=== PATIENT | female | born 1950 | race Caucasian/White ===

== ENCOUNTER 2016-11-02 17:14 | Emergency (ER) | payer OTHER ==
[~2016-11-02] VITALS: Ht 153.7 cm; Wt 119.3 kg
[~2016-11-02 17:14] MED LIST: AMLO-114 PO; ASPEC325 PO; ATEN50TA8 PO; BND25X PO; CGN1 PO; CITA-112 PO; HYD50 PO; LISI-461 PO; NAVANE PO; OMEG10007 PO; POTAPOW29 PO; SIMV80TA2 PO; [UNRECOGNIZED DRUG - OTHER] PO
[2016-11-02 17:17] VITALS: TEMP 36.6; Ht 153.7 cm; Wt 119.3 kg
--- NOTE | 2016-11-02 17:37 | EMERGENCY ROOM VISIT NOTE ---
History Report prepared by Josefa: Alexa Canchola Under the Supervision of: Dr. Bravo Coulter M.D. First contact with patient: 17:22 Chief Complaint: MENTAL HEALTH EVALUATION Stated Complaint: MENTAL HEALTH EVAL History of Present Illness The patient is a 66 year old female who presents to the Emergency Room with complaints of persistent suicidal ideations that started [employer]. The patient states that she became upset about a letter that her neighbor wrote to her today. She notes that this letter made her "useless." The patient has a history of mental health hospital admissions. She was sent to the ED today by her psychiatrist. The patient is currently prescribed Lisinopril for hypertension. She denies drug or alcohol use. 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 Please see Additional Medical History Sheet. Past Medical & Surgical Medical Problems: (1) COPD (chronic obstructive pulmonary disease) (2) Hypertension Family History FH: hypertension Social History Smoking Status: Current Every Day Smoker Alcohol Use: none Drug Use: none Marital Status: single Current/Historical Medications Scheduled , 600 MG PO DAILY , 5 MG PO HS Amlodipine (Norvasc), 10 MG PO DAILY Aspirin (Aspirin *), 325 MG PO DAILY Citalopram (Citalopram), 40 MG PO HS Fish Oil (Butler-3), 1 GM PO DAILY Hydrochlorothiazide (Hctz *), 25 MG PO DAILY Lisinopril (Zestril), 20 MG PO DAILY Simvastatin (Zocor), 80 MG PO HS [Potassium Gluconate], 1 TAB PO DAILY Allergies Coded Allergies: No Known Allergies (Verified , 11/02/16) Physical Exam Vital Signs Date Time Temp Pulse Resp B/P Pulse Ox O2 Delivery O2 Flow Rate FiO2 11/02/16 22:57 82 94 Room Air 11/02/16 20:51 89 18 151/79 92 Room Air 11/02/16 19:13 79 18 162/77 94 Room Air 11/02/16 18:03 88 20 170/87 94 Room Air 11/02/16 17:17 36.6 85 20 219/102 93 Room Air Physical Exam GENERAL: Patient awake, alert. despondent. SKIN: No erythema, pallor, cyanosis or rash HEENT: Normal head, pupils equal, reactive to light and accommodation. LUNGS: Clear to auscultation. No wheezes, no rales, no rhonchi. HEART: No murmurs. No gallops. No rubs ABDOMEN: Obese, soft, nontender. EXTREMITIES: No signs of trauma or infection. NEUROLOGIC: Cranial nerves II-XII within normal limits. No gross motor sensory function deficits. PSYCH: Despondent, stated suicidal ideation. Medical Decision & Procedures ER Provider Diagnostic Interpretation: X ray results are stated below per my interpretation and the radiologist's interpretation. CHEST 2 VIEWS ROUTINE CLINICAL HISTORY: COPD dyspnea COMPARISON STUDY: No previous studies for comparison. FINDINGS: The bones soft tissues and hemidiaphragms are normal. The cardiomediastinal silhouette is normal. The lungs are clear. The pulmonary vasculature is normal. IMPRESSION: Negative chest. Electronically signed by: Laurent Selby M.D. 11/02/2016 7:12 PM Dictated Date/Time: 11/02/2016 7:11 PM Laboratory Results 11/02/16 18:01 11/02/16 18:01 Test 11/02/16 18:01 11/02/16 18:47 Red Blood Count 4.70 M/uL (4.2-5.4) Mean Corpuscular Volume 89.4 fL (80-100) Mean Corpuscular Hemoglobin 31.9 pg (25-34) Mean Corpuscular Hemoglobin Concent 35.7 g/dl (32-36) RDW Standard Deviation 44.4 fL (36.4-46.3) RDW Coefficient of Variation 13.4 % (11.5-14.5) Mean Platelet Volume 9.2 fL (7.4-10.4) Anion Gap 6.0 mmol/L (3-11) Est Creatinine Clear Calc Drug Dose 123.5 ml/min Estimated GFR () 114.9 Estimated GFR (Non- 99.1 BUN/Creatinine Ratio 16.1 (10-20) Calcium Level 8.9 mg/dl (8.5-10.1) Total Bilirubin 0.6 mg/dl (0.2-1) Aspartate Amino Transf (AST/SGOT) 32 U/L (15-37) Alanine Aminotransferase (ALT/SGPT) 31 U/L (12-78) Alkaline Phosphatase 89 U/L (45-117) Troponin I < 0.015 ng/ml (0-0.045) Total Protein 7.3 gm/dl (6.4-8.2) Albumin 3.8 gm/dl (3.4-5.0) Globulin 3.5 gm/dl (2.5-4.0) Albumin/Globulin Ratio 1.1 (0.9-2) Thyroid Stimulating Hormone (TSH) 4.680 uIu/ml (0.300-4.500) Free Thyroxine 1.02 ng/dl (0.80-1.60) Ethyl Alcohol mg/dL < 3.0 mg/dl (0-3) Urine Color YELLOW Urine Appearance CLEAR (CLEAR) Urine pH 6.5 (4.5-7.5) Urine Specific [place] 1.009 (1.000-1.030) Urine Protein NEG (NEG) Urine Glucose (UA) NEG (NEG) Urine Ketones NEG (NEG) Urine Occult Blood NEG (NEG) Urine Nitrite NEG (NEG) Urine Bilirubin NEG (NEG) Urine Urobilinogen NEG (NEG) Urine Leukocyte Esterase NEG (NEG) Urine Opiates Screen NEG (NEG) Urine Methadone, Qualitative NEG (NEG) Urine Barbiturates NEG (NEG) Urine Phencyclidine (PCP) Level NEG (NEG) Ur Amphetamine/Methamphetamine NEG (NEG) MDMA (Ecstasy) Screen NEG (NEG) Urine Benzodiazepines Screen NEG (NEG) Urine Cocaine Metabolite NEG (NEG) Urine Marijuana (THC) NEG (NEG) Laboratory results as stated above per my review. ECG Indication: other (Hypertension ) Rate (beats per minute): 79 Rhythm: normal sinus Findings: LBBB, no acute ischemic change, left axis deviation, no ectopy ED Course 1725: Past medical records reviewed. The patient was evaluated in room A12. A complete history and physical examination was performed. 1940: The patient will be evaluated by psychiatric department. 0005: We are awaiting acceptance from the [facility]. Medical Decision Nurses notes reviewed. Medical history sheet reviewed. Differential diagnosis includes but is not limited to: Depression, suicidality, COPD. Multiple labs, urinalysis EKG were evaluated. Please see above. TSH is elevated. T4 is within normal range. The patient may be borderline hypothyroid. In the meantime the patient is significantly depressed and paranoid. I believe that she would benefit from inpatient psychiatric evaluation and treatment. The patient is awaiting acceptance and transfer to a psychiatric facility. Impression Primary Impression: Depression Additional Impression: Suicidal ideation Scribe Attestation The scribe's documentation has been prepared under my direction and personally reviewed by me in its entirety. I confirm that the note above accurately reflects all work, treatment, procedures, and medical decision making performed by me. Departure Information Referrals No Doctor, Assigned (PCP) Patient Instructions My [facility] Problem Qualifiers
[2016-11-02 18:16] LABS: MEAN CELL VOLUME 89.4 fL (80-100); MEAN CORPUSCULAR HEMOGLOBIN 31.9 pg (25-34); MEAN CORPUSCULAR HGB CONC 35.7 g/dl (32-36); MEAN PLATELET VOLUME 9.2 fL (7.4-10.4); PLATELET COUNT 284 K/uL (130-400)
[2016-11-02 18:34] LABS: ALT/SGPT 31 U/L (12-78); AST/SGOT 32 U/L (15-37); BLOOD UREA NITROGEN 9 mg/dl (7-18); BUN/CREATININE RATIO 16.1 (10-20); CALCIUM 8.9 mg/dl (8.5-10.1); CARBON DIOXIDE 29 mmol/L (21-32); CHLORIDE 98 mmol/L (98-107); CREATININE 0.55 mg/dl (0.60-1.20); GLUCOSE 96 mg/dl (70-99); POTASSIUM 3.8 mmol/L (3.5-5.1); SODIUM 133 mmol/L (136-145)
[2016-11-02 18:44] LABS: ALB/GLOB RATIO 1.1 (0.9-2); ALKALINE PHOSPHATASE 89 U/L (45-117)
--- NOTE | 2016-11-02 19:13 | DIAGNOSTIC IMAGING REPORT ---
CHEST 2 VIEWS ROUTINE CLINICAL HISTORY: COPD dyspnea COMPARISON STUDY: No previous studies for comparison. FINDINGS: The bones soft tissues and hemidiaphragms are normal. The cardiomediastinal silhouette is normal. The lungs are clear. The pulmonary vasculature is normal. IMPRESSION: Negative chest. Electronically signed by: Laurent Selby M.D. 11/02/2016 7:12 PM Dictated Date/Time: 11/02/2016 7:11 PM
[2016-11-02 19:20] LABS: URINE APPEARANCE CLEAR (CLEAR); URINE BILIRUBIN NEG (NEG); URINE COLOR YELLOW; URINE NITRITE NEG (NEG); URINE PH 6.5 (4.5-7.5); URINE SPECIFIC GRAVITY 1.009 (1.000-1.030); UROBILINOGEN NEG (NEG); ZZUR CULT IF INDIC CLEAN CATCH NO
[2016-11-02 19:36] LABS: MANUAL MICROSCOPIC REQUIRED? NO; REVIEW REQ? NO
[2016-11-02 20:06] LABS: BENZODIAZEPINE, URINE NEG (NEG); COCAINE,URINE NEG (NEG); PHENCYCLIDINE, URINE NEG (NEG)
[2016-11-03] MEDS ORDERED: HYDROCHLOROTHIAZIDE 25 MG TAB PO STA (06:15)
[2016-11-03] MEDS ORDERED: LISINOPRIL 20 MG TAB PO STA (06:15)
[2016-11-03] MEDS ORDERED: ASPIRIN/ALUM/MAGNES/CAL CARB 325 MG TAB PO STA (06:15)
[2016-11-03] MEDS ORDERED: AMLODIPINE BESYLATE 5 MG TAB PO ONE (06:15)
--- NOTE | 2016-11-03 06:18 | EMERGENCY ROOM VISIT NOTE ---
ED Visit Note First contact with patient: 02:58 This patient was signed out to me at change of shift awaiting transport to the [facility]. The patient remained here in the emergency department overnight. She was given her morning medications-Norvasc, aspirin, hydrochlorothiazide, and lisinopril. She will eat breakfast and then be transported to the [facility] around 9 AM.
[2016-11-03 09:35] VITALS: BP 137/83; PULSE 96; O2SAT 96
== END 2016-11-03 09:39 ==
LOC: C.EDB 17:16 → C.EDA 11-03 09:39
DX: F32.9 Major depressive disorder, single episode, unspecified (principal); R45.851 Suicidal ideations; I10 Essential (primary) hypertension; Z79.899 Other long term (current) drug therapy; J44.9 Chronic obstructive pulmonary disease, unspecified; Z82.49 Family history of ischemic heart disease and other diseases of the circulatory system; F17.210 Nicotine dependence, cigarettes, uncomplicated; Z79.82 Long term (current) use of aspirin

== ENCOUNTER 2019-04-26 16:30 | Inpatient (IN) ==
[2019-04-26] MEDS ORDERED: SODIUM CHLORIDE 0.9% 500 ML IV SCH (17:00)
--- NOTE | 2019-04-26 17:13 | XRay Report ---
XR chest 1V portable CLINICAL HISTORY: weakness COMPARISON STUDY: Chest radiograph November 02, 2016. FINDINGS: The patient is rotated. Lung volumes are diminished. Right basilar opacity is present. Mild enlargement of the cardiac silhouette is accentuated on this AP exam. There is interstitial prominen ce without overt pulmonary edema. IMPRESSION: 1. Low lung volumes with right basilar opacity. This favors atelectasis however pneumonia could appea r similar. Follow-up PA and lateral chest radiographs in one month to ensure resolution are recommend ed. 2. Suspected mild cardiomegaly. No evidence for overt pulmonary edema. Electronically signed by: Scott Brown M.D. 04/26/2019 5:12 PM
[2019-04-26 17:20] LABS: Basophils # (auto) 0.01 K/uL (0-0.2); Basophils % (auto) 0.1 %; Eosinophils # (auto) 0.25 K/uL (0-0.5); Hematocrit (blood only) 51.6 % (37-47); Hemoglobin 16.9 g/dL (12.0-16.0); Immature Granulocytes # (auto) 0.05 K/uL (0.00-0.02); Immature Granulocytes % (auto) 0.4 %; Lymphocytes # (auto) 0.98 K/uL (1.2-3.4); Mean Corpuscular Hemoglobin 32.4 pg (25-34); Mean Corpuscular Hgb Conc 32.8 g/dL (32-36); Mean Corpuscular Volume 98.9 fL (80-100); Mean Platelet Volume 9.6 fL (7.4-10.4); Monocytes # (auto) 0.88 K/uL (0.11-0.59); Monocytes % (auto) 7.2 %; Neutrophils # (auto) 10.03 K/uL (1.4-6.5); Neutrophils % (auto) 82.3 %; Platelet Count 195 K/uL (130-400); RDW Coefficient of Variation 16.2 % (11.5-14.5); RDW Standard Deviation 58.7 fL (36.4-46.3); Red Blood Count 5.22 M/uL (4.2-5.4)
[2019-04-26 17:26] LABS: Base Excess ABG 7.1 mEq/L (-9-1.8); HCO3 ABG 35 mmol/L (19-24); Oxygen Saturation ABG 92.2 % (90-95); PCO2 ABG 65 mmHg (35-46); PO2 ABG 63 mm/Hg (80-95); pH ABG 7.36 (7.35-7.45)
[2019-04-26 17:27] LABS: Allen Test Pos (Pos)
[2019-04-26 17:29] LABS: INR 1.1 (0.9-1.1); Prothrombin Time 11.1 Seconds (9.0-12.0)
[2019-04-26 17:39] LABS: BUN Creatinine Ratio 9.4 (10-20); Calcium 9.5 mg/dl (8.5-10.1); Creatinine Clr Calc Pharmacy 25.5 ml/min; Est GFR (African American) 21.3; Est GFR (Non-African American) 18.4; Magnesium 2.1 mg/dl (1.8-2.4); Potassium 3.8 mmol/L (3.5-5.1)
[2019-04-26 17:41] LABS: Appearance Urine Cloudy (Clear); Bacteria Urine Automated Negative (Negative); Bilirubin Urine Negative (Negative); Blood Urine Negative (Negative); Color Urine Dark Yellow; Epithelial Cell Urine Auto >30 /lpf (0-5); Glucose Urine UA Negative (Negative); Ketones Urine Trace (Negative); Leukocyte Esterase Urine Negative (Negative); Nitrite Urine Negative (Negative); Protein Urine 1+ (Negative); Urobilinogen Urine Negative (Negative)
[2019-04-26 17:46] LABS: Cast Urine Automated >30 /lpf (0-5)
[2019-04-26 17:51] LABS: Albumin Globulin Ratio 1.1 (0.9-2); Bilirubin,Total 0.6 mg/dl (0.2-1); Globulin 3.5 gm/dl (2.5-4.0); Thyroid Stimulating Hormone 3.44 uIu/ml (0.300-4.500); Total Protein 7.5 gm/dl (6.4-8.2); Troponin I 0.066 ng/ml (0-0.045)
[2019-04-26] MEDS ORDERED: PIPERACILL/TAZOBAC CONSULT ACTIVE PRN ×2 (18:28→20:32)
[2019-04-26] MEDS ORDERED: PIPERACILLIN/TAZOBACTAM 4.5 GM/120 ML BAG IV ONE (18:28)
--- NOTE | 2019-04-26 18:47 | Emergency Department Note ---
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 The patient states that her family called EMS because they were concerned that she needs to go to a mcc. She reports that her family found her in her residence home with slurred speech. The patient denies any pain and states that she is unsure why she is here. Home Medications Home Medications Medication Instructions Recorded Confirmed Type diltiazem HCl 300 mg PO DAILY 08/31/18 04/26/19 History fluticasone propion-salmeterol 1 puff INHALATION BID 08/31/18 04/26/19 History [Advair Diskus] furosemide 40 mg PO BID 08/31/18 04/26/19 History gabapentin 100 mg PO TID 08/31/18 04/26/19 History lisinopril 1 tab PO QAM 08/31/18 04/26/19 History loratadine 10 tab PO QAM 08/31/18 04/26/19 History meloxicam 15 mg PO QAM 08/31/18 04/26/19 History metoprolol tartrate 50 mg PO QAM 08/31/18 04/26/19 History risperidone 1 mg PO QAM 08/31/18 04/26/19 History sertraline 100 mg PO QAM 08/31/18 04/26/19 History ascorbic acid (vitamin C) [Vitamin 1 g PO DAILY 04/26/19 04/26/19 History C] aspirin 325 mg PO DAILY 04/26/19 04/26/19 History atorvastatin 40 mg PO HS 04/26/19 04/26/19 History qpeponubwvp-jmcwvlmre-eunhbopj 1 inh INHALATION QAM 04/26/19 04/26/19 History [Trelegy Ellipta] hydroxyzine pamoate 25 mg PO QID PRN 04/26/19 04/26/19 History ipratropium-albuterol 3 ml INHALATION QID PRN 04/26/19 04/26/19 History levothyroxine 75 mcg PO QAM 04/26/19 04/26/19 History lithium carbonate 300 mg PO TID 04/26/19 04/26/19 History melatonin 2 mg PO HS 04/26/19 04/26/19 History nicotine 1 patch TRANSDERMAL DAILY 04/26/19 04/26/19 History prazosin 1 mg PO HS 04/26/19 04/26/19 History risperidone 2 mg PO HS 04/26/19 04/26/19 History Allergies Allergy/AdvReac Type Severity Reaction Status Date / Time No Known Allergies Allergy Verified 04/26/19 17:15 Past Med/Surg History Medical History Hallucinations Schizophrenia Social History Preferred Language: Persian Feels Safe at Home: Yes Smoking Status: Current every day smoker Review of Systems See HPI for pertinent positives & negatives. and A total of 10 systems reviewed and were otherwise negative Physical Exam Vital Signs Vital Signs - 24 hr 04/26/19 16:24 04/26/19 16:38 04/26/19 16:41 Temperature Temperature Source Sepsis Recent Fever Within 48 Hours Sepsis New/Unexplained Change in Mental Status Sepsis Action Taken by Nursing Pulse Rate 106 H 165 H Pulse Rate from SpO2 Sensor 80 79 Pulse Rhythm Pulse Strength Respiratory Rate 18 20 Respiratory Effort / Characteristics Respiratory Depth Respiratory Pattern Blood Pressure 143/107 H Blood Pressure Mean 119 Blood Pressure Position Pulse Oximetry 95 85 L 89 L Oxygen Delivery Method Oxymask Oxygen Flow Rate 6 04/26/19 16:47 04/26/19 16:49 04/26/19 16:50 Temperature 37.1 C Temperature Source Oral Sepsis Recent Fever Within 48 Hours No Sepsis New/Unexplained Change in Mental Status Yes Sepsis Action Taken by Nursing No Action Required Pulse Rate 76 155 H Pulse Rate from SpO2 Sensor 77 Pulse Rhythm Regular Pulse Strength Normal Respiratory Rate 28 H 18 Respiratory Effort / Characteristics Non-Labored Spontaneous Respiratory Depth Normal Respiratory Pattern Regular Blood Pressure 143/107 H Blood Pressure Mean 119 Blood Pressure Position Sitting Pulse Oximetry 95 81 L 97 Oxygen Delivery Method Oxymask Room Air Oxygen Flow Rate 6 04/26/19 17:00 04/26/19 17:10 04/26/19 17:20 Temperature Temperature Source Sepsis Recent Fever Within 48 Hours Sepsis New/Unexplained Change in Mental Status Sepsis Action Taken by Nursing Pulse Rate 158 H 83 78 Pulse Rate from SpO2 Sensor 77 78 Pulse Rhythm Pulse Strength Respiratory Rate 18 18 23 Respiratory Effort / Characteristics Respiratory Depth Respiratory Pattern Blood Pressure Blood Pressure Mean Blood Pressure Position Pulse Oximetry 93 Oxygen Delivery Method Oxygen Flow Rate 04/26/19 17:25 04/26/19 17:30 04/26/19 17:40 Temperature Temperature Source Sepsis Recent Fever Within 48 Hours Sepsis New/Unexplained Change in Mental Status Sepsis Action Taken by Nursing Pulse Rate 76 77 75 Pulse Rate from SpO2 Sensor 75 76 Pulse Rhythm Pulse Strength Respiratory Rate 17 16 Respiratory Effort / Characteristics Respiratory Depth Respiratory Pattern Blood Pressure 141/75 H 138/83 Blood Pressure Mean 97 101 Blood Pressure Position Pulse Oximetry 98 95 Oxygen Delivery Method Nasal Cannula Oxygen Flow Rate 4 04/26/19 17:50 04/26/19 18:00 Temperature Temperature Source Sepsis Recent Fever Within 48 Hours Sepsis New/Unexplained Change in Mental Status Sepsis Action Taken by Nursing Pulse Rate 77 77 Pulse Rate from SpO2 Sensor 77 77 Pulse Rhythm Pulse Strength Respiratory Rate 15 19 Respiratory Effort / Characteristics Respiratory Depth Respiratory Pattern Blood Pressure 138/87 Blood Pressure Mean 104 Blood Pressure Position Pulse Oximetry 97 97 Oxygen Delivery Method Oxygen Flow Rate CONSTITUTIONAL/VITAL SIGNS: Reviewed / noted above. GENERAL: Slurring speech. Generalized weakness. Non-toxic in appearance. INTEGUMENTARY: Warm, dry, and [place]. HEAD: Normocephalic. EYES: without scleral icterus or trauma. ENT/OROPHARYNX: clear and dry mucus membranes. LYMPHADENOPATHY/NECK: Is supple without lymphadenopathy or meningismus. RESPIRATORY: Lungs clear and equal. CARDIOVASCULAR: Regular rate and rhythm. GI/ABDOMEN: Soft and nontender. No organomegaly or pulsatile mass. No rebound or guarding. Normal bowel sounds. EXTREMITIES: Warm and well perfused. BACK: No CVA tenderness. NEUROLOGICAL: Intact without focal deficits. PSYCHIATRIC: normal affect. MUSCULOSKELETAL: Normally developed with good muscle tone. Course 1642: The patient was evaluated in room B6, and a complete history and physical examination were performed. 1833: I reviewed the patient's case with Jenny Fung. Dr. Omero Fung Hospitalist, will evaluate the patient for further management. Administered Medications Piperacillin Sod/Tazobactam Sod (Zosyn) 4.5 gm in 120 mls @ 240 mls/hr IV NOW ONE Stop: 04/26/19 18:57 Last Admin: 04/26/19 18:37 Dose: 240 mls/hr Documented by: [id number] Discontinued Medications Sodium Chloride (Nss) 500 mls @ 999 mls/hr IV .Q31M SAMUEL Stop: 04/26/19 17:30 Last Infusion: 04/26/19 18:01 Dose: 0 mls/hr Documented by: [id number] Admin: 04/26/19 17:28 Dose: 999 mls/hr Documented by: [id number] Medical Decision Making Differential Diagnosis Differential diagnosis: Etiologies such as metabolic, infection, hypoglycemia, electrolyte abnormalities, cardiac sources, intracerebral event, toxicologic, neurologic, as well as others were entertained. Medical Records Attestation: I reviewed the patient's medical records. Home Medications Current Medication List: was personally reviewed by me Laboratory Data Attestation: I reviewed the patient's lab results. Result diagrams: 04/26/19 17:08 04/26/19 17:08 Lab Results 04/26/19 04/26/19 04/26/19 Range/Units 17:08 17:08 17:08 WBC 12.20 H (4.8-10.8) K/uL RBC 5.22 (4.2-5.4) M/uL Hgb 16.9 H (12.0-16.0) g/dL Hct 51.6 H (37-47) % MCV 98.9 (80-100) fL MCH 32.4 (25-34) pg MCHC 32.8 (32-36) g/dL RDW Std Deviation 58.7 H (36.4-46.3) fL RDW Coeff of [place] 16.2 H (11.5-14.5) % Plt Count 195 (130-400) K/uL MPV 9.6 (7.4-10.4) fL Immature Gran % (Auto) 0.4 % Neut % (Auto) 82.3 % Lymph % (Auto) 8.0 % [place] % (Auto) 7.2 % Eos % (Auto) 2.0 % Baso % (Auto) 0.1 % Immature Gran # (Auto) 0.05 H (0.00-0.02) K/uL Neut # (Auto) 10.03 H (1.4-6.5) K/uL Lymph # (Auto) 0.98 L (1.2-3.4) K/uL [place] # (Auto) 0.88 H (0.11-0.59) K/uL Eos # (Auto) 0.25 (0-0.5) K/uL Baso # (Auto) 0.01 (0-0.2) K/uL PT 11.1 (9.0-12.0) Seconds INR 1.1 (0.9-1.1) ABG pH (7.35-7.45) ABG pCO2 (35-46) mmHg ABG pO2 (80-95) mm/Hg ABG HCO3 (19-24) mmol/L ABG O2 Saturation (90-95) % ABG Base Excess (-9-1.8) mEq/L Parker Test (Pos) Barometric Pressure mm/Hg Oxygen Given Sodium (136-145) mmol/L Potassium (3.5-5.1) mmol/L Chloride (98-107) mmol/L Carbon Dioxide (21-32) mmol/L Anion Gap (3-11) BUN (7-18) mg/dl Creatinine (0.6-1.2) mg/dl Est Cr Clr Drug Dosing ml/min Est GFR ( Amer) Est GFR (Non-Af Amer) BUN/Creatinine Ratio (10-20) Glucose (70-99) mg/dl Calcium (8.5-10.1) mg/dl Magnesium (1.8-2.4) mg/dl Total Bilirubin (0.2-1) mg/dl AST (15-37) U/L ALT (12-78) U/L Alkaline Phosphatase (45-117) U/L Ammonia (11-32) umol/L Total Creatine Kinase (26-192) U/L Troponin I (0-0.045) ng/ml Total Protein (6.4-8.2) gm/dl Albumin (3.4-5.0) gm/dl Globulin (2.5-4.0) gm/dl Albumin/Globulin Ratio (0.9-2) TSH (0.300-4.500) uIu/ml Urine Color Urine Appearance (Clear) Urine pH (4.5-7.5) Ur Specific [place] (1.000-1.030) Urine Protein (Negative) Urine Glucose (UA) (Negative) Urine Ketones (Negative) Urine Blood (Negative) Urine Nitrite (Negative) Urine Bilirubin (Negative) Urine Urobilinogen (Negative) Ur Leukocyte Esterase (Negative) Urine WBC (Auto) (0-5) /hpf Urine RBC (Auto) (0-4) /hpf U Hyaline Cast (Auto) (0-5) /lpf U Epithel Cells (Auto) (0-5) /lpf Urine Bacteria (Auto) (Negative) Ur Renal Epithelial Cell [place] 2.0 H* (0.6-1.2) mmol/L 04/26/19 04/26/19 04/26/19 Range/Units 17:08 17:08 17:14 WBC (4.8-10.8) K/uL RBC (4.2-5.4) M/uL Hgb (12.0-16.0) g/dL Hct (37-47) % MCV (80-100) fL MCH (25-34) pg MCHC (32-36) g/dL RDW Std Deviation (36.4-46.3) fL RDW Coeff of Connor (11.5-14.5) % Plt Count (130-400) K/uL MPV (7.4-10.4) fL Immature Gran % (Auto) % Neut % (Auto) % Lymph % (Auto) % [place] % (Auto) % Eos % (Auto) % Baso % (Auto) % Immature Gran # (Auto) (0.00-0.02) K/uL Neut # (Auto) (1.4-6.5) K/uL Lymph # (Auto) (1.2-3.4) K/uL [place] # (Auto) (0.11-0.59) K/uL Eos # (Auto) (0-0.5) K/uL Baso # (Auto) (0-0.2) K/uL PT (9.0-12.0) Seconds INR (0.9-1.1) ABG pH 7.36 (7.35-7.45) ABG pCO2 65 H (35-46) mmHg ABG pO2 63 L (80-95) mm/Hg ABG HCO3 35 H (19-24) mmol/L ABG O2 Saturation 92.2 (90-95) % ABG Base Excess 7.1 H (-9-1.8) mEq/L Parker Test Pos (Pos) Barometric Pressure 735.3 mm/Hg Oxygen Given 6L Sodium 134 L (136-145) mmol/L Potassium 3.8 (3.5-5.1) mmol/L Chloride 94 L (98-107) mmol/L Carbon Dioxide 38 H (21-32) mmol/L Anion Gap 1.0 L (3-11) BUN 25 H (7-18) mg/dl Creatinine 2.61 H (0.6-1.2) mg/dl Est Cr Clr Drug Dosing 25.5 ml/min Est GFR ( Amer) 21.3 Est GFR (Non-Af Amer) 18.4 BUN/Creatinine Ratio 9.4 L (10-20) Glucose 99 (70-99) mg/dl Calcium 9.5 (8.5-10.1) mg/dl Magnesium 2.1 (1.8-2.4) mg/dl Total Bilirubin 0.6 (0.2-1) mg/dl AST 11 L (15-37) U/L ALT 18 (12-78) U/L Alkaline Phosphatase 79 (45-117) U/L Ammonia 15.1 (11-32) umol/L Total Creatine Kinase 36 (26-192) U/L Troponin I 0.066 H* (0-0.045) ng/ml Total Protein 7.5 (6.4-8.2) gm/dl Albumin 4.0 (3.4-5.0) gm/dl Globulin 3.5 (2.5-4.0) gm/dl Albumin/Globulin Ratio 1.1 (0.9-2) TSH 3.440 (0.300-4.500) uIu/ml Urine Color Urine Appearance (Clear) Urine pH (4.5-7.5) Ur Specific [place] (1.000-1.030) Urine Protein (Negative) Urine Glucose (UA) (Negative) Urine Ketones (Negative) Urine Blood (Negative) Urine Nitrite (Negative) Urine Bilirubin (Negative) Urine Urobilinogen (Negative) Ur Leukocyte Esterase (Negative) Urine WBC (Auto) (0-5) /hpf Urine RBC (Auto) (0-4) /hpf U Hyaline Cast (Auto) (0-5) /lpf U Epithel Cells (Auto) (0-5) /lpf Urine Bacteria (Auto) (Negative) Ur Renal Epithelial Cell [place] (0.6-1.2) mmol/L 04/26/19 Range/Units 17:20 WBC (4.8-10.8) K/uL RBC (4.2-5.4) M/uL Hgb (12.0-16.0) g/dL Hct (37-47) % MCV (80-100) fL MCH (25-34) pg MCHC (32-36) g/dL RDW Std Deviation (36.4-46.3) fL RDW Coeff of [place] (11.5-14.5) % Plt Count (130-400) K/uL MPV (7.4-10.4) fL Immature Gran % (Auto) % Neut % (Auto) % Lymph % (Auto) % [place] % (Auto) % Eos % (Auto) % Baso % (Auto) % Immature Gran # (Auto) (0.00-0.02) K/uL Neut # (Auto) (1.4-6.5) K/uL Lymph # (Auto) (1.2-3.4) K/uL [place] # (Auto) (0.11-0.59) K/uL Eos # (Auto) (0-0.5) K/uL Baso # (Auto) (0-0.2) K/uL PT (9.0-12.0) Seconds INR (0.9-1.1) ABG pH (7.35-7.45) ABG pCO2 (35-46) mmHg ABG pO2 (80-95) mm/Hg ABG HCO3 (19-24) mmol/L ABG O2 Saturation (90-95) % ABG Base Excess (-9-1.8) mEq/L Parker Test (Pos) Barometric Pressure mm/Hg Oxygen Given Sodium (136-145) mmol/L Potassium (3.5-5.1) mmol/L Chloride (98-107) mmol/L Carbon Dioxide (21-32) mmol/L Anion Gap (3-11) BUN (7-18) mg/dl Creatinine (0.6-1.2) mg/dl Est Cr Clr Drug Dosing ml/min Est GFR ( Amer) Est GFR (Non-Af Amer) BUN/Creatinine Ratio (10-20) Glucose (70-99) mg/dl Calcium (8.5-10.1) mg/dl Magnesium (1.8-2.4) mg/dl Total Bilirubin (0.2-1) mg/dl AST (15-37) U/L ALT (12-78) U/L Alkaline Phosphatase (45-117) U/L Ammonia (11-32) umol/L Total Creatine Kinase (26-192) U/L Troponin I (0-0.045) ng/ml Total Protein (6.4-8.2) gm/dl Albumin (3.4-5.0) gm/dl Globulin (2.5-4.0) gm/dl Albumin/Globulin Ratio (0.9-2) TSH (0.300-4.500) uIu/ml Urine Color Dark Yellow Urine Appearance Cloudy A (Clear) Urine pH 5.0 (4.5-7.5) Ur Specific [place] 1.020 (1.000-1.030) Urine Protein 1+ H (Negative) Urine Glucose (UA) Negative (Negative) Urine Ketones Trace H (Negative) Urine Blood Negative (Negative) Urine Nitrite Negative (Negative) Urine Bilirubin Negative (Negative) Urine Urobilinogen Negative (Negative) Ur Leukocyte Esterase Negative (Negative) Urine WBC (Auto) 1-5 (0-5) /hpf Urine RBC (Auto) 5-10 H (0-4) /hpf U Hyaline Cast (Auto) >30 H (0-5) /lpf U Epithel Cells (Auto) >30 H (0-5) /lpf Urine Bacteria (Auto) Negative (Negative) Ur Renal Epithelial Cell Not Reportable [place] (0.6-1.2) mmol/L Imaging Data Radiologist's Impression: Radiology results as stated below per my review and the radiologist's interpretation: XR chest 1V portable CLINICAL HISTORY: weakness COMPARISON STUDY: Chest radiograph November 02, 2016. FINDINGS: The patient is rotated. Lung volumes are diminished. Right basilar opacity is present. Mild enlargement of the cardiac silhouette is accentuated on this AP exam. There is interstitial prominence without overt pulmonary edema. IMPRESSION: 1. Low lung volumes with right basilar opacity. This favors atelectasis however pneumonia could appear similar. Follow-up PA and lateral chest radiographs in one month to ensure resolution are recommended. 2. Suspected mild cardiomegaly. No evidence for overt pulmonary edema. Electronically signed by: Scott Brown M.D. 04/26/2019 5:12 PM ECG Data Attestation: I personally reviewed and interpreted this ECG as follows: Indication: altered mental status Rate (beats per minute): 77 Rhythm: sinus rhythm Findings: + 1st degree AV block and + LBBB; no ectopy Blood Pressure Blood Pressure Findings: Elevated blood pressure Blood Pressure Disposition: further management by hospitalist POLI Moreno This is a 68-year-old female who presents to the ED with a chief complaint of slurred speech, change in mental status and weakness. The patient is a poor historian. Only details were obtained from the patient. No family came in with the patient during her ED stay. The patient on my exam is lethargic although she is able to be aroused and seems to answer questions appropriately. She seems to be very tired and weak. She denies any specific symptoms although does report that her family wants her to be in a mcc. She is resistant to this idea. The patient's physical exam reveals the lethargy. She was noted to be hypoxic on room air with oxygen saturations of 81%. She does have a history of COPD. EMS reports that that she is not chronically on oxygen. She does have lower extremity edema that appears chronic in nature. The patient's chest x-ray reveals a right base opacity that could be atelectasis or pneumonia. Her troponin is elevated at 0.066. An EKG shows a sinus rhythm with a left bundle branch block. No old EKG was available for comparison. She does not complain of any chest pains. Her elevated troponin could be related to her hypoxia. ABG reveals a PCO2 of 65. She had a normal pH and her PaO2 on 6 L was in the 60 range as well. She appears to be metabolically compensated for her respiratory acidosis. Her white blood cell count was 12. Her kidney function reveals an elevated creatinine of 2.6. This was normal earlier this year. [place] level was 2.0. This is also elevated and she is likely suffering some lithium toxicity. Urine did not show infection. The patient was treated with IV Zosyn. She was also given IV fluids. She will be seen by the hospitalist for further evaluation and care. Impression & Plan [place] toxicity, Pneumonia, Hypoxia, Elevated troponin, Acute renal failure (ARF) Critical Care Time Critical Care Time: Yes Total Critical Care Time: 35 I have personally spent 35 minutes of critical care time in the direct management of this patient. This includes bedside care, interpretation of diagnostic studies, and testing, discussion with consultants, patient, and family members, and other required patient management activities. This 35 minutes is in excess of all separately billable procedures. Discharge Plan Visit Data Chief Complaint: Altered Mental Status ED Provider: Albert Saini Discharge Problem: [place] toxicity, Pneumonia, Hypoxia, Elevated troponin, Acute renal failure (ARF) Patient Disposition: Being Evaluated by Hospitalist Forms Stand Alone Forms: My [facility] Prescriptions Prescriptions: No Action fluticasone propion-salmeterol [Advair Diskus] 250-50 mcg/dose blister with device 1 puff Inhalation BID RF: 0 diltiazem HCl 300 mg capsule,extended release 24hr 300 mg PO DAILY RF: 0 furosemide 40 mg tablet 40 mg PO BID RF: 0 gabapentin 100 mg capsule 100 mg PO TID RF: 0 lisinopril 10 mg tablet 1 tab PO QAM RF: 0 loratadine 10 mg tablet 10 tab PO QAM RF: 0 meloxicam 15 mg tablet 15 mg PO QAM RF: 0 metoprolol tartrate 50 mg tablet 50 mg PO QAM RF: 0 sertraline 100 mg tablet 100 mg PO QAM RF: 0 risperidone 1 mg Tablet 1 mg PO QAM RF: 0 atorvastatin 40 mg tablet 40 mg PO HS RF: 0 ascorbic acid (vitamin C) [Vitamin C] 1,000 mg Tablet 1 g PO DAILY RF: 0 nicotine 14 mg/24 hr Patch 24 Hour 1 patch TRANSDERMAL DAILY RF: 0 ipratropium-albuterol 0.5 mg-3 mg(2.5 mg base)/3 mL solution for nebulization 3 ml inhalation QID PRN (Reason: Shortness Of Breath) RF: 0 aspirin 325 mg Tablet 325 mg PO DAILY RF: 0 prazosin 1 mg capsule 1 mg PO HS RF: 0 levothyroxine 75 mcg tablet 75 mcg PO QAM RF: 0 risperidone 2 mg tablet 2 mg PO HS RF: 0 lithium carbonate 300 mg tablet 300 mg PO TID RF: 0 hydroxyzine pamoate 25 mg capsule 25 mg PO QID PRN (Reason: Anxiety) RF: 0 melatonin 1 mg Tablet 2 mg PO HS RF: 0 Trelegy Ellipta 100-62.5-25 mcg blister with device 1 inh inhalation QAM RF: 0 Referrals Referrals: Jazmyn Puga DO [Primary Care Provider] - Discharge Problem: [place] toxicity Qualifiers: Encounter type: initial encounter Injury intent: accidental or unintentional Qualified Code(s): T56.891A - Toxic effect of other metals, accidental (unintentional), initial encounter Pneumonia Qualifiers: Pneumonia type: due to unspecified organism Laterality: right Lung location: lower lobe of lung Qualified Code(s): J18.1 - Lobar pneumonia, unspecified organism Acute renal failure (ARF) Qualifiers: Acute renal failure type: unspecified Qualified Code(s): N17.9 - Acute kidney failure, unspecified The scribe's documentation has been prepared under my direction and personally reviewed by me in its entirety. I confirm that the note above accurately reflects all work, treatment, procedures, and medical decision making performed by me.
[2019-04-26] MEDS ORDERED: SODIUM CHLORIDE 0.9% 1000ML 500 ML IV ONE (18:48)
--- NOTE | 2019-04-26 19:23 | History & Physical Report ---
Date of Service 68 yo female c PMH of obesity, Hypothyroid, HLD, Schizophrenia, HTN, Bipolar disorder and COPD was brought in by EMS for AMS. She is confused and a very poor historian. She said she's depressed and her family wants nothing to do with her. She was found to have a pneumonia c [place], and she is hypercarbic. Her Li level is also elevated. PMH Obesity, COPD, Bipolar, Schizophrenia, HTN, Hypothyroid, HLD PSH Knee FH F of AMI, M of Anerysm Soc +Tobacco and Alcohol, and lives alone April 26, 2019 Assessment & Plan (1) Respiratory failure with hypoxia and hypercapnia: (2) Pneumonia: (3) Hypoxia: (4) [place] toxicity: (5) Acute renal failure (ARF): (6) COPD (chronic obstructive pulmonary disease): (7) Elevated troponin: (8) Obesity due to excess calories: (9) Hypertension: (10) Hypothyroid: (11) HLD (hyperlipidemia): (12) Bipolar 1 disorder: PT with acute hypoxic resp failure c Hypoxia and hypercapnia sec to pneumonia, [place], and Li toxicity Place on BIPAP, Tele, Hold Li, IVFs, Renal eval, Renal US, IV Zosyn. Continue home meds where appropriate. History of Present Illness Primary Care Provider: Jazmyn Puga DO Allergies Allergy/AdvReac Type Severity Reaction Status Date / Time No Known Allergies Allergy Verified 04/26/19 17:15 Home Medications Home Medications Medication Instructions Recorded Confirmed Type diltiazem HCl 300 mg PO DAILY 08/31/18 04/26/19 History fluticasone propion-salmeterol 1 puff INHALATION BID 08/31/18 04/26/19 History [Advair Diskus] furosemide 40 mg PO BID 08/31/18 04/26/19 History gabapentin 100 mg PO TID 08/31/18 04/26/19 History lisinopril 1 tab PO QAM 08/31/18 04/26/19 History loratadine 10 tab PO QAM 08/31/18 04/26/19 History meloxicam 15 mg PO QAM 08/31/18 04/26/19 History metoprolol tartrate 50 mg PO QAM 08/31/18 04/26/19 History risperidone 1 mg PO QAM 08/31/18 04/26/19 History sertraline 100 mg PO QAM 08/31/18 04/26/19 History ascorbic acid (vitamin C) [Vitamin 1 g PO DAILY 04/26/19 04/26/19 History C] aspirin 325 mg PO DAILY 04/26/19 04/26/19 History atorvastatin 40 mg PO HS 04/26/19 04/26/19 History pxnzgnnkjkx-wbutiwsmq-atnulhlh 1 inh INHALATION QAM 04/26/19 04/26/19 History [Trelegy Ellipta] hydroxyzine pamoate 25 mg PO QID PRN 04/26/19 04/26/19 History ipratropium-albuterol 3 ml INHALATION QID PRN 04/26/19 04/26/19 History levothyroxine 75 mcg PO QAM 04/26/19 04/26/19 History lithium carbonate 300 mg PO TID 04/26/19 04/26/19 History melatonin 2 mg PO HS 04/26/19 04/26/19 History nicotine 1 patch TRANSDERMAL DAILY 04/26/19 04/26/19 History prazosin 1 mg PO HS 04/26/19 04/26/19 History risperidone 2 mg PO HS 04/26/19 04/26/19 History Past Med/Surg History Medical History Hallucinations Schizophrenia Social History Preferred Language: Peruvian Feels Safe at Home: Yes Smoking Status: Current every day smoker Review of Systems Review of Systems: ROS-No Headache, No Visual Changes, No Nausea, No Vomiting, No Fever, No Chills, No Neck Pain or Stiffness, No Chest Pain, No Palpitations, No SOB, No CAO, No Cough, No Sputum, No Wheezing, No Abdominal Pain, No Diarrhea, No Hematemesis, No Hemoptysis, No Unexpected Weight Loss, No Flank pain, No Melena, No Hematochezia, No Frequency, No Urgency, No Burning, No Hematuria, No Rashes, No Diaphoresis. Appetite is Normal, c/o being depressed. Physical Exam Physical Exam: Physical Exam Gen-AAO x 2, NAD, Afebrile, Obese, confused, and groggy Head-NCAT, EOMI, PERRLA, Anicteric Sclera, No Posterior Pharyngeal Erythema Neck-Supple, No JVD, No Thyromegaly, No Masses, No LAD, No Bruits Lungs-Clear to Auscultation Bilaterally, No Rales, No Rhonchi, No Wheezing, No Crepitus Chest-No S4, +S1, +S2, No S3, No Murmurs, No Rubs, No Gallops, No Ectopy Abdomen-Soft, Obese, Bowel Sounds Present, Non Tender, Non Distended, No Hepatomegaly, No Splenomegaly, No Palpable Masses, No Rebound, No Rigidity, No Guarding Musculoskeletal-Full Range of Motion Bilaterally, No CVAT Extremities-No Cyanosis, No Clubbing, No Edema Nuero-Cranial Nerves II-XII grossly intact, Motor WNL, DTRs WNL, Strength WNL, Non Focal Psych-Confused, cooperative Results & Data Vital Signs (Past 12 Hours) Vital Signs Temp Pulse Resp BP Pulse Ox 04/26/19 18:50 80 17 94 04/26/19 18:40 78 21 96 04/26/19 18:30 80 18 147/97 H 98 04/26/19 18:20 87 18 96 04/26/19 18:10 136 H 16 98 04/26/19 18:00 77 19 138/87 97 04/26/19 17:50 77 15 97 04/26/19 17:40 75 95 04/26/19 17:30 77 16 138/83 04/26/19 17:25 76 17 141/75 H 98 04/26/19 17:20 78 23 93 04/26/19 17:10 83 18 04/26/19 17:00 158 H 18 04/26/19 16:50 155 H 18 97 04/26/19 16:49 37.1 C 76 28 H 143/107 H 81 L 04/26/19 16:47 95 04/26/19 16:41 165 H 20 89 L 04/26/19 16:38 106 H 18 143/107 H 85 L 04/26/19 16:24 95 Allergies No Known Allergies Allergy (Verified 04/26/19 17:15) Height/Weight/Isolation Height 5 ft Weight 122.3 kg Chemistry 04/26/19 17:08 Sodium 134 L Potassium 3.8 Chloride 94 L Carbon Dioxide 38 H Anion Gap 1.0 L BUN 25 H Creatinine 2.61 H Glucose 99 Urinalysis 04/26/19 17:20 Urine Color Dark Yellow Urine Appearance Cloudy A Urine pH 5.0 Ur Specific [place] 1.020 Urine Protein 1+ H Urine Glucose (UA) Negative Urine Ketones Trace H Urine Blood Negative Urine Nitrite Negative Urine Bilirubin Negative Microbiology 04/26/19 17:14 Blood Aerobic Blood Culture - Pending 04/26/19 17:14 Blood Anaerobic Blood Culture - Pending 04/26/19 17:08 Blood Aerobic Blood Culture - Pending 04/26/19 17:08 Blood Anaerobic Blood Culture - Pending Code Status & VTE Plan VTE Prophylaxis Plan VTE Prophylaxis will be ordered: Yes (1) [place] toxicity Encounter type: initial encounter Injury intent: accidental or unintentional Qualified Code(s): T56.891A - Toxic effect of other metals, accidental (unintentional), initial encounter (2) Acute renal failure (ARF) Acute renal failure type: unspecified Qualified Code(s): N17.9 - Acute kidney failure, unspecified (3) Pneumonia Laterality: right Lung location: lower lobe of lung Pneumonia type: due to unspecified organism Qualified Code(s): J18.1 - Lobar pneumonia, unspecified organism
[2019-04-26] MEDS ORDERED: ACETAMINOPHEN 325 MG TAB PO PRN (20:32)
[2019-04-26] MEDS ORDERED: SODIUM CHLORIDE 0.9% 1000ML 1,000 ML IV SCH (20:32)
[2019-04-26] MEDS ORDERED: POLYETHYLENE (MIRALAX) 17 GM PACK PO PRN (20:32)
[2019-04-26] MEDS ORDERED: ONDANSETRON INJ 2 MG/ML 2 ML VIAL IV PRN (20:32)
[2019-04-26] MEDS: ATORVASTATIN 40 MG TAB PO SCH (22:04)
[2019-04-26] MEDS: GABAPENTIN 100 MG CAP PO SCH (22:04)
[2019-04-26] MEDS: PRAZOSIN HCL 1 MG CAP PO SCH (22:04)
[2019-04-26] MEDS: risperiDONE 2 MG TABLET PO SCH (22:04)
[2019-04-26] MEDS: methylPREDNISolone 40 MG in SYRINGE 0 ML IV SCH (22:04)
[2019-04-26 23:45] LABS: Base Excess VBG 7.8 mEq/L; HCO3 VBG 38 mmol/L; PCO2 VBG 78 mmHg (38-50); PO2 VBG 30 mmHg
[2019-04-26 23:46] LABS: Oxygen Saturation VBG < 60.0 %
[2019-04-27] MEDS: PIPERACILLIN/TAZOBACTAM 4.5 GM in DEXTROSE 5% 100 ML IV SCH ×3 (00:39→15:32)
[2019-04-27] MEDS ORDERED: XOPENEX/ATROVENT 1.25mg/0.5MG NEB COMBO NEB SCH (01:00)
[2019-04-27] MEDS ORDERED: POTASSIUM CHLORIDE 20 MEQ TABCR PO ONE (01:15)
[2019-04-27] MEDS ORDERED: LACTATED RINGER'S 1,000 ML IV ONE (01:15)
[2019-04-27] MEDS ORDERED: MAGNESIUM SULFATE / D5W 1 GM/100 ML BAG IV ONE (01:15)
[2019-04-27] MEDS: IPRATROPIUM BROMIDE NEB SOLN 0.02% 2.5 ML VIAL INH SCH ×4 (01:22→19:02)
[2019-04-27] MEDS: LEVALBUTEROL 1.25MG/0.5ML NEB INH SCH ×4 (01:22→19:02)
[2019-04-27 01:31] LABS: Base Excess ABG 7.1 mEq/L (-9-1.8); HCO3 ABG 35 mmol/L (19-24); PCO2 ABG 64 mmHg (35-46); PO2 ABG 70 mm/Hg (80-95); pH ABG 7.36 (7.35-7.45)
[2019-04-27 01:32] LABS: Allen Test Pos (Pos)
[2019-04-27 04:36] LABS: Basophils # (auto) 0.01 K/uL (0-0.2); Basophils % (auto) 0.1 %; Eosinophils # (auto) 0.01 K/uL (0-0.5); Eosinophils % (auto) 0.1 %; Hemoglobin 16.2 g/dL (12.0-16.0); Immature Granulocytes # (auto) 0.01 K/uL (0.00-0.02); Immature Granulocytes % (auto) 0.1 %; Lymphocytes # (auto) 0.44 K/uL (1.2-3.4); Lymphocytes % (auto) 3.8 %; Mean Corpuscular Hemoglobin 32.4 pg (25-34); Mean Corpuscular Hgb Conc 33.8 g/dL (32-36); Mean Platelet Volume 9.1 fL (7.4-10.4); Monocytes # (auto) 0.15 K/uL (0.11-0.59); Monocytes % (auto) 1.3 %; Neutrophils # (auto) 11.11 K/uL (1.4-6.5); Neutrophils % (auto) 94.6 %; Platelet Count 197 K/uL (130-400); RDW Coefficient of Variation 15.5 % (11.5-14.5); RDW Standard Deviation 54.9 fL (36.4-46.3); White Blood Count 11.73 K/uL (4.8-10.8)
[2019-04-27 04:48] LABS: Partial Thromboplastin Time 25.8 Seconds (21.0-31.0)
[2019-04-27] MEDS: methylPREDNISolone 40 MG in SYRINGE 0 ML IV SCH ×3 (04:48→20:39)
[2019-04-27] MEDS: LEVOTHYROXINE SODIUM 75 MCG TABLET PO SCH (04:49)
[2019-04-27 05:01] LABS: Albumin Level 3.4 gm/dl (3.4-5.0); BUN Creatinine Ratio 13.1 (10-20); Calcium 8.9 mg/dl (8.5-10.1); Creatinine Clr Calc Pharmacy 39.3 ml/min; Est GFR (African American) 36.8; Est GFR (Non-African American) 31.8; Potassium 4.5 mmol/L (3.5-5.1)
[2019-04-27 05:06] LABS: Bilirubin,Total 0.7 mg/dl (0.2-1); Globulin 3.4 gm/dl (2.5-4.0); Total Protein 6.8 gm/dl (6.4-8.2); Troponin I 0.067 ng/ml (0-0.045)
[2019-04-27] MEDS ORDERED: ALBUT/IPRATROP 3MG/0.5MG NEB 3 ML VIAL NEB SCH (07:00)
[2019-04-27] MEDS ORDERED: INFLUENZA ADMINISTRATION CHARGE ONE (08:00)
[2019-04-27] MEDS ORDERED: PNEUMOCOCCAL ADMINISTRATION CHARGE ONE (08:00)
[2019-04-27] MEDS ORDERED: PNEUMOCOCCAL POLYSACCHARIDES 25 MCG/0.5 ML VIAL/SYR IM ONE (08:00)
[2019-04-27] MEDS ORDERED: INFLUENZA VACCINE HIGH DOSE 65+ 0.5 ML SYR IM ONE (08:00)
[2019-04-27] MEDS: LORATADINE 10 MG TAB PO SCH (08:01)
[2019-04-27] MEDS: dilTIAZem HCL 300 MG CAPCR PO SCH (08:01)
[2019-04-27] MEDS: ASPIRIN 325 MG ECTAB PO SCH (08:02)
[2019-04-27] MEDS: METOPROLOL TARTRATE 50 MG TAB PO SCH (08:02)
[2019-04-27] MEDS: NICOTINE 14 MG/24 HR PATCH TD SCH (08:02)
[2019-04-27] MEDS: FLUTICASONE/UMECLIDIN/VILANTER INH SCH (08:03)
[2019-04-27] MEDS: risperiDONE 1 MG TABLET PO SCH (08:03)
[2019-04-27] MEDS: ASCORBIC ACID 500 MG TAB PO SCH (08:03)
[2019-04-27] MEDS: SERTRALINE HCL 100 MG TABLET PO SCH (08:03)
--- NOTE | 2019-04-27 10:32 | Ultrasound Report ---
US renal/blad retro comp HISTORY: Renal insufficiency [place] COMPARISON: None. FINDINGS: Right kidney: Maximum dimension 11 cm. No evidence for hydronephrosis Normal corticomedullary differe ntiation and cortical thickness. Left kidney: Maximum dimension 12 cm. No evidence for hydronephrosis. Normal corticomedullary differ entiation and cortical thickness. Bladder: Contractive bladder due to the presence of a catheter IMPRESSION: Normal renal ultrasound. The above report was generated using voice recognition software. It may contain grammatical, syntax or spelling errors. Electronically signed by: Laurent Selby M.D. 04/27/2019 10:30 AM
--- NOTE | 2019-04-27 11:02 | Hospitalist Progress Note ---
Date of Service April 27, 2019 Assessment & Plan (1) Respiratory failure with hypoxia and hypercapnia: (2) Obesity hypoventilation syndrome: (3) COPD (chronic obstructive pulmonary disease): (4) Pneumonia: Present on admission with worsening SOB and altered mental status CXR showed Low lung volumes with right basilar opacity ABG on admission showed 7.36/65/63/35 Pt was placed on Bipap Will continue IV Zosyn and IV Solumedrol Will continue Bipap at night and when sleeping during the day Continue Nebulizer treatment and Trelegy Ellipta Continue monitor closely Blood cx pending (5) Acute renal failure (ARF): Possible related to dehydration/poor oral intake Pt said that she leaves alone and does her own cooking Creatinine on admission 2.6 Renal U/S showed normal renal ultrasound. Received IV fluid Creatinine improved to 1.6 today Continue to hold lasix and Lisinopril Nephrology on board Avoid nephrotoxic agents Monitor BMP (6) [place] toxicity: Possible related to Acute renal failure [place] level 2 Continue to hold [place] repeat [place] today 1.6 Will consult Psych for possible dose adjustment (7) Elevated troponin: Mostly related to elevate creatinine and hypoxia Denies any chest pain Troponin trending down Will get an echo since none on her chart Continue aspirin, metoprolol and statin Continue monitor in tele (8) Metabolic encephalopathy: Mostly related to CO2 retention/elevate [place] and ARF No focal neuro deficit on exam today continue monitor closely (9) Hypertension: BP stable Lisinopril and Lasix on hold due to elevate creatinine Continue metoprolol and diltiazem Continue monitor BP (10) Hypothyroid: Continue Levothyroxine Stable (11) Obesity due to excess calories: BMI above 50 Counseling on weight loss (12) HLD (hyperlipidemia): Continue statin Stable (13) Bipolar 1 disorder: [place] on hold since elevating Continue Risperidone Will consult psych DVT px will add heparin subq Code status Full code Disposition Will need placement to snf (Not sure if pt able to care for herself Subjective Pt was seen and examined Lying in bed with no acute distress Pt said that she wants to go to [facility] since they know her there She is not sure why she came to the hospital Her friend (Neighbor) Peg called EMS for her She said that she leaves alone She cannot recall anyone phone number I tried to call her cousin Emily Becker (Found # from previous hospitalization), but no one answered She said that she does not use any oxygen or bipap at home Denies any chest pain, palpitation, dizziness Physical Exam Physical Exam: General- No acute distress, obese Head- atraumatic Eyes- PERRL, EOMI, ENT- oropharynx clear Neck- supple, no JVD Lungs- +Coarse BS Heart- regular rhythm; no murmur Abdomen- normal bowel sounds, soft, nontender Extremities- no calf tenderness, +trace edema Neuro- alert, Not oriented with time and place, PERRL, EOMI; no facial palsy; no dysarthria Skin- warm & dry Results & Data Vital Signs (Past 12 Hours) Vital Signs Temp Pulse Pulse Resp BP Pulse Ox 04/27/19 07:01 56 L 22 92 04/27/19 07:00 56 L 22 92 04/27/19 06:57 36.7 C 67 16 148/78 H 93 04/27/19 04:53 78 24 91 04/27/19 03:35 37.0 C 72 21 155/81 H 92 04/27/19 01:22 80 20 95 04/27/19 00:35 78 21 95 (1) [place] toxicity Encounter type: initial encounter Injury intent: accidental or unintentional Qualified Code(s): T56.891A - Toxic effect of other metals, accidental (unintentional), initial encounter (2) Acute renal failure (ARF) Acute renal failure type: unspecified Qualified Code(s): N17.9 - Acute kidney failure, unspecified (3) Pneumonia Laterality: right Lung location: lower lobe of lung Pneumonia type: due to unspecified organism Qualified Code(s): J18.1 - Lobar pneumonia, unspecified organism
--- NOTE | 2019-04-27 11:44 | Nephrology Consultation ---
Date of Consultation April 27, 2019 Assessment & Plan (1) Acute renal failure (ARF): Patient with acute kidney injury likely multifactorial etiology including lithium toxicity and NSAID use. Patient has meloxicam on her medication list 15 mg daily. She also had high lithium levels. Creatinine is downtrending at 1.6 today. No indication for dialysis today. Continue Ringer's lactate at 100 mL/h. -Monitor input output and daily BMP. -Avoid nephrotoxins such as NSAIDs. Patient should not be on meloxicam. (2) [place] toxicity: Patient had lithium levels of 2 which is on the high side. [place] levels are improving. Recommend consulting psychiatry for alternative mood stabilizer (3) Metabolic encephalopathy: Patient with metabolic encephalopathy in setting of lithium toxicity. Mental status is improving. No need for dialysis (4) Respiratory failure with hypoxia and hypercapnia: Patient remains on oxygen by nasal cannula. No evidence of volume overload on imaging. Agree with holding Lasix due to acute kidney injury. She is getting antibiotics for possible infection History of Present Illness Reason for Consultation: Acute kidney injury and lithium toxicity Requesting Physician: Rosa Maria Kerr DO Attending Physician: Nicki Benton MD History of Present Illness 68 yo female c PMH of obesity, Hypothyroid, HLD, Schizophrenia, HTN, Bipolar disorder and COPD was admitted on 04/26/2019 for AMS. Patient was found to have a creatinine of 2.6 from a normal baseline of 0.9 in August 2018. Creatinine is slightly better this morning at 1.6. Patient is awake now but not a great historian. She reports feeling better denies any shortness of breath or pain. No urinary symptoms. She denied NSAID use although meloxicam 15 mg daily is on her home meds. Patient takes lithium for Schizophrenia and depression. Mill[place] was 2 but better today at 1.6. She is getting IV Ringer lactate at 100 mL/h. She has a Chappell catheter with 24 urine output of 1.2 L. Allergies Allergy/AdvReac Type Severity Reaction Status Date / Time No Known Allergies Allergy Verified 04/26/19 17:15 Home Medications Home Medications Medication Instructions Recorded Confirmed Type diltiazem HCl 300 mg PO DAILY 08/31/18 04/26/19 History fluticasone propion-salmeterol 1 puff INHALATION BID 08/31/18 04/26/19 History [Advair Diskus] furosemide 40 mg PO BID 08/31/18 04/26/19 History gabapentin 100 mg PO TID 08/31/18 04/26/19 History lisinopril 1 tab PO QAM 08/31/18 04/26/19 History loratadine 10 tab PO QAM 08/31/18 04/26/19 History meloxicam 15 mg PO QAM 08/31/18 04/26/19 History metoprolol tartrate 50 mg PO QAM 08/31/18 04/26/19 History risperidone 1 mg PO QAM 08/31/18 04/26/19 History sertraline 100 mg PO QAM 08/31/18 04/26/19 History ascorbic acid (vitamin C) [Vitamin 1 g PO DAILY 04/26/19 04/26/19 History C] aspirin 325 mg PO DAILY 04/26/19 04/26/19 History atorvastatin 40 mg PO HS 04/26/19 04/26/19 History gwakffwyagc-svsruvulq-xvmrzwsn 1 inh INHALATION QAM 04/26/19 04/26/19 History [Trelegy Ellipta] hydroxyzine pamoate 25 mg PO QID PRN 04/26/19 04/26/19 History ipratropium-albuterol 3 ml INHALATION QID PRN 04/26/19 04/26/19 History levothyroxine 75 mcg PO QAM 04/26/19 04/26/19 History lithium carbonate 300 mg PO TID 04/26/19 04/26/19 History melatonin 2 mg PO HS 04/26/19 04/26/19 History nicotine 1 patch TRANSDERMAL DAILY 04/26/19 04/26/19 History prazosin 1 mg PO HS 04/26/19 04/26/19 History risperidone 2 mg PO HS 04/26/19 04/26/19 History Patient History Medical History Hallucinations Schizophrenia Social History Preferred Language: Ukrainian Communication Ability: Impaired [employer] Required: No Beliefs That Will Affect Care: None Current Living Situation: Alone Other Information That Helps Us Care for You: No Feels Safe at Home: Yes Safety Concerns: Feels Safe At This Time Smoking Status: Current every day smoker Tobacco Type: cigarettes ; Do You Dip or Chew Tobacco: No ; Second Hand Exposure: No ; Tobacco Cessation Education Requested by Patient: No Hx Alcohol Use: No Hx Substance Use: No Review of Systems Review of Systems: All systems reviewed & are unremarkable except as noted in HPI & below Physical Exam Physical Exam: General exam: Appears comfortable, no acute distress HEENT: Pupils are equal and reactive to light Neck: No JVD, neck is supple trachea is midline Respiratory system: Clear breath sounds bilaterally. Gastrointestinal: Abdomen is soft, non distended, non tender, bowel sounds are present CVS: Regular rate and rhythm. No murmurs, rubs or gallops Musculoskeletal: No joint or muscle tenderness Extremities: Non tender, no edema, peripheral pulses are present Neuro: Oriented, no tremors, no focal neurological deficits Skin: No rashes Results & Data Vital Signs (Past 12 Hours) Vital Signs Temp Pulse Pulse Resp BP Pulse Ox 04/27/19 07:01 56 L 22 92 04/27/19 07:00 56 L 22 92 04/27/19 06:57 36.7 C 67 16 148/78 H 93 04/27/19 04:53 78 24 91 04/27/19 03:35 37.0 C 72 21 155/81 H 92 04/27/19 01:22 80 20 95 04/27/19 00:35 78 21 95 Laboratory Results Laboratory Results - last 24 hr 04/26/19 04/26/19 04/26/19 17:08 17:08 17:08 WBC 12.20 H RBC 5.22 Hgb 16.9 H Hct 51.6 H MCV 98.9 MCH 32.4 MCHC 32.8 RDW Std Deviation 58.7 H RDW Coeff of [place] 16.2 H Plt Count 195 MPV 9.6 Immature Gran % (Auto) 0.4 Neut % (Auto) 82.3 Lymph % (Auto) 8.0 [place] % (Auto) 7.2 Eos % (Auto) 2.0 Baso % (Auto) 0.1 Immature Gran # (Auto) 0.05 H Neut # (Auto) 10.03 H Lymph # (Auto) 0.98 L [place] # (Auto) 0.88 H Eos # (Auto) 0.25 Baso # (Auto) 0.01 PT 11.1 INR 1.1 APTT PTT Ratio ABG pH ABG pCO2 ABG pO2 ABG HCO3 ABG O2 Saturation ABG Base Excess Parker Test VBG pH VBG pCO2 VBG pO2 VBG HCO3 VBG O2 Saturation VBG Base Excess Barometric Pressure Oxygen Given Sodium Potassium Chloride Carbon Dioxide Anion Gap BUN Creatinine Est Cr Clr Drug Dosing Est GFR ( Amer) Est GFR (Non-Af Amer) BUN/Creatinine Ratio Glucose Calcium Magnesium Total Bilirubin AST ALT Alkaline Phosphatase Ammonia Total Creatine Kinase Troponin I Total Protein Albumin Globulin Albumin/Globulin Ratio TSH Urine Color Urine Appearance Urine pH Ur Specific [place] Urine Protein Urine Glucose (UA) Urine Ketones Urine Blood Urine Nitrite Urine Bilirubin Urine Urobilinogen Ur Leukocyte Esterase Urine WBC (Auto) Urine RBC (Auto) U Hyaline Cast (Auto) U Epithel Cells (Auto) Urine Bacteria (Auto) Ur Renal Epithelial Cell [place] 2.0 H* Hepatitis C Ab Screen 04/26/19 04/26/19 04/26/19 17:08 17:08 17:11 WBC RBC Hgb Hct MCV MCH MCHC RDW Std Deviation RDW Coeff of [place] Plt Count MPV Immature Gran % (Auto) Neut % (Auto) Lymph % (Auto) [place] % (Auto) Eos % (Auto) Baso % (Auto) Immature Gran # (Auto) Neut # (Auto) Lymph # (Auto) [place] # (Auto) Eos # (Auto) Baso # (Auto) PT INR APTT PTT Ratio ABG pH ABG pCO2 ABG pO2 ABG HCO3 ABG O2 Saturation ABG Base Excess Parker Test VBG pH VBG pCO2 VBG pO2 VBG HCO3 VBG O2 Saturation VBG Base Excess Barometric Pressure Oxygen Given Sodium 134 L Potassium 3.8 Chloride 94 L Carbon Dioxide 38 H Anion Gap 1.0 L BUN 25 H Creatinine 2.61 H Est Cr Clr Drug Dosing 25.5 Est GFR ( Amer) 21.3 Est GFR (Non-Af Amer) 18.4 BUN/Creatinine Ratio 9.4 L Glucose 99 Calcium 9.5 Magnesium 2.1 Total Bilirubin 0.6 AST 11 L ALT 18 Alkaline Phosphatase 79 Ammonia 15.1 Total Creatine Kinase 36 Troponin I 0.066 H* Total Protein 7.5 Albumin 4.0 Globulin 3.5 Albumin/Globulin Ratio 1.1 TSH 3.440 Urine Color Urine Appearance Urine pH Ur Specific [place] Urine Protein Urine Glucose (UA) Urine Ketones Urine Blood Urine Nitrite Urine Bilirubin Urine Urobilinogen Ur Leukocyte Esterase Urine WBC (Auto) Urine RBC (Auto) U Hyaline Cast (Auto) U Epithel Cells (Auto) Urine Bacteria (Auto) Ur Renal Epithelial Cell Millen Hepatitis C Ab Screen Neg 04/26/19 04/26/19 04/26/19 17:14 17:20 23:34 WBC RBC Hgb Hct MCV MCH MCHC RDW Std Deviation RDW Coeff of [place] Plt Count MPV Immature Gran % (Auto) Neut % (Auto) Lymph % (Auto) [place] % (Auto) Eos % (Auto) Baso % (Auto) Immature Gran # (Auto) Neut # (Auto) Lymph # (Auto) [place] # (Auto) Eos # (Auto) Baso # (Auto) PT INR APTT PTT Ratio ABG pH 7.36 ABG pCO2 65 H ABG pO2 63 L ABG HCO3 35 H ABG O2 Saturation 92.2 ABG Base Excess 7.1 H Parker Test Pos VBG pH 7.30 L VBG pCO2 78 H VBG pO2 30 VBG HCO3 38 VBG O2 Saturation < 60.0 VBG Base Excess 7.8 Barometric Pressure 735.3 732.6 Oxygen Given 6L Sodium Potassium Chloride Carbon Dioxide Anion Gap BUN Creatinine Est Cr Clr Drug Dosing Est GFR ( Amer) Est GFR (Non-Af Amer) BUN/Creatinine Ratio Glucose Calcium Magnesium Total Bilirubin AST ALT Alkaline Phosphatase Ammonia Total Creatine Kinase Troponin I Total Protein Albumin Globulin Albumin/Globulin Ratio TSH Urine Color Dark Yellow Urine Appearance Cloudy A Urine pH 5.0 Ur Specific [place] 1.020 Urine Protein 1+ H Urine Glucose (UA) Negative Urine Ketones Trace H Urine Blood Negative Urine Nitrite Negative Urine Bilirubin Negative Urine Urobilinogen Negative Ur Leukocyte Esterase Negative Urine WBC (Auto) 1-5 Urine RBC (Auto) 5-10 H U Hyaline Cast (Auto) >30 H U Epithel Cells (Auto) >30 H Urine Bacteria (Auto) Negative Ur Renal Epithelial Cell Not Reportable Millen Hepatitis C Ab Screen 04/26/19 04/27/19 04/27/19 23:34 01:17 04:14 WBC 11.73 H RBC 5.00 Hgb 16.2 H Hct 48.0 H MCV 96.0 MCH 32.4 MCHC 33.8 RDW Std Deviation 54.9 H RDW Coeff of [place] 15.5 H Plt Count 197 MPV 9.1 Immature Gran % (Auto) 0.1 Neut % (Auto) 94.6 Lymph % (Auto) 3.8 [place] % (Auto) 1.3 Eos % (Auto) 0.1 Baso % (Auto) 0.1 Immature Gran # (Auto) 0.01 Neut # (Auto) 11.11 H Lymph # (Auto) 0.44 L [place] # (Auto) 0.15 Eos # (Auto) 0.01 Baso # (Auto) 0.01 PT INR APTT PTT Ratio ABG pH 7.36 ABG pCO2 64 H ABG pO2 70 L ABG HCO3 35 H ABG O2 Saturation 93.0 ABG Base Excess 7.1 H Parker Test Pos VBG pH VBG pCO2 VBG pO2 VBG HCO3 VBG O2 Saturation VBG Base Excess Barometric Pressure 731.8 Oxygen Given 4L Sodium Potassium Chloride Carbon Dioxide Anion Gap BUN Creatinine Est Cr Clr Drug Dosing Est GFR ( Amer) Est GFR (Non-Af Amer) BUN/Creatinine Ratio Glucose Calcium Magnesium Total Bilirubin AST ALT Alkaline Phosphatase Ammonia Total Creatine Kinase Troponin I 0.117 H* Total Protein Albumin Globulin Albumin/Globulin Ratio TSH Urine Color Urine Appearance Urine pH Ur Specific [place] Urine Protein Urine Glucose (UA) Urine Ketones Urine Blood Urine Nitrite Urine Bilirubin Urine Urobilinogen Ur Leukocyte Esterase Urine WBC (Auto) Urine RBC (Auto) U Hyaline Cast (Auto) U Epithel Cells (Auto) Urine Bacteria (Auto) Ur Renal Epithelial Cell Millen Hepatitis C Ab Screen 04/27/19 04/27/19 04/27/19 04:14 04:14 04:14 WBC RBC Hgb Hct MCV MCH MCHC RDW Std Deviation RDW Coeff of [place] Plt Count MPV Immature Gran % (Auto) Neut % (Auto) Lymph % (Auto) [place] % (Auto) Eos % (Auto) Baso % (Auto) Immature Gran # (Auto) Neut # (Auto) Lymph # (Auto) [place] # (Auto) Eos # (Auto) Baso # (Auto) PT INR APTT 25.8 PTT Ratio 1.0 ABG pH ABG pCO2 ABG pO2 ABG HCO3 ABG O2 Saturation ABG Base Excess Parker Test VBG pH VBG pCO2 VBG pO2 VBG HCO3 VBG O2 Saturation VBG Base Excess Barometric Pressure Oxygen Given Sodium 135 L Potassium 4.5 D Chloride 99 Carbon Dioxide 34 H Anion Gap 2.0 L BUN 22 H Creatinine 1.66 H D Est Cr Clr Drug Dosing 39.3 Est GFR ( Amer) 36.8 Est GFR (Non-Af Amer) 31.8 BUN/Creatinine Ratio 13.1 Glucose 155 H Calcium 8.9 Magnesium Total Bilirubin 0.7 AST 13 L ALT 20 Alkaline Phosphatase 78 Ammonia Total Creatine Kinase Troponin I 0.067 H* Total Protein 6.8 Albumin 3.4 Globulin 3.4 Albumin/Globulin Ratio 1.0 TSH Urine Color Urine Appearance Urine pH Ur Specific [place] Urine Protein Urine Glucose (UA) Urine Ketones Urine Blood Urine Nitrite Urine Bilirubin Urine Urobilinogen Ur Leukocyte Esterase Urine WBC (Auto) Urine RBC (Auto) U Hyaline Cast (Auto) U Epithel Cells (Auto) Urine Bacteria (Auto) Ur Renal Epithelial Cell [place] 1.6 H Hepatitis C Ab Screen (1) Acute renal failure (ARF) Acute renal failure type: unspecified Qualified Code(s): N17.9 - Acute kidney failure, unspecified (2) [place] toxicity Encounter type: initial encounter Injury intent: accidental or unintentional Qualified Code(s): T56.891A - Toxic effect of other metals, accidental (unintentional), initial encounter
[2019-04-27 12:28] LABS: Protein Creatinine Ratio Urine 0.2 (0-0.2); Total Protein Urine Random 34.4 mg/dl (0-11.9)
[2019-04-27] MEDS: HEPARIN SOD 5,000 UNIT/0.5 ML VIAL SQ SCH ×2 (13:44→20:39)
[2019-04-27] MEDS: PRAZOSIN HCL 1 MG CAP PO SCH (20:38)
[2019-04-27] MEDS: ATORVASTATIN 40 MG TAB PO SCH (20:38)
[2019-04-27] MEDS: risperiDONE 2 MG TABLET PO SCH (20:39)
[2019-04-28] MEDS: PIPERACILLIN/TAZOBACTAM 4.5 GM in DEXTROSE 5% 100 ML IV SCH ×3 (00:08→15:33)
[2019-04-28] MEDS: LEVALBUTEROL 1.25MG/0.5ML NEB INH SCH ×4 (01:03→18:53)
[2019-04-28] MEDS: IPRATROPIUM BROMIDE NEB SOLN 0.02% 2.5 ML VIAL INH SCH ×4 (01:03→18:53)
[2019-04-28] MEDS: HEPARIN SOD 5,000 UNIT/0.5 ML VIAL SQ SCH (05:23)
[2019-04-28] MEDS: methylPREDNISolone 40 MG in SYRINGE 0 ML IV SCH ×3 (05:23→20:50)
[2019-04-28] MEDS: LEVOTHYROXINE SODIUM 75 MCG TABLET PO SCH (05:24)
[2019-04-28 05:41] LABS: Hematocrit (blood only) 49.1 % (37-47); Hemoglobin 16.9 g/dL (12.0-16.0); Mean Corpuscular Hemoglobin 32.8 pg (25-34); Mean Corpuscular Hgb Conc 34.4 g/dL (32-36); Mean Corpuscular Volume 95.2 fL (80-100); Mean Platelet Volume 9.2 fL (7.4-10.4); Platelet Count 193 K/uL (130-400); RDW Coefficient of Variation 15.1 % (11.5-14.5); RDW Standard Deviation 53.3 fL (36.4-46.3); Red Blood Count 5.16 M/uL (4.2-5.4); White Blood Count 12.77 K/uL (4.8-10.8)
[2019-04-28 06:09] LABS: BUN Creatinine Ratio 18.2 (10-20); Calcium 9.1 mg/dl (8.5-10.1); Creatinine Clr Calc Pharmacy 56.1 ml/min; Est GFR (African American) 56.2; Est GFR (Non-African American) 48.5; Potassium 4.4 mmol/L (3.5-5.1)
[2019-04-28] MEDS: LORATADINE 10 MG TAB PO SCH (08:01)
[2019-04-28] MEDS: METOPROLOL TARTRATE 50 MG TAB PO SCH (08:01)
[2019-04-28] MEDS: dilTIAZem HCL 300 MG CAPCR PO SCH (08:01)
[2019-04-28] MEDS: ASPIRIN 325 MG ECTAB PO SCH (08:01)
[2019-04-28] MEDS: NICOTINE 14 MG/24 HR PATCH TD SCH (08:02)
[2019-04-28] MEDS: ASCORBIC ACID 500 MG TAB PO SCH (08:02)
[2019-04-28] MEDS: risperiDONE 1 MG TABLET PO SCH (08:02)
[2019-04-28] MEDS: FLUTICASONE/UMECLIDIN/VILANTER INH SCH (08:03)
[2019-04-28] MEDS: SERTRALINE HCL 100 MG TABLET PO SCH (08:03)
[2019-04-28 08:06] LABS: Estimated Average Glucose 117 mg/dl; Hemoglobin A1C 5.7 % (4.5-5.6)
--- NOTE | 2019-04-28 08:50 | Nephrology Progress Note ---
Date of Service April 28, 2019 Assessment & Plan (1) Acute renal failure (ARF): Patient with acute kidney injury likely multifactorial etiology including lithium toxicity and NSAID use. Patient has meloxicam on her medication list 15 mg daily. She also had high lithium levels. Baseline creatinine 0.5 08/2018. Presenting creatinine 2.6, further downtrending to 1.1 today. -Monitor input output and daily BMP. -Avoid nephrotoxins such as NSAIDs. Patient should not be on meloxicam at d/c and will need alternative pain regimen. -cont to hold ACEI, diuretic (2) Hypertension: cont OP doses of diltiazem, metoprolol; cannot increase either of these d/t HR -acei, diuretic remain on hold -ordered prn hydralazine for SBP >160 Present on Admission?: Yes (3) Comstock toxicity: Patient had elevated lithium levels of 2 on presentation. Comstock levels are improving; remains on hold. Recommend consulting psychiatry for alternative mood stabilizer -ordered another level for am to document clearance -MS improving; no indication for dialysis (4) Respiratory failure with hypoxia and hypercapnia: Patient remains on oxygen by nasal cannula. No evidence of volume overload on imaging. Agree with holding Lasix due to acute kidney injury. She is getting antibiotics for possible infection as well as steroids Subjective seen on rounds at about 0950; states "I'm not doing so good, I got lots of problems." not sob, no uncontrolled pain, no chest discomfort, no digestive complaints in cluding no N Review of Systems Review of Systems: All systems reviewed & are unremarkable except as noted in HPI & below Physical Exam Constitutional: well developed, well nourished and + obese up in chair on 02nc cooperative but anxious Eyes: EOM intact bilaterally ENMT: Ears: no external ear abnormality Nose: no external nose abnormality Mouth: + dry oral mucous membranes Neck: no nuchal rigidity Respiratory: normal respiratory effort Auscultation: + diminished lung sounds Cardiovascular: Rate/Rhythm: regular rate and regular rhythm Extremities: + edema (trace-1+ indurated BL) Gastrointestinal (Abdomen): Inspection/Auscultation: normal bowel sounds Percussion/Palpation: abdomen soft; abdomen nontender Musculoskeletal: Extremities: strength 5/5 throughout Skin: no rashes, warm and dry Neurologic: jolley, fluent speech, no tremor Psychiatric: Orientation: alert and oriented x 3 Speech: normal rate/rhythm/volume of speech Affect: + anxious affect (worried that she can't remember phone #s, anxious about her house) and + blunted affect Insight: + limited insight Judgement: + limited judgement Genitourinary: boyd w/ ample blood tinged urine Results & Data Vital Signs (Past 12 Hours) Vital Signs Temp Pulse Pulse Resp BP Pulse Ox 04/28/19 07:06 72 18 96 04/28/19 07:02 36.8 C 72 16 152/86 H 96 04/28/19 05:06 62 24 97 04/28/19 03:28 36.6 C 73 20 162/87 H 93 04/28/19 01:20 67 67 18 96 04/28/19 00:00 62 04/27/19 23:27 59 L 24 95 04/27/19 23:02 36.9 C 72 16 141/93 H 90 04/27/19 21:26 63 22 97 Laboratory Results 04/28/19 05:17 04/28/19 05:17 (1) Comstock toxicity Encounter type: initial encounter Injury intent: accidental or unintentional Qualified Code(s): T56.891A - Toxic effect of other metals, accidental (unintent ional), initial encounter (2) Acute renal failure (ARF) Acute renal failure type: unspecified Qualified Code(s): N17.9 - Acute kidney failure, unspecified (3) Respiratory failure with hypoxia and hypercapnia Chronicity: unspecified Qualified Code(s): J96.91 - Respiratory failure, unspecified with hypoxia; J96.92 - Respiratory failure, unspecified with hypercapnia (4) Hypertension Hypertension type: essential hypertension Qualified Code(s): I10 - Essential (primary) hypertension
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
--- NOTE | 2019-04-28 10:42 | Hospitalist Progress Note ---
Date of Service April 28, 2019 Assessment & Plan (1) Respiratory failure with hypoxia and hypercapnia: (2) Obesity hypoventilation syndrome: (3) COPD (chronic obstructive pulmonary disease): (4) Pneumonia: Present on admission with worsening SOB and altered mental status CXR showed Low lung volumes with right basilar opacity ABG on admission showed 7.36/65/63/35 Pt was placed on Bipap Currently on IV Zosyn and IV Solumedrol Will deescalate to ceftriaxone. Will add doxy for atypical coverage since QTc is prolonged Will continue Bipap at night and when sleeping during the day Continue Nebulizer treatment and Trelegy Ellipta Continue monitor closely Blood cx negative so far (5) Acute renal failure (ARF): Resolved Possible related to dehydration/poor oral intake Creatinine on admission 2.6 Renal U/S showed normal renal ultrasound. Received IV fluid Creatinine improved to 1.17 today Continue to hold lasix and Lisinopril Nephrology on board Avoid nephrotoxic agents Monitor BMP (6) [place] toxicity: Possible related to Acute renal failure [place] level 2 Continue to hold [place] repeat [place] today 1.6 Follow up psych recommendations (7) Elevated troponin: Denies any chest pain Troponin trending down 0.117-->0.067 Will get an echo since none on her chart Continue aspirin, metoprolol and statin Continue monitor in tele (8) Metabolic encephalopathy: Mostly related to CO2 retention/elevate [place] and [place] CT head on admission unreamarkable No focal neuro deficit on exam Continue monitor closely (9) Hypertension: Lisinopril and Lasix on hold due to [place] Continue metoprolol and diltiazem Continue monitor BP (10) Hypothyroid: Continue Levothyroxine Stable (11) Obesity due to excess calories: BMI above 50 Will need counseling on weight loss prior to discharge (12) HLD (hyperlipidemia): Continue statin Stable (13) Bipolar 1 disorder: [place] on hold since elevating Continue Risperidone Get EKG to assess QTc Follow up psych recommendations (14) Hematuria: Renal ultrasound normal Hold hep for DVT ppx Get urology eval Monitor Monitor H/H (15) DVT prophylaxis: SCD for now Heparin on hold due to hematuria Code status Full code Disposition Will need placement to [facility] (Not sure if pt able to care for herself) Subjective Patient seen and examined. Patient alert Confused conversation, demonstrating tangientiality Denied any complaints Review of Systems Review of Systems: All systems reviewed and unremarkable except for mentioned above. Physical Exam Physical Exam: General: Obese, no acute distress and not ill appearing Eyes: PERRL, conjunctivae normal, not pale, anicteric sclerae, EOM intact bilaterally ENMT: External ear and nose normal, oropharynx normal Neck: Normal visual inspection, no tracheal deviation, no swelling noted Respiratory: Normal respiratory effort, no respiratory distress, reduced lung sounds Cardiovascular: Pulse is RRR. S1 S2, +1 pedal edema Chest (Breasts): Chest: normal inspection of chest Gastrointestinal (Abdomen): Abdomen is not distended, soft, non-tender to palpation, no guarding, no palpable hepatosplenomegaly, normal bowel sounds Musculoskeletal: No cyanosis or clubbing, all extremities motor strength 5/5 Genitourinary: Bloody urine in boyd bag Skin: No rash noted on gross inspection, No ulcers noted Neurologic: Alert and oriented x 2, No focal weakness, sensation grossly intact Psychiatric: Alert and oriented x 2, Flat affect, poor insight Results & Data Vital Signs (Past 12 Hours) Vital Signs Temp Pulse Pulse Resp BP Pulse Ox 04/28/19 08:00 58 L 04/28/19 07:06 72 18 96 04/28/19 07:02 36.8 C 72 16 152/86 H 96 04/28/19 05:06 62 24 97 04/28/19 03:28 36.6 C 73 20 162/87 H 93 04/28/19 01:20 67 67 18 96 04/28/19 00:00 62 04/27/19 23:27 59 L 24 95 04/27/19 23:02 36.9 C 72 16 141/93 H 90 Laboratory Results Short CBC 04/28/19 Range/Units 05:17 WBC 12.77 H (4.8-10.8) K/uL Hgb 16.9 H (12.0-16.0) g/dL Hct 49.1 H (37-47) % Plt Count 193 (130-400) K/uL BMP 04/28/19 05:17 Sodium 136 Potassium 4.4 Chloride 100 Carbon Dioxide 32 BUN 21 H Creatinine 1.17 D Glucose 163 H Calcium 9.1 (1) [place] toxicity Encounter type: initial encounter Injury intent: accidental or unintentional Qualified Code(s): T56.891A - Toxic effect of other metals, accidental (unintentional), initial encounter (2) Acute renal failure (ARF) Acute renal failure type: unspecified Qualified Code(s): N17.9 - Acute kidney failure, unspecified (3) Hypertension Hypertension type: essential hypertension Qualified Code(s): I10 - Essential (primary) hypertension (4) Pneumonia Laterality: right Lung location: lower lobe of lung Pneumonia type: due to unspecified organism Qualified Code(s): J18.1 - Lobar pneumonia, unspecified organism
[2019-04-28] MEDS ORDERED: CARBOHYDRATES FOR HYPOGLYCEMIA PO PRN (11:16)
[2019-04-28] MEDS ORDERED: GLUCOSE 40% GEL 15 GM TUBE PO PRN (11:16)
[2019-04-28] MEDS ORDERED: DEXTROSE 50% 50 ML SYRINGE IV PRN (11:16)
[2019-04-28] MEDS ORDERED: GLUCOSE 10 TABS/TUBE PO PRN (11:16)
[2019-04-28] MEDS ORDERED: GLUCAGON FOR INJ 1 MG VIAL SQ PRN (11:16)
[2019-04-28] MEDS: INSULIN ASPART 100 UNITS/ML 3 ML PEN SC SCH ×3 (12:31→20:50)
[2019-04-28] MEDS: DOXYCYCLINE HYCLATE 100 MG CAP PO SCH (18:17)
[2019-04-28] MEDS: HydrALAZINE 10 MG TAB PO PRN (20:50)
[2019-04-28] MEDS: risperiDONE 2 MG TABLET PO SCH (20:51)
[2019-04-28] MEDS: PRAZOSIN HCL 1 MG CAP PO SCH (20:51)
[2019-04-28] MEDS: ATORVASTATIN 40 MG TAB PO SCH (20:52)
[2019-04-28] MEDS: cefTRIAXone SODIUM 2,000 MG in DEXTROSE 5% 50 ML IV SCH (20:54)
[2019-04-29] MEDS: IPRATROPIUM BROMIDE NEB SOLN 0.02% 2.5 ML VIAL INH SCH ×2 (00:59→07:07)
[2019-04-29] MEDS: LEVALBUTEROL 1.25MG/0.5ML NEB INH SCH ×2 (00:59→07:07)
[2019-04-29] MEDS: methylPREDNISolone 40 MG in SYRINGE 0 ML IV SCH ×2 (05:45→21:06)
[2019-04-29] MEDS: DOXYCYCLINE HYCLATE 100 MG CAP PO SCH ×2 (05:45→17:24)
[2019-04-29] MEDS: LEVOTHYROXINE SODIUM 75 MCG TABLET PO SCH (05:45)
[2019-04-29 06:46] LABS: BUN Creatinine Ratio 20.7 (10-20); Calcium 9.6 mg/dl (8.5-10.1); Creatinine Clr Calc Pharmacy 69.9 ml/min; Est GFR (African American) 73.3; Est GFR (Non-African American) 63.2; Potassium 4.4 mmol/L (3.5-5.1)
[2019-04-29] MEDS: FLUTICASONE/UMECLIDIN/VILANTER INH SCH (07:43)
[2019-04-29] MEDS: dilTIAZem HCL 300 MG CAPCR PO SCH (07:44)
[2019-04-29] MEDS: METOPROLOL TARTRATE 50 MG TAB PO SCH (07:45)
[2019-04-29] MEDS: ASCORBIC ACID 500 MG TAB PO SCH (07:45)
[2019-04-29] MEDS: ASPIRIN 325 MG ECTAB PO SCH (07:45)
[2019-04-29] MEDS: risperiDONE 1 MG TABLET PO SCH (07:46)
[2019-04-29] MEDS: NICOTINE 14 MG/24 HR PATCH TD SCH (07:46)
[2019-04-29] MEDS: SERTRALINE HCL 100 MG TABLET PO SCH (07:47)
[2019-04-29] MEDS: LORATADINE 10 MG TAB PO SCH (07:47)
[2019-04-29] MEDS: INSULIN ASPART 100 UNITS/ML 3 ML PEN SC SCH ×4 (07:48→21:08)
--- NOTE | 2019-04-29 07:48 | Nephrology Progress Note ---
Date of Service April 29, 2019 Assessment & Plan (1) Acute renal failure (ARF): Patient with acute kidney injury likely multifactorial etiology including lithium toxicity and NSAID use. Patient has meloxicam on her OP medication list 15 mg daily. She also had high lithium levels on presentation. Baseline creatinine 0.5 08/2018. Presenting creatinine 2.6, further downtrending to 0.9 today. -Monitor input output and daily BMP. -Avoid nephrotoxins such as NSAIDs. Patient should not be on meloxicam at d/c and will need alternative pain regimen. -cont to hold ACEI, diuretic - though anticipate resuming diuretic next day or so (2) Hypertension: cont OP doses of diltiazem, metoprolol; cannot increase either of these d/t HR <<>> did have HR to 40 this pm -acei, diuretic remain on hold -ordered prn hydralazine for SBP >160 (3) [place] toxicity: Patient had elevated lithium levels of 2 on presentation. [place] levels are improving; remains on hold. Recommend consulting psychiatry for alternative mood stabilizer -f/u level today is 0.9; not really a target per se or proof of no toxicity but reassuring she is clearing it -MS improving; no indication for dialysis (4) Respiratory failure with hypoxia and hypercapnia: Patient remains on oxygen by nasal cannula. No evidence of volume overload on imaging. Agree with holding Lasix due to acute kidney injury. She is getting antibiotics for possible infection as well as steroids Subjective seen on rounds this evening. worried about getting a job, changing housing, how to work tv; feels edema controlled; not sure if still some visual hallucinations but what she describes sounds like reflections on television from light behind her bed. breathing improving; states has not been out of bed; denies voiding sx Review of Systems Review of Systems: All systems reviewed & are unremarkable except as noted in HPI & below Physical Exam Constitutional: well developed, well nourished and + obese on 02nc Eyes: EOM intact bilaterally ENMT: Ears: no external ear abnormality Nose: no external nose abnormality Mouth: + dry oral mucous membranes Neck: no nuchal rigidity Respiratory: normal respiratory effort Auscultation: + diminished lung sounds Cardiovascular: Rate/Rhythm: regular rate and regular rhythm Extremities: + edema (trace-1+ indurated BL) Gastrointestinal (Abdomen): Inspection/Auscultation: normal bowel sounds Percussion/Palpation: abdomen soft; abdomen nontender Musculoskeletal: Extremities: strength 5/5 throughout Skin: no rashes, warm and dry Psychiatric: Orientation: alert and oriented x 3 Speech: normal rate/rhythm/volume of speech Affect: + anxious affect (as per HPI) and + blunted affect Insight: + limited insight Judgement: + limited judgement Results & Data Vital Signs (Past 12 Hours) Vital Signs Temp Pulse Pulse Resp BP Pulse Ox 04/29/19 07:40 36.2 C L 61 18 140/80 98 04/29/19 07:08 63 16 97 04/29/19 03:14 36.6 C 62 16 140/79 97 04/29/19 01:01 54 L 18 94 04/28/19 23:01 36.5 C 66 16 139/88 93 04/28/19 22:09 68 22 96 04/28/19 20:22 64 Laboratory Results 04/28/19 05:17 04/29/19 05:36 (1) [place] toxicity Encounter type: initial encounter Injury intent: accidental or unintentional Qualified Code(s): T56.891A - Toxic effect of other metals, accidental (unintentional), initial encounter (2) Acute renal failure (ARF) Acute renal failure type: unspecified Qualified Code(s): N17.9 - Acute kidney failure, unspecified (3) Respiratory failure with hypoxia and hypercapnia Chronicity: unspecified Qualified Code(s): J96.91 - Respiratory failure, unspecified with hypoxia; J96.92 - Respiratory failure, unspecified with hypercapnia (4) Hypertension Hypertension type: essential hypertension Qualified Code(s): I10 - Essential (primary) hypertension
--- NOTE | 2019-04-29 11:43 | Hospitalist Progress Note ---
Date of Service April 29, 2019 Assessment & Plan (1) Respiratory failure with hypoxia and hypercapnia: Improved, respite status to approximate baseline Continue pulmonary toileting, Nebulizer treatment changed to as needed, (2) Obesity hypoventilation syndrome: (3) COPD (chronic obstructive pulmonary disease): (4) Pneumonia: Present on admission with worsening SOB and altered mental status CXR showed Low lung volumes with right basilar opacity ABG on admission showed 7.36/65/63/35 Pt was placed on Bipap On Rocephin/doxycycline Will continue Bipap at night and when sleeping during the day Continue Nebulizer treatment and Trelegy Ellipta (5) Acute renal failure (ARF): Resolved Possible related to dehydration/poor oral intake Creatinine on admission 2.6 Renal U/S showed normal renal ultrasound. Received IV fluid Creatinine improved to 1.94 today Continue to hold lasix and Lisinopril Nephrology on board Avoid nephrotoxic agents Monitor BMP (6) [place] toxicity: Possible related to Acute renal failure [place] level 2 Continue to hold [place] repeat [place] today 1.6 Given patient's increased risk for dehydration acute renal failure with hip toxicity, alternate medication for mood stabilizing will be appropriate (7) Elevated troponin: Possible secondary to renal insufficiency, no evidence of ACS She does not have any chest pain or chest discomfort Troponin trending down 0.117-->0.067 Echo: Shows no wall motion abnormality, left ventricular systolic function normal, EF 55-60% Continue aspirin, metoprolol and statin Discontinue telemetry (8) Metabolic encephalopathy: Mental status improving gradually Mostly related to CO2 retention/lithium toxicity and [place] CT head on admission unreamarkable No focal neuro deficit on exam Continue monitor closely (9) Hypertension: Lisinopril and Lasix on hold due to [place] Continue metoprolol and diltiazem Continue monitor BP (10) Hypothyroid: Continue Levothyroxine Stable (11) Obesity due to excess calories: BMI above 50 Will need counseling on weight loss prior to discharge (12) HLD (hyperlipidemia): Continue statin Stable (13) Bipolar 1 disorder: [place] on hold since elevating We will hold risperidone for prolonged QTC > 500 Follow up psych recommendations (14) Hematuria: Renal ultrasound normal Hold hep for DVT ppx Urology consulted (15) DVT prophylaxis: SCD for now Heparin on hold due to hematuria Code status Full code Disposition Order for PT OT, Social service consulted for discharge plan Subjective Patient sitting up on chair Still appears to be confused, no complaint of shortness of breath, no cough no fever or chills Physical Exam Constitutional: well developed, well nourished and + obese Eyes: EOM intact bilaterally ENMT: Ears: no external ear abnormality Nose: no external nose abnormality Mouth: + dry oral mucous membranes Neck: no nuchal rigidity Respiratory: normal respiratory effort Auscultation: + diminished lung sounds Cardiovascular: Rate/Rhythm: regular rate and regular rhythm Extremities: + edema (trace-1+ indurated BL) Gastrointestinal (Abdomen): Inspection/Auscultation: normal bowel sounds Percussion/Palpation: abdomen soft; abdomen nontender Musculoskeletal: Extremities: strength 5/5 throughout Skin: no rashes, warm and dry Psychiatric: Orientation: alert, oriented x 3, oriented to person and cooperative; + not oriented to place and + not oriented to time Speech: normal rate/rhythm/volume of speech Affect: + flat affect Hallucinations: no auditory hallucinations and no visual hallucinations Insight: + limited insight Results & Data Vital Signs (Past 12 Hours) Vital Signs Temp Pulse Pulse Resp BP Pulse Ox 04/29/19 10:39 36.4 C 57 L 18 157/91 H 96 04/29/19 08:27 40 L 04/29/19 07:40 36.2 C L 61 18 140/80 98 04/29/19 07:08 63 16 97 04/29/19 06:45 58 L 04/29/19 03:14 36.6 C 62 16 140/79 97 04/29/19 01:01 54 L 18 94 (1) [place] toxicity Encounter type: initial encounter Injury intent: accidental or unintentional Qualified Code(s): T56.891A - Toxic effect of other metals, accidental (unintentional), initial encounter (2) Acute renal failure (ARF) Acute renal failure type: unspecified Qualified Code(s): N17.9 - Acute kidney failure, unspecified (3) Respiratory failure with hypoxia and hypercapnia Chronicity: unspecified Qualified Code(s): J96.91 - Respiratory failure, unspecified with hypoxia; J96.92 - Respiratory failure, unspecified with hypercapnia (4) Hypertension Hypertension type: essential hypertension Qualified Code(s): I10 - Essential (primary) hypertension (5) Pneumonia Laterality: right Lung location: lower lobe of lung Pneumonia type: due to unspecified organism Qualified Code(s): J18.1 - Lobar pneumonia, unspecified organism
[2019-04-29] MEDS: ATORVASTATIN 40 MG TAB PO SCH (21:06)
[2019-04-29] MEDS: PRAZOSIN HCL 1 MG CAP PO SCH (21:07)
[2019-04-29] MEDS: cefTRIAXone SODIUM 2,000 MG in DEXTROSE 5% 50 ML IV SCH (21:27)
[2019-04-29] MEDS: GABAPENTIN 100 MG CAP PO SCH (21:27)
[2019-04-30] MEDS: DOXYCYCLINE HYCLATE 100 MG CAP PO SCH ×2 (04:58→17:44)
[2019-04-30] MEDS: LEVOTHYROXINE SODIUM 75 MCG TABLET PO SCH (04:58)
--- NOTE | 2019-04-30 05:58 | Hospitalist Progress Note ---
Date of Service April 30, 2019 Subjective Noted to be lethargic by RN on BiPAP. Check ABG, a.m. labs now Hold gabapentin, hydroxyzine for sedation confusion. Results & Data Vital Signs (Past 12 Hours) Vital Signs Temp Pulse Pulse Resp BP Pulse Ox 04/30/19 05:40 92 04/30/19 05:05 90 04/30/19 04:28 23 91 04/30/19 03:39 62 25 H 98 04/30/19 01:00 155/85 H 04/29/19 23:56 37.2 C 59 L 18 166/93 H 93 04/29/19 22:32 60 21 97
[2019-04-30 06:12] LABS: Hematocrit (blood only) 49.4 % (37-47); Hemoglobin 16.8 g/dL (12.0-16.0); Immature Granulocytes # (auto) 0.04 K/uL (0.00-0.02); Immature Granulocytes % (auto) 0.3 %; Lymphocytes # (auto) 0.84 K/uL (1.2-3.4); Lymphocytes % (auto) 6.4 %; Mean Corpuscular Hemoglobin 31.9 pg (25-34); Mean Corpuscular Volume 93.7 fL (80-100); Mean Platelet Volume 9.1 fL (7.4-10.4); Monocytes # (auto) 0.69 K/uL (0.11-0.59); Monocytes % (auto) 5.3 %; Neutrophils # (auto) 11.48 K/uL (1.4-6.5); Platelet Count 218 K/uL (130-400); RDW Coefficient of Variation 15.3 % (11.5-14.5); RDW Standard Deviation 52.7 fL (36.4-46.3); Red Blood Count 5.27 M/uL (4.2-5.4); White Blood Count 13.05 K/uL (4.8-10.8)
[2019-04-30 06:36] LABS: Base Excess ABG 4.9 mEq/L (-9-1.8); HCO3 ABG 31 mmol/L (19-24); Oxygen Saturation ABG 97.1 % (90-95); PCO2 ABG 51 mmHg (35-46); PO2 ABG 92 mm/Hg (80-95)
[2019-04-30 06:39] LABS: Allen Test Pos (Pos)
[2019-04-30 06:43] LABS: BUN Creatinine Ratio 26.5 (10-20); Calcium 9.4 mg/dl (8.5-10.1); Creatinine Clr Calc Pharmacy 68.4 ml/min; Est GFR (African American) 71.4; Est GFR (Non-African American) 61.6
[2019-04-30 06:52] LABS: Potassium 4.6 mmol/L (3.5-5.1)
[2019-04-30 06:53] LABS: Magnesium 2.2 mg/dl (1.8-2.4)
[2019-04-30] MEDS: ASCORBIC ACID 500 MG TAB PO SCH (07:12)
[2019-04-30] MEDS: NICOTINE 14 MG/24 HR PATCH TD SCH (07:12)
[2019-04-30] MEDS: risperiDONE 1 MG TABLET PO SCH (07:12)
[2019-04-30] MEDS: FLUTICASONE/UMECLIDIN/VILANTER INH SCH (07:12)
[2019-04-30] MEDS: ASPIRIN 325 MG ECTAB PO SCH (07:12)
[2019-04-30] MEDS: METOPROLOL TARTRATE 50 MG TAB PO SCH (07:12)
[2019-04-30] MEDS: SERTRALINE HCL 100 MG TABLET PO SCH (07:12)
[2019-04-30] MEDS: dilTIAZem HCL 300 MG CAPCR PO SCH (07:12)
[2019-04-30] MEDS: LORATADINE 10 MG TAB PO SCH (07:12)
--- NOTE | 2019-04-30 08:35 | XRay Report ---
XR chest 1V portable HISTORY: 68 years-old Female Pneumonia /SOB acute shortness of breath with possible pneumonia COMPARISON: Chest radiograph 04/26/2019 TECHNIQUE: Portable AP view of the chest FINDINGS: Cardiac silhouette is mildly enlarged, unchanged. Low lung volumes with bronchovascular crowding. Mil dly improved aeration of the lung bases. Normal left basilar opacities suggestive of atelectasis. No pneumothorax, pleural effusion or overt pulmonary edema. Degenerative changes of the shoulders and sp ine. IMPRESSION: 1. Cardiomegaly without overt pulmonary edema. 2. Hypoinflation with improved aeration of the lung bases. 3. No definite focal airspace consolidation to suggest pneumonia. The above report was generated using voice recognition software. It may contain grammatical, syntax o r spelling errors. Electronically signed by: Tyshawn Raymond M.D. 04/30/2019 8:34 AM
[2019-04-30] MEDS: INSULIN ASPART 100 UNITS/ML 3 ML PEN SC SCH ×4 (08:46→21:43)
[2019-04-30] MEDS: methylPREDNISolone 40 MG in SYRINGE 0 ML IV SCH ×2 (08:46→20:10)
--- NOTE | 2019-04-30 09:13 | Nephrology Progress Note ---
Date of Service April 30, 2019 Assessment & Plan (1) Acute renal failure (ARF): Patient with acute kidney injury likely multifactorial etiology including lithium toxicity and NSAID use. Patient has meloxicam on her OP medication list 15 mg daily. She also had high lithium levels on presentation. Baseline creatinine 0.5 in 08/2018. Presenting creatinine 2.6, further plateau'd at 0.9 today. -Monitor input output and daily BMP. -Avoid nephrotoxins such as NSAIDs. Patient should not be on meloxicam at d/c and will need alternative pain regimen. -cont to hold ACEI, diuretic - though anticipate resuming diuretic next day or so (2) Hypertension: cont OP doses of diltiazem, metoprolol; cannot increase either of these d/t HR <<>> did have HR to 40 yesterday am -acei, diuretic remain on hold >> at this point could use diuretic prn -ordered prn hydralazine for SBP >160 -ordered standing hydralazine 10 mg po tid; titrate up as tolerated (3) [place] toxicity: Patient had elevated lithium levels of 2 on presentation. [place] levels are improving; remains on hold. Recommend consulting psychiatry for alternative mood stabilizer -f/u level 04/30 is 0.9; reassuring she is clearing it; no indication for further checks -for this did not need dialysis (4) Respiratory failure with hypoxia and hypercapnia: Patient remains on oxygen by nasal cannula and this am had lethargy despite bipap >> meds held; ABG, CXR ok. Again, no evidence of volume overload on imaging. Agree with holding Lasix due to acute kidney injury. She is getting antibiotics for possible infection as well as steroids Subjective rapid response called this am for lethargy; ABG, CXR clear; pt on RA when I evaluated her today; denies sob, pain in chest/abd/angel, vis/aud hallucinations, voiding or digestive c/o; states edema controlled Review of Systems Review of Systems: All systems reviewed & are unremarkable except as noted in HPI & below Physical Exam Constitutional: well developed, well nourished and + obese on RA; resting but wakens fully Eyes: EOM intact bilaterally ENMT: Ears: no external ear abnormality Nose: no external nose abnormality Mouth: + dry oral mucous membranes Neck: no nuchal rigidity Respiratory: normal respiratory effort Auscultation: + diminished lung sounds Cardiovascular: Rate/Rhythm: regular rate and regular rhythm Extremities: + edema (trace-1+ indurated BL) Gastrointestinal (Abdomen): Inspection/Auscultation: normal bowel sounds Percussion/Palpation: abdomen soft; abdomen nontender Musculoskeletal: Extremities: strength 5/5 throughout Skin: no rashes, warm and dry Neurologic: jolley, no tremor Psychiatric: Orientation: alert and oriented x 3 Speech: normal rate/rhythm/volume of speech Affect: + anxious affect (as per HPI) and + blunted affect Insight: + limited insight Judgement: + limited judgement Results & Data Vital Signs (Past 12 Hours) Vital Signs Temp Pulse Pulse Resp BP Pulse Ox 04/30/19 05:50 93 04/30/19 05:40 92 04/30/19 05:05 90 04/30/19 04:28 23 91 04/30/19 03:39 62 25 H 98 04/30/19 01:00 155/85 H 04/29/19 23:56 37.2 C 59 L 18 166/93 H 93 04/29/19 22:32 60 21 97 Laboratory Results 04/30/19 05:59 04/30/19 06:16 Diagnostic Findings CXR 1. Cardiomegaly without overt pulmonary edema. 2. Hypoinflation with improved aeration of the lung bases. 3. No definite focal airspace consolidation to suggest pneumonia. (1) [place] toxicity Encounter type: initial encounter Injury intent: accidental or unintentional Qualified Code(s): T56.891A - Toxic effect of other metals, accidental (unintentional), initial encounter (2) Acute renal failure (ARF) Acute renal failure type: unspecified Qualified Code(s): N17.9 - Acute kidney failure, unspecified (3) Respiratory failure with hypoxia and hypercapnia Chronicity: unspecified Qualified Code(s): J96.91 - Respiratory failure, unspecified with hypoxia; J96.92 - Respiratory failure, unspecified with hypercapnia (4) Hypertension Hypertension type: essential hypertension Qualified Code(s): I10 - Essential (primary) hypertension
--- NOTE | 2019-04-30 10:01 | Communication Note ---
Date of Service: April 30, 2019 Summary of Outpatient Records: [facility] - Dr. Santamaria Diagnosis: Schizoaffective disorder, depressed type Current Medication list: sertraline 100mg PO qAM; risperidone 1mg PO qAM; risperidone 2mg PO qHS; Prazosin 1mg PO HS; Neurontin 100mg PO qAM; lithium carbonate 300mg PO TID 02/05/19 - Pt had not been seen since 11/12/18, as she was being seen by a psychiatrist more locally at that time. She was "started back on lithium" by this other psychiatrist. It was reported she had been hospitalized at [facility] for medical concerns. Reportedly has a home health nurse from [facility] visiting every Sunday. Denied hallucinations at times of visit, but reported "paranoia with paranoid delusions that people are looking at and talking about her and to get her." Reportedly not interested in outpatient therapy 03/05/19 - Reports stability of symptoms, but reported feeling she was on too many medications. Pt had reduced dosage of gabapentin to 100mg qAM, rather than TID and was only taking 1mg of prazosin at bedtime. Home health nurse continues to check medication supply and that patient is taking them appropriately. Ongoing paranoia was reported, but no SI/HI. Denies hallucinations. 04/02/19 - Pt reports stability of symptoms, reporting desire for smoking cessation and weight loss. Reportedly involved in volunteering, [employer], and the [facility]. Pt had reportedly started going to the gym. She denied desire to make medication changes. Denied SI/HI and hallucinations.
[2019-04-30] MEDS: HydrALAZINE 10 MG TAB PO SCH ×2 (13:38→20:11)
--- NOTE | 2019-04-30 15:31 | Urology Consultation ---
Date of Consultation April 29, 2019 Assessment & Plan (1) Hematuria: Gross hematuria. Per patient, this has improved. I was not able to visualize urine upon exam. Normal Renal US is reassuring. Negative UC&S. Will coordinate urine cytology while inpatient. If hematuria is persisting and/or worsening would recommend CT abd/pelvis for further evaluation. I will also be coordinating outpatient URO follow up. Given her lack of discomfort or urinary bother unlikely that acute intervention is indicated at this time. Thank you for allowing us to participate in the inpatient care of Ms. Becker. Please contact us if we can assist further during hospitalization. History of Present Illness Attending Physician: Rehana Hunt MD History of Present Illness 68 YO female with hematuria. Patient was evaluated yesterday, 04/29/19, however it appears that my note was not saved due to assumed computer error. Patient reports that she has never seen a urologist. Her normal renal US is noted. She denies any urinary pain, difficulty, or bother. Feels that she is emptying completely. Suspects that her hematuria has cleared because she, herself, has not noticed this. Appears to be alert and oriented, cooperative upon my exam. Allergies Allergy/AdvReac Type Severity Reaction Status Date / Time No Known Allergies Allergy Verified 04/26/19 17:15 Home Medications Home Medications Medication Instructions Recorded Confirmed Type diltiazem HCl 300 mg PO DAILY 08/31/18 04/26/19 History fluticasone propion-salmeterol 1 puff INHALATION BID 08/31/18 04/26/19 History [Advair Diskus] furosemide 40 mg PO BID 08/31/18 04/26/19 History gabapentin 100 mg PO QAM 08/31/18 04/30/19 History lisinopril 1 tab PO QAM 08/31/18 04/26/19 History loratadine 10 tab PO QAM 08/31/18 04/26/19 History meloxicam 15 mg PO QAM 08/31/18 04/26/19 History metoprolol tartrate 50 mg PO QAM 08/31/18 04/26/19 History risperidone 1 mg PO QAM 08/31/18 04/27/19 History sertraline 100 mg PO QAM 08/31/18 04/27/19 History ascorbic acid (vitamin C) [Vitamin 1 g PO DAILY 04/26/19 04/26/19 History C] aspirin 325 mg PO DAILY 04/26/19 04/26/19 History atorvastatin 40 mg PO HS 04/26/19 04/26/19 History ufxlbllnlfi-vkordqnbt-ldmnsvqo 1 inh INHALATION QAM 04/26/19 04/26/19 History [Trelegy Ellipta] hydroxyzine pamoate 25 mg PO QID PRN 04/26/19 04/27/19 History ipratropium-albuterol 3 ml INHALATION QID PRN 04/26/19 04/26/19 History levothyroxine 75 mcg PO QAM 04/26/19 04/26/19 History lithium carbonate 300 mg PO TID 04/26/19 History melatonin 2 mg PO HS 04/26/19 04/26/19 History nicotine 1 patch TRANSDERMAL DAILY 04/26/19 04/26/19 History prazosin 1 mg PO HS 04/26/19 04/27/19 History risperidone 2 mg PO HS 04/26/19 04/27/19 History Patient History Medical History Hallucinations Schizophrenia Social History Preferred Language: Frisian Communication Ability: Impaired Director Of Event Marketing Required: No Beliefs That Will Affect Care: None Current Living Situation: Alone Other Information That Helps Us Care for You: No Feels Safe at Home: Yes Safety Concerns: Feels Safe At This Time Smoking Status: Current every day smoker Tobacco Type: cigarettes ; Do You Dip or Chew Tobacco: No ; Second Hand Exposure: No ; Tobacco Cessation Education Requested by Patient: No Hx Alcohol Use: No Hx Substance Use: No Review of Systems Review of Systems: Per HPI. Physical Exam Physical Exam: NAD. Resp effort normal. No JVD. Abd nondistended. A&Ox3, appropriate affect. Results & Data Vital Signs (Past 12 Hours) Vital Signs Temp Pulse Pulse Resp BP Pulse Ox 04/30/19 12:50 36.4 C L 63 19 147/79 H 91 04/30/19 08:00 36.5 C 58 L 19 186/70 H 93 04/30/19 05:50 93 04/30/19 05:40 92 04/30/19 05:05 90 04/30/19 04:28 23 91 04/30/19 03:39 62 25 H 98 PG Care Time/CCT Total # of Minutes Spent Total Time Spent with Patient: Total time spent is greater than 50% in coordination of care (as documented) at patient's floor/unit and/or counseling patient:
--- NOTE | 2019-04-30 18:37 | Hospitalist Progress Note ---
Date of Service April 30, 2019 Assessment & Plan (1) Respiratory failure with hypoxia and hypercapnia: Resolved, Respiratory status improved to baseline, in room air, no cough no shortness of breath on dyspnea on exertion Continue pulmonary toileting, Nebulizer treatment changed to as needed, as no audible wheeze noted (2) Obesity hypoventilation syndrome: (3) COPD (chronic obstructive pulmonary disease): (4) Pneumonia: Present on admission with worsening SOB and altered mental status CXR showed Low lung volumes with right basilar opacity ABG on admission showed 7.36/65/63/35 Pt was placed on Bipap Antibiotics adjusted, will DC Rocephin complete doxycycline total 5 days of course Will continue Bipap at night and when sleeping during the day Continue Nebulizer treatment and Trelegy Ellipta (5) Acute renal failure (ARF): Resolved Possible related to dehydration/poor oral intake Creatinine on admission 2.6 Renal U/S showed normal renal ultrasound. Creatinine 0.9 today Continue to hold lasix and Lisinopril Nephrology on board patient improved Avoid nephrotoxic agents Monitor BMP (6) [place] toxicity: Possible related to Acute renal failure [place] level 2 Continue to hold [place] repeat [place] today 1.6 Given patient's increased risk for dehydration acute renal failure with hip toxicity, alternate medication for mood stabilizing will be appropriate Psych consulted, appreciate input (7) Elevated troponin: Possible secondary to renal insufficiency, no evidence of ACS She does not have any chest pain or chest discomfort Troponin trending down 0.117-->0.067 Echo: Shows no wall motion abnormality, left ventricular systolic function normal, EF 55-60% Continue aspirin, metoprolol and statin (8) Metabolic encephalopathy: Mental status improving gradually Mostly related to CO2 retention/lithium toxicity and B[place] CT head on admission un reamarkable No focal neuro deficit on exam Continue monitor closely (9) Hypertension: Lisinopril and Lasix on hold due to [place] Continue metoprolol and diltiazem Continue monitor BP (10) Hypothyroid: Continue Levothyroxine Stable (11) Obesity due to excess calories: BMI above 50 Will need counseling on weight loss prior to discharge (12) HLD (hyperlipidemia): Continue statin Stable (13) Bipolar 1 disorder: [place] on hold since elevating We will hold risperidone for prolonged QTC > 500 Follow up psych recommendations (14) Hematuria: Has resolved Renal ultrasound normal Urology consulted appreciate input Recommends CT abdomen pelvis if patient develops gross hematuria Outpatient urology follow-up for possible cystoscopy Patient remains symptomatic, no further urologic intervention indicated (15) DVT prophylaxis: SCD for now Heparin on hold due to hematuria Code status Full code Disposition Order for PT OT, Patient will need rehab Social service consulted for discharge plan Subjective Patient sitting up on chair, comfortable, denies of any pain or discomfort no cough no respiratory distress remains in room air No fever or chills Physical Exam Constitutional: well developed, well nourished and + obese Eyes: EOM intact bilaterally ENMT: Ears: no external ear abnormality Nose: no external nose abnormality Mouth: + dry oral mucous membranes Neck: no nuchal rigidity Respiratory: normal respiratory effort Auscultation: + diminished lung sounds Cardiovascular: Rate/Rhythm: regular rate and regular rhythm Extremities: + edema (trace-1+ indurated BL) Gastrointestinal (Abdomen): Inspection/Auscultation: normal bowel sounds Percussion/Palpation: abdomen soft; abdomen nontender Musculoskeletal: Extremities: strength 5/5 throughout Skin: no rashes, warm and dry Psychiatric: Orientation: alert, oriented x 3, oriented to person and cooperative; + not oriented to place and + not oriented to time Apperance: appeared stated age Affect: + flat affect Suicidal Thoughts: denies suicidal plan Hallucinations: no visual hallucinations Cognition: + remote memory not intact and + language not intact Results & Data Vital Signs (Past 12 Hours) Vital Signs Temp Pulse Resp BP BP Pulse Ox 04/30/19 15:49 36.7 C 58 L 18 176/80 H 90 04/30/19 12:50 36.4 C L 63 19 147/79 H 91 04/30/19 08:00 36.5 C 58 L 19 186/70 H 93 (1) Respiratory failure with hypoxia and hypercapnia Chronicity: unspecified Qualified Code(s): J96.91 - Respiratory failure, unspecified with hypoxia; J96.92 - Respiratory failure, unspecified with hypercapnia (2) Pneumonia Laterality: right Lung location: lower lobe of lung Pneumonia type: due to unspecified organism Qualified Code(s): J18.1 - Lobar pneumonia, unspecified organism (3) Acute renal failure (ARF) Acute renal failure type: unspecified Qualified Code(s): N17.9 - Acute kidney failure, unspecified (4) [place] toxicity Encounter type: initial encounter Injury intent: accidental or unintentional Qualified Code(s): T56.891A - Toxic effect of other metals, accidental (unintentional), initial encounter (5) Hypertension Hypertension type: essential hypertension Qualified Code(s): I10 - Essential (primary) hypertension
[2019-04-30] MEDS: ATORVASTATIN 40 MG TAB PO SCH (20:10)
[2019-04-30] MEDS: PRAZOSIN HCL 1 MG CAP PO SCH (20:10)
[2019-05-01] MEDS: DOXYCYCLINE HYCLATE 100 MG CAP PO SCH ×2 (05:53→18:56)
[2019-05-01] MEDS: LEVOTHYROXINE SODIUM 75 MCG TABLET PO SCH (05:53)
--- NOTE | 2019-05-01 06:24 | Nephrology Progress Note ---
Date of Service May 01, 2019 Assessment & Plan (1) Acute renal failure (ARF): Patient with acute kidney injury likely multifactorial etiology including lithium toxicity and NSAID use. Patient has meloxicam on her OP medication list 15 mg daily. She also had high lithium levels on presentation. Baseline creatinine 0.5 in 08/2018. Presenting creatinine 2.6, further plateau'd at 0.9 yesterday, 0.8 today. Urology saw pt for gross hematuria which appears to be self limited but they will monitor / f-u as OP. -Monitor input output and daily BMP. -Avoid nephrotoxins such as NSAIDs. Patient should not be on meloxicam at d/c and will need alternative pain regimen. -cont to hold ACEI and consider resuming at PCP f/u after d/c -recommend resuming OP diuretic today or tomorrow -at d/c recommend weekly bmp until seen by PCP; f/u w/ me or any MD in CKD clinic in 4-6 wks (2) Hypertension: cont OP doses of diltiazem, metoprolol; cannot increase either of these d/t HR <<>> did have HR to 40 once and consistently in mid 50s -acei, diuretic remain on hold >> consider resuming diuretic -ordered prn hydralazine for SBP >160 -increased standing hydralazine to 25 mg po tid; titrate up as tolerated (3) [place] toxicity: Patient had elevated lithium levels of 2 on presentation. [place] levels are improving; remains on hold. Recommend consulting psychiatry for alternative mood stabilizer -f/u level 04/30 is 0.9; reassuring she is clearing it; no indication for further checks -for this did not need dialysis Subjective urology saw her yest for gross hematuria > doubt acute process; studies pending; for OP f/u. sitting in chair feeling much improved, thinking about post d/c and hwere to live longer term. no sob, no cp, feels edema better/ stable; no voiding sx; no diarrhea Review of Systems Review of Systems: All systems reviewed & are unremarkable except as noted in HPI & below Physical Exam Constitutional: well developed, well nourished and + obese up in chair on RA Eyes: EOM intact bilaterally ENMT: Ears: no external ear abnormality Nose: no external nose abnormality Mouth: + dry oral mucous membranes Neck: no nuchal rigidity Respiratory: normal respiratory effort Auscultation: + diminished lung sounds Cardiovascular: Rate/Rhythm: regular rate and regular rhythm Extremities: + edema (trace-1+ indurated BL) Gastrointestinal (Abdomen): Inspection/Auscultation: normal bowel sounds Percussion/Palpation: abdomen soft; abdomen nontender Musculoskeletal: Extremities: strength 5/5 throughout Skin: no rashes, warm and dry Neurologic: jolley, fluent speech, no tremor Psychiatric: A+Ox3, euthymic affect Speech: normal rate/rhythm/volume of speech Affect: + blunted affect Insight: + limited insight Judgement: + limited judgement Results & Data Vital Signs (Past 12 Hours) Vital Signs Temp Pulse Resp BP Pulse Ox 05/01/19 00:53 36.4 C L 55 L 20 167/84 H 92 Laboratory Results 04/30/19 05:59 05/01/19 07:16 (1) [place] toxicity Encounter type: initial encounter Injury intent: accidental or unintentional Qualified Code(s): T56.891A - Toxic effect of other metals, accidental (unintentional), initial encounter (2) Acute renal failure (ARF) Acute renal failure type: unspecified Qualified Code(s): N17.9 - Acute kidney failure, unspecified (3) Hypertension Hypertension type: essential hypertension Qualified Code(s): I10 - Essential (primary) hypertension
[2019-05-01 07:14] LABS: BUN Creatinine Ratio 28.3 (10-20); Calcium 9.4 mg/dl (8.5-10.1); Creatinine Clr Calc Pharmacy 82.1 ml/min; Est GFR (Non-African American) 76.8
[2019-05-01] MEDS: predniSONE 20 MG TAB PO SCH (07:54)
[2019-05-01] MEDS: NICOTINE 14 MG/24 HR PATCH TD SCH (07:55)
[2019-05-01] MEDS: ASPIRIN 325 MG ECTAB PO SCH (07:55)
[2019-05-01] MEDS: dilTIAZem HCL 300 MG CAPCR PO SCH (07:55)
[2019-05-01] MEDS: ASCORBIC ACID 500 MG TAB PO SCH (07:55)
[2019-05-01] MEDS: SERTRALINE HCL 100 MG TABLET PO SCH (07:55)
[2019-05-01] MEDS: METOPROLOL TARTRATE 50 MG TAB PO SCH (07:56)
[2019-05-01] MEDS: FLUTICASONE/UMECLIDIN/VILANTER INH SCH (07:56)
[2019-05-01] MEDS: LORATADINE 10 MG TAB PO SCH (08:00)
[2019-05-01] MEDS: INSULIN ASPART 100 UNITS/ML 3 ML PEN SC SCH ×4 (08:20→20:23)
[2019-05-01] MEDS ORDERED: GABAPENTIN 100 MG CAP PO SCH (09:00)
--- NOTE | 2019-05-01 16:28 | Hospitalist Progress Note ---
Date of Service May 01, 2019 Assessment & Plan (1) Respiratory failure with hypoxia and hypercapnia: Resolved, Respiratory status improved to baseline, in room air, no cough no shortness of breath on dyspnea on exertion Continue pulmonary toileting, Nebulizer treatment changed to as needed, as no audible wheeze noted (2) Obesity hypoventilation syndrome: (3) COPD (chronic obstructive pulmonary disease): (4) Pneumonia: Present on admission with worsening SOB and altered mental status CXR showed Low lung volumes with right basilar opacity ABG on admission showed 7.36/65/63/35 Pt was placed on Bipap Antibiotics adjusted, will DC Rocephin complete doxycycline total 5 days of course Will continue Bipap at night and when sleeping during the day Continue Nebulizer treatment and Trelegy Ellipta (5) Acute renal failure (ARF): Resolved Possible related to dehydration/poor oral intake Creatinine on admission 2.6 Renal U/S showed normal renal ultrasound. Creatinine improved to 0.9 Continue to hold lasix and Lisinopril Nephrology on board : Please continue to hold SCOTTY inhibitor, and will be resumed after patient family physician follow-up and lab work check for BMP Will up with nephrology in CKD clinic in 4-6 weeks Avoid nephrotoxic agents /avoid NSAIDs: No Aleve/Advil/naproxen/Motrin/meloxicam/ibuprofen/high-dose aspirin (6) [place] toxicity: Possible related to Acute renal failure [place] level 2 Continue to hold [place] Repeat lithium level improved to 1.6 Given patient's increased risk for dehydration acute renal failure with hip toxicity, alternate medication for mood stabilizing will be appropriate Psych consulted, appreciate input (7) Elevated troponin: Possible secondary to renal insufficiency, no evidence of ACS She does not have any chest pain or chest discomfort Troponin trending down 0.117-->0.067 Echo: Shows no wall motion abnormality, left ventricular systolic function normal, EF 55-60% Continue aspirin, metoprolol and statin (8) Metabolic encephalopathy: Mental status improved to baseline alert awake oriented, very comfortable conversing appropriately Mostly related to CO2 retention/lithium toxicity and B[place] CT head on admission un reamarkable No focal neuro deficit on exam Continue monitor closely (9) Hypertension: Lisinopril and Lasix on hold due to [place] Continue metoprolol and diltiazem Continue monitor BP (10) Hypothyroid: Continue Levothyroxine Stable (11) Obesity due to excess calories: BMI above 50 Will need counseling on weight loss prior to discharge (12) HLD (hyperlipidemia): Continue statin Stable (13) Bipolar 1 disorder: [place] on hold since elevating We will hold risperidone for prolonged QTC > 500 Follow up psych recommendations (14) Hematuria: Has resolved Renal ultrasound normal Urology consulted appreciate input Recommends CT abdomen pelvis if patient develops gross hematuria Outpatient urology follow-up for possible cystoscopy Patient remains symptomatic, no further urologic intervention indicated (15) DVT prophylaxis: SCD for now Heparin on hold due to hematuria Code status Full code Disposition Order for PT OT, Patient will need rehab Social service consulted for discharge plan Subjective Patient is doing well, no cough, no shortness of breath, no fever chills Feels her energy has improved, Physical Exam Constitutional: well developed, well nourished and + obese Eyes: EOM intact bilaterally Respiratory: normal respiratory effort Cardiovascular: Rate/Rhythm: regular rate and regular rhythm Extremities: + edema (trace-1+ indurated BL) Gastrointestinal (Abdomen): Inspection/Auscultation: normal bowel sounds Percussion/Palpation: abdomen soft; abdomen nontender Musculoskeletal: Extremities: strength 5/5 throughout Skin: no rashes, warm and dry Psychiatric: Orientation: alert, oriented x 3 and oriented to person Apperance: appeared stated age Thought Process: + concrete thought process Results & Data Vital Signs (Past 12 Hours) Vital Signs Temp Pulse Resp BP Pulse Ox 05/01/19 15:50 37.1 C 61 18 171/94 H 93 05/01/19 07:35 36.6 C 54 L 20 157/89 H 92 (1) [place] toxicity Encounter type: initial encounter Injury intent: accidental or unintentional Qualified Code(s): T56.891A - Toxic effect of other metals, accidental (unintentional), initial encounter (2) Acute renal failure (ARF) Acute renal failure type: unspecified Qualified Code(s): N17.9 - Acute kidney failure, unspecified (3) Respiratory failure with hypoxia and hypercapnia Chronicity: unspecified Qualified Code(s): J96.91 - Respiratory failure, unspecified with hypoxia; J96.92 - Respiratory failure, unspecified with hypercapnia (4) Hypertension Hypertension type: essential hypertension Qualified Code(s): I10 - Essential (primary) hypertension (5) Pneumonia Laterality: right Lung location: lower lobe of lung Pneumonia type: due to unspecified organism Qualified Code(s): J18.1 - Lobar pneumonia, unspecified organism
[2019-05-01] MEDS: ATORVASTATIN 40 MG TAB PO SCH (20:25)
[2019-05-01] MEDS: PRAZOSIN HCL 1 MG CAP PO SCH (20:25)
[2019-05-02] MEDS: HydrALAZINE 10 MG TAB PO PRN ×2 (00:13→16:46)
[2019-05-02] MEDS: DOXYCYCLINE HYCLATE 100 MG CAP PO SCH ×2 (06:03→16:46)
[2019-05-02] MEDS: LEVOTHYROXINE SODIUM 75 MCG TABLET PO SCH (06:03)
[2019-05-02] MEDS: NICOTINE 14 MG/24 HR PATCH TD SCH (07:32)
[2019-05-02] MEDS: SERTRALINE HCL 100 MG TABLET PO SCH (07:32)
[2019-05-02] MEDS: predniSONE 20 MG TAB PO SCH (07:32)
[2019-05-02] MEDS: ASCORBIC ACID 500 MG TAB PO SCH (07:32)
[2019-05-02] MEDS: FLUTICASONE/UMECLIDIN/VILANTER INH SCH (07:32)
[2019-05-02] MEDS: ASPIRIN 325 MG ECTAB PO SCH (07:33)
[2019-05-02] MEDS: LORATADINE 10 MG TAB PO SCH (07:33)
[2019-05-02] MEDS: dilTIAZem HCL 300 MG CAPCR PO SCH (07:33)
[2019-05-02] MEDS: METOPROLOL TARTRATE 50 MG TAB PO SCH (07:33)
[2019-05-02] MEDS: INSULIN ASPART 100 UNITS/ML 3 ML PEN SC SCH ×4 (08:22→21:10)
[2019-05-02] MEDS: LISINOPRIL 20 MG TAB PO SCH (08:43)
[2019-05-02] MEDS ORDERED: HydrALAZINE TAB 50 MG TAB PO SCH (14:00)
--- NOTE | 2019-05-02 18:33 | Hospitalist Progress Note ---
Date of Service May 02, 2019 Assessment & Plan (1) Respiratory failure with hypoxia and hypercapnia: Resolved, Respiratory status improved to baseline, in room air, no cough no shortness of breath on dyspnea on exertion Continue pulmonary toileting, Nebulizer treatment changed to as needed, as no audible wheeze noted (2) Obesity hypoventilation syndrome: (3) COPD (chronic obstructive pulmonary disease): (4) Pneumonia: Present on admission with worsening SOB and altered mental status CXR showed Low lung volumes with right basilar opacity ABG on admission showed 7.36/65/63/35 Antibiotics adjusted, completed 5 days of p.o. doxycycline Will continue Bipap at night and when sleeping during the day Continue Nebulizer treatment and Trelegy Ellipta Speech status improved to baseline (5) Acute renal failure (ARF): Resolved Possible related to dehydration/poor oral intake Creatinine on admission 2.6 Renal U/S showed normal renal ultrasound. Creatinine improved to 0.9 Continue to hold lasix and Lisinopril Nephrology on board : Please continue to hold SCOTTY inhibitor, and will be resumed after patient family physician follow-up and lab work check for BMP Will up with nephrology in CKD clinic in 4-6 weeks Avoid nephrotoxic agents /avoid NSAIDs: No Aleve/Advil/naproxen/Motrin/meloxicam/ibuprofen/high-dose aspirin (6) [place] toxicity: Possible related to Acute renal failure [place] level 2 Continue to hold [place] Repeat lithium level improved to 1.6 Given patient's increased risk for dehydration acute renal failure with hip tox icity, alternate medication for mood stabilizing will be appropriate Psych consulted, appreciate input Patient request repeatedly not to put back on lithium, She had felt very dizzy lightheaded, visual disturbance while taking lithium Has been off lithium since admission, Patient mentions "she has not felt this well for the last 2-3 months" (7) Elevated troponin: Possible secondary to renal insufficiency, no evidence of ACS She does not have any chest pain or chest discomfort Troponin trending down 0.117-->0.067 Echo: Shows no wall motion abnormality, left ventricular systolic function normal, EF 55-60% Continue aspirin, metoprolol and statin (8) Metabolic encephalopathy: Mental status improved to baseline alert awake oriented, very comfortable conversing appropriately Mostly related to CO2 retention/lithium toxicity and B[place] CT head on admission un reamarkable (9) Hypertension: Lisinopril and Lasix on hold due to [place] Continue metoprolol and diltiazem Continue monitor BP (10) Hypothyroid: Continue Levothyroxine Stable (11) Obesity due to excess calories: BMI above 50 Will need counseling on weight loss prior to discharge (12) HLD (hyperlipidemia): Continue statin Stable (13) Bipolar 1 disorder: [place] on hold since elevating We will hold risperidone for prolonged QTC > 500 Follow up psych recommendations (14) Hematuria: Has resolved Renal ultrasound normal Urology consulted appreciate input Recommends CT abdomen pelvis if patient develops gross hematuria Outpatient urology follow-up for possible cystoscopy Patient remains symptomatic, no further urologic intervention indicated (15) DVT prophylaxis: SCD for now Heparin on hold due to hematuria Code status Full code Disposition Patient has improved remarkably, almost back to her baseline functional status Lives in apartment by herself Uses walker Continue PT OT Patient requests to return back to her apartment with home health /home PT will Update Case management Subjective Continue to feel better, no cough no fever chills breathing much improved Patient is hoping to return back to home with home health home PT after discharge from hospital Physical Exam Constitutional: well developed, well nourished and + obese Eyes: EOM intact bilaterally ENMT: Ears: no external ear abnormality Nose: no external nose abnormality Mouth: + dry oral mucous membranes Neck: no nuchal rigidity Respiratory: normal respiratory effort Auscultation: + diminished lung sounds Cardiovascular: Rate/Rhythm: regular rate and regular rhythm Extremities: + edema (trace-1+ indurated BL) Gastrointestinal (Abdomen): Inspection/Auscultation: normal bowel sounds Percussion/Palpation: abdomen soft; abdomen nontender Musculoskeletal: Extremities: strength 5/5 throughout Skin: no rashes, warm and dry Psychiatric: Orientation: alert, oriented x 3 and oriented to person Apperance: appeared stated age Eye Contact: good eye contact Speech: normal rate/rhythm/volume of speech Affect: + flat affect Mood: + depressed mood ("Down low", reporting low mood for 2 months due to physical concerns) Thought Process: + concrete thought process Thought Content: no delusions (No obviously delusional thought content verbalized) and no hopelessness Suicidal Thoughts: denies suicidal plan Homicidal Thoughts: denies homicidal thoughts Hallucinations: no visual hallucinations Cognition: + remote memory not intact and + language not intact Insight: + limited insight Judgement: + limited judgement and + fair judgement Results & Data Vital Signs (Past 12 Hours) Vital Signs Temp Pulse Resp BP BP Pulse Ox 05/02/19 16:16 36.8 C 58 L 19 197/80 H 94 05/02/19 12:32 36.8 C 56 L 22 146/92 H 94 05/02/19 08:09 36.9 C 75 22 180/103 H 90 (1) [place] toxicity Encounter type: initial encounter Injury intent: accidental or unintentional Qualified Code(s): T56.891A - Toxic effect of other metals, accidental (unintentional), initial encounter (2) Acute renal failure (ARF) Acute renal failure type: unspecified Qualified Code(s): N17.9 - Acute kidney failure, unspecified (3) Respiratory failure with hypoxia and hypercapnia Chronicity: unspecified Qualified Code(s): J96.91 - Respiratory failure, unspecified with hypoxia; J96.92 - Respiratory failure, unspecified with hypercapnia (4) Hypertension Hypertension type: essential hypertension Qualified Code(s): I10 - Essential (primary) hypertension (5) Pneumonia Laterality: right Lung location: lower lobe of lung Pneumonia type: due to unspecified organism Qualified Code(s): J18.1 - Lobar pneumonia, unspecified organism
--- NOTE | 2019-05-02 19:21 | Nephrology Progress Note ---
Date of Service May 02, 2019 Assessment & Plan (1) Acute renal failure (ARF): Patient with acute kidney injury likely multifactorial etiology including lithium toxicity and NSAID use. Patient has meloxicam on her OP medication list 15 mg daily. She also had high lithium levels on presentation. Baseline creatinine 0.5 in 08/2018. Presenting creatinine 2.6, further plateau'd at 0.8 today. Urology saw pt for gross hematuria which appears to be self limited but they will monitor / f-u as OP. -Monitor input output and daily BMP. -Avoid nephrotoxins such as NSAIDs. Patient should not be on meloxicam at d/c and will need alternative pain regimen. -at d/c recommend weekly bmp until seen by PCP; f/u w/ me or any MD in CKD clinic in 4-6 wks (2) Hypertension: cont OP doses of diltiazem, metoprolol; cannot increase either of these d/t HR <<>> did have HR to 40 once and consistently in mid 50s -acei, diuretic remain on hold >> consider resuming diuretic -ordered prn hydralazine for SBP >160 -increased standing hydralazine to 50 mg po tid; titrate up as tolerated Started lisinopril (3) [place] toxicity: Patient had elevated lithium levels of 2 on presentation. [place] levels are improving; remains on hold. Recommend consulting psychiatry for alternative mood stabilizer -f/u level 04/30 is 0.9; reassuring she is clearing it; no indication for further checks -for this did not need dialysis Subjective Patient seen in the morning during rounds. She feels better but concerned about high BP and need for alternative to lithium. BP still high Review of Systems Review of Systems: All systems reviewed & are unremarkable except as noted in HPI & below Physical Exam Physical Exam: General exam: Appears comfortable, no acute distress HEENT: Pupils are equal and reactive to light Neck: No JVD, neck is supple trachea is midline Respiratory system: Clear breath sounds bilaterally. Gastrointestinal: Abdomen is soft, non distended, non tender, bowel sounds are present CVS: Regular rate and rhythm. No murmurs, rubs or gallops Musculoskeletal: No joint or muscle tenderness Extremities: Non tender, 1+ edema, peripheral pulses are present Neuro: Oriented, no tremors, no focal neurological deficits Skin: No rashes Results & Data Vital Signs (Past 12 Hours) Vital Signs Temp Pulse Resp BP BP Pulse Ox 05/02/19 16:16 36.8 C 58 L 19 197/80 H 94 05/02/19 12:32 36.8 C 56 L 22 146/92 H 94 05/02/19 08:09 36.9 C 75 22 180/103 H 90 Laboratory Results Laboratory Results - last 24 hr 05/01/19 05/01/19 05/02/19 16:13 20:07 07:57 POC Glucose 135 H 141 H 96 05/02/19 05/02/19 11:45 16:23 POC Glucose 154 H 123 H (1) Acute renal failure (ARF) Acute renal failure type: unspecified Qualified Code(s): N17.9 - Acute kidney failure, unspecified (2) Hypertension Hypertension type: essential hypertension Qualified Code(s): I10 - Essential (primary) hypertension (3) [place] toxicity Encounter type: initial encounter Injury intent: accidental or unintentional Qualified Code(s): T56.891A - Toxic effect of other metals, accidental (unintentional), initial encounter
[2019-05-02] MEDS: PRAZOSIN HCL 1 MG CAP PO SCH (20:29)
[2019-05-02] MEDS: ATORVASTATIN 40 MG TAB PO SCH (20:29)
[2019-05-02] MEDS: HydrALAZINE TAB 50 MG TAB PO SCH (20:29)
[2019-05-03] MEDS: LEVOTHYROXINE SODIUM 75 MCG TABLET PO SCH (05:51)
[2019-05-03] MEDS: ASPIRIN 325 MG ECTAB PO SCH (07:35)
[2019-05-03] MEDS: predniSONE 20 MG TAB PO SCH (07:35)
[2019-05-03] MEDS: SERTRALINE HCL 100 MG TABLET PO SCH (07:35)
[2019-05-03] MEDS: HydrALAZINE TAB 50 MG TAB PO SCH ×3 (07:35→20:39)
[2019-05-03] MEDS: NICOTINE 14 MG/24 HR PATCH TD SCH (07:36)
[2019-05-03] MEDS: LISINOPRIL 20 MG TAB PO SCH (07:36)
[2019-05-03] MEDS: ASCORBIC ACID 500 MG TAB PO SCH (07:36)
[2019-05-03] MEDS: METOPROLOL TARTRATE 50 MG TAB PO SCH (07:36)
[2019-05-03] MEDS: dilTIAZem HCL 300 MG CAPCR PO SCH (07:37)
[2019-05-03] MEDS: LORATADINE 10 MG TAB PO SCH (07:37)
[2019-05-03] MEDS: FLUTICASONE/UMECLIDIN/VILANTER INH SCH (07:38)
[2019-05-03] MEDS: INSULIN ASPART 100 UNITS/ML 3 ML PEN SC SCH ×4 (07:55→20:54)
--- NOTE | 2019-05-03 10:37 | Nephrology Progress Note ---
Date of Service May 03, 2019 Assessment & Plan (1) Acute renal failure (ARF): Patient with acute kidney injury likely multifactorial etiology including lithium toxicity and NSAID use. Patient has meloxicam on her OP medication list 15 mg daily. She also had high lithium levels on presentation. Baseline creatinine 0.5 in 08/2018. Presenting creatinine 2.6, further plateau'd at 0.8. Urology saw pt for gross hematuria which appears to be self limited but they will monitor / f-u as OP. -Monitor input output and daily BMP. -Avoid nephrotoxins such as NSAIDs. Patient should not be on meloxicam at d/c and will need alternative pain regimen. -BMP today since we started lisinopril (2) Hypertension: cont OP doses of diltiazem, metoprolol; cannot increase either of these d/t HR <<>> did have HR to 40 once and consistently in mid 50s -Resume home Lasix 40 mg p.o. twice daily -Hydralazine was increased to 75 mg 3 times daily. Continue lisinopril, metoprolol and Cardizem; titrate up as tolerated (3) [place] toxicity: Patient had elevated lithium levels of 2 on presentation. [place] levels are improving; remains on hold. Recommend consulting psychiatry for alternative mood stabilizer -f/u level 04/30 is 0.9; reassuring she is clearing it; no indication for further checks -for this did not need dialysis Subjective Patient feels better today denies any shortness of breath or urinary symptoms. Blood pressure remains high. She is complaining of leg edema. Review of Systems Review of Systems: All systems reviewed & are unremarkable except as noted in HPI & below Physical Exam Physical Exam: General exam: Appears comfortable, no acute distress HEENT: Pupils are equal and reactive to light Neck: No JVD, neck is supple trachea is midline Respiratory system: Clear breath sounds bilaterally. Gastrointestinal: Abdomen is soft, non distended, non tender, bowel sounds are present CVS: Regular rate and rhythm. No murmurs, rubs or gallops Musculoskeletal: No joint or muscle tenderness Extremities: Non tender, 1+ edema, peripheral pulses are present Neuro: Oriented, no tremors, no focal neurological deficits Skin: No rashes Results & Data Vital Signs (Past 12 Hours) Vital Signs Temp Pulse Resp BP Pulse Ox 05/03/19 07:32 36.7 C 132 H 20 195/91 H 90 05/02/19 23:00 36.4 C L 60 20 149/82 H 94 Laboratory Results Laboratory Results - last 24 hr 05/02/19 05/02/19 05/02/19 11:45 16:23 20:35 Sodium Potassium Chloride Carbon Dioxide Anion Gap BUN Creatinine Est Cr Clr Drug Dosing Est GFR ( Amer) Est GFR (Non-Af Amer) BUN/Creatinine Ratio Glucose POC Glucose 154 H 123 H 131 H Calcium 05/03/19 05/03/19 07:44 09:52 Sodium Pending Potassium Pending Chloride Pending Carbon Dioxide Pending Anion Gap Pending BUN Pending Creatinine Pending Est Cr Clr Drug Dosing Pending Est GFR ( Amer) Pending Est GFR (Non-Af Amer) Pending BUN/Creatinine Ratio Pending Glucose Pending POC Glucose 103 H Calcium Pending (1) Acute renal failure (ARF) Acute renal failure type: unspecified Qualified Code(s): N17.9 - Acute kidney failure, unspecified (2) Hypertension Hypertension type: essential hypertension Qualified Code(s): I10 - Essential (primary) hypertension (3) [place] toxicity Encounter type: initial encounter Injury intent: accidental or unintentional Qualified Code(s): T56.891A - Toxic effect of other metals, accidental (unintentional), initial encounter
[2019-05-03 10:39] LABS: BUN Creatinine Ratio 21.1 (10-20); Calcium 8.3 mg/dl (8.5-10.1); Creatinine Clr Calc Pharmacy 76.4 ml/min; Est GFR (African American) 81.6; Est GFR (Non-African American) 70.4; Potassium 4.1 mmol/L (3.5-5.1)
[2019-05-03] MEDS: FUROSEMIDE 40 MG TAB PO SCH ×2 (11:50→17:54)
[2019-05-03] MEDS ORDERED: FUROSEMIDE 40 MG TAB PO SCH (17:00)
--- NOTE | 2019-05-03 17:44 | Hospitalist Progress Note ---
Date of Service May 03, 2019 Assessment & Plan (1) Respiratory failure with hypoxia and hypercapnia: Resolved, Respiratory status improved to baseline, in room air, no cough no shortness of breath on dyspnea on exertion Counseling provided for smoking cessation Tinea PRN nebs 4 weeks, patient has not required any neb treatment for the past 2 days (2) Obesity hypoventilation syndrome: (3) COPD (chronic obstructive pulmonary disease): (4) Pneumonia: Present on admission with worsening SOB and altered mental status CXR showed Low lung volumes with right basilar opacity ABG on admission showed 7.36/65/63/35 Antibiotics adjusted, completed completed 5 days of p.o. doxycycline Continue Nebulizer treatment and Trelegy Ellipta Respiratory status improved to baseline (5) Acute renal failure (ARF): Resolved Possible related to dehydration/poor oral intake Creatinine on admission 2.6 Renal U/S showed normal renal ultrasound. Creatinine improved to 0.9 40 mg twice daily resumed Nephrology on board : Please continue to hold SCOTTY inhibitor, and will be resumed after patient family physician follow-up and lab work check for BMP Will up with nephrology in CKD clinic in 4-6 weeks Avoid nephrotoxic agents /avoid NSAIDs: No Aleve/Advil/naproxen/Motrin/meloxicam/ibuprofen/high-dose aspirin (6) [place] toxicity: Possible related to Acute renal failure [place] level 2 Continue to hold [place] Repeat lithium level improved to 1.6 Given patient's increased risk for dehydration acute renal failure with hip toxicity, alternate medication for mood stabilizing will be appropriate Patient request repeatedly not to put back on lithium, She had felt very dizzy lightheaded, visual disturbance while taking lithium [place]. discontinued since admission Patient mentions "she has not felt this well for the last 2-3 months" Consulted, appreciate input Recommend to discontinue lithium And will be on home dose of Seroquel Outpatient follow-up with psychiatry at [facility] further adjustment of psych treatment (7) Elevated troponin: Possible secondary to renal insufficiency, no evidence of ACS She does not have any chest pain or chest discomfort Troponin trending down 0.117-->0.067 Echo: Shows no wall motion abnormality, left ventricular systolic function normal, EF 55-60% Continue aspirin, metoprolol and statin (8) Metabolic encephalopathy: Mental status improved to baseline alert awake oriented, very comfortable conversing appropriately Mostly related to CO2 retention/lithium toxicity and [place] CT head on admission un reamarkable (9) Hypertension: Lisinopril and Lasix on hold due to [place] Continue metoprolol and diltiazem Continue monitor BP (10) Hypothyroid: Continue Levothyroxine Stable (11) Obesity due to excess calories: BMI above 50 Will need counseling on weight loss prior to discharge (12) HLD (hyperlipidemia): Continue statin Stable (13) Bipolar 1 disorder: [place] discontinued Has been stable, no agitation or delusion Continue respiration with prior dose Follow up psych recommendations (14) Hematuria: Has resolved Renal ultrasound normal Urology consulted appreciate input Recommends CT abdomen pelvis if patient develops gross hematuria Outpatient urology follow-up for possible cystoscopy Patient remains symptomatic, no further urologic intervention indicated (15) DVT prophylaxis: SCD for now Subcu heparin ordered as no evidence of hematuria Code status Full code Disposition Patient has improved remarkably, almost back to her baseline functional status Lives in apartment by herself Uses walker Continue PT OT Patient requests to return back to her apartment with home health /home PT Patient continues to do well, possible discharge home with home with home nursing visit/home PT on Sunday Subjective Continues to do well, able to walk independentlyuses walker at baseline, requiring minimum assistance per nursing No cough no fever chills Very pleasant, conversing appropriately Patient prefers to return home with home health home PT Does not feel she needs to go to rehab as her weakness, balance issue has improved markedly Physical Exam Constitutional: well developed, well nourished and + obese Eyes: EOM intact bilaterally ENMT: Ears: no external ear abnormality Nose: no external nose abnormality Mouth: + dry oral mucous membranes Neck: no nuchal rigidity Respiratory: normal respiratory effort Auscultation: + diminished lung sounds Cardiovascular: Rate/Rhythm: regular rate and regular rhythm Extremities: + edema (trace-1+ indurated BL) Gastrointestinal (Abdomen): Inspection/Auscultation: normal bowel sounds Percussion/Palpation: abdomen soft; abdomen nontender Musculoskeletal: Extremities: strength 5/5 throughout Skin: no rashes, warm and dry Psychiatric: Orientation: alert, oriented x 3 and oriented to person Apperance: appeared stated age Eye Contact: good eye contact Thought Content: no hopelessness Suicidal Thoughts: denies suicidal plan Cognition: + language not intact Insight: + limited insight Results & Data Vital Signs (Past 12 Hours) Vital Signs Temp Pulse Resp BP Pulse Ox 05/03/19 15:41 37.0 C 63 16 152/83 H 91 05/03/19 11:14 150/89 H 05/03/19 07:32 36.7 C 132 H 20 195/91 H 90 (1) Respiratory failure with hypoxia and hypercapnia Chronicity: unspecified Qualified Code(s): J96.91 - Respiratory failure, unspecified with hypoxia; J96.92 - Respiratory failure, unspecified with hypercapnia (2) Pneumonia Laterality: right Lung location: lower lobe of lung Pneumonia type: due to unspecified organism Qualified Code(s): J18.1 - Lobar pneumonia, unspecified organism (3) Acute renal failure (ARF) Acute renal failure type: unspecified Qualified Code(s): N17.9 - Acute kidney failure, unspecified (4) [place] toxicity Encounter type: initial encounter Injury intent: accidental or unintentional Qualified Code(s): T56.891A - Toxic effect of other metals, accidental (unintentional), initial encounter (5) Hypertension Hypertension type: essential hypertension Qualified Code(s): I10 - Essential (primary) hypertension
[2019-05-03] MEDS ORDERED: HEPARIN SOD 5,000 UNIT/0.5 ML VIAL SQ SCH (17:45)
[2019-05-03] MEDS: ATORVASTATIN 40 MG TAB PO SCH (20:38)
[2019-05-03] MEDS: PRAZOSIN HCL 1 MG CAP PO SCH (20:40)
[2019-05-04] MEDS: HEPARIN SOD 5,000 UNIT/0.5 ML VIAL SQ SCH ×3 (06:27→20:28)
[2019-05-04] MEDS: LEVOTHYROXINE SODIUM 75 MCG TABLET PO SCH (06:27)
[2019-05-04] MEDS: SERTRALINE HCL 100 MG TABLET PO SCH (08:11)
[2019-05-04] MEDS: predniSONE 20 MG TAB PO SCH (08:12)
[2019-05-04] MEDS: HydrALAZINE TAB 50 MG TAB PO SCH ×3 (08:12→20:26)
[2019-05-04] MEDS: FUROSEMIDE 40 MG TAB PO SCH ×2 (08:13→17:19)
[2019-05-04] MEDS: ASCORBIC ACID 500 MG TAB PO SCH (08:13)
[2019-05-04] MEDS: METOPROLOL TARTRATE 50 MG TAB PO SCH (08:13)
[2019-05-04] MEDS: LISINOPRIL 20 MG TAB PO SCH (08:13)
[2019-05-04] MEDS: LORATADINE 10 MG TAB PO SCH (08:13)
[2019-05-04] MEDS: dilTIAZem HCL 300 MG CAPCR PO SCH (08:14)
[2019-05-04] MEDS: GABAPENTIN 100 MG CAP PO SCH (08:14)
[2019-05-04] MEDS: FLUTICASONE/UMECLIDIN/VILANTER INH SCH (08:14)
[2019-05-04] MEDS: INSULIN ASPART 100 UNITS/ML 3 ML PEN SC SCH ×4 (08:18→21:22)
[2019-05-04] MEDS: NICOTINE 14 MG/24 HR PATCH TD SCH (08:19)
--- NOTE | 2019-05-04 10:06 | Nephrology Progress Note ---
Date of Service May 04, 2019 Assessment & Plan (1) Acute renal failure (ARF): Patient with acute kidney injury likely multifactorial etiology including lithium toxicity and NSAID use. Patient has meloxicam on her OP medication list 15 mg daily. She also had high lithium levels on presentation. Baseline creatinine 0.5 in 08/2018. Presenting creatinine 2.6, further plateau'd at 0.8. Urology saw pt for gross hematuria which appears to be self limited but they will monitor / f-u as OP. -Monitor input output and daily BMP. -Avoid nephrotoxins such as NSAIDs. Patient should not be on meloxicam at d/c and will need alternative pain regimen. (2) Hypertension: cont OP doses of diltiazem, metoprolol; cannot increase either of these d/t HR <<>> did have HR to 40 once and consistently in mid 50s -Continue home Lasix 40 mg p.o. twice daily -Hydralazine was increased to 75 mg 3 times daily. Patient will need closer monitoring of her blood pressure after discharge. She is on prednisone which can also elevate blood pressure and once the prednisone is stopped she will require reduction in blood pressure medications. (3) [place] toxicity: Patient had elevated lithium levels of 2 on presentation. [place] levels are improving; remains on hold. Recommend consulting psychiatry for alternative mood stabilizer -f/u level 04/30 is 0.9; reassuring she is clearing it; no indication for further checks -for this did not need dialysis Subjective Patient reports no major complaints. No shortness of breath. Still has leg swelling. She does not want to be on lithium again. Blood pressure is better today. Review of Systems Review of Systems: All systems reviewed & are unremarkable except as noted in HPI & below Physical Exam Physical Exam: General exam: Appears comfortable, no acute distress HEENT: Pupils are equal and reactive to light Neck: No JVD, neck is supple trachea is midline Respiratory system: Clear breath sounds bilaterally. Gastrointestinal: Abdomen is soft, non distended, non tender, bowel sounds are present CVS: Regular rate and rhythm. No murmurs, rubs or gallops Musculoskeletal: No joint or muscle tenderness Extremities: Non tender, 1+ edema, peripheral pulses are present Neuro: Oriented, no tremors, no focal neurological deficits Skin: No rashes Results & Data Vital Signs (Past 12 Hours) Vital Signs Temp Pulse Resp BP Pulse Ox 05/04/19 07:30 36.4 C L 54 L 18 141/73 H 96 Laboratory Results Laboratory Results - last 24 hr 05/03/19 05/03/19 05/03/19 11:43 16:46 20:53 POC Glucose 150 H 114 H 114 H 05/04/19 07:47 POC Glucose 103 H (1) Acute renal failure (ARF) Acute renal failure type: unspecified Qualified Code(s): N17.9 - Acute kidney failure, unspecified (2) Hypertension Hypertension type: essential hypertension Qualified Code(s): I10 - Essential (primary) hypertension (3) [place] toxicity Encounter type: initial encounter Injury intent: accidental or unintentional Qualified Code(s): T56.891A - Toxic effect of other metals, accidental (unintentional), initial encounter
--- NOTE | 2019-05-04 18:10 | Hospitalist Progress Note ---
Date of Service May 04, 2019 Assessment & Plan (1) Respiratory failure with hypoxia and hypercapnia: Resolved, Respiratory status improved to baseline, in room air, no cough no shortness of breath on dyspnea on exertion Counseling provided for smoking cessation Stable to be discharged to home with home health tomorrow (2) Obesity hypoventilation syndrome: (3) COPD (chronic obstructive pulmonary disease): (4) Pneumonia: No cough no shortness of breath no fever chills Present on admission with worsening SOB and altered mental status CXR showed Low lung volumes with right basilar opacity ABG on admission showed 7.36/65/63/35 Antibiotics adjusted, completed completed 5 days of p.o. doxycycline Continue Nebulizer treatment and Trilogy Ellipta Respiratory status improved to baseline (5) Acute renal failure (ARF): Resolved Possible related to dehydration/poor oral intake Creatinine on admission 2.6 Renal U/S showed normal renal ultrasound. Creatinine improved to 0.9 40 mg twice daily resumed Nephrology on board : Please continue to hold SCOTTY inhibitor, and will be resumed after patient family physician follow-up and lab work check for BMP Will up with nephrology in CKD clinic in 4-6 weeks Avoid nephrotoxic agents /avoid NSAIDs: No Aleve/Advil/naproxen/Motrin/meloxicam/ibuprofen/high-dose aspirin (6) [place] toxicity: Possible related to Acute renal failure [place] level 2 Continue to hold [place] Repeat lithium level improved to 1.6 Given patient's increased risk for dehydration acute renal failure with hip toxicity, alternate medication for mood stabilizing will be appropriate Appreciate input from psychiatry: pt has been following with Dr. Santamaria at [facility] for psychiatric medications. will have renewed follow-up with her psychiatrist at [facility] lithium will be discontinued Pt is cont on risperidone 1mg qAM and 2mg qHS - Patient's mood has been stable, no confusion or agitation She had felt very dizzy lightheaded, visual disturbance while taking lithium All his symptoms resolved after discontinuation of lithium since admission Patient mentions "she has not felt this well for the last 2-3 months" Consulted, appreciate input Recommend to discontinue lithium And will be on home dose of Seroquel Outpatient follow-up with psychiatry at [facility] [place] further adjustment of psych treatment (7) Elevated troponin: Possible secondary to renal insufficiency, no evidence of ACS She does not have any chest pain or chest discomfort Troponin trending down 0.117-->0.067 Echo: Shows no wall motion abnormality, left ventricular systolic function normal, EF 55-60% Continue aspirin, metoprolol and statin (8) Metabolic encephalopathy: Mental status improved to baseline alert awake oriented, very comfortable conversing appropriately Mostly related to CO2 retention/lithium toxicity and [place] CT head on admission un remarkable (9) Hypertension: Lisinopril and Lasix on hold due to [place] Continue metoprolol and diltiazem Continue monitor BP (10) Hypothyroid: Continue Levothyroxine Stable (11) Obesity due to excess calories: BMI above 50 Will need counseling on weight loss prior to discharge (12) HLD (hyperlipidemia): Continue statin Stable (13) Bipolar 1 disorder: [place] discontinued Has been stable, no agitation or delusion Continue respiration with prior dose Follow up psych recommendations (14) Hematuria: Has resolved Renal ultrasound normal Urology consulted appreciate input Recommends CT abdomen pelvis if patient develops gross hematuria Outpatient urology follow-up for possible cystoscopy Patient remains symptomatic, no further urologic intervention indicated (15) DVT prophylaxis: SCD for now Subcu heparin ordered as no evidence of hematuria Code status Full code Disposition pt has show significant improvement, with her activity and mobility Stable to be discharged home tomorrow with home health visiting nurse and home physical therapy Subjective Continue to do well, no cough no shortness of breath, no fever or chills Hoping to return home with home health tomorrow Patient's friend will provide transportation Requests for home health visiting nurse and home PT arrangement Physical Exam Constitutional: well developed, well nourished and + obese Eyes: EOM intact bilaterally ENMT: Ears: no external ear abnormality Nose: no external nose abnormality Mouth: + dry oral mucous membranes Neck: no nuchal rigidity Respiratory: normal respiratory effort Auscultation: + diminished lung sounds Cardiovascular: Rate/Rhythm: regular rate and regular rhythm Extremities: + edema (trace-1+ indurated BL) Gastrointestinal (Abdomen): Inspection/Auscultation: normal bowel sounds Percussion/Palpation: abdomen soft; abdomen nontender Musculoskeletal: Extremities: strength 5/5 throughout Skin: no rashes, warm and dry Psychiatric: Orientation: alert, oriented x 3 and oriented to person Results & Data Vital Signs (Past 12 Hours) Vital Signs Temp Pulse Resp BP Pulse Ox 05/04/19 15:13 36.8 C 70 18 155/82 H 92 05/04/19 07:30 36.4 C L 54 L 18 141/73 H 96 (1) [place] toxicity Encounter type: initial encounter Injury intent: accidental or unintentional Qualified Code(s): T56.891A - Toxic effect of other metals, accidental (unintentional), initial encounter (2) Acute renal failure (ARF) Acute renal failure type: unspecified Qualified Code(s): N17.9 - Acute kidney failure, unspecified (3) Respiratory failure with hypoxia and hypercapnia Chronicity: unspecified Qualified Code(s): J96.91 - Respiratory failure, unspecified with hypoxia; J96.92 - Respiratory failure, unspecified with hypercapnia (4) Hypertension Hypertension type: essential hypertension Qualified Code(s): I10 - Essential (primary) hypertension (5) Pneumonia Laterality: right Lung location: lower lobe of lung Pneumonia type: due to unspecified organism Qualified Code(s): J18.1 - Lobar pneumonia, unspecified organism
[2019-05-04] MEDS: PRAZOSIN HCL 1 MG CAP PO SCH (20:28)
[2019-05-04] MEDS: ATORVASTATIN 40 MG TAB PO SCH (20:28)
[2019-05-05] MEDS: LEVOTHYROXINE SODIUM 75 MCG TABLET PO SCH (06:26)
[2019-05-05] MEDS: HEPARIN SOD 5,000 UNIT/0.5 ML VIAL SQ SCH (06:26)
[2019-05-05] MEDS: INSULIN ASPART 100 UNITS/ML 3 ML PEN SC SCH ×2 (08:58→12:19)
[2019-05-05] MEDS: HydrALAZINE TAB 50 MG TAB PO SCH ×2 (08:59→13:34)
[2019-05-05] MEDS: GABAPENTIN 100 MG CAP PO SCH (09:00)
[2019-05-05] MEDS: LORATADINE 10 MG TAB PO SCH (09:00)
[2019-05-05] MEDS: FUROSEMIDE 40 MG TAB PO SCH (09:00)
[2019-05-05] MEDS: METOPROLOL TARTRATE 50 MG TAB PO SCH (09:00)
[2019-05-05] MEDS: NICOTINE 14 MG/24 HR PATCH TD SCH (09:00)
[2019-05-05] MEDS: dilTIAZem HCL 300 MG CAPCR PO SCH (09:00)
[2019-05-05] MEDS: predniSONE 20 MG TAB PO SCH (09:00)
[2019-05-05] MEDS: SERTRALINE HCL 100 MG TABLET PO SCH (09:01)
[2019-05-05] MEDS: FLUTICASONE/UMECLIDIN/VILANTER INH SCH (09:01)
[2019-05-05] MEDS: ASCORBIC ACID 500 MG TAB PO SCH (09:01)
[2019-05-05] MEDS: LISINOPRIL 20 MG TAB PO SCH (09:01)
--- NOTE | 2019-05-05 16:46 | Discharge Summary ---
Date of Service May 05, 2019 Admission HPI Per Admitting Provider Prisca Becker is a 68-year-old female admitted medically on 04/26/19 after presenting to the ED via EMS for reported AMS. It is reported that the patient's neighbor called EMS due to concern that patient was appearing confused. PMH is significant for obesity, HLD, HTN, hypothyroidism, COPD, and a psychiatric history (both bipolar disorder and schizophrenia diagnoses in records). Patient was found to have pneumonia, acute kidney injury, and metabolic encephalopathy. Patient's lithium level is elevated at 2.0. Psychiatric consultation was requested to evaluate patient for "bipolar dx/elevated lithium." Records from hospitalist service as well as nephrology consultation were reviewed. Nephrology is requesting reevaluation of psychotropic agents, as continuation of lithium is not ideal from a renal standp oint. Patient's case was reviewed and discussed with psychiatric nurse liaison and psychiatrist. Patient is cooperative with psychiatric evaluation, able to contribute to conversation but continues to appear confused. Speech is slurred and difficult to understand at times. Patient does admit that she is feeling "better" since her admission. She states "my sister wants me to go somewhere where they will take care of me, I need someone to take care of me." The patient states that physically she has not been feeling well for about 2 months, and has noticed low mood during this time as well. Patient states her mood was "no good" and "down low" ever since she began getting "sick" 2 months ago. Patient does admit to difficulty falling and staying asleep, and increase in appetite. Patient admits that her energy has been reduced, but denies significant hopelessness. She denies suicidal ideation presently, but has a history of these thoughts in the past. Patient has difficulty recalling her current medication regimen and states that she manages her medications at home. Patient states she attempts to take her medications as prescribed, but is concerned that she may not be managin g them appropriately. According to the patient, her neighbor called EMS when she was appearing confused. Otherwise, patient is not able to recall events prior to her admission. Patient admits to "paranoia" when asked, but states she is "paranoid that my friend Chantal is mad at me." She does not verbalize any clearly delusional thought content over the course of evaluation. When asked about the presence of active hallucinations, patient states that she does "see and hear things." She admits to "my lazcano make noises, but that is probably just my refrigerator." She states she can also see a bear outside at her house. She states she is not seeing any odd visions currently, and that this "bear" could be seen by anyone at her home. Patient is not able to provide information about her psychiatric history. She does admit to being hospitalized for inpatient psychiatric admissions, but cannot recall the names of the facilities. She has difficulty recalling the name of her psychiatrist, but admits she is seen by Dr. Santamaria at [facility]. 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 According to the patient, she has not had any medication changes in "1 or 2 years." ED documentation suggest the patient has had at least 2 inpatient psychiatric admissions this year, in which medication adjustments were likely. Pt denies SI, HI, SIB, A/V hallucinations, paranoia, shama/hypomania, other symptoms more suggestive of a bipolar presentation, OCD, eating disorder, and other specific psychiatric symptoms. Principal Diagnosis ACUTE RENAL FAILURE /LITHIUM TOXICITY Discharge Exam Constitutional well developed, well nourished and + obese Eyes EOM intact bilaterally ENMT Ears: no external ear abnormality Nose: no external nose abnormality Mouth: + dry oral mucous membranes Neck no nuchal rigidity Respiratory normal respiratory effort Auscultation: + diminished lung sounds Cardiovascular Rate/Rhythm: regular rate and regular rhythm Extremities: + edema (trace-1+ indurated BL) Gastrointestinal (Abdomen) Inspection/Auscultation: normal bowel sounds Percussion/Palpation: abdomen soft; abdomen nontender Musculoskeletal Extremities: strength 5/5 throughout Skin no rashes, warm and dry Psychiatric Orientation: alert, oriented x 3 and oriented to person Apperance: appeared stated age Eye Contact: good eye contact Speech: normal rate/rhythm/volume of speech Affect: + flat affect Mood: + depressed mood ("Down low", reporting low mood for 2 months due to physical concerns) Thought Process: + concrete thought process Thought Content: no hopelessness Suicidal Thoughts: denies suicidal plan Homicidal Thoughts: denies homicidal thoughts Hallucinations: no visual hallucinations Cognition: + language not intact Insight: + limited insight Judgement: + limited judgement and + fair judgement Discharge Data Allergies Allergy/AdvReac Type Severity Reaction Status Date / Time No Known Allergies Allergy Verified 04/26/19 17:15 Consultations 04/26/19 18:38 ED Decision to Admit Stat 04/26/19 20:32 Consult Case Management - Discharge Planning Routine Consult Nephrology Routine 04/27/19 11:44 Consult Psychiatry Routine 04/28/19 11:20 Consult Urology Routine Ordered Studies 04/27/19 20:32 US renal/blad retro comp Routine Hospital Course (1) Respiratory failure with hypoxia and hypercapnia: Resolved, Respiratory status improved to baseline, in room air, no cough no shortness of breath on dyspnea on exertion Counseling provided for smoking cessation Stable to be discharged to home with home health today (2) Obesity hypoventilation syndrome: (3) COPD (chronic obstructive pulmonary disease): (4) Pneumonia: No cough no shortness of breath no fever chills Present on admission with worsening SOB and altered mental status CXR showed Low lung volumes with right basilar opacity ABG on admission showed 7.36/65/63/35 Antibiotics adjusted, completed completed 5 days of p.o. doxycycline Continue Nebulizer treatment and Trilogy Ellipta Respiratory status improved to baseline (5) Acute renal failure (ARF): Resolved Possible related to dehydration/poor oral intake Creatinine on admission 2.6 Renal U/S showed normal renal ultrasound. Creatinine improved to 0.9 Lasix 40 mg twice daily resumed Nephrology on board : Lisinopril, Will up with nephrology in CKD clinic in 4-6 weeks Avoid nephrotoxic agents /avoid NSAIDs: No Aleve/Advil/naproxen/Motrin/meloxicam/ibuprofen/high-dose aspirin (6) Seaforth toxicity: Possible related to Acute renal failure Seaforth level 2 Continue to hold Seaforth Repeat lithium level improved to 1.6 Given patient's increased risk for dehydration acute renal failure with hip toxicity, alternate medication for mood stabilizing will be appropriate Appreciate input from psychiatry: pt has been following with Dr. Santamaria at [facility] for psychiatric medications. will have renewed follow-up with her psychiatrist at [facility] lithium will be discontinued Pt is cont on risperidone 1mg qAM and 2mg qHS - Patient's mood has been stable, no confusion or agitation She had felt very dizzy lightheaded, visual disturbance while taking lithium All his symptoms resolved after discontinuation of lithium since admission Patient mentions "she has not felt this well for the last 2-3 months" Consulted, appreciate input Recommend to discontinue lithium And will be on home dose of Seroquel Outpatient follow-up with psychiatry at [facility] further adjustment of psych treatment (7) Elevated troponin: Possible secondary to renal insufficiency, no evidence of ACS She does not have any chest pain or chest discomfort Troponin trending down 0.117-->0.067 Echo: Shows no wall motion abnormality, left ventricular systolic function normal, EF 55-60% Continue aspirin, metoprolol and statin (8) Metabolic encephalopathy: Mental status improved to baseline alert awake oriented, very comfortable conversing appropriately Mostly related to CO2 retention/lithium toxicity and BYARON CT head on admission un remarkable (9) Hypertension: Lisinopril and Lasix on hold due to BAYRON Continue metoprolol and diltiazem Continue monitor BP (10) Hypothyroid: Continue Levothyroxine Stable (11) Obesity due to excess calories: BMI above 50 Will need counseling on weight loss prior to discharge (12) HLD (hyperlipidemia): Continue statin Stable (13) Bipolar 1 disorder: Seaforth discontinued Has been stable, no agitation or delusion Continue respiration with prior dose Follow up psych recommendations (14) Hematuria: Has resolved Episode Renal ultrasound normal Urology consulted appreciate input Recommends CT abdomen pelvis if patient develops gross hematuria Outpatient urology follow-up for possible cystoscopy Patient remains symptomatic, no further urologic intervention indicated (15) DVT prophylaxis: SCD for now Subcu heparin ordered as no evidence of hematuria Code status Full code Disposition pt has show significant improvement, with her activity and mobility Stable to be discharged home today with home health visiting nurse and home physical therapy Total Time Total Time Spent Total Time Spent (In Minutes): approximately 45 minutes Total Time Includes: Examination of the Patient, Discharge Planning and Medication Reconciliation Discharge Plan Discharge Items Patient Disposition: Home - Home Health Services Reason For Visit: AMS,HYPOXIA Discharge Diagnosis: ACUTE RENAL FAILURE /LITHIUM TOXICITY Activity: Resume your previous activity Non-emergency contact: Primary Care Provider Call non-emergency contact if: you have any medication questions Follow-up/Referrals: Jazmyn Puga DO [Primary Care Provider] - 05/12/19 11:00 am Diet: Heart Healthy Addtl Attending Provider Instructions: Do not take Advil/Aleve/ibuprofen /Motrin/meloxicam/naproxen/high-dose aspirin- these are the [id number] pain medications belonging to NSAID class-she can cause worsening of your kidney function DISCONTINUED MEDICATION Stop taking meloxicam Stop taking aspirin 325 mg daily Stop taking lithium NEW MEDICATION Hydralazine 75 mg by mouth 3 times daily-for high blood pressure Follow-up with psychiatry Dr. Alonso at [facility] clinic [place] in a week , please call office to schedule appointment Follow-up with urology Dr. Bert Olson in clinic in 3-4 weeks for blood in the urine Pending Studies at Discharge: No Stand-Alone Forms: My [facility] NodePing, Smoking Cessation Medications and DC Order Prescriptions: New hydralazine 50 mg Tablet 75 mg PO TID 30 Days Qty: 135 RF: 0 lisinopril 20 mg tablet 20 mg PO DAILY Qty: 30 RF: 3 Continued fluticasone propion-salmeterol [Advair Diskus] 250-50 mcg/dose blister with device 1 puff Inhalation BID RF: 0 diltiazem HCl 300 mg capsule,extended release 24hr 300 mg PO DAILY RF: 0 furosemide 40 mg tablet 40 mg PO BID RF: 0 gabapentin 100 mg capsule 100 mg PO QAM RF: 0 loratadine 10 mg tablet 10 tab PO QAM RF: 0 metoprolol tartrate 50 mg tablet 50 mg PO QAM RF: 0 sertraline 100 mg tablet 100 mg PO QAM RF: 0 risperidone 1 mg Tablet 1 mg PO QAM RF: 0 atorvastatin 40 mg tablet 40 mg PO HS RF: 0 ascorbic acid (vitamin C) [Vitamin C] 1,000 mg Tablet 1 g PO DAILY RF: 0 nicotine 14 mg/24 hr Patch 24 Hour 1 patch TRANSDERMAL DAILY RF: 0 ipratropium-albuterol 0.5 mg-3 mg(2.5 mg base)/3 mL solution for nebulization 3 ml inhalation QID PRN (Reason: Shortness Of Breath) RF: 0 prazosin 1 mg capsule 1 mg PO HS RF: 0 levothyroxine 75 mcg tablet 75 mcg PO QAM RF: 0 risperidone 2 mg tablet 2 mg PO HS RF: 0 hydroxyzine pamoate 25 mg capsule 25 mg PO QID PRN (Reason: Anxiety) RF: 0 melatonin 1 mg Tablet 2 mg PO HS RF: 0 Trelegy Ellipta 100-62.5-25 mcg blister with device 1 inh inhalation QAM RF: 0 Discontinued lisinopril 10 mg tablet 1 tab PO QAM RF: 0 meloxicam 15 mg tablet 15 mg PO QAM RF: 0 aspirin 325 mg Tablet 325 mg PO DAILY RF: 0 lithium carbonate 300 mg tablet 300 mg PO TID RF: 0 Discharge Orders: Discharge Order (Routine); Ordered 05/05/19 Ordered By: Rehana Hunt Admission Data Admit Date/Time: 04/26/19 18:59 Attending Provider: Rehaan Hunt Admit Provider: Cirilo Cruz Primary Care Provider: Jazmyn Puga Other Providers: Nicki Benton ; Cirilo Cruz ; Gina Aggarwal ; Gilbert Godwin ; Thierry Lam Other Interventions: Discharge Summary Assessment (RN) Last Done: 05/05/19 13:48 DC Date/Time DO NOT enter until pt leaves facility: 05/05/19 14:43
== END 2019-05-05 14:43 | disposition home health service (06) | DRG 917 ==
LOC: ED 16:30 → SUATTDRO 18:59 → 2E 18:59 → 2N 04-29 13:10

== ENCOUNTER 2019-06-30 17:16 | Inpatient (IN) ==
[2019-06-30] MEDS ORDERED: ALBUT/IPRATROP 3MG/0.5MG NEB 3 ML VIAL NEB ONE ×2 (17:31→19:06)
[2019-06-30] MEDS ORDERED: ONDANSETRON INJ 2 MG/ML 2 ML VIAL IV STA (17:33)
[2019-06-30] MEDS ORDERED: methylPREDNISolone 125 MG/2 ML VIAL IV STA (17:34)
--- NOTE | 2019-06-30 17:43 | XRay Report ---
XR chest 1V portable HISTORY: 69 years-old Female weakness acute weakness COMPARISON: Chest radiograph 04/30/2019 TECHNIQUE: Portable AP view of the chest FINDINGS: Cardiac silhouette is enlarged, unchanged. Pulmonary vascular congestion. No pneumothorax, large pleu ral effusion or overt pulmonary edema. No lobar airspace consolidation typical for pneumonia. Degener ative changes of the shoulders and spine. IMPRESSION: Cardiomegaly with pulmonary vascular congestion. ACT 112: Negative or not required by law. The above report was generated using voice recognition software. It may contain grammatical, syntax o r spelling errors. Electronically signed by: Tyshawn Raymond M.D. 06/30/2019 5:42 PM
[2019-06-30 18:03] LABS: Base Excess VBG 5.2 mEq/L; Oxygen Saturation VBG 61.4 %; pH VBG 7.32 (7.36-7.41)
[2019-06-30 18:10] LABS: Basophils # (auto) 0.02 K/uL (0-0.2); Basophils % (auto) 0.2 %; Eosinophils # (auto) 0.12 K/uL (0-0.5); Eosinophils % (auto) 1.3 %; Hematocrit (blood only) 45.9 % (37-47); Hemoglobin 16.3 g/dL (12.0-16.0); Immature Granulocytes # (auto) 0.02 K/uL (0.00-0.02); Immature Granulocytes % (auto) 0.2 %; Lymphocytes # (auto) 1.24 K/uL (1.2-3.4); Lymphocytes % (auto) 13.9 %; Mean Corpuscular Hemoglobin 31.6 pg (25-34); Mean Corpuscular Hgb Conc 35.5 g/dL (32-36); Mean Platelet Volume 8.8 fL (7.4-10.4); Monocytes # (auto) 0.58 K/uL (0.11-0.59); Monocytes % (auto) 6.5 %; Neutrophils # (auto) 6.91 K/uL (1.4-6.5); Neutrophils % (auto) 77.9 %; Platelet Count 214 K/uL (130-400); RDW Coefficient of Variation 14.1 % (11.5-14.5); RDW Standard Deviation 45.4 fL (36.4-46.3); Red Blood Count 5.16 M/uL (4.2-5.4); White Blood Count 8.89 K/uL (4.8-10.8)
[2019-06-30 18:23] LABS: Alanine Aminotransferase 29 U/L (12-78); Albumin Level 3.4 gm/dl (3.4-5.0); Aspartate Aminotransferase 19 U/L (15-37); BUN Creatinine Ratio 10.3 (10-20); Blood Urea Nitrogen 6 mg/dl (7-18); Carbon Dioxide 33 mmol/L (21-32); Chloride 87 mmol/L (98-107); Est GFR (African American) 109.3; Est GFR (Non-African American) 94.3; Glucose 140 mg/dl (70-99); INR 1.1 (0.9-1.1); Magnesium 1.7 mg/dl (1.8-2.4); Potassium 3.5 mmol/L (3.5-5.1); Prothrombin Time 11.5 Seconds (9.0-12.0); Sodium 124 mmol/L (136-145)
[2019-06-30 18:34] LABS: Albumin Globulin Ratio 0.9 (0.9-2); Alkaline Phosphatase 84 U/L (45-117); Bilirubin,Total 0.4 mg/dl (0.2-1); Creatine Kinase 148 U/L (26-192); Globulin 3.6 gm/dl (2.5-4.0); Troponin I < 0.015 ng/ml (0-0.045)
--- NOTE | 2019-06-30 18:35 | CT Scan Report ---
CT OF THE HEAD WITHOUT CONTRAST CLINICAL HISTORY: falls, headache COMPARISON STUDY: Head CT August 31, 2018. CT DOSE: 1912.01 mGy.cm TECHNIQUE: Helical axial images of the head were obtained without IV contrast. Automated exposure con trol was utilized for the study. A dose lowering technique was utilized adhering to the principles o f ALARA. FINDINGS: No acute intracranial hemorrhage, midline shift or mass effect is present. The ventricular system is unremarkable. The basilar cisterns are patent. No extra-axial collections are present. Ther e are no findings to suggest acute dural sinus thrombosis or acute territorial infarct. No significan t calvarial abnormalities are present. Visualized portions of the sinuses and mastoid air cells are c lear. White matter hypodensities are unchanged and suggest small vessel disease. IMPRESSION: 1. No acute intracranial findings. 2. No calvarial fracture. ACT 112: Negative or not required by law. Electronically signed by: Scott Brown M.D. 06/30/2019 6:34 PM
--- NOTE | 2019-06-30 18:39 | CT Scan Report ---
CT OF THE CERVICAL SPINE WITHOUT CONTRAST CLINICAL HISTORY: falls COMPARISON STUDY: No previous studies for comparison. TECHNIQUE: Helical axial images of the cervical spine were obtained without IV contrast. Sagittal a nd coronal reconstructions were viewed. Automated exposure control was utilized for the study. A do se lowering technique was utilized adhering to the principles of ALARA. FINDINGS: Alignment of the cervical spine is anatomic. Vertebral body heights are maintained. No acut e cervical spine fracture or subluxation is present. There is no prevertebral edema. Facet joints are intact. Moderate multilevel facet arthrosis and degenerative disc disease is noted. IMPRESSION: No acute cervical spine fracture or subluxation. ACT 112: Negative or not required by law. Electronically signed by: Scott Brown M.D. 06/30/2019 6:37 PM
[2019-06-30] MEDS ORDERED: MAGNESIUM SULFATE / D5W 1 GM/100 ML BAG IV ONE (18:40)
--- NOTE | 2019-06-30 18:51 | Emergency Department Note ---
Entered by Destiny Maguire acting as a scribe for Guido Foley M.D. History of Present Illness General Chief complaint: Illness Stated complaint: PARANOIA, UNABLE TO EAT, FALLEN, DIZZY Time Seen by Provider: 06/30/19 17:23 Source: patient History of Present Illness Onset (ago): week(s) 1 Location: left (lung) and right (lung) Severity: similar to prior episodes Pain Consistency: + other (persistent) Quality: + other (shortness of breath) Relieved By: + rest; not by medication (Nebulizer) Exacerbated By: + movement and + other (family stress) Associated symptoms: + loss of appetite, + nausea/vomiting (Psotive nausea. Negative vomiting. ), + shortness of breath and + other (Positive fall, dizziness, anxious, lower extremity edema, depressed. Negative head pain, abdominal pain, rhinorrhea, sore throat, visual or auditory hallucinations. ); no cough Treatments prior to arrival: other (Nebulizer) The patient is a 69 year old female presenting to the Emergency Department complaining of persistent shortness of breath starting 1 week ago. The patient reports that she is short of breath. She states that she doesnt normally use supplemental oxygen at home. She explains that she has been intermittently dizzy and fell out of the car in the parking lot of the hospital because of her dizziness. She notes that she is anxious. She adds that her legs are more swollen than normal. The patient reports that she has lost her appetite but that she ate ramen noodles for breakfast. She states that lying down and resting improves her symptoms while moving around worsens her symptoms. She explains that she lives alone but that sometimes her family bothers her and that this makes her stressed. She notes that she is confused and sometimes depressed. She states that she has experienced these symptoms before. 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 The patient reports that she regularly smokes more than a pack of cigarettes daily. The patient denies head pain, abdominal pain, vomiting, cough, rhinorrhea, sore throat and visual or auditory hallucinations. Home Medications Home Medications Medication Instructions Recorded Confirmed Type diltiazem HCl 300 mg PO DAILY 08/31/18 06/30/19 History furosemide 40 mg PO BID 08/31/18 06/30/19 History gabapentin 100 mg PO QAM 08/31/18 06/30/19 History loratadine 10 tab PO QAM PRN 08/31/18 06/30/19 History metoprolol tartrate 50 mg PO QAM 08/31/18 06/30/19 History risperidone 1 mg PO QAM 08/31/18 06/30/19 History sertraline 50 mg PO QAM 08/31/18 06/30/19 History atorvastatin 40 mg PO HS 04/26/19 06/30/19 History hydroxyzine pamoate 25 mg PO QID PRN 04/26/19 06/30/19 History ipratropium-albuterol 3 ml INHALATION QID PRN 04/26/19 06/30/19 History levothyroxine 75 mcg PO QAM 04/26/19 06/30/19 History melatonin 2 mg PO HS 04/26/19 06/30/19 History prazosin 1 mg PO HS 04/26/19 06/30/19 History risperidone 2 mg PO HS 04/26/19 06/30/19 History lisinopril 20 mg PO DAILY #30 tab 05/05/19 06/30/19 Rx ascorbic acid (vitamin C) 250 mg PO DAILY 06/30/19 06/30/19 History aspirin 81 mg PO DAILY 06/30/19 06/30/19 History [id number]-[id number]-cvwzslil 1 inh INHALATION DAILY 06/30/19 06/30/19 History [Trelegy Ellipta] hydralazine 75 mg PO TID 06/30/19 06/30/19 History potassium chloride 10 meq PO DAILY 06/30/19 06/30/19 History Allergies Allergy/AdvReac Type Severity Reaction Status Date / Time No Known Allergies Allergy Verified 04/26/19 17:15 Past Med/Surg History Medical History Bipolar 1 disorder COPD (chronic obstructive pulmonary disease) (Chronic) HLD (hyperlipidemia) Hypertension (Chronic) Hypothyroid Obesity hypoventilation syndrome Schizophrenia Surgical History History of total right knee replacement Family History Mother Diabetes Social History Preferred Language: Greek Communication Ability: Impaired Coffee Sampler Required: No Beliefs That Will Affect Care: None Current Living Situation: Alone Feels Safe at Home: Yes Smoking Status: Current every day smoker Tobacco Type: cigarettes ; Second Hand Exposure: No ; Hx Alcohol Use: No Hx Substance Use: No Review of Systems See HPI for pertinent positives & negatives. and A total of 10 systems reviewed and were otherwise negative Physical Exam Vital Signs Vital Signs - 24 hr 06/30/19 17:17 06/30/19 17:19 06/30/19 17:32 Temperature 36.8 C Temperature Source Oral Oral Pulse Rate 72 Pulse Rate [Right Finger] Respiratory Rate 24 Respiratory Effort / Characteristics Non-Labored Spontaneous Respiratory Depth Normal Respiratory Pattern Regular Blood Pressure 131/78 Blood Pressure Mean 95 Blood Pressure Position Sitting Pulse Oximetry 83 L 96 Oxygen Delivery Method Room Air Nebulizer Oxygen Flow Rate Sepsis Recent Fever Within 48 Hours No Sepsis New/Unexplained Change in Mental Status No Sepsis Action Taken by Nursing No Action Required 06/30/19 17:41 Temperature Temperature Source Pulse Rate Pulse Rate [Right Finger] 72 Respiratory Rate 20 Respiratory Effort / Characteristics Spontaneous Respiratory Depth Respiratory Pattern Blood Pressure Blood Pressure Mean Blood Pressure Position Pulse Oximetry 93 Oxygen Delivery Method Nasal Cannula Oxygen Flow Rate 6 Sepsis Recent Fever Within 48 Hours Sepsis New/Unexplained Change in Mental Status Sepsis Action Taken by Nursing GENERAL: Patient appears disheveled. Awake, alert but fatigued, with increased work of breathing HENT: Normocephalic, atraumatic. EYES: Normal conjunctiva. Sclera non-icteric. NECK: Supple. No nuchal rigidity. RESPIRATORY: Increased work of breathing. Diffuse wheezing. CARDIAC: Normal rate. Normal rhythm. Extremities warm and well perfused. GI: Soft, obese, non-distended. No tenderness to palpation. No rebound or guarding. RECTAL: Deferred. MUSCULOSKELETAL: Atraumatic. Chest examination reveals no tenderness. LOWER EXTREMITIES: 1+ lower extremity swelling with chronic stasis changes. NEURO: Normal sensorium. No slurred speech. No focal sensory or motor deficits noted. No facial droop. Family questions some of her memory/recollection. PSYCH: Denies SI, HI and hallucinations. Patient states she occasionally feels confused. SKIN: Warm and dry. No jaundice noted. Course Course 1724: The patient was evaluated in room A3, and a complete history and physical examination were performed. 1839: I updated the patient at this time on her lab work and imaging studies. 1848: I discussed the patients case with Fabby Terry PA-C. Dr. Landers [facility] [address] hospitalist will evaluate the patient for further management. Administered Medications Ioversol (Optiray 320 125ml) 119 ml IV ONCE PRN PRN Reason: Interaction Checking Stop: 07/04/19 20:28 Last Admin: 06/30/19 20:30 Dose: 119 ml Documented by: [id number] Discontinued Medications Albuterol (Duoneb) 12 ml NEB ONE ONE Stop: 06/30/19 17:32 Last Admin: 06/30/19 17:41 Dose: 12 ml Documented by: [id number] Albuterol (Duoneb) 12 ml NEB ONE ONE Stop: 06/30/19 19:07 Last Admin: 06/30/19 19:22 Dose: 12 ml Documented by: [id number] Magnesium Sulfate/Dextrose (Magnesium Sulfate / D5w) 1 gm in 100 mls @ 100 mls/hr IV ONE ONE Stop: 06/30/19 19:39 Last Admin: 06/30/19 19:18 Dose: 100 mls/hr Documented by: [id number] Methylprednisolone (Solumedrol) 125 mg IV NOW STA Stop: 06/30/19 17:35 Last Admin: 06/30/19 18:09 Dose: 125 mg Documented by: [id number] Ondansetron HCl (Zofran) 4 mg IV NOW STA Stop: 06/30/19 17:34 Last Admin: 06/30/19 18:09 Dose: 4 mg Documented by: [id number] Critical Care Time Critical Care Time: Yes Total Critical Care Time: 40 I have personally spent 40 minutes of critical care time in the direct management of this patient with her respiratory failure, confusion, and severe hyponatremia. This includes bedside care, interpretation of diagnostic studies, and testing, discussion with consultants, patient, and family members, and other required patient management activities. These 40 minutes is in excess of all separately billable procedures. Medical Decision Making Differential Diagnosis Differential diagnoses includes but is not limited to pneumonia, bronchitis, COPD/Asthma exacerbation, pneumothorax, pulmonary embolism, congestive heart failure, acute coronary syndrome, dehydration, stroke, anemia, hypoglycemia, hyponatremia, hypernatremia, urinary tract infection, pneumonia, bronchitis, sepsis, gastroenteritis, additional abdominal pathology, metabolic abnormalities and infections. Medical Records Attestation: I reviewed the patient's medical records. Home Medications Current Medication List: was personally reviewed by me Laboratory Data Attestation: I reviewed the patient's lab results. Result diagrams: 06/30/19 17:50 06/30/19 17:50 Lab Results 06/30/19 06/30/19 06/30/19 Range/Units 17:50 17:50 17:50 WBC 8.89 (4.8-10.8) K/uL RBC 5.16 (4.2-5.4) M/uL Hgb 16.3 H (12.0-16.0) g/dL Hct 45.9 (37-47) % MCV 89.0 (80-100) fL MCH 31.6 (25-34) pg MCHC 35.5 (32-36) g/dL RDW Std Deviation 45.4 (36.4-46.3) fL RDW Coeff of Connor 14.1 (11.5-14.5) % Plt Count 214 (130-400) K/uL MPV 8.8 (7.4-10.4) fL Immature Gran % (Auto) 0.2 % Neut % (Auto) 77.9 % Lymph % (Auto) 13.9 % [place] % (Auto) 6.5 % Eos % (Auto) 1.3 % Baso % (Auto) 0.2 % Immature Gran # (Auto) 0.02 (0.00-0.02) K/uL Neut # (Auto) 6.91 H (1.4-6.5) K/uL Lymph # (Auto) 1.24 (1.2-3.4) K/uL [place] # (Auto) 0.58 (0.11-0.59) K/uL Eos # (Auto) 0.12 (0-0.5) K/uL Baso # (Auto) 0.02 (0-0.2) K/uL PT 11.5 (9.0-12.0) Seconds INR 1.1 (0.9-1.1) VBG pH 7.32 L (7.36-7.41) VBG pCO2 67 H (38-50) mmHg VBG pO2 29 mmHg VBG HCO3 33 mmol/L VBG O2 Saturation 61.4 % VBG Base Excess 5.2 mEq/L Barometric Pressure 724.7 mm/Hg Sodium (136-145) mmol/L Potassium (3.5-5.1) mmol/L Chloride (98-107) mmol/L Carbon Dioxide (21-32) mmol/L Anion Gap (3-11) BUN (7-18) mg/dl Creatinine (0.6-1.2) mg/dl Est Cr Clr Drug Dosing Est GFR ( Amer) Est GFR (Non-Af Amer) BUN/Creatinine Ratio (10-20) Glucose (70-99) mg/dl Lactate (0.4-2.0) mmol/L Calcium (8.5-10.1) mg/dl Magnesium (1.8-2.4) mg/dl Total Bilirubin (0.2-1) mg/dl AST (15-37) U/L ALT (12-78) U/L Alkaline Phosphatase (45-117) U/L Ammonia (11-32) umol/L Total Creatine Kinase (26-192) U/L Troponin I (0-0.045) ng/ml C-Reactive Protein (0-0.29) mg/dl NT-Pro-B Natriuret Pep (0-900) pg/ml Total Protein (6.4-8.2) gm/dl Albumin (3.4-5.0) gm/dl Globulin (2.5-4.0) gm/dl Albumin/Globulin Ratio (0.9-2) TSH (0.300-4.500) uIu/ml Kimberly (0.6-1.2) mmol/L Influenza Type A (PCR) (Neg) Influenza Type B (PCR) (Neg) 06/30/19 06/30/19 06/30/19 Range/Units 17:50 17:50 17:50 WBC (4.8-10.8) K/uL RBC (4.2-5.4) M/uL Hgb (12.0-16.0) g/dL Hct (37-47) % MCV (80-100) fL MCH (25-34) pg MCHC (32-36) g/dL RDW Std Deviation (36.4-46.3) fL RDW Coeff of Connor (11.5-14.5) % Plt Count (130-400) K/uL MPV (7.4-10.4) fL Immature Gran % (Auto) % Neut % (Auto) % Lymph % (Auto) % [place] % (Auto) % Eos % (Auto) % Baso % (Auto) % Immature Gran # (Auto) (0.00-0.02) K/uL Neut # (Auto) (1.4-6.5) K/uL Lymph # (Auto) (1.2-3.4) K/uL [place] # (Auto) (0.11-0.59) K/uL Eos # (Auto) (0-0.5) K/uL Baso # (Auto) (0-0.2) K/uL PT (9.0-12.0) Seconds INR (0.9-1.1) VBG pH (7.36-7.41) VBG pCO2 (38-50) mmHg VBG pO2 mmHg VBG HCO3 mmol/L VBG O2 Saturation % VBG Base Excess mEq/L Barometric Pressure mm/Hg Sodium 124 L (136-145) mmol/L Potassium 3.5 (3.5-5.1) mmol/L Chloride 87 L (98-107) mmol/L Carbon Dioxide 33 H (21-32) mmol/L Anion Gap 4.0 (3-11) BUN 6 L (7-18) mg/dl Creatinine 0.60 (0.6-1.2) mg/dl Est Cr Clr Drug Dosing Not Reportable Est GFR ( Amer) 109.3 Est GFR (Non-Af Amer) 94.3 BUN/Creatinine Ratio 10.3 (10-20) Glucose 140 H (70-99) mg/dl Lactate 0.9 (0.4-2.0) mmol/L Calcium 9.0 (8.5-10.1) mg/dl Magnesium 1.7 L (1.8-2.4) mg/dl Total Bilirubin 0.4 (0.2-1) mg/dl AST 19 (15-37) U/L ALT 29 (12-78) U/L Alkaline Phosphatase 84 (45-117) U/L Ammonia 24.0 (11-32) umol/L Total Creatine Kinase 148 (26-192) U/L Troponin I < 0.015 (0-0.045) ng/ml C-Reactive Protein 3.33 H (0-0.29) mg/dl NT-Pro-B Natriuret Pep 63 (0-900) pg/ml Total Protein 7.0 (6.4-8.2) gm/dl Albumin 3.4 (3.4-5.0) gm/dl Globulin 3.6 (2.5-4.0) gm/dl Albumin/Globulin Ratio 0.9 (0.9-2) TSH 1.710 (0.300-4.500) uIu/ml Kimberly (0.6-1.2) mmol/L Influenza Type A (PCR) (Neg) Influenza Type B (PCR) (Neg) 06/30/19 06/30/19 Range/Units 17:50 18:30 WBC (4.8-10.8) K/uL RBC (4.2-5.4) M/uL Hgb (12.0-16.0) g/dL Hct (37-47) % MCV (80-100) fL MCH (25-34) pg MCHC (32-36) g/dL RDW Std Deviation (36.4-46.3) fL RDW Coeff of Connor (11.5-14.5) % Plt Count (130-400) K/uL MPV (7.4-10.4) fL Immature Gran % (Auto) % Neut % (Auto) % Lymph % (Auto) % [place] % (Auto) % Eos % (Auto) % Baso % (Auto) % Immature Gran # (Auto) (0.00-0.02) K/uL Neut # (Auto) (1.4-6.5) K/uL Lymph # (Auto) (1.2-3.4) K/uL [place] # (Auto) (0.11-0.59) K/uL Eos # (Auto) (0-0.5) K/uL Baso # (Auto) (0-0.2) K/uL PT (9.0-12.0) Seconds INR (0.9-1.1) VBG pH (7.36-7.41) VBG pCO2 (38-50) mmHg VBG pO2 mmHg VBG HCO3 mmol/L VBG O2 Saturation % VBG Base Excess mEq/L Barometric Pressure mm/Hg Sodium (136-145) mmol/L Potassium (3.5-5.1) mmol/L Chloride (98-107) mmol/L Carbon Dioxide (21-32) mmol/L Anion Gap (3-11) BUN (7-18) mg/dl Creatinine (0.6-1.2) mg/dl Est Cr Clr Drug Dosing Est GFR ( Amer) Est GFR (Non-Af Amer) BUN/Creatinine Ratio (10-20) Glucose (70-99) mg/dl Lactate (0.4-2.0) mmol/L Calcium (8.5-10.1) mg/dl Magnesium (1.8-2.4) mg/dl Total Bilirubin (0.2-1) mg/dl AST (15-37) U/L ALT (12-78) U/L Alkaline Phosphatase (45-117) U/L Ammonia (11-32) umol/L Total Creatine Kinase (26-192) U/L Troponin I (0-0.045) ng/ml C-Reactive Protein (0-0.29) mg/dl NT-Pro-B Natriuret Pep (0-900) pg/ml Total Protein (6.4-8.2) gm/dl Albumin (3.4-5.0) gm/dl Globulin (2.5-4.0) gm/dl Albumin/Globulin Ratio (0.9-2) TSH (0.300-4.500) uIu/ml Kimberly < 0.2 L (0.6-1.2) mmol/L Influenza Type A (PCR) Neg for Influ A (Neg) Influenza Type B (PCR) Neg for Influ B (Neg) Imaging Data Radiologist's Impression: Radiology results as stated below per my review and the radiologist's interpretation: CT OF THE HEAD WITHOUT CONTRAST CLINICAL HISTORY: falls, headache COMPARISON STUDY: Head CT August 31, 2018. CT DOSE: 1912.01 mGy.cm TECHNIQUE: Helical axial images of the head were obtained without IV contrast. A utomated exposure control was utilized for the study. A dose lowering technique was utilized adhering to the principles of ALARA. FINDINGS: No acute intracranial hemorrhage, midline shift or mass effect is present. The ventricular system is unremarkable. The basilar cisterns are patent. No extra-axial collections are present. There are no findings to suggest acute dural sinus thrombosis or acute territorial infarct. No significant calvarial abnormalities are present. Visualized portions of the sinuses and mastoid air cells are clear. White matter hypodensities are unchanged and suggest small vessel disease. IMPRESSION: 1. No acute intracranial findings. 2. No calvarial fracture. ACT 112: Negative or not required by law. Electronically signed by: Scott Brown M.D. 06/30/2019 6:[address] OF THE CERVICAL SPINE WITHOUT CONTRAST CLINICAL HISTORY: falls COMPARISON STUDY: No previous studies for comparison. TECHNIQUE: Helical axial images of the cervical spine were obtained without IV contrast. Sagittal and coronal reconstructions were viewed. Automated exposure control was utilized for the study. A dose lowering technique was utilized adhering to the principles of ALARA. FINDINGS: Alignment of the cervical spine is anatomic. Vertebral body heights are maintained. No acute cervical spine fracture or subluxation is present. There is no prevertebral edema. Facet joints are intact. Moderate multilevel facet arthrosis and degenerative disc disease is noted. IMPRESSION: No acute cervical spine fracture or subluxation. ACT 112: Negative or not required by law. Electronically signed by: Scott Brown M.D. 06/30/2019 6:37 PM XR chest 1V portable HISTORY: 69 years-old Female weakness acute weakness COMPARISON: Chest radiograph 04/30/2019 TECHNIQUE: Portable AP view of the chest FINDINGS: Cardiac silhouette is enlarged, unchanged. Pulmonary vascular congestion. No pneumothorax, large pleural effusion or overt pulmonary edema. No lobar airspace consolidation typical for pneumonia. Degenerative changes of the shoulders and spine. IMPRESSION: Cardiomegaly with pulmonary vascular congestion. ACT 112: Negative or not required by law. The above report was generated using voice recognition software. It may contain grammatical, syntax or spelling errors. Electronically signed by: Tyshawn Raymond M.D. 06/30/2019 5:42 PM ECG Data Attestation: I personally reviewed and interpreted this ECG as follows: Indication: + SOB/dyspnea Rate (beats per minute): 68 Rhythm: + sinus rhythm ECG Intervals/blocks: + First degree AV block and + Left bundle branch block ECG [place]: + Left axis deviation Comparison ECG Date: from (04/30/19) Change: the following changes noted (Patient is no longer bradycardic.) Blood Pressure Blood Pressure Findings: Elevated blood pressure Blood Pressure Disposition: further management by hospitalist POLI Narrative Patient is a 69-year-old female with a past medical history of hypothyroidism, bipolar disorder, pneumonia, renal dysfunction, hypertension, COPD presenting today reportedly with blurred vision, shortness of breath, dizziness frequent falls over the last week with some vomiting. Afebrile upon arrival and hypoxic. Reviewing prior medical records indicate the patient was last admitted to the hospital in May with respiratory failure, renal failure, pneumonia, lithium toxicity. Patient has limited recollection of some of these things although patient's niece reports that her she did report several falls. One just prior to arrival here. Hypoxic in the low 80s on room air and diffusely wheezy. Continues to smoke at home not on home oxygen. Lower extremity swelling is still present. Chest x-ray without evidence of pneumonia however pulmonary vascular congestion is noted. Given questionable history of fall CT the head and neck were completed. Basic labs including ammonia, lithium given history, VBG, and lactate were sent. Does not seem acutely infectious. Seems to be a failure to thrive and patient does endorse some confusion but denies carol SI HI or hallucinations to me. By report the patient is off of lithium however that she states she is unsure if she is been taking the medicines right at home as her pill container got mixed up. Laboratory studies show no significant leukocytosis and a slightly elevated hemoglobin consistent with previous and likely secondary to her tobacco usage. Slightly acidotic at 7.32 and hypercarbic 67 likely consistent with her clinical diagnosis of COPD exacerbation with the wheezing. Patient is doing better after some steroids and breathing treatments (2 hour long treatments ordered) on the oxygen here 6L [place]. Again I really doubt this represents PE or dissection at this time. Patient has acute hyponatremia of 124 with hypomagnesemia. Magnesium IV ordered. Negative troponin. Ammonia not elevated. CPK not elevated. Transaminases & thyroid within normal limits. Influenza testing is still pending at this time. Do not feel antibiotics are acutely warranted. Given th at she examines somewhat fluid overloaded will not give additional fluids for the hyponatremia at this time. Believe the patient requires admission for further respiratory optimization/hyponatremia improvement of her living conditions especially in light of her confusion underlying psychiatric conditions.. Discussed with the [facility] [address] hospitalist. Impression & Plan Respiratory failure, Confusion, Hyponatremia, COPD exacerbation, Hypomagnesemia Discharge Plan Visit Data Chief Complaint: Illness Stated Complaint: PARANOIA, UNABLE TO EAT, FALLEN, DIZZY ED Provider: Guido Foley Discharge Problem: Respiratory failure, Confusion, Hyponatremia, COPD exacerbation, Hypomagnesemia Patient Disposition: Being Evaluated by Hospitalist Discharge Instructions Interventions: ED Discharge Assessment Last Done: 06/30/19 20:22 The jmibe's documentation has been prepared under my direction and personally reviewed by me in its entirety. I confirm that the note above accurately reflects all work, treatment, procedures, and medical decision making performed by me.
[2019-06-30 19:27] LABS: Influenza A virus by PCR Neg for Influ A (Neg); Influenza B virus by PCR Neg for Influ B (Neg)
[2019-06-30 19:54] LABS: C Reactive Protein 3.33 mg/dl (0-0.29); NT Pro B Type Natriuretic Pept 63 pg/ml (0-900)
--- NOTE | 2019-06-30 20:00 | History & Physical Report ---
Date of Service June 30, 2019 Assessment & Plan (1) Acute on chronic respiratory failure with hypoxia and hypercapnia: (2) COPD exacerbation: -Admit to telemetry -Patient presenting from home after her cousin came to check on her and found her to be very ill-appearing -In the ED, found to be hypoxic on room air at 83%, currently saturating well receiving nebulizer treatment -VBG shows pH 7.32, PCO2 67; will obtain ABG for follow-up, may need BiPAP -No signs of pneumonia on CXR -Influenza swab negative -S/p Solu-Medrol 125 mg IV in the ED, will continue with prednisone 40 mg daily starting tomorrow -Empiric doxycycline -Pulmonary toilet with nebulizers, flutter valve, incentive spirometry (3) Hyponatremia: -Na+ 124 -BNP 63, so doubt hypervolemic hyponatremia -History difficult to obtain from patient, but possibly hypovolemic hyponatremia from poor p.o. intake in combination with SSRI use -Gentle IVF x1 L -Follow serial sodium levels -will reduce sertraline dose by half (4) Bilateral lower leg cellulitis: -Patient with chronic venous stasis and thick, scaly skin BL LE -Noted to have erythema extending up to the thighs and warm to touch -No open areas or drainage noted -On doxycycline as above (5) Metabolic encephalopathy: -Likely multifactorial secondary to above diagnoses -Ammonia level normal -Check urine tox screen and blood alcohol level -Obtain procalcitonin and blood cultures (6) Chronic diastolic CHF (congestive heart failure): -May be on the dry side given low BNP and hyponatremia -Holding Lasix for now -Giving gentle IVF -Monitor volume status closely (7) Hypertension: -BP mildly elevated -Continue home doses of hydralazine, lisinopril, metoprolol for now, making adjustments as needed (8) Schizophrenia: (9) Bipolar 1 disorder: -Lapoint discontinued during recent admission -Reducing sertraline as above -Continue prazosin and Risperdal (10) Hypothyroid: -Continue with thyroxine (11) HLD (hyperlipidemia): -Continue statin (12) Morbid obesity: -Heart healthy diet ordered (13) DVT prophylaxis: -SQ Lovenox History of Present Illness Chief Complaint: Confusion, shortness of breath Primary Care Provider: Jazmyn Puga, 69-year-old female who presents the ED for evaluation of confusion and shortness of breath. Due to patient's current mental state, she is a very poor historian. She reports that her cousin came to check on her today and found her to be very ill-appearing so therefore she came to the ED for further evaluation. Patient reports she has not been taking care of herself recently. She admits to smoking an abundance of cigarettes and cigars per day. However she does report she has been taking her medications. When asked about her food and drink intake, she states " it has not been good". Patient reports getting into several arguments with her family which makes her upset. She denies suicidal or homicidal thoughts. Patient has several complaints when asked about symptoms. She reports that she has been having chest pain however cannot provide any details regarding that. She reports that she has had nausea vomiting and diarrhea. She reports a nonproductive cough. No fevers or chills. Denies urinary symptoms. Reports her legs are more red than normal. In the ED, patient was found to be hypoxic on room air at 83%. Patient is currently receiving nebulizer treatment and saturating well. VBG shows pH 7.32, PCO2 67. She is on be hyponatremic with sodium 124, mildly hypomagnesemic with magnesium 1.7 she was given Solu-Medrol 125 mg IV and magnesium replacement. Allergies Allergy/AdvReac Type Severity Reaction Status Date / Time No Known Allergies Allergy Verified 04/26/19 17:15 Home Medications Home Medications Medication Instructions Recorded Confirmed Type diltiazem HCl 300 mg PO DAILY 08/31/18 06/30/19 History furosemide 40 mg PO BID 08/31/18 06/30/19 History gabapentin 100 mg PO QAM 08/31/18 06/30/19 History loratadine 10 tab PO QAM PRN 08/31/18 06/30/19 History metoprolol tartrate 50 mg PO QAM 08/31/18 06/30/19 History risperidone 1 mg PO QAM 08/31/18 06/30/19 History sertraline 50 mg PO QAM 08/31/18 06/30/19 History atorvastatin 40 mg PO HS 04/26/19 06/30/19 History hydroxyzine pamoate 25 mg PO QID PRN 04/26/19 06/30/19 History ipratropium-albuterol 3 ml INHALATION QID PRN 04/26/19 06/30/19 History levothyroxine 75 mcg PO QAM 04/26/19 06/30/19 History melatonin 2 mg PO HS 04/26/19 06/30/19 History prazosin 1 mg PO HS 04/26/19 06/30/19 History risperidone 2 mg PO HS 04/26/19 06/30/19 History lisinopril 20 mg PO DAILY #30 tab 05/05/19 06/30/19 Rx ascorbic acid (vitamin C) 250 mg PO DAILY 06/30/19 06/30/19 History aspirin 81 mg PO DAILY 06/30/19 06/30/19 History gqppwlqcrhv-fcltkqhex-nwrlwrcm 1 inh INHALATION DAILY 06/30/19 06/30/19 History [Trelegy Ellipta] hydralazine 75 mg PO TID 06/30/19 06/30/19 History potassium chloride 10 meq PO DAILY 06/30/19 06/30/19 History Past Med/Surg History Medical History Bipolar 1 disorder COPD (chronic obstructive pulmonary disease) (Chronic) HLD (hyperlipidemia) Hypertension (Chronic) Hypothyroid Obesity hypoventilation syndrome Schizophrenia Surgical History History of total right knee replacement Family History Mother Diabetes Social History Preferred Language: Maori Communication Ability: Effective Residential Supervisor Required: No Beliefs That Will Affect Care: None Current Living Situation: Other Other Information That Helps Us Care for You: No Feels Safe at Home: Yes Safety Concerns: Feels Safe At This Time Smoking Status: Unknown if ever smoked Hx Alcohol Use: No Hx Substance Use: No Review of Systems Review of Systems: ROS per HPI, however limited secondary to patient's current mental state. Physical Exam Constitutional: + ill appearing and + obese; no acute distress Eyes: PERRL, conjunctivae normal, anicteric sclerae ENMT: external ear and nose normal, oropharynx normal Respiratory: normal respiratory effort and able to speak in complete sentences; no respiratory distress Auscultation: + diminished lung sounds, + rhonchi (Scattered) and + wheezes (Bilateral, expiratory) Cardiovascular: Rate/Rhythm: regular rate and regular rhythm Vessels: jessenia l peripheral pulses Extremities: + edema (+2 edema BLE) Gastrointestinal (Abdomen): normal bowel sounds, soft, nontender, no hepatosplenomegaly Musculoskeletal: Extremities: no cyanosis and no clubbing Generally weak throughout Skin: no rashes, warm and dry Thick, scaly skin noted to BLE with associated erythema extending up to the thighs, warm to touch Neurologic: PERRL, EOMI, accommodation nl, no face palsy, no dysarthria moves all extremities; + not awake (Somewhat lethargic however arouses easily to verbal stimuli) Psychiatric: Orientation: alert and oriented x 3 Affect: + depressed affect Results & Data Vital Signs (Past 12 Hours) Vital Signs Temp Pulse Pulse Resp BP BP Pulse Ox 06/30/19 19:23 72 22 164/90 H 95 06/30/19 17:41 72 20 93 06/30/19 17:32 96 06/30/19 17:19 36.8 C 72 24 131/78 83 L Laboratory Results Short CBC 06/30/19 Range/Units 17:50 WBC 8.89 (4.8-10.8) K/uL Hgb 16.3 H (12.0-16.0) g/dL Hct 45.9 (37-47) % Plt Count 214 (130-400) K/uL BMP 06/30/19 17:50 Sodium 124 L Potassium 3.5 Chloride 87 L Carbon Dioxide 33 H BUN 6 L Creatinine 0.60 Glucose 140 H Calcium 9.0 Cardiac Enzymes 06/30/19 Range/Units 17:50 Total Creatine Kinase 148 (26-192) U/L Troponin I < 0.015 (0-0.045) ng/ml Liver Function 06/30/19 Range/Units 17:50 Total Bilirubin 0.4 (0.2-1) mg/dl AST 19 (15-37) U/L ALT 29 (12-78) U/L Alkaline Phosphatase 84 (45-117) U/L Albumin 3.4 (3.4-5.0) gm/dl Diagnostic Findings CXR IMPRESSION: Cardiomegaly with pulmonary vascular congestion. HEAD CT IMPRESSION: 1. No acute intracranial findings. 2. No calvarial fracture. CERVICAL SPINE CT IMPRESSION: No acute cervical spine fracture or subluxation. Code Status & VTE Plan Code Status Patient is a full code as per my discussion with her. VTE Prophylaxis Plan VTE Prophylaxis will be ordered: Yes Supervising Physician Co-Signing Physician Notes HISTORY: Record reviewed. Patient interviewed and examined in ED. Care coordinated with JENNY Levine; please refer to her documentation for complete history. Briefly, 69 YO F with history of COPD, sleep apnea, diastolic CHF, and other problems. Presented to ED with cough and SOB. No fever. Smoker. EXAM: General- no distress Lungs- diffuse moderate wheezing. Cardiovascular- RRR; no murmur or gallop appreciated (exam limited); no JVD appreciated (exam limited); 3+ pretibial edema Abdomen- + bowel sounds, soft, nontender Extremities- no cyanosis; no calf tenderness Neuro- mild confusion Skin- erythema bilat lower extremities up to thighs DATA: Hemoglobin 16.3, white count 8890, platelet count 214,000. Sodium 124, potassium 3.5, chloride 87, CO2 33, BUN 6, creatinine 0.6, glucose 140, magnesium 1.7. C-reactive protein 3.33. Lactate 0.9. Troponin less than 0.015. BMP 63. ABG on 4 L nasal cannula showed PO2 130, PCO2 76, bicarbonate 30, pH 7.22. Nasopharyngeal swab for influenza A/B negative. Other lab studies as noted. Chest x-ray reviewed and demonstrated cardiomegaly, possible mild vascular congestion. CT head negative for acute findings. EKG performed at 1746 reviewed and demonstrated sinus rhythm at 70 / minute, baseline artifact, first-degree AV block, QTC 504 ms, left bundle branch block. Compared to tracing performed on 04/30/2019, rate increased but no other significant changes. ASSESSMENT AND PLAN: Exacerbation of COPD. Hypoxic/hypercapnic respiratory failure. No evidence of pneumonia per chest x-ray. 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 Management will consist of supplemental oxygen, BiPAP, steroids, bronchodilators. Cellulitis bilateral lower extremities. Treat with doxycycline. Chest x-ray suggested pulmonary vascular congestion, but BNP low. History of left ventricular diastolic dysfunction. Follow exam/fluid status. Serum sodium 124. 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 Meds (sertraline, risperidone, lisinopril) could be contributing factors. Fluid restriction. Follow. Please refer to APURVA Terry's documentation for discussion of other issues. (1) Hypertension Hypertension type: essential hypertension Qualified Code(s): I10 - Essential (primary) hypertension
[2019-06-30] MEDS ORDERED: OPTIRAY 320 125ml IV PRN (20:29)
--- NOTE | 2019-06-30 20:59 | CT Scan Report ---
CT ANGIOGRAPHY OF THE CHEST, PULMONARY EMBOLUS PROTOCOL CLINICAL HISTORY: Shortness of breath. Evaluate for pulmonary embolus. COMPARISON STUDY: Chest radiograph June 30, 2019. TECHNIQUE: Following IV administration of 119 mL of Optiray-320, helical axial images of the chest we re obtained utilizing the pulmonary embolus protocol. Maximal intensity projections and sagittal and coronal reformats were viewed on an independent 3D workstation. IV contrast was administered withou t complication. Automated exposure control was utilized for the study. A dose lowering technique wa s utilized adhering to the principles of ALARA. CT DOSE: 888.29 mGy.cm FINDINGS: No pulmonary emboli are identified although this exam is mildly compromised by respiratory motion. The heart is moderately enlarged. Moderate coronary artery calcification is noted with kate l annular calcification. There is no pericardial effusion. A mildly enlarged precarinal lymph node me asures 1.5 cm in short axis diameter. Central airways are patent. There is bronchial wall thickening, most evident within the right lower lobe. Linear and ground glass opacities favor atelectasis. There is no pneumothorax or pleural effusion. Bony thorax is unremarkable. Upper abdomen is unremarkable. There is no thoracic aortic dissection. IMPRESSION: 1. No pulmonary emboli identified. 2. Moderate cardiomegaly. 3. Bronchial wall thickening, most evident within the right lower lobe. Subpleural groundglass opacit ies which favor atelectasis. 4. Mildly enlarged precarinal lymph node, nonspecific finding. A follow up chest CT in 3 months is re commended. ACT 112: Negative or not required by law. Electronically signed by: Scott Brown M.D. 06/30/2019 8:58 PM
[2019-06-30] MEDS ORDERED: PRAZOSIN HCL 1 MG CAP PO SCH (21:00)
[2019-06-30] MEDS ORDERED: ENOXAPARIN INJ 40 MG/0.4 ML SYR SQ SCH (21:00)
[2019-06-30] MEDS ORDERED: SODIUM CHLORIDE 0.9% 1000ML 1,000 ML IV SCH (21:00)
--- NOTE | 2019-06-30 21:12 | Ultrasound Report ---
BILATERAL LOWER EXTREMITY VENOUS DOPPLER CLINICAL HISTORY: edema COMPARISON STUDY: No previous studies for comparison. TECHNIQUE: Sonography of the deep venous system of the bilateral lower extremities was performed. Co mpression and augmentation were evaluated. FINDINGS: This exam is compromised by suboptimal penetration. The bilateral common femoral, superfici al femoral and popliteal veins were compressible. Augmentation was normal. Flow was shown within the deep calf vessels. IMPRESSION: Technically difficult exam but no evidence of deep venous thrombus within the bilateral l ower extremities. ACT 112: Negative or not required by law. Electronically signed by: Scott Brown M.D. 06/30/2019 9:10 PM
[2019-06-30 21:47] LABS: Allen Test Pos (Pos); Base Excess ABG 0.6 mEq/L (-9-1.8); HCO3 ABG 30 mmol/L (19-24); Oxygen Saturation ABG 98.2 % (90-95); PCO2 ABG 76 mmHg (35-46); PO2 ABG 130 mm/Hg (80-95); pH ABG 7.22 (7.35-7.45)
[2019-06-30] MEDS ORDERED: dilTIAZem HCl 60 MG TAB PO ONE (22:07)
[2019-06-30] MEDS: ALBUT/IPRATROP 3MG/0.5MG NEB 3 ML VIAL NEB SCH (23:46)
[2019-07-01] MEDS ORDERED: RAPID SEQUENCE INDUCTION BAG ONE (01:08)
[2019-07-01] MEDS ORDERED: fentaNYL citrate 100 MCG/2 ML VIAL IV PRN (01:11)
--- NOTE | 2019-07-01 01:35 | Critical Care Consultation ---
Date of Consultation July 01, 2019 Assessment & Plan (1) Admitted to intensive care unit: Reason Critically Ill: 69-year-old female with acute on chronic respiratory failure with hypercapnia resulting in rapid CO2 accumulation and altered mental status requiring emergent endotracheal intubation. NEURO - * CAM ICU: Unable to assess. * Sedation: Propofol * Pain: Fentanyl * Metabolic Encephalopathy: * Unfortunately was unable to assess patient without significant CO2 accumulation and CO2 narcosis. * Presumed to be related to combination of acute COPD exacerbation, hypercapnia, multiple antipsychotic medications, etc. * Patient showed great improvement after intubation with short period of ventilation. * Previous CT the head unremarkable. * No need to repeat imaging studies of brain at this point as patient has improved greatly. CARDIAC/VASCULAR - * Hypertension: * Hold on home medications at this point as pressures have been okay with sedation. * CHF: * Agree with gentle hydration at this time. * EKG: NSR@97bpm w/ LBBB which is unchanged. QTc 584ms. * Monitor on telemetry. RESPIRATORY - * Acute on chronic hypercapnic respiratory failure: * Significant accumulation of CO2 of greater than 120 resulting in respiratory acidosis requiring emergent endotracheal intubation. * Patient currently on IV doxycycline. Will add Rocephin as well. * Currently receiving steroids. * Continue with nebulizers. * Patient did appear to have some mucus plugging after intubation which was easily suctioned. * CTA of the chest demonstrated no PE. * Trend ABGs. * Wean FiO2 as able. GI/NUTRITION - * OG tube in place. * Continue with p.o. meds as needed. * Prophylaxis: Famotidine RENAL/LYTES - * Hyponatremia: * Presenting with sodium of 124. * Agree with gentle hydration with normal saline. * Will avoid rapid correction, however feel the patient is outside the concerning threshold for osmotic demyelination syndrome. * IVF: NSS@80mL/hr - * Chappell in place - Strict I&Os. ENDO - * No h/o DM * BSGs per unit protocol. ISS --> gtt per unit policy. * Hypothyroidism: * Continue home Rx HEME - * Stable H&H ID - * COPD w/ Exacerbation, Cellulitis of the B/L Lower extremities: * Will add Rocephin to current Doxy. * ProCal/Lactate not elevated. * Intertriginous candidiasis: * Topical nystatin powder 3 times daily. LINES/IV ACCESS - * PIVs x2 * RIGHT Radial A-Line * Chappell * ET Tube DVT PROPHYLAXIS - * Lovenox * SCDs I have personally spent 78 minutes of critical care time in the direct managem ent of this patient. This is a life/limb threatening event. This includes time spent evaluating patient, direct bedside care, chart review, placing orders, interpretation of diagnostic studies, discussion with consultants, patient, and family members, as well as other required patient management activities. This time is exclusive of all separately billable procedures, and teaching time and separate from and in addition to any other critical care service time. Thank you for allowing us to participate in the care of this patient. Please refer to my attending physician's documentation for any further recommendations. (2) Acute and chronic respiratory failure with hypercapnia: (3) CO2 narcosis: (4) Chronic diastolic CHF (congestive heart failure): (5) Morbid obesity: (6) Hyponatremia: (7) Bilateral lower leg cellulitis: (8) COPD exacerbation: (9) Metabolic encephalopathy: (10) Obesity hypoventilation syndrome: (11) HLD (hyperlipidemia): (12) Hypothyroid: (13) Bipolar 1 disorder: (14) Schizophrenia: (15) Hypertension: Supervising Physician Co-Signing Physician Notes I have reviewed the documentation by Mandi Edward, please refer to my documentation for my evaluation and management. History of Present Illness Attending Physician: Archie Landers MD History of Present Illness Patient is a 69-year-old female with a significant past medical history of hypertension, bipolar disorder, hypothyroidism, hyperlipidemia, schizophrenia, COPD, obesity hypoventilation syndrome, and anxiety who initially presented to the emergency department with increasing shortness of breath, cough, lightheadedness, and confusion. During evaluation, the patient was noted to have increasing wheezing as well as tachypnea. Laboratory analysis, the patient was noted to have hyponatremia. This is presumably related to the patient's psychiatric medications. Patient noted to have metabolic encephalopathy compounded by multiple presenting symptoms. She was placed on doxycycline as well as IV fluids and nebulizer treatments. A CODE PURPLE was called early in the morning as the patient was noted to be obtunded. She was currently wearing BiPAP. She maintained hemodynamics and oxygenation, however her ABG was concerning for severe respiratory acidosis and hypercapnia with a CO2 of greater than 120. The patient was brought immediately to the ICU for emergent endotracheal intubation. History of present illness limited secondary to patient's current state. Allergies Allergy/AdvReac Type Severity Reaction Status Date / Time No Known Allergies Allergy Verified 04/26/19 17:15 Home Medications Home Medications Medication Instructions Recorded Confirmed Type diltiazem HCl 300 mg PO DAILY 08/31/18 06/30/19 History furosemide 40 mg PO BID 08/31/18 06/30/19 History gabapentin 100 mg PO QAM 08/31/18 06/30/19 History loratadine 10 tab PO QAM PRN 08/31/18 06/30/19 History metoprolol tartrate 50 mg PO QAM 08/31/18 06/30/19 History risperidone 1 mg PO QAM 08/31/18 06/30/19 History sertraline 50 mg PO QAM 08/31/18 06/30/19 History atorvastatin 40 mg PO HS 04/26/19 06/30/19 History hydroxyzine pamoate 25 mg PO QID PRN 04/26/19 06/30/19 History ipratropium-albuterol 3 ml INHALATION QID PRN 04/26/19 06/30/19 History levothyroxine 75 mcg PO QAM 04/26/19 06/30/19 History melatonin 2 mg PO HS 04/26/19 06/30/19 History prazosin 1 mg PO HS 04/26/19 06/30/19 History risperidone 2 mg PO HS 04/26/19 06/30/19 History lisinopril 20 mg PO DAILY #30 tab 05/05/19 06/30/19 Rx ascorbic acid (vitamin C) 250 mg PO DAILY 06/30/19 06/30/19 History aspirin 81 mg PO DAILY 06/30/19 06/30/19 History zrhixxjlmub-nzsyyifrc-wcbghwth 1 inh INHALATION DAILY 06/30/19 06/30/19 History [Trelegy Ellipta] hydralazine 75 mg PO TID 06/30/19 06/30/19 History potassium chloride 10 meq PO DAILY 06/30/19 06/30/19 History Patient History Medical History Bipolar 1 disorder COPD (chronic obstructive pulmonary disease) (Chronic) HLD (hyperlipidemia) Hypertension (Chronic) Hypothyroid Obesity hypoventilation syndrome Schizophrenia Surgical History History of total right knee replacement Family History Mother Diabetes Social History Preferred Language: Senegalese Communication Ability: Unable Automatic Wheel Line 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 GENERAL - 69-year-old female appearing her stated age who is in respiratory distress. Obtunded with poor respiratory effort. SKIN -moderate erythematous scaly rash noted to the bilateral lower extremities overlying the shins and calf circumferentially. Yeasty rash noted in the intertriginous area. HEAD - NC/AT. EYES - PERRL with EOMI bilaterally. Sclera anicteric. EARS - No deformities of external structures noted on gross examination bilaterally. NOSE - Midline and without cyanosis. No epistaxis or purulent drainage noted. MOUTH/OROPHARYNX - Without perioral cyanosis. Buccal mucosa pink and moist and without leukoplakia. NECK - Neck with FROM. No lymphadenopathy noted. No nuchal rigidity. LUNGS - Chest wall symmetric without accessory muscle use. Poor inspiratory effort. Distant breath sounds. CARDIAC - RRR with S1/S2. No murmur, rubs, or gallops appreciated. ABDOMEN - Abdominal contour obese without pulsations or visible masses. BS normoactive all four quadrants. No tenderness, palpable masses, hepatosplenomegaly, or ascites noted. EXTREMITIES - No clubbing or peripheral cyanosis. Mild edema present. +3/5 radial and dorsalis pedis pulses palpated throughout. NEUROLOGIC - No gross neurological deficits noted on exam. Patient unable to participate secondary to current state. Results & Data Vital Signs (Past 12 Hours) Vital Signs Temp Pulse Pulse Resp BP BP Pulse Ox 06/30/19 23:48 98 H 98 H 18 93 06/30/19 23:30 36.2 C L 98 H 20 166/76 H 89 L 06/30/19 23:20 89 06/30/19 22:16 88 153/83 H 06/30/19 21:15 36.9 C 104 H 20 192/134 H 91 06/30/19 20:22 79 20 164/90 H 93 06/30/19 19:23 72 22 164/90 H 95 06/30/19 17:41 72 20 93 06/30/19 17:32 96 06/30/19 17:19 36.8 C 72 24 131/78 83 L Coding Level of Care Code Critical Care 1st 30-74 mins Diagnoses Admitted to intensive care unit Z78.9 Acute and chronic respiratory failure with hypercapnia J96.22 CO2 narcosis R06.89 Chronic diastolic CHF (congestive heart failure) I50.32 Morbid obesity E66.01 Hyponatremia E87.1 Bilateral lower leg cellulitis L03.116; L03.115 COPD exacerbation J44.1 Metabolic encephalopathy G93.41 Obesity hypoventilation syndrome E66.2 HLD (hyperlipidemia) E78.5 Hypothyroid E03.9 Bipolar 1 disorder F31.9 Schizophrenia F20.9 Hypertension I10 Hypertension type: essential hypertension Time Spent (min) 78 (1) Hypertension Hypertension type: essential hypertension Qualified Code(s): I10 - Essential (primary) hypertension
[2019-07-01] MEDS ORDERED: ICU PROTOCOL FOR HYPERGLYCEMIA PRN (01:36)
--- NOTE | 2019-07-01 01:36 | Procedure Note ---
Procedure Note Date of Service July 01, 2019 APC: Renan Edward PA-C. Attending: Dr. Mai A time-out was completed verifying correct patient, procedure, site, positioning. Patient was evaluated and required intubation for acute on chronic respiratory failure with hypercapnia. Sedative agent used: Etomidate Paralysis agent used: Succinylcholine Emergent consent was implied given patients rapidly declining clinical status and need for airway protection. Obtunded state precludes ability to obtain consent. The patient was prepared in the appropriate fashion. Sedation was achieved utilizing Etomidate per Dr. Ibanez. The patient was easily ventilated using BiPAP to achieve adequate oxygenation. A 7.5 Panamanian endotracheal tube was placed to the vocal cords utilizing indirect visualization. I was unable to pass the tube through the vocal cords. Patient received 150 mg succinylcholine IV and the tube was traded for a 7.0 Panamanian. Patient never dropped her O2 sat less than 96%. Visualizing the vocal cords again using indirect visualization, the 7.0 Fr tube was passed through the vocal cords to 25 cm at the lip. The stylette was removed and balloon was inflated with 10mL of air. Appropriate Colorimetric change was appreciated. Bilateral breath sounds were heard without air sounds in the abdomen. Condensation noted in the tube. Dr. Ibanez was present for the entire procedure. Post Intubation Chest X-ray confirms placement without pneumothorax. ET Tube appears to be ~2.5 cm above the wilfredo. Tube was withdrawn 1.0cm to a final location of 24cm at the lip. Patient tolerated the procedure well and there were no immediate complications. Coding CPT Codes Resuscitation - Resuscitation: 08106 Endotracheal Intubation, emergency ([id number])
[2019-07-01] MEDS: DOXYCYCLINE HYCLATE 100 MG in DEXTROSE 5% 100 ML IV SCH ×3 (01:58→21:06)
[2019-07-01] MEDS: propofoL 1,000 MG/100 ML VIAL IV SCH ×3 (02:02→12:09)
[2019-07-01] MEDS: ATORVASTATIN 40 MG TAB PO SCH ×2 (02:06→20:58)
[2019-07-01] MEDS: risperiDONE 2 MG TABLET PO SCH (02:07)
--- NOTE | 2019-07-01 02:16 | Procedure Note ---
Procedure Note Date of Service July 01, 2019 Procedure: Arterial Line Placement Attending: Dr. Mai APC: Renan Edward PA-C Indication: Monitoring on Pressors Anesthesia: Lidocaine 1% Emergent consent implied in the setting of obtunded patient require emergent endotracheal intubation with frequent ABGs and need for verbal accessibility for lab draws. A time-out was completed verifying correct patient, procedure, site, positioning, and implant(s) or special equipment if applicable. Allens test was performed to ensure adequate perfusion. Patients RIGHT wrist was prepped and draped in the usual sterile fashion. Ultrasound guidance was used to aid needle placement. A 20g Arrow arterial line was introduced into the RIGHT Radial artery. Catheter was threaded, and the needle was removed with appropriate blood return. Good waveform was observed. The patient tolerated the procedure well. Confirmation of placement with ultrasound. Blood Loss: Minimal Complications: None Procedural Ultrasound Guidance: Procedure Date: 07/01/2019 Indication: ABGs, frequent lab draws, Pressure monitoring Attending: Dr. Mai APC: Renan Edward PA-C Artery Identified: YES Line confirmed in Artery with ultrasound: YES Complications: NONE Patient tolerated procedure: WELL Coding CPT Codes Tubes, Drains, and Vasc Access - Tubes, Drains, and Vasc Access: [id number] Place Catheter In Artery ([id number])
[2019-07-01 02:24] LABS: Hematocrit (blood only) 46.4 % (37-47); Hemoglobin 15.9 g/dL (12.0-16.0); Mean Corpuscular Hemoglobin 31.5 pg (25-34); Mean Corpuscular Hgb Conc 34.3 g/dL (32-36); Mean Corpuscular Volume 91.9 fL (80-100); Mean Platelet Volume 8.7 fL (7.4-10.4); Platelet Count 222 K/uL (130-400); RDW Coefficient of Variation 13.9 % (11.5-14.5); RDW Standard Deviation 46.5 fL (36.4-46.3); Red Blood Count 5.05 M/uL (4.2-5.4); White Blood Count 8.15 K/uL (4.8-10.8)
[2019-07-01 02:28] LABS: Appearance Urine Clear (Clear); Bacteria Urine Automated Negative (Negative); Bilirubin Urine Negative (Negative); Blood Urine 1+ (Negative); Color Urine Yellow; Epithelial Cell Urine Auto 20-30 /lpf (0-5); Glucose Urine UA Trace (Negative); Ketones Urine Negative (Negative); Leukocyte Esterase Urine Negative (Negative); Nitrite Urine Negative (Negative); Protein Urine 3+ (Negative); Specific Gravity Urine 1.041 (1.000-1.030); Urobilinogen Urine Negative (Negative); pH Urine 5.5 (4.5-7.5)
[2019-07-01] MEDS: methylPREDNISolone 40 MG in SYRINGE 0 ML IV SCH ×3 (02:33→21:07)
[2019-07-01 02:37] LABS: INR 1.2 (0.9-1.1); Prothrombin Time 11.7 Seconds (9.0-12.0)
[2019-07-01 02:42] LABS: Alanine Aminotransferase 30 U/L (12-78); Albumin Level 3.2 gm/dl (3.4-5.0); Aspartate Aminotransferase 19 U/L (15-37); BUN Creatinine Ratio 12.3 (10-20); Bilirubin Direct 0.1 mg/dl (0-0.2); Blood Urea Nitrogen 7 mg/dl (7-18); Carbon Dioxide 32 mmol/L (21-32); Chloride 89 mmol/L (98-107); Creatinine Clr Calc Pharmacy 119.3 ml/min; Est GFR (African American) 111.2; Est GFR (Non-African American) 95.9; Glucose 210 mg/dl (70-99); Magnesium 1.9 mg/dl (1.8-2.4); Sodium 125 mmol/L (136-145)
[2019-07-01 02:44] LABS: Amphetamines+Metham, Urine Neg (Neg); Barbiturates, Urine Neg (Neg); Benzodiazepine, Urine Neg (Neg); Cocaine, Urine Neg (Neg); MDMA (Ecstacy), Urine Neg (Neg); Methadone, Urine Neg (Neg); Opiate, Urine Neg (Neg); Phencyclidine, Urine Neg (Neg)
[2019-07-01 02:47] LABS: Alkaline Phosphatase 82 U/L (45-117); Bilirubin,Total 0.3 mg/dl (0.2-1); Phosphorus 5.1 mg/dl (2.5-4.9); Total Protein 6.9 gm/dl (6.4-8.2); Troponin I < 0.015 ng/ml (0-0.045)
[2019-07-01] MEDS: ALBUT/IPRATROP 3MG/0.5MG NEB 3 ML VIAL NEB SCH ×6 (03:46→22:23)
[2019-07-01 04:14] LABS: iSTAT Arterial Blood Gas HCO3 31 meg/L (19-24); iSTAT Arterial Blood Gas pCO2 66 mmHg (35-46); iSTAT Arterial Blood Gas pH 7.28 (7.35-7.45); iSTAT Arterial Blood Gas pO2 52 mmHg (80-95); iSTAT Carbon Dioxide 33 mEq/l (24-31); iSTAT FiO2 50 %; iSTAT Site Art Line
[2019-07-01] MEDS: cefTRIAXone SODIUM 2,000 MG in DEXTROSE 5% 50 ML IV SCH (04:19)
--- NOTE | 2019-07-01 06:47 | XRay Report ---
XR chest 1V portable CLINICAL HISTORY: f/u dyspnea COMPARISON STUDY: 07/01/2019 1:30 AM FINDINGS: Endotracheal tube 3 cm with a chronic. Unchanged prominence of pulmonary vasculature. Subse gmental atelectasis left upper lung. Diaphragms are smooth. IMPRESSION: 1. Endotracheal tube 3 cm above the wilfredo. 2. Nasogastric tube within the gastric body. 3. Unchanged prominent pulmonary vasculature. ACT 112: Negative or not required by law. The above report was generated using voice recognition software. It may contain grammatical, syntax or spelling errors. Electronically signed by: Laurent Selby M.D. 07/01/2019 6:46 AM
[2019-07-01] MEDS: LEVOTHYROXINE SODIUM 75 MCG TABLET PO SCH (07:01)
--- NOTE | 2019-07-01 07:13 | XRay Report ---
SINGLE VIEW CHEST CLINICAL HISTORY: Intubation. FINDINGS: An AP, portable, upright chest radiograph is compared to chest x-ray and chest CT dated . The examination is degraded by portable technique and patient rotation. An enteric tube has been placed. The tip projects below the diaphragm. An endotracheal tube has been placed. The tip proj ects 3.3 cm above the wilfredo. The heart is enlarged. There is pulmonary vascular congestion with evid ence of interstitial edema. Trace pleural effusions are suspected atelectasis is noted at the lung ba ses. No pneumothorax is seen. The skeletal structures are osteopenic. The bony thorax is grossly inta ct. IMPRESSION: 1. Endotracheal and enteric tubes have been placed as above. 2. Cardiomegaly with evidence of congestive failure. 3. Trace pleural effusions. ACT 112: Negative or not required by law. Electronically signed by: Richard Corrales M.D. 07/01/2019 7:11 AM
[2019-07-01 07:36] LABS: iSTAT Arterial Blood Gas HCO3 34 meg/L (19-24); iSTAT Arterial Blood Gas pCO2 61 mmHg (35-46); iSTAT Arterial Blood Gas pH 7.35 (7.35-7.45); iSTAT Arterial Blood Gas pO2 83 mmHg (80-95); iSTAT Carbon Dioxide 35 mEq/l (24-31); iSTAT FiO2 60 %; iSTAT Site Art Line
--- NOTE | 2019-07-01 08:15 | Procedure Note ---
Procedure Note Date of Service July 01, 2019 I was contacted by Renan Edward PA-C to come to the intensive care unit to assist with an intubation on the patient. Patient brought down from the floor due to increased trouble breathing and decreased mental status. Patient had previously been on BiPAP due to increased work of breathing and COPD. Patient initially had mild retention of CO2 on blood gas, however this was significantly worse on likely causing her decreased mentation. Preparations were made for intubation and RT at bedside. BiPAP mask still in place while preparations are being made. Video laryngoscopy was brought to bedside. Patient given etomidate and initial views obtained of normal airway anatomy and vocal cords. Due to some difficulty passing a 7.5 ET tube with stylette due to close cords despite no gag reflex, succinylcholine was then given in addition. He 7.5 ET tube was exchanged for a 7-0 ET tube which was then successfully passed under video visualization. Bilateral breath signs noted, positive color change capnography, condensation in the ET tube. ET tube secured by RT and chest x-ray ordered. Patient never hypoxic during procedure. I supervised the procedure and ordered nursing staff to give medications and assisted Mr. Edward with successful intubation. Coding
--- NOTE | 2019-07-01 08:49 | Hospitalist Progress Note ---
Date of Service July 01, 2019 Subjective Patient presented with AMS and found to have copd ex and hyponatremia with sod ium of 124. found to have co2 retention with co2 of 77 and was started on bipap. But Around midnight she became unresponsive. Vitals were ok. code niecy was called. Stat Abg showed PH 7.0 and co2 120. Transferred to ICU and emergent intubation done. Called contact listed on chart and left message and was able to talk in morning notified the family/friend. Results & Data Vital Signs (Past 12 Hours) Vital Signs Temp Pulse Pulse Resp BP BP Pulse Ox 07/01/19 08:00 88 126/63 95 07/01/19 07:21 71 20 95 07/01/19 07:00 72 129/80 96 07/01/19 06:38 76 120/70 90 07/01/19 06:22 67 131/64 96 07/01/19 06:07 66 134/61 95 07/01/19 05:52 65 136/63 96 07/01/19 05:37 65 138/59 L 95 07/01/19 05:22 63 129/62 97 07/01/19 05:20 65 20 96 07/01/19 05:07 65 131/65 96 07/01/19 04:52 61 121/60 97 07/01/19 04:37 60 128/65 95 07/01/19 04:22 58 L 109/53 L 94 07/01/19 04:07 55 L 117/57 L 94 07/01/19 04:00 55 L 20 125/67 91 07/01/19 03:53 56 L 109/46 L 88 L 07/01/19 03:37 52 L 109/53 L 92 07/01/19 03:15 07/01/19 03:07 54 L 99/44 L 91 07/01/19 02:52 63 101/52 L 94 07/01/19 02:21 63 100/63 90 07/01/19 02:07 69 111/52 L 88 L 07/01/19 02:04 74 122/60 88 L 07/01/19 01:59 69 119/58 L 86 L 07/01/19 01:54 62 104/51 L 95 07/01/19 01:30 74 26 H 94 06/30/19 23:48 98 H 98 H 18 93 06/30/19 23:30 36.2 C L 98 H 20 166/76 H 89 L 06/30/19 23:20 89 06/30/19 22:16 88 153/83 H 06/30/19 21:15 36.9 C 104 H 20 192/134 H 91 Pulse Ox 07/01/19 08:00 07/01/19 07:21 07/01/19 07:00 07/01/19 06:38 07/01/19 06:22 07/01/19 06:07 07/01/19 05:52 07/01/19 05:37 07/01/19 05:22 07/01/19 05:20 07/01/19 05:07 07/01/19 04:52 07/01/19 04:37 07/01/19 04:22 07/01/19 04:07 07/01/19 04:00 07/01/19 03:53 07/01/19 03:37 07/01/19 03:15 91 07/01/19 03:07 07/01/19 02:52 07/01/19 02:21 07/01/19 02:07 07/01/19 02:04 07/01/19 01:59 07/01/19 01:54 07/01/19 01:30 06/30/19 23:48 06/30/19 23:30 06/30/19 23:20 06/30/19 22:16 06/30/19 21:15
[2019-07-01] MEDS ORDERED: METOPROLOL TARTRATE 50 MG TAB PO SCH (09:00)
[2019-07-01] MEDS ORDERED: predniSONE 20 MG TAB PO SCH (09:00)
[2019-07-01] MEDS ORDERED: ASPIRIN 81 MG ECTAB PO SCH (09:00)
[2019-07-01] MEDS ORDERED: SERTRALINE HCL 50 MG TABLET PO SCH (09:00)
[2019-07-01] MEDS ORDERED: PHARMACY GLYCEMIC MGMT CONSULT PRN (09:43)
[2019-07-01 09:55] LABS: iSTAT Arterial Blood Gas pH 7.06 (7.35-7.45); iSTAT Hematocrit 52 % (37-47); iSTAT Hemoglobin 17.7 g/dl (12.0-16.0); iSTAT Potassium 4.1 mEq/L (3.3-5.0); iSTAT Sodium 127 mEq/L (135-144)
[2019-07-01 09:56] LABS: iSTAT Art Bld Gas pCO2 Correct 123 mmHg (35-46); iSTAT Art Bld Gas pH Corrected 7.069 (7.35-7.45); iSTAT Arterial Blood Gas pCO2 127 mmHg (35-46); iSTAT Arterial Blood Gas pO2 75 mmHg (80-95); iSTAT Arterial Blood Gas pO2 C 71; iSTAT Carbon Dioxide 40 mEq/l (24-31)
[2019-07-01 09:58] LABS: iSTAT Arterial Blood Gas HCO3 36 meg/L (19-24)
[2019-07-01 09:59] LABS: Patient Temperature 36.2; iSTAT Allen Test Acceptable; iSTAT Arterial Bld Gas O2 Sat 85; iSTAT Sample Type Arterial; iSTAT Site L Radial
[2019-07-01] MEDS ORDERED: FUROSEMIDE 40 MG in SYRINGE 0 ML IV ONE ×2 (10:00→14:30)
[2019-07-01] MEDS: MAGNESIUM SULFATE / D5W 1 GM/100 ML BAG IV SCH ×2 (10:07→12:09)
[2019-07-01] MEDS: POTASSIUM CHLORIDE 20 MEQ/15 ML UDC PO SCH ×2 (10:12→21:06)
[2019-07-01] MEDS: ENOXAPARIN INJ 40 MG/0.4 ML SYR SQ SCH ×2 (10:18→21:04)
[2019-07-01] MEDS: NYSTATIN POWDER 15GM BTL EXT SCH ×3 (10:19→21:03)
[2019-07-01 10:30] LABS: NT Pro B Type Natriuretic Pept 189 pg/ml (0-900); Troponin I < 0.015 ng/ml (0-0.045)
[2019-07-01 10:49] LABS: Urine Chloride < 10 mmol/L; Urine Potassium 20.2 mmol/L; Urine Sodium 10 mmol/L
[2019-07-01] MEDS: risperiDONE 1 MG TABLET PO SCH (10:55)
[2019-07-01] MEDS: POTASSIUM CHLORIDE 10 MEQ TABCR PO SCH (10:55)
[2019-07-01] MEDS: GABAPENTIN 100 MG CAP PO SCH (10:58)
[2019-07-01] MEDS: lisinopriL 20 MG TAB PO SCH (10:58)
[2019-07-01] MEDS: ASPIRIN 81 MG CHEW PO SCH (10:58)
[2019-07-01 11:31] LABS: Estimated Average Glucose 151 mg/dl; Hemoglobin A1C 6.9 % (4.5-5.6)
[2019-07-01] MEDS: METOPROLOL TARTRATE 25 MG TAB PO SCH ×2 (12:08→20:58)
[2019-07-01] MEDS: INSULIN ASPART 100 UNITS/ML 3 ML PEN SC SCH ×3 (12:13→21:04)
[2019-07-01] MEDS ORDERED: INSULIN GLARGINE SOLOSTAR 100 UNITS/ML 3 ML PEN SC ONE ×2 (12:30→21:00)
--- NOTE | 2019-07-01 12:38 | Pharmacy Report ---
Glycemic Control Consultation - Date of Service July 01, 2019 - Scope Scope: Glycemic Pharmacist consulted for glycemic control and to write orders per [facility] inpatient glycemic control protocol - Objective Weight: 125.6 kg Accuchecks BSG (last 24hrs): 06/30/19 07/01/19 07/01/19 17:50 00:48 02:16 Glucose 140 H 210 H POC Glucose 214 H 07/01/19 07/01/19 07:46 12:12 Glucose POC Glucose 163 H 159 H Laboratory Data (last 24hrs): 06/30/19 07/01/19 07/01/19 17:50 02:16 09:51 Potassium 3.5 4.0 Carbon Dioxide 33 H 32 Anion Gap 4.0 4.0 Creatinine 0.60 0.57 L Est Cr Clr Drug Dosing Not Reportable 119.3 Osmolality 273 L HbA1c: Hemoglobin A1c 6.9 % (4.5-5.6) H 07/01/19 09:51 - Recent Pertinent Medications Outpatient Anti-diabetic Regimen: * None * A1c = 6.9 % on 07/01/19 Risk Factors for Insulin Resistance: * Steroids: methylprednisolone 40 mg IV q8h * Infection: COPD exacerbation +/- cellulitis * Diet: NPO * Mechanical Ventilation: yes - Assessment & Plan Assessment & Plan: ASSESSMENT: * 69 yo F with no formal diagnosis of T2DM but HbA1c suggestive of possible diabetes with steroid-induced hyperglycemia * BSG's increased in response to 125 mg of methylprednisolone yesterday, now trended down somewhat with lower dose of 40 mg IV q8h * Will initiate very low dose Lantus at 0.1 units/kg to help prevent BSG's >180 mg/dL with additional dose tonight if BSG's climb >180 mg/dL * Will initiate Novolog q4h at weight-based moderate stress estimate PLAN FOR INPATIENT GLYCEMIC CONTROL: * Basal insulin * Lantus 12 units SQ x1 then additional 10 units tonight if BSG >180 mg/dL * Bolus insulin * NovoLog per scale ACHS or Q6hrs while NPO * Goal Range: Low 140 mg/dL - High 180 mg/dL * Correction Factor: 20 mg/dL/unit * Nutritional / Prandial insulin per carb ratio of 1 unit per 6 grams CHO consumed * Please note that the plan above was derived based on current level of insulin resistance and hospital stress. These recommendations are appropriate for inpatient admission only. Plan of care upon discharge will need to be reassessed to avoid potential outpatient hypo/hyperglycemia. Thank you.
[2019-07-01] MEDS: dilTIAZem HCl 60 MG TAB PO SCH ×3 (13:33→20:56)
[2019-07-01] MEDS ORDERED: PERFLUTREN LIPID MICROSPHERE (DEFINITY) IV ONE (13:43)
--- NOTE | 2019-07-01 13:51 | Communication Note ---
Date of Service: July 01, 2019 Patient was discussed on multidisciplinary rounds. Additional labs demonstrated normal proBNP, patient is now hyponatremic lower than what she has been in previous admissions. She also has a mildly low serum osmolality as well as urine osmolality., I believe this is most consistent with hypervolemic hyponatremia and will treat with diuretics. Reviewing an echocardiogram from April 2019 the patient has evidence of grade 2 diastolic dysfunction as well as mild left concentric left ventricular hypertrophy and pre-existing conduction abnormality which could potentiate aspects of volume overload. Given her morbid obesity: BMI of 52 and no documentation of obstructive sleep apnea which she is certainly at risk for I believe she has obesity hypoventilation syndrome and likely underlying obstructive sleep apnea which additionally place the patient at risk for cardiovascular dysfunction. In review of her previous bicarbs they have never been below the value of 27 mmol/L. In fact during her April admission as well as this admission her PCO2 has never been below 51 mmHg via ABG, VBG PCO2 has never been below 67. Current guidelines recommend initiation of CPAP and sleep testing to be performed as soon as feasibly possible after discharge. Bariatric surgery could also be considered in this patient. The patient's QTC is rather prolonged, we will hold risperidone medication at this time. We will convert the patient's Cardizem to 60 mg 4 times a day, we also question her compliance therefore will err on the smaller side of IR dosing. The patient's encephalopathy appears to be improving, I would certainly consider hypercapnia to be the leading cause at this time. We will continue to treat for COPD exacerbation/community-acquired pneumonia with Rocephin and doxycycline given the QT prolongation. We are increasing the patient's metoprolol to twice daily. We have also increased her Lovenox dose to account for the volume of distribution. Our goal is to convert the patient to pressure support ventilation. I have personally spent 50 minutes of critical care time in the direct management of this patient. This is a life/limb threatening event. This includes time spent evaluating patient, direct bedside care, chart review, placing orders, interpretation of diagnostic studies, discussion with consultants, patient, and/or family members regarding treatment decisions, as well as other required patient management activities. This time is exclusive of all separately billable procedures, and teaching time and separate from and in addition to any other critical care service time.
[2019-07-01 14:51] LABS: iSTAT Arterial Blood Gas HCO3 36 meg/L (19-24); iSTAT Arterial Blood Gas pCO2 67 mmHg (35-46); iSTAT Arterial Blood Gas pH 7.34 (7.35-7.45); iSTAT Arterial Blood Gas pO2 67 mmHg (80-95); iSTAT Carbon Dioxide 38 mEq/l (24-31); iSTAT FiO2 50 %; iSTAT Site Art Line
[2019-07-01] MEDS ORDERED: fentaNYL citrate 100 MCG/2 ML CARP IV ONE (16:13)
[2019-07-01] MEDS ORDERED: ETOMIDATE 2 MG/ML 20 ML VIAL IV ONE (16:13)
[2019-07-01] MEDS ORDERED: MIDAZOLAM HCL 5 MG/ML VIAL IV ONE (16:13)
[2019-07-01] MEDS ORDERED: SUCCINYLCHOLINE CHLORIDE 20 MG/ML 10 ML VIAL IV ONE (16:13)
[2019-07-01 17:48] LABS: iSTAT Arterial Blood Gas HCO3 34 meg/L (19-24); iSTAT Arterial Blood Gas pCO2 66 mmHg (35-46); iSTAT Arterial Blood Gas pH 7.32 (7.35-7.45); iSTAT Arterial Blood Gas pO2 63 mmHg (80-95); iSTAT Carbon Dioxide 36 mEq/l (24-31); iSTAT Site Art Line
[2019-07-01 22:47] LABS: BUN Creatinine Ratio 10.7 (10-20); Calcium 8.6 mg/dl (8.5-10.1); Creatinine Clr Calc Pharmacy 104.6 ml/min; Est GFR (African American) 106.5; Est GFR (Non-African American) 91.9; Potassium 4.6 mmol/L (3.5-5.1)
[2019-07-02] MEDS: INSULIN ASPART 100 UNITS/ML 3 ML PEN SC SCH ×6 (00:27→20:43)
[2019-07-02] MEDS: ALBUT/IPRATROP 3MG/0.5MG NEB 3 ML VIAL NEB SCH ×6 (02:07→23:15)
[2019-07-02] MEDS: cefTRIAXone SODIUM 2,000 MG in DEXTROSE 5% 50 ML IV SCH (03:07)
[2019-07-02] MEDS: methylPREDNISolone 40 MG in SYRINGE 0 ML IV SCH ×3 (03:08→20:44)
[2019-07-02 04:29] LABS: Hematocrit (blood only) 43.7 % (37-47); Hemoglobin 14.8 g/dL (12.0-16.0); Immature Granulocytes # (auto) 0.02 K/uL (0.00-0.02); Immature Granulocytes % (auto) 0.2 %; Lymphocytes # (auto) 0.64 K/uL (1.2-3.4); Lymphocytes % (auto) 7.1 %; Mean Corpuscular Hemoglobin 31.4 pg (25-34); Mean Corpuscular Hgb Conc 33.9 g/dL (32-36); Mean Corpuscular Volume 92.6 fL (80-100); Mean Platelet Volume 8.8 fL (7.4-10.4); Monocytes # (auto) 0.44 K/uL (0.11-0.59); Monocytes % (auto) 4.9 %; Neutrophils % (auto) 87.8 %; Platelet Count 211 K/uL (130-400); RDW Coefficient of Variation 14.6 % (11.5-14.5); RDW Standard Deviation 49.3 fL (36.4-46.3); Red Blood Count 4.72 M/uL (4.2-5.4)
[2019-07-02 04:46] LABS: BUN Creatinine Ratio 13.4 (10-20); Calcium 8.4 mg/dl (8.5-10.1); Creatinine Clr Calc Pharmacy 106.3 ml/min; Est GFR (Non-African American) 92.3; Magnesium 2.5 mg/dl (1.8-2.4); Potassium 4.5 mmol/L (3.5-5.1)
[2019-07-02 04:48] LABS: Phosphorus 2.5 mg/dl (2.5-4.9)
[2019-07-02 05:27] LABS: iSTAT Arterial Blood Gas HCO3 38 meg/L (19-24); iSTAT Arterial Blood Gas pCO2 55 mmHg (35-46); iSTAT Arterial Blood Gas pH 7.45 (7.35-7.45); iSTAT Arterial Blood Gas pO2 74 mmHg (80-95); iSTAT Carbon Dioxide 39 mEq/l (24-31); iSTAT FiO2 30 %; iSTAT Site Art Line
[2019-07-02] MEDS: LEVOTHYROXINE SODIUM 75 MCG TABLET PO SCH (06:38)
--- NOTE | 2019-07-02 06:45 | Critical Care Progress Note ---
Date of Service July 02, 2019 Assessment & Plan (1) CO2 narcosis: Reason Critically Ill: 69-year-old female with acute on chronic respiratory failure with hypercapnia resulting in rapid CO2 accumulation and altered mental status requiring emergent endotracheal intubation. NEURO - CAM ICU: Unable to assess. Sedation: Propofol Pain: Fentanyl Metabolic Encephalopathy: Unfortunately was unable to assess patient without significant CO2 accumulation and CO2 narcosis. Presumed to be related to combination of acute COPD exacerbation, hypercapnia, multiple antipsychotic medications, etc. Patient showed great improvement after intubation with short period of ventilation. Previous CT the head unremarkable. No need to repeat imaging studies of brain at this point as patient has improved greatly. CARDIAC/VASCULAR - Hypertension: Patient on six antihypertensive medications, while on sedation and intubated patient had normal blood pressures so we decided to hold them and have been restarting them individually as needed CHF: Evidence of diastolic dysfunction EKG: NSR@97bpm w/ LBBB which is unchanged. QTc 584ms. Holding all QT prolonging agents at this time including patient's risperdal and sertraline Will recheck ECG this morning Monitor on telemetry. RESPIRATORY - Acute on chronic hypercapnic respiratory failure: Likely secondary to COPD exacerbation and Obesity hypoventilation syndrome On initial consultation had significant accumulation of CO2 of greater than 120 resulting in respiratory acidosis requiring emergent endotracheal intubation. Patient currently on IV doxycycline. Will add Rocephin as well for both COPD exacerbation/CAP coverage Currently receiving steroids. Continue with nebulizers. CTA of the chest demonstrated no PE. ABG's continued to improve was extubated on 07/01 Stable on nasal cannula overnight Bipap overnight Will need sleep study on discharge Discussed smoking cessation with patient GI/NUTRITION - No acute concerns at this time RENAL/LYTES - Hyponatremia: likely hypervolemic hyponatremia diuresing several liters down in last 24 Will avoid rapid correction, however feel the patient is outside the concerning threshold for osmotic demyelination syndrome sodium improved to 130 today IVF: NSS@80mL/hr - Chappell in place - Strict I&Os. Chappell can be removed ENDO - No h/o DM BSGs per unit protocol. ISS --> gtt per unit policy. Hypothyroidism: Continue home Rx HEME - Stable H&H ID - COPD w/ Exacerbation, Cellulitis of the B/L Lower extremities: Will add Rocephin to current Doxy. ProCal/Lactate not elevated. Intertriginous candidiasis: Topical nystatin powder 3 times daily. LINES/IV ACCESS - PIVs x2 RIGHT Radial A-Line pulled today Chappell can remove today DVT PROPHYLAXIS - Lovenox SCDs (2) Acute and chronic respiratory failure with hypercapnia: (3) Admitted to intensive care unit: (4) Chronic diastolic CHF (congestive heart failure): (5) Morbid obesity: (6) DVT prophylaxis: (7) Hyponatremia: (8) COPD exacerbation: (9) Schizophrenia: (10) Obesity hypoventilation syndrome: Supervising Physician Co-Signing Physician Notes Dr. Merrill was resident physician during care of patient. I separately evaluated patient for caban portions of the history and the exam. I was present during the critical portion of medical decision making, and I discussed the case with the resident. I generally agree with the findings and plan. Patient was extubated yesterday, continue steroids and antibiotics for possible community-acquired pneumonia versus COPD exacerbation. Recommend utilization of BiPAP versus CPAP overnight continues normalized today probable downgrade out of ICU. Subjective Ms. Reeves is sitting up in her chair resting comfortably on nasal cannula. She has no questions or concerns at this time and is feeling well. She denies any shortness of breath and says she needs to stop smoking. She smokes two packs a day and tells me she's scared to go back home she wants to go to some kind of facility. Review of Systems Constitutional: no fever, no chills, no fatigue and no weakness Eyes: no problem reported Respiratory: + cough, + dyspnea and + wheezing Cardiovascular: no chest pain, no palpitations and no lightheadedness Gastrointestinal: no abdominal pain, no nausea and no vomiting Physical Exam Physical Exam: Constitutional: constantin reeves is resting comfortably in bed sitting up in her chair, able to communicated easily in full sentences No apparent distress Eyes: Anicteric sclerae, EOMMI bilaterally Respiratory: No respiratory distress, no accessory muscle use, diffuse wheezing on aucultation, Good air entry globally Cadriovascular: heart sounds dual, no murmurs, rubs, skips or gallops Gastrointestinal: Abdomen obese, soft and nontender Neuro: Awake alert and oriented to person place time and situation Results & Data Vital Signs (Past 12 Hours) Vital Signs Temp Pulse Pulse Resp BP BP Pulse Ox 07/02/19 06:00 80 16 164/67 H 07/02/19 05:17 70 24 94 07/02/19 05:00 70 17 93 07/02/19 04:50 69 15 94 07/02/19 04:00 37.2 C 71 14 93 07/02/19 03:00 79 18 93 07/02/19 02:49 75 15 164/88 H 07/02/19 02:34 76 16 149/70 H 07/02/19 02:10 72 15 93 07/02/19 02:09 72 15 93 07/02/19 02:00 79 20 93 07/02/19 01:49 66 16 149/70 H 94 07/02/19 01:24 65 15 138/60 92 07/02/19 01:00 37.7 C H 62 61 16 117/61 91 07/02/19 00:00 37.7 C H 60 16 117/63 40 L 07/01/19 23:15 67 21 92 07/01/19 23:00 72 19 93 07/01/19 22:49 72 16 132/72 92 07/01/19 22:45 65 14 93 07/01/19 22:30 67 15 95 07/01/19 22:23 96 H 96 H 15 96 07/01/19 22:15 77 15 95 07/01/19 22:00 75 15 94 07/01/19 21:50 76 18 158/81 H 96 07/01/19 21:45 73 17 95 07/01/19 21:30 79 20 96 07/01/19 21:15 71 15 95 07/01/19 21:00 74 14 94 07/01/19 20:49 74 17 122/66 97 07/01/19 20:45 79 16 97 07/01/19 20:30 71 20 95 07/01/19 20:15 79 20 95 07/01/19 20:00 73 15 95 07/01/19 19:49 72 15 146/62 H 99 07/01/19 19:45 79 14 98 07/01/19 19:43 80 17 94 07/01/19 19:42 80 17 94 07/01/19 19:30 82 17 92 07/01/19 19:15 79 18 93 07/01/19 19:00 73 14 92 07/01/19 18:49 78 14 121/64 92 Pulse Ox 07/02/19 06:00 07/02/19 05:17 07/02/19 05:00 07/02/19 04:50 07/02/19 04:00 07/02/19 03:00 07/02/19 02:49 07/02/19 02:34 07/02/19 02:10 07/02/19 02:09 07/02/19 02:00 07/02/19 01:49 07/02/19 01:24 07/02/19 01:00 07/02/19 00:00 92 07/01/19 23:15 07/01/19 23:00 07/01/19 22:49 07/01/19 22:45 07/01/19 22:30 07/01/19 22:23 07/01/19 22:15 07/01/19 22:00 07/01/19 21:50 07/01/19 21:45 07/01/19 21:30 07/01/19 21:15 07/01/19 21:00 07/01/19 20:49 07/01/19 20:45 07/01/19 20:30 07/01/19 20:15 07/01/19 20:00 07/01/19 19:49 07/01/19 19:45 07/01/19 19:43 07/01/19 19:42 07/01/19 19:30 07/01/19 19:15 07/01/19 19:00 07/01/19 18:49 Resident Activity Tracking Resident Involvement: Resident Care Provided Care Provided: Adult Hospital Medicine
--- NOTE | 2019-07-02 07:20 | Hospitalist Progress Note ---
Date of Service July 01, 2019 Assessment & Plan (1) Acute on chronic respiratory failure with hypoxia and hypercapnia: 69-year-old female with known chronic respiratory failure secondary to COPD presented with acute shortness of breath resulting in rapid CO2 accumulation and altered mental status requiring emergent endotracheal intubation. Continue Rocephin and doxycycline, continue steroids and nebulizers. CTA chest demonstrated no PE. Continue ventilator management per ICU team. (2) COPD exacerbation: Plan as above (3) Hyponatremia: Poor p.o. intake versus SSRI use. Hydration with normal saline was continued with sodium 125 this morning up from 124 on admission. Recheck sodium later today. (4) Bilateral lower leg cellulitis: Patient with chronic venous stasis and woody appearance to the legs was noted to have erythema extending up to the thighs that was warm to touch on admission. Continue antibiotics as above. (5) Metabolic encephalopathy: Currently sedated and intubated. Metabolic encephalopathy likely secondary to hypercarbic respiratory failure. (6) Chronic diastolic CHF (congestive heart failure): On chronic Lasix at home. Does not appear to be in acute exacerbation, however, volume status is difficult to assess as patient is intubated. Holding home Lasix at this time. (7) Hypertension: Around goal continue home hydralazine, lisinopril, metoprolol for now and adjust as needed. (8) Schizophrenia: (9) Bipolar 1 disorder: [place] can discontinued during her recent admission., Sertraline, prazosin, Risperdal all on hold secondary to prolonged QT seen on EKG. (10) Hypothyroid: Continue levothyroxine per home regimen (11) Morbid obesity: (12) Prolonged QT interval: Holding any QT prolonging agents at this time. Repeat EKG in the morning (13) DVT prophylaxis: -SQ Lovenox Full code Disposition-continue ICU management while patient is intubated sedated DO [facility] Hospitalist Subjective 69 yo F with COPD presented with severe SOB. She was admitted to the Hospitalist service and was ultimately intubated for COPD exacerbation. She remains in the ICU today and was extubated this evening. She was on BIPAP for a time and is now doing well on nasal canula. She is altered, however, and cannot remember why she came or where she is. She denies any pain or SOB at this time, but ROS is unable to be obtained. Review of Systems Review of Systems: Unobtainable due to cognitive status (confused after recent extubation.) Physical Exam Physical Exam: CONSTITUTIONAL: obese, vitals as above, generally well- appearing EYES: normal conjunctivae ENT: MMM RESPIRATORY: wheezing all throughout lungs CARDIOVASCULAR: regular rate and rhythm, S1 and 2 heard without murmurs, gallops or rubs, no JVD, no peripheral edema GASTROINTESTINAL: normal bowel sounds, soft, nontender, nondistended MUSCULOSKELETAL: strength 5/5 throughout, head is normocephalic and atraumatic SKIN: warm and dry NEUROLOGIC: CN 2-12 grossly intact, disoriented, speech is normal, no other gross focal deficits. PSYCHIATRIC: alert cooperative and oriented to person, place and time. Results & Data Vital Signs (Past 12 Hours) Vital Signs Temp Pulse Pulse Resp BP BP Pulse Ox 07/02/19 06:00 80 16 164/67 H 07/02/19 05:17 70 24 94 07/02/19 05:00 70 17 93 07/02/19 04:50 69 15 94 07/02/19 04:00 37.2 C 71 14 93 07/02/19 03:00 79 18 93 07/02/19 02:49 75 15 164/88 H 07/02/19 02:34 76 16 149/70 H 07/02/19 02:10 72 15 93 07/02/19 02:09 72 15 93 07/02/19 02:00 79 20 93 07/02/19 01:49 66 16 149/70 H 94 07/02/19 01:24 65 15 138/60 92 07/02/19 01:00 37.7 C H 62 61 16 117/61 91 07/02/19 00:00 37.7 C H 60 16 117/63 40 L 07/01/19 23:15 67 21 92 07/01/19 23:00 72 19 93 07/01/19 22:49 72 16 132/72 92 07/01/19 22:45 65 14 93 07/01/19 22:30 67 15 95 07/01/19 22:23 96 H 96 H 15 96 07/01/19 22:15 77 15 95 07/01/19 22:00 75 15 94 07/01/19 21:50 76 18 158/81 H 96 07/01/19 21:45 73 17 95 12/31/19 21:30 79 20 96 07/01/19 21:15 71 15 95 07/01/19 21:00 74 14 94 07/01/19 20:49 74 17 122/66 97 07/01/19 20:45 79 16 97 07/01/19 20:30 71 20 95 07/01/19 20:15 79 20 95 07/01/19 20:00 73 15 95 07/01/19 19:49 72 15 146/62 H 99 07/01/19 19:45 79 14 98 07/01/19 19:43 80 17 94 07/01/19 19:42 80 17 94 07/01/19 19:30 82 17 92 07/01/19 19:15 79 18 93 Pulse Ox 07/02/19 06:00 07/02/19 05:17 07/02/19 05:00 07/02/19 04:50 07/02/19 04:00 07/02/19 03:00 07/02/19 02:49 07/02/19 02:34 07/02/19 02:10 07/02/19 02:09 07/02/19 02:00 07/02/19 01:49 07/02/19 01:24 07/02/19 01:00 07/02/19 00:00 92 07/01/19 23:15 07/01/19 23:00 07/01/19 22:49 07/01/19 22:45 07/01/19 22:30 07/01/19 22:23 07/01/19 22:15 07/01/19 22:00 07/01/19 21:50 07/01/19 21:45 07/01/19 21:30 07/01/19 21:15 07/01/19 21:00 07/01/19 20:49 07/01/19 20:45 07/01/19 20:30 07/01/19 20:15 07/01/19 20:00 07/01/19 19:49 07/01/19 19:45 07/01/19 19:43 07/01/19 19:42 07/01/19 19:30 07/01/19 19:15 (1) Hypertension Hypertension type: essential hypertension Qualified Code(s): I10 - Essential (primary) hypertension
[2019-07-02] MEDS ORDERED: Nursing to Pharmacy Communication ONE (07:37)
--- NOTE | 2019-07-02 08:42 | Hospitalist Progress Note ---
Date of Service July 02, 2019 Assessment & Plan (1) Acute on chronic respiratory failure with hypoxia and hypercapnia: 69-year-old female with known chronic respiratory failure secondary to COPD presented with acute shortness of breath resulting in rapid CO2 accumulation and altered mental status requiring emergent endotracheal intubation. Continue Rocephin and doxycycline, continue steroids and nebulizers. CTA chest demonstrated no PE. She is improved today and is feeling better. Lungs are more clear with good air movement. Requests nicoderm patch. (2) COPD exacerbation: Plan as above, patient is a heavy smoker which will continue to cause an issue for her moving forward. Nicoderm patch provided. (3) Hyponatremia: Poor p.o. intake versus SSRI use. Improved into the low normal range. (4) Bilateral lower leg cellulitis: Patient with chronic venous stasis and woody appearance to the legs was noted to have erythema extending up to the thighs that was warm to touch on admission. Continue antibiotics as above. (5) Metabolic encephalopathy: Metabolic encephalopathy likely secondary to hypercarbic respiratory failure-resolved (6) Chronic diastolic CHF (congestive heart failure): On chronic Lasix at home. Does not appear to be in acute exacerbation. Will plan to restart Lasix at this time. (7) Hypertension: Around goal continue home hydralazine, lisinopril, metoprolol for now and adjust as needed. (8) Schizophrenia: (9) Bipolar 1 disorder: [place] can discontinued during her recent admission., Sertraline, prazosin, Risperdal all on hold secondary to prolonged QT seen on EKG. (10) Hypothyroid: Continue levothyroxine per home regimen (11) Morbid obesity: (12) Prolonged QT interval: Holding any QT prolonging agents at this time. Repeat EKG in the morning (13) DVT prophylaxis: -SQ Lovenox Full code Disposition-to PCU Natalie Taylor DO [facility] Hospitalist Subjective The patient appears clinically improved. She still is a poor historian because she doesn't seem to remember much about the events leading up to her intubation. She states she was smoking 2-3 packs daily and this is normal for her. She is feeling no SOB today and is not in pain. She is afebrile and tolerating PO. She doesn't feel that her legs are any more red or warm than they always are. Review of Systems Review of Systems: All systems reviewed & are unremarkable except as noted in HPI & below Physical Exam Physical Exam: CONSTITUTIONAL: obese, vitals as above, generally well- appearing EYES: normal conjunctivae ENT: MMM RESPIRATORY: coarse rhonchi throughout the lungs with a resolution in her wheezing. CARDIOVASCULAR: regular rate and rhythm, S1 and 2 heard without murmurs, gallops or rubs, no JVD, no peripheral edema GASTROINTESTINAL: normal bowel sounds, soft, nontender, nondistended MUSCULOSKELETAL: strength 5/5 throughout, head is normocephalic and atraumatic SKIN: warm and dry NEUROLOGIC: CN 2-12 grossly intact, disoriented, speech is normal, no other gross focal deficits. PSYCHIATRIC: alert cooperative and oriented to person, place and time. Results & Data Vital Signs (Past 12 Hours) Vital Signs Temp Pulse Pulse Resp BP BP Pulse Ox 07/02/19 07:49 78 17 162/87 H 94 07/02/19 07:28 74 20 94 07/02/19 07:00 73 15 88 L 07/02/19 06:00 80 16 164/67 H 07/02/19 05:17 70 24 94 07/02/19 05:00 70 17 93 07/02/19 04:50 69 15 94 07/02/19 04:00 37.2 C 71 14 93 07/02/19 03:00 79 18 93 07/02/19 02:49 75 15 164/88 H 07/02/19 02:34 76 16 149/70 H 07/02/19 02:10 72 15 93 07/02/19 02:09 72 15 93 07/02/19 02:00 79 20 93 07/02/19 01:49 66 16 149/70 H 94 07/02/19 01:24 65 15 138/60 92 07/02/19 01:00 37.7 C H 62 61 16 117/61 91 07/02/19 00:00 37.7 C H 60 16 117/63 40 L 07/01/19 23:15 67 21 92 07/01/19 23:00 72 19 93 07/01/19 22:49 72 16 132/72 92 07/01/19 22:45 65 14 93 07/01/19 22:30 67 15 95 07/01/19 22:23 96 H 96 H 15 96 07/01/19 22:15 77 15 95 07/01/19 22:00 75 15 94 07/01/19 21:50 76 18 158/81 H 96 07/01/19 21:45 73 17 95 07/01/19 21:30 79 20 96 07/01/19 21:15 71 15 95 07/01/19 21:00 74 14 94 07/01/19 20:49 74 17 122/66 97 07/01/19 20:45 79 16 97 Pulse Ox 07/02/19 07:49 07/02/19 07:28 07/02/19 07:00 07/02/19 06:00 07/02/19 05:17 07/02/19 05:00 07/02/19 04:50 07/02/19 04:00 07/02/19 03:00 07/02/19 02:49 07/02/19 02:34 07/02/19 02:10 07/02/19 02:09 07/02/19 02:00 07/02/19 01:49 07/02/19 01:24 07/02/19 01:00 07/02/19 00:00 92 07/01/19 23:15 07/01/19 23:00 07/01/19 22:49 07/01/19 22:45 07/01/19 22:30 07/01/19 22:23 07/01/19 22:15 07/01/19 22:00 07/01/19 21:50 07/01/19 21:45 07/01/19 21:30 07/01/19 21:15 07/01/19 21:00 07/01/19 20:49 07/01/19 20:45 Laboratory Results Short CBC 07/02/19 Range/Units 04:10 WBC 9.00 (4.8-10.8) K/uL Hgb 14.8 (12.0-16.0) g/dL Hct 43.7 (37-47) % Plt Count 211 (130-400) K/uL BMP 07/01/19 07/02/19 22:06 04:10 Sodium 131 L 130 L Potassium 4.6 4.5 Chloride 93 L 94 L Carbon Dioxide 35 H 36 H BUN 7 9 Creatinine 0.65 0.64 Glucose 152 H 155 H Calcium 8.6 8.4 L Cardiac Enzymes 07/01/19 07/01/19 07/01/19 Range/Units 09:51 15:45 22:06 Troponin I < 0.015 < 0.015 < 0.015 (0-0.045) ng/ml Medications Administered Current Inpatient Medications Acetaminophen (Tylenol) 650 mg PO Q4H PRN PRN Reason: Pain or Fever Stop: 07/30/19 20:24 Albuterol (Duoneb) 3 ml NEB Q4R [facility] Stop: 07/30/19 22:59 Last Admin: 07/02/19 07:27 Dose: 3 ml Documented by: Aspirin (Aspirin Chew) 81 mg PO QAM [facility] Stop: 07/31/19 10:59 Last Admin: 07/01/19 10:58 Dose: 81 mg Documented by: Atorvastatin Calcium (Lipitor) 40 mg PO HS [facility] Stop: 07/30/19 20:59 Last Admin: 07/01/19 20:58 Dose: 40 mg Documented by: Diltiazem HCl (Cardizem Cd) 300 mg PO DAILY [facility] Stop: 07/31/19 08:59 Diltiazem HCl (Cardizem) 60 mg PO QID [facility] Stop: 07/31/19 12:59 Last Admin: 07/01/19 20:56 Dose: 60 mg Documented by: Enoxaparin Sodium (Lovenox) 40 mg SQ BID [facility] Stop: 07/31/19 09:44 Last Admin: 07/01/19 21:04 Dose: 40 mg Documented by: Fentanyl Citrate (Fentanyl Citrate) 25 mcg IV Q2H PRN PRN Reason: Moderate Pain (4,5,6) Stop: 07/15/19 01:10 Last Admin: 07/01/19 02:08 Dose: 25 mcg Documented by: Gabapentin (Neurontin) 100 mg PO QAM [facility] Stop: 07/31/19 08:59 Last Admin: 07/01/19 10:58 Dose: 100 mg Documented by: Hydralazine HCl (Apresoline) 75 mg PO TID [facility] Stop: 07/30/19 20:59 Last Admin: 07/01/19 21:00 Dose: 75 mg Documented by: Doxycycline Hyclate 100 mg/ (Dextrose) 110 mls @ 50 mls/hr IV BID [facility] Stop: 07/07/19 20:59 Last Infusion: 07/01/19 23:51 Dose: Infused Documented by: Propofol (Diprivan) 1,000 mg in 100 mls @ 0 mls/hr IV .Q0M [facility]; Protocol Stop: 07/04/19 01:10 Last Titration: 07/01/19 15:45 Dose: Infused Documented by: Methylprednisolone 40 mg/ (Syringe) 0.64 mls @ 1.5 mls/min IV Q8H [facility] Stop: 07/31/19 03:59 Last Admin: 07/02/19 03:08 Dose: 1.5 mls/min Documented by: Ceftriaxone Sodium 2,000 mg/ (Dextrose) 70 mls @ 100 mls/hr IV Q24H [facility]; Protocol Stop: 07/08/19 03:59 Last Infusion: 07/02/19 03:48 Dose: Infused Documented by: Insulin Aspart (Novolog Flexpen) 0 units SC ACHS [facility] Stop: 08/01/19 08:44 Insulin Glargine (Lantus Solostar Pen) 12 units SC DAILY [facility]; Protocol Stop: 08/01/19 08:59 Levothyroxine Sodium (Synthroid) 75 mcg PO DAILYBB [facility] Stop: 07/31/19 06:29 Last Admin: 07/02/19 06:38 Dose: 75 mcg Documented by: Lisinopril (Zestril) 20 mg PO DAILY [facility] Stop: 07/31/19 08:59 Last Admin: 07/01/19 10:58 Dose: 20 mg Documented by: Metoprolol Tartrate (Lopressor) 25 mg PO BID [facility] Stop: 07/31/19 10:59 Last Admin: 07/01/19 20:58 Dose: 25 mg Documented by: Miscellaneous (Order Awaiting Action) 1 ea N/A QS [facility] Stop: 07/31/19 00:00 Last Admin: 07/01/19 23:51 Dose: Not Given Documented by: Miscellaneous Information (Consult Glycemic Management Pharmacy) 1 ea N/A UD PRN PRN Reason: Consult Stop: 07/31/19 09:42 Nystatin (Mycostatin) 1 appln EXT TID [facility] Stop: 07/31/19 08:59 Last Admin: 07/01/19 21:03 Dose: 1 appln Documented by: Potassium Chloride (Klor-Con M10) 10 meq PO DAILY [facility] Stop: 07/31/19 08:59 Last Admin: 12/31/19 10:55 Dose: Not Given Documented by: Prazosin HCl (Prazosin Hcl) 1 mg PO [facility] Stop: 07/30/19 20:59 Last Admin: 07/01/19 02:06 Dose: Not Given Documented by: [facility]) [facility] Stop: 07/31/19 08:59 Last Admin: 07/01/19 10:55 Dose: Not Given Documented by: Risperidone (Risperdal) 2 mg PO [facility] Stop: 07/30/19 20:59 Last Admin: 07/01/19 02:07 Dose: Not Given Documented by: Sertraline HCl (Zoloft) 25 mg PO [facility] Stop: 07/31/19 08:59 Last Admin: 07/01/19 10:19 Dose: Not Given Documented by: (1) Hypertension Hypertension type: essential hypertension Qualified Code(s): I10 - Essential (primary) hypertension
[2019-07-02] MEDS ORDERED: INSULIN ASPART 100 UNITS/ML 3 ML PEN SC SCH (08:45)
[2019-07-02] MEDS: NYSTATIN POWDER 15GM BTL EXT SCH ×3 (08:53→20:47)
[2019-07-02] MEDS: lisinopriL 20 MG TAB PO SCH (08:53)
[2019-07-02] MEDS: ENOXAPARIN INJ 40 MG/0.4 ML SYR SQ SCH ×2 (08:53→20:45)
[2019-07-02] MEDS: ASPIRIN 81 MG CHEW PO SCH (08:54)
[2019-07-02] MEDS: GABAPENTIN 100 MG CAP PO SCH (08:54)
[2019-07-02] MEDS: POTASSIUM CHLORIDE 10 MEQ TABCR PO SCH (08:54)
[2019-07-02] MEDS: METOPROLOL TARTRATE 25 MG TAB PO SCH ×2 (08:54→20:45)
[2019-07-02] MEDS: dilTIAZem HCl 60 MG TAB PO SCH ×4 (08:54→20:46)
[2019-07-02] MEDS: DOXYCYCLINE HYCLATE 100 MG in DEXTROSE 5% 100 ML IV SCH ×2 (08:55→20:42)
[2019-07-02] MEDS: INSULIN GLARGINE SOLOSTAR 100 UNITS/ML 3 ML PEN SC SCH (08:56)
--- NOTE | 2019-07-02 09:48 | XRay Report ---
SINGLE VIEW CHEST CLINICAL HISTORY: Dyspnea. FINDINGS: An AP, portable, upright chest radiograph is compared to chest x-ray and chest CT dated . The examination is degraded by portable technique and patient rotation. Endotracheal and ent marshall tubes have been removed. The heart is enlarged. Pulmonary vascular congestion persists. Trace pl eural effusions are suspected. Atelectasis is noted at the lung bases. No pneumothorax is seen. The s keletal structures are osteopenic. The bony thorax is grossly intact. IMPRESSION: 1. Endotracheal and enteric tubes have been removed. 2. Cardiomegaly. Pulmonary vascular congestion persists. 3. Trace pleural effusions. Electronically signed by: Marshall Corrales M.D. 07/02/2019 9:47 AM
[2019-07-02] MEDS ORDERED: DEXTROSE 50% 50 ML SYRINGE IV PRN (09:56)
[2019-07-02] MEDS ORDERED: GLUCOSE 10 TABS/TUBE PO PRN (09:56)
[2019-07-02] MEDS ORDERED: CARBOHYDRATES FOR HYPOGLYCEMIA PO PRN (09:56)
[2019-07-02] MEDS ORDERED: GLUCOSE 40% GEL 15 GM TUBE PO PRN (09:56)
[2019-07-02] MEDS ORDERED: GLUCAGON FOR INJ 1 MG VIAL SQ PRN (09:56)
[2019-07-02] MEDS: ACETAMINOPHEN 325 MG TAB PO PRN ×2 (10:20→20:44)
[2019-07-02] MEDS: NICOTINE 21 MG/24 HR TDSY TD SCH (13:51)
[2019-07-02] MEDS: ATORVASTATIN 40 MG TAB PO SCH (20:45)
[2019-07-03] MEDS: ALBUT/IPRATROP 3MG/0.5MG NEB 3 ML VIAL NEB SCH ×4 (03:04→19:29)
[2019-07-03] MEDS: cefTRIAXone SODIUM 2,000 MG in DEXTROSE 5% 50 ML IV SCH (03:57)
[2019-07-03] MEDS: methylPREDNISolone 40 MG in SYRINGE 0 ML IV SCH ×2 (03:57→12:38)
[2019-07-03] MEDS: LEVOTHYROXINE SODIUM 75 MCG TABLET PO SCH (06:00)
[2019-07-03] MEDS: METOPROLOL TARTRATE 25 MG TAB PO SCH ×2 (08:18→22:09)
[2019-07-03] MEDS: dilTIAZem HCl 60 MG TAB PO SCH ×2 (08:18→12:39)
[2019-07-03] MEDS: FUROSEMIDE 40 MG TAB PO SCH (08:19)
[2019-07-03] MEDS: ENOXAPARIN INJ 40 MG/0.4 ML SYR SQ SCH ×2 (08:19→22:08)
[2019-07-03] MEDS: GABAPENTIN 100 MG CAP PO SCH (08:20)
[2019-07-03] MEDS: POTASSIUM CHLORIDE 10 MEQ TABCR PO SCH (08:20)
[2019-07-03] MEDS: NYSTATIN POWDER 15GM BTL EXT SCH ×3 (08:20→22:08)
[2019-07-03] MEDS: NICOTINE 21 MG/24 HR TDSY TD SCH (08:21)
[2019-07-03] MEDS: INSULIN GLARGINE SOLOSTAR 100 UNITS/ML 3 ML PEN SC SCH (08:21)
[2019-07-03] MEDS: lisinopriL 20 MG TAB PO SCH (08:21)
[2019-07-03] MEDS: INSULIN ASPART 100 UNITS/ML 3 ML PEN SC SCH ×4 (08:24→22:26)
[2019-07-03] MEDS: ASPIRIN 81 MG CHEW PO SCH (08:26)
[2019-07-03] MEDS: DOXYCYCLINE HYCLATE 100 MG in DEXTROSE 5% 100 ML IV SCH (08:33)
[2019-07-03 09:57] LABS: Hematocrit (blood only) 45.8 % (37-47); Hemoglobin 15.2 g/dL (12.0-16.0); Mean Corpuscular Hemoglobin 31.5 pg (25-34); Mean Corpuscular Hgb Conc 33.2 g/dL (32-36); Mean Corpuscular Volume 94.8 fL (80-100); Mean Platelet Volume 8.5 fL (7.4-10.4); Platelet Count 215 K/uL (130-400); RDW Coefficient of Variation 14.6 % (11.5-14.5); RDW Standard Deviation 50.7 fL (36.4-46.3); Red Blood Count 4.83 M/uL (4.2-5.4); White Blood Count 9.82 K/uL (4.8-10.8)
[2019-07-03 10:28] LABS: BUN Creatinine Ratio 15.4 (10-20); Calcium 8.8 mg/dl (8.5-10.1); Creatinine Clr Calc Pharmacy 85.8 ml/min; Est GFR (African American) 91.2; Est GFR (Non-African American) 78.7; Potassium 4.3 mmol/L (3.5-5.1)
[2019-07-03] MEDS ORDERED: predniSONE 20 MG TAB PO SCH (14:00)
--- NOTE | 2019-07-03 16:27 | Hospitalist Progress Note ---
Date of Service July 03, 2019 Assessment & Plan (1) DMII (diabetes mellitus, type 2): New diagnosis. Has tried metformin IR in the past with GI upset. Will try metformin ER at time of discharge. Close PCP follow-up as outpatient. Here, cont glargine and Novlog for correction factor. Carbohydrate coverage also added today. (2) Acute on chronic respiratory failure with hypoxia and hypercapnia: 69-year-old female with known chronic respiratory failure secondary to COPD presented with acute shortness of breath resulting in rapid CO2 accumulation and altered mental status requiring emergent endotracheal intubation. Continue Rocephin and doxycycline, continue steroids and nebulizers. CTA chest demonstrated no PE. She is improved today and is feeling better. Lungs are more clear with good air movement. (3) COPD exacerbation: Plan as above, patient is a heavy smoker which will continue to cause an issue for her moving forward. Nicoderm patch provided. We discussed the importance of quitting (4) Hyponatremia: Poor p.o. intake versus SSRI use. Improved to normal range/baseline. (5) Bilateral lower leg cellulitis: Patient with chronic venous stasis and woody appearance to the legs was noted to have erythema extending up to the thighs that was warm to touch on admission. Continue antibiotics as above. (6) Metabolic encephalopathy: Metabolic encephalopathy likely secondary to hypercarbic respiratory failure-resolved (7) Chronic diastolic CHF (congestive heart failure): On chronic Lasix at home. Good response to Lasix 40mg this morning (2.5L). Will monitor output througout the rest of the day prior to increasing to her baseline 40mg BID. (8) Hypertension: Around goal continue home hydralazine, lisinopril, metoprolol for now and adjust as needed. (9) Schizophrenia: restart risperidone now. Had a previous reaction to lithium, and she is known to have hallucinations when off medications. (10) Bipolar 1 disorder: risperidone as above. Stopped prazosin and sertraline. Discuss restarting with outpatient psychiatric provider. (11) Hypothyroid: Continue levothyroxine per home regimen (12) Morbid obesity: counseled on the importance of weight loss. Now is a new onset diabetic, underscoring the importance of this. (13) Prolonged QT interval: improved on EKG. Cont to monitor. (14) DVT prophylaxis: -SQ Lovenox Full code Disposition-transfer to medical floor. Natalie Brandon, DO [facility] Hospitalist Subjective Patient feels better today. Reports that her breathing has improved somewhat. She is dedicated to quitting smoking at this point. We discussed weight loss and the importance of this, and she reports dedication to moving forward with this. Denies any pain, fevers, chills. Review of Systems Review of Systems: All systems reviewed & are unremarkable except as noted in HPI & below Physical Exam Physical Exam: CONSTITUTIONAL: obese, vitals as above, generally well- appearing EYES: normal conjunctivae ENT: MMM RESPIRATORY: Clear lungs to auscultation throughout. No conversational dyspnea. Using supplemental oxygen. CARDIOVASCULAR: regular rate and rhythm, S1 and 2 heard without murmurs, gallops or rubs, no JVD, no peripheral edema GASTROINTESTINAL: normal bowel sounds, soft, nontender, nondistended MUSCULOSKELETAL: strength 5/5 throughout, head is normocephalic and atraumatic SKIN: warm and dry, chronic woody appearance to her lower legs with erythroderma and no evidence of spreading erythema above the knees. No evidence of open wounds. Skin is dry and scaly. NEUROLOGIC: CN 2-12 grossly intact, disoriented, speech is normal, no other gross focal deficits. PSYCHIATRIC: alert cooperative and oriented to person, place and time. Results & Data Vital Signs (Past 12 Hours) Vital Signs Temp Pulse Pulse Resp BP Pulse Ox 07/03/19 16:00 36.8 C 68 18 153/80 H 95 07/03/19 12:00 36.5 C 83 22 158/68 H 96 07/03/19 11:25 82 20 95 07/03/19 11:21 83 07/03/19 08:11 36.8 C 76 18 152/76 H 94 07/03/19 07:22 77 20 93 Laboratory Results Short CBC 07/03/19 Range/Units 09:44 WBC 9.82 (4.8-10.8) K/uL Hgb 15.2 (12.0-16.0) g/dL Hct 45.8 (37-47) % Plt Count 215 (130-400) K/uL BMP 07/03/19 09:44 Sodium 134 L Potassium 4.3 Chloride 98 Carbon Dioxide 32 BUN 12 Creatinine 0.78 Glucose 217 H Calcium 8.8 Medications Administered Current Inpatient Medications Acetaminophen (Tylenol) 650 mg PO Q4H PRN PRN Reason: Pain or Fever Stop: 07/30/19 20:24 Last Admin: 07/02/19 20:44 Dose: 650 mg Documented by: Albuterol (Duoneb) 3 ml NEB Q6R [facility] Stop: 08/02/19 18:59 Aspirin (Aspirin Chew) 81 mg PO QAM [facility] Stop: 07/31/19 10:59 Last Admin: 07/03/19 08:26 Dose: 81 mg Documented by: Atorvastatin Calcium (Lipitor) 40 mg PO HS [facility] Stop: 07/30/19 20:59 Last Admin: 07/02/19 20:45 Dose: 40 mg Documented by: Dextrose (Dextrose 50%) 25 - 50 ml IV UD PRN; Protocol PRN Reason: Hypoglycemia Protocol Stop: 08/01/19 09:55 Diltiazem HCl (Cardizem Cd) 300 mg PO DAILY [facility] Stop: 07/31/19 08:59 Doxycycline Hyclate (Vibramycin) 100 mg PO BID [facility] Stop: 07/08/19 20:59 Enoxaparin Sodium (Lovenox) 40 mg SQ BID [facility] Stop: 07/31/19 09:44 Last Admin: 07/03/19 08:19 Dose: 40 mg Documented by: [facility]) [facility] Stop: 08/02/19 08:59 Last Admin: 07/03/19 08:19 Dose: 40 mg Documented by: Glucagon (Glucagen) 1 mg SQ UD PRN; Protocol PRN Reason: Hypoglycemia Protocol Stop: 08/01/19 09:55 Glucose (Dex4 Glucose) 4 - 8 tabs PO UD PRN; Protocol PRN Reason: Hypoglycemia Protocol Stop: 08/01/19 09:55 Glucose (Glucose 40%) 15 - 30 gm PO UD PRN; Protocol PRN Reason: Hypoglycemia Protocol Stop: 08/01/19 09:55 Hydralazine HCl (Apresoline) 75 mg PO TID [facility] Stop: 07/30/19 20:59 Last Admin: 07/03/19 14:33 Dose: 75 mg Documented by: Ceftriaxone Sodium 2,000 mg/ (Dextrose) 70 mls @ 100 mls/hr IV Q24H [facility]; Protocol Stop: 07/08/19 03:59 Last Infusion: 07/03/19 04:46 Dose: Infused Documented by: Insulin Aspart (Novolog Flexpen) 0 units SC ACHS [facility] Stop: 08/01/19 11:29 Last Admin: 07/03/19 12:38 Dose: 2 units Documented by: Insulin Glargine (Lantus Solostar Pen) 12 units SC DAILY [facility]; Protocol Stop: 08/01/19 08:59 Last Admin: 07/03/19 08:21 Dose: 12 units Documented by: Levothyroxine Sodium (Synthroid) 75 mcg PO DAILYBB [facility] Stop: 07/31/19 06:29 Last Admin: 07/03/19 06:00 Dose: 75 mcg Documented by: Lisinopril (Zestril) 20 mg PO DAILY [facility] Stop: 07/31/19 08:59 Last Admin: 07/03/19 08:21 Dose: 20 mg Documented by: Metoprolol Tartrate (Lopressor) 25 mg PO BID [facility] Stop: 07/31/19 10:59 Last Admin: 07/03/19 08:18 Dose: 25 mg Documented by: Miscellaneous (Carbohydrates For Hypoglycemia) 15 - 30 gm PO UD PRN PRN Reason: Hypoglycemia Protocol Stop: 08/01/19 09:55 Miscellaneous (Remove Nicoderm Patch) 1 ea N/A DAILY@0859 [facility] Stop: 08/02/19 08:58 Last Admin: 07/03/19 08:22 Dose: Not Given Documented by: Nicotine (Nicoderm Cq) 21 mg TD QAM [facility] Stop: 08/01/19 12:44 Last Admin: 07/03/19 08:21 Dose: 21 mg Documented by: Nystatin (Mycostatin) 1 appln EXT TID [facility] Stop: 07/31/19 08:59 Last Admin: 07/03/19 14:33 Dose: 1 appln Documented by: Potassium Chloride (Klor-Con M10) 10 meq PO DAILY [facility] Stop: 07/31/19 08:59 Last Admin: 07/03/19 08:20 Dose: 10 meq Documented by: Prednisone (Prednisone) 20 mg PO DAILY [facility] Stop: 08/02/19 13:59 Risperidone (Risperdal) 1 mg PO QAM [facility] Stop: 07/31/19 08:59 Last Admin: 07/01/19 10:55 Dose: Not Given Documented by: Risperidone (Risperdal) 2 mg PO HS [facility] Stop: 07/30/19 20:59 Last Admin: 07/01/19 02:07 Dose: Not Given Documented by: Fluticasone/Salmeterol (Advair Diskus 100/50) 1 puffs INH BID [facility] Stop: 08/02/19 20:59 (1) Hypertension Hypertension type: essential hypertension Qualified Code(s): I10 - Essential (primary) hypertension
[2019-07-03] MEDS: FLUTICASONE/SALMETEROL 100/50 (ADVAIR) 14 PUFF/1 INHALER INH SCH (21:06)
[2019-07-03] MEDS: ATORVASTATIN 40 MG TAB PO SCH (22:09)
[2019-07-03] MEDS: DOXYCYCLINE HYCLATE 100 MG CAP PO SCH (22:10)
[2019-07-03] MEDS: risperiDONE 2 MG TABLET PO SCH (22:11)
[2019-07-04] MEDS: ALBUT/IPRATROP 3MG/0.5MG NEB 3 ML VIAL NEB SCH ×4 (00:13→19:21)
[2019-07-04] MEDS: cefTRIAXone SODIUM 2,000 MG in DEXTROSE 5% 50 ML IV SCH (03:31)
[2019-07-04] MEDS ORDERED: POLYETHYLENE (MIRALAX) 17 GM PACK PO STA (05:21)
[2019-07-04] MEDS: LEVOTHYROXINE SODIUM 75 MCG TABLET PO SCH (05:53)
[2019-07-04] MEDS: DOCUSATE SODIUM/SENNA 50/8.6MG TAB PO SCH (05:57)
--- NOTE | 2019-07-04 08:14 | Electrocardiogram Report ---
Test Reason : Blood Pressure : / mmHG Vent. Rate : 078 BPM Atrial Rate : 078 BPM P-R Int : 208 ms QRS Dur : 160 ms QT Int : 434 ms P-R-T Axes : 064 -22 082 degrees QTc Int : 494 ms Normal sinus rhythm Possible Left atrial enlargement Left bundle branch block Abnormal ECG When compared with ECG of 01-JUL-2019 00:50, QT has shortened Confirmed by Aramis Logan ([id number]) on 07/03/2019 5:33:43 PM Referred By: REFERRED SELF Confirmed By:Ricardo Logan
--- NOTE | 2019-07-04 08:15 | Electrocardiogram Report ---
Test Reason : Blood Pressure : / mmHG Vent. Rate : 079 BPM Atrial Rate : 079 BPM P-R Int : 202 ms QRS Dur : 156 ms QT Int : 434 ms P-R-T Axes : 070 -54 084 degrees QTc Int : 497 ms Normal sinus rhythm Biatrial enlargement Left axis deviation Left bundle branch block Abnormal ECG When compared with ECG of 02-JUL-2019 17:44, (unconfirmed) No significant change was found Confirmed by Aramis Logan ([id number]) on 07/03/2019 5:42:24 PM Referred By: REFERRED SELF Confirmed By:Ricardo Logan
[2019-07-04] MEDS: FLUTICASONE/SALMETEROL 100/50 (ADVAIR) 14 PUFF/1 INHALER INH SCH ×2 (08:31→20:07)
[2019-07-04] MEDS: predniSONE 20 MG TAB PO SCH (08:32)
[2019-07-04] MEDS: METOPROLOL TARTRATE 25 MG TAB PO SCH ×2 (08:33→20:10)
[2019-07-04] MEDS: FUROSEMIDE 40 MG TAB PO SCH ×2 (08:33→17:41)
[2019-07-04] MEDS: dilTIAZem HCL 300 MG CAPCR PO SCH (08:34)
[2019-07-04] MEDS: DOXYCYCLINE HYCLATE 100 MG CAP PO SCH ×2 (08:34→20:10)
[2019-07-04] MEDS: POTASSIUM CHLORIDE 10 MEQ TABCR PO SCH (08:34)
[2019-07-04] MEDS: NICOTINE 21 MG/24 HR TDSY TD SCH (08:35)
[2019-07-04] MEDS: risperiDONE 1 MG TABLET PO SCH (08:35)
[2019-07-04] MEDS: ENOXAPARIN INJ 40 MG/0.4 ML SYR SQ SCH ×2 (08:37→20:11)
[2019-07-04] MEDS: INSULIN GLARGINE SOLOSTAR 100 UNITS/ML 3 ML PEN SC SCH (08:39)
[2019-07-04] MEDS: INSULIN ASPART 100 UNITS/ML 3 ML PEN SC SCH ×4 (08:43→20:46)
[2019-07-04] MEDS: lisinopriL 40 MG TAB PO SCH (11:33)
[2019-07-04] MEDS: NYSTATIN POWDER 15GM BTL EXT SCH ×3 (11:33→20:11)
[2019-07-04] MEDS: ASPIRIN 81 MG CHEW PO SCH (11:33)
--- NOTE | 2019-07-04 18:56 | Hospitalist Progress Note ---
Date of Service July 04, 2019 Assessment & Plan (1) DMII (diabetes mellitus, type 2): New diagnosis. Has tried metformin IR in the past with GI upset. Will try metformin ER at time of discharge. Close PCP follow-up as outpatient. Here, cont glargine and Novlog for correction factor. Carbohydrate coverage also added today. (2) Acute on chronic respiratory failure with hypoxia and hypercapnia: 69-year-old female with chronic COPD presented with acute shortness of breath resulting in rapid CO2 accumulation and altered mental status requiring emergent endotracheal intubation. Continue doxycycline, prednisone and nebulizers. CTA chest demonstrated no PE. She is improved today and is feeling better. Lungs are more clear with good air movement. Off oxygen, but expect her to continue to improve and oxygen saturation needs to be better prior to discharge. (3) COPD exacerbation: Plan as above, patient is a heavy smoker which will continue to cause an issue for her moving forward. Nicoderm patch provided. We discussed the importance of quitting and she is motivated. Doxycycline. Rocephin stopped. (4) Hyponatremia: Poor p.o. intake versus SSRI use. Improved to normal range/baseline. (5) Bilateral lower leg cellulitis: Patient with chronic venous stasis and woody appearance to the legs was no suzanna to have erythema extending up to the thighs that was warm to touch on admission. Continue doxy for total 10 days. (6) Metabolic encephalopathy: Metabolic encephalopathy likely secondary to hypercarbic respiratory failure-resolved (7) Chronic diastolic CHF (congestive heart failure): On chronic Lasix at home. Good response to Lasix 40mg daily. Will increase to her home dose of 40mg PO BID. (8) Hypertension: Around goal continue home hydralazine, lisinopril, metoprolol for now and adjust as needed. Lisinopril was increased to 40mg daily on 07/04. Monitor for effect. (9) Schizophrenia: Risperidone was held for several days, now restarted. Had a previous reaction to lithium, and she is known to have hallucinations when off medications. (10) Bipolar 1 disorder: risperidone as above. Stopped prazosin and sertraline. Discuss restarting with outpatient psychiatric provider. (11) Hypothyroid: Continue levothyroxine per home regimen (12) Morbid obesity: counseled on the importance of weight loss. Now is a new onset diabetic, underscoring the importance of this. (13) Prolonged QT interval: improved on EKG. Cont to monitor. (14) DVT prophylaxis: Lovenox Full code Disposition-cont hospitalization. DC pending PT/OT recs. Natalie Taylor DO [facility] Hospitalist Subjective doing well today, breathing continues to improve. Off supplemental oxygen but still low 90%. Tolerating PO, afebrile Review of Systems Review of Systems: All systems reviewed & are unremarkable except as noted in HPI & below Physical Exam Physical Exam: CONSTITUTIONAL: obese, vitals as above, generally well- appearing EYES: normal conjunctivae ENT: MMM RESPIRATORY: Clear lungs to auscultation throughout. No conversational dyspnea. Off supplemental oxygen. CARDIOVASCULAR: regular rate and rhythm, S1 and 2 heard without murmurs, gallops or rubs, no JVD, no peripheral edema GASTROINTESTINAL: normal bowel sounds, soft, nontender, nondistended MUSCULOSKELETAL: strength 5/5 throughout, head is normocephalic and atraumatic SKIN: warm and dry, chronic woody appearance to her lower legs with erythroderma and no evidence of spreading erythema above the knees. No evidence of open wounds. Skin is dry and scaly. NEUROLOGIC: CN 2-12 grossly intact, disoriented, speech is normal, no other gross focal deficits. PSYCHIATRIC: alert cooperative and oriented to person, place and time. Results & Data Vital Signs (Past 12 Hours) Vital Signs Temp Pulse Resp BP Pulse Ox 07/04/19 15:34 37.1 C 62 19 154/73 H 90 07/04/19 12:00 62 18 90 07/04/19 11:35 92 07/04/19 07:15 36.7 C 66 22 180/87 H 97 07/04/19 07:11 90 18 97 Medications Administered Current Inpatient Medications Acetaminophen (Tylenol) 650 mg PO Q4H PRN PRN Reason: Pain or Fever Stop: 07/30/19 20:24 Last Admin: 07/02/19 20:44 Dose: 650 mg Documented by: Albuterol (Duoneb) 3 ml NEB Q6R [facility] Stop: 08/02/19 18:59 Last Admin: 07/04/19 13:18 Dose: 3 ml Documented by: Aspirin (Aspirin Chew) 81 mg PO QAM [facility] Stop: 07/31/19 10:59 Last Admin: 07/04/19 11:33 Dose: 81 mg Documented by: Atorvastatin Calcium (Lipitor) 40 mg PO HS [facility] Stop: 07/30/19 20:59 Last Admin: 07/03/19 22:09 Dose: 40 mg Documented by: Dextrose (Dextrose 50%) 25 - 50 ml IV UD PRN; Protocol PRN Reason: Hypoglycemia Protocol Stop: 08/01/19 09:55 Diltiazem HCl (Cardizem Cd) 300 mg PO DAILY [facility] Stop: 07/31/19 08:59 Last Admin: 07/04/19 08:34 Dose: 300 mg Documented by: Doxycycline Hyclate (Vibramycin) 100 mg PO BID [facility] Stop: 07/08/19 20:59 Last Admin: 07/04/19 08:34 Dose: 100 mg Documented by: Enoxaparin Sodium (Lovenox) 40 mg SQ BID [facility] Stop: 07/31/19 09:44 Last Admin: 07/04/19 08:37 Dose: 40 mg Documented by: Furosemide (Lasix) 40 mg PO BID17 [facility] Stop: 08/03/19 17:29 Last Admin: 07/04/19 17:41 Dose: 40 mg Documented by: Glucagon (Glucagen) 1 mg SQ UD PRN; Protocol PRN Reason: Hypoglycemia Protocol Stop: 08/01/19 09:55 Glucose (Dex4 Glucose) 4 - 8 tabs PO UD PRN; Protocol PRN Reason: Hypoglycemia Protocol Stop: 08/01/19 09:55 Glucose (Glucose 40%) 15 - 30 gm PO UD PRN; Protocol PRN Reason: Hypoglycemia Protocol Stop: 08/01/19 09:55 Hydralazine HCl (Apresoline) 75 mg PO TID [facility] Stop: 07/30/19 20:59 Last Admin: 07/04/19 14:19 Dose: 75 mg Documented by: Ceftriaxone Sodium 2,000 mg/ (Dextrose) 70 mls @ 100 mls/hr IV Q24H [facility]; Protocol Stop: 07/08/19 03:59 Last Infusion: 07/04/19 04:16 Dose: Infused Documented by: Insulin Aspart (Novolog Flexpen) 0 units SC ACHS [facility] Stop: 08/02/19 20:59 Last Admin: 07/04/19 17:15 Dose: 7 units Documented by: Insulin Glargine (Lantus Solostar Pen) 12 units SC DAILY [facility] Stop: 08/01/19 08:59 Last Admin: 07/04/19 08:39 Dose: 12 units Documented by: Levothyroxine Sodium (Synthroid) 75 mcg PO DAILYBB [facility] Stop: 07/31/19 06:29 Last Admin: 07/04/19 05:53 Dose: 75 mcg Documented by: Lisinopril (Zestril) 40 mg PO DAILY [facility] Stop: 08/03/19 08:59 Last Admin: 07/04/19 11:33 Dose: 40 mg Documented by: Metoprolol Tartrate (Lopressor) 25 mg PO BID [facility] Stop: 07/31/19 10:59 Last Admin: 07/04/19 08:33 Dose: 25 mg Documented by: Miscellaneous (Carbohydrates For Hypoglycemia) 15 - 30 gm PO UD PRN PRN Reason: Hypoglycemia Protocol Stop: 08/01/19 09:55 Miscellaneous (Remove Nicoderm Patch) 1 ea N/A DAILY@0859 [facility] Stop: 08/02/19 08:58 Last Admin: 07/04/19 08:38 Dose: 1 ea Documented by: Nicotine ([facility] Cq) [facility] Stop: 08/01/19 12:44 Last Admin: 07/04/19 08:35 Dose: 21 mg Documented by: Nystatin (Mycostatin) 1 appln EXT TID [facility] Stop: 07/31/19 08:59 Last Admin: 07/04/19 14:19 Dose: 1 appln Documented by: Potassium Chloride (Klor-Con M10) 10 meq PO DAILY [facility] Stop: 07/31/19 08:59 Last Admin: 07/04/19 08:34 Dose: 10 meq Documented by: Prednisone (Prednisone) 40 mg PO DAILY [facility] Stop: 08/03/19 08:59 Last Admin: 07/04/19 08:32 Dose: 40 mg Documented by: Risperidone (Risperdal) 1 mg PO QAM [facility] Stop: 07/31/19 08:59 Last Admin: 07/04/19 08:35 Dose: 1 mg Documented by: Risperidone (Risperdal) 2 mg PO HS [facility] Stop: 07/30/19 20:59 Last Admin: 07/03/19 22:11 Dose: 2 mg Documented by: Fluticasone/Salmeterol (Advair Diskus 100/50) 1 puffs INH BID [facility] Stop: 08/02/19 20:59 Last Admin: 07/04/19 08:31 Dose: 1 puffs Documented by: Senna/Docusate Sodium (Senokot S) 1 tab PO QAM [facility] Stop: 08/03/19 05:24 Last Admin: 07/04/19 05:57 Dose: 1 tab Documented by: (1) Hypertension Hypertension type: essential hypertension Qualified Code(s): I10 - Essential (primary) hypertension
[2019-07-04] MEDS: risperiDONE 2 MG TABLET PO SCH (20:10)
[2019-07-04] MEDS: ATORVASTATIN 40 MG TAB PO SCH (20:10)
[2019-07-05] MEDS: ALBUT/IPRATROP 3MG/0.5MG NEB 3 ML VIAL NEB SCH ×2 (01:04→07:35)
[2019-07-05] MEDS: LEVOTHYROXINE SODIUM 75 MCG TABLET PO SCH (06:08)
--- NOTE | 2019-07-05 07:40 | Electrocardiogram Report ---
Test Reason : Blood Pressure : / mmHG Vent. Rate : 074 BPM Atrial Rate : 074 BPM P-R Int : 178 ms QRS Dur : 156 ms QT Int : 436 ms P-R-T Axes : 060 -30 062 degrees QTc Int : 483 ms Normal sinus rhythm Possible Left atrial enlargement Left axis deviation Left bundle branch block Abnormal ECG When compared with ECG of 03-JUL-2019 06:33, No significant change was found Confirmed by Aramis Logan ([id number]) on 07/05/2019 7:40:17 AM Referred By: REFERRED SELF Confirmed By:Ricardo Logan
[2019-07-05] MEDS ORDERED: ALBUT/IPRATROP 3MG/0.5MG NEB 3 ML VIAL NEB PRN (08:04)
[2019-07-05] MEDS: ENOXAPARIN INJ 40 MG/0.4 ML SYR SQ SCH ×2 (08:17→20:34)
[2019-07-05] MEDS: METOPROLOL TARTRATE 25 MG TAB PO SCH ×2 (08:17→20:35)
[2019-07-05] MEDS: predniSONE 20 MG TAB PO SCH (08:17)
[2019-07-05] MEDS: dilTIAZem HCL 300 MG CAPCR PO SCH (08:18)
[2019-07-05] MEDS: lisinopriL 40 MG TAB PO SCH (08:18)
[2019-07-05] MEDS: POTASSIUM CHLORIDE 10 MEQ TABCR PO SCH (08:19)
[2019-07-05] MEDS: DOCUSATE SODIUM/SENNA 50/8.6MG TAB PO SCH (08:19)
[2019-07-05] MEDS: FUROSEMIDE 40 MG TAB PO SCH ×2 (08:20→17:26)
[2019-07-05] MEDS: ASPIRIN 81 MG CHEW PO SCH (08:21)
[2019-07-05] MEDS: risperiDONE 1 MG TABLET PO SCH (08:21)
[2019-07-05] MEDS: DOXYCYCLINE HYCLATE 100 MG CAP PO SCH ×2 (08:21→20:33)
[2019-07-05] MEDS: FLUTICASONE/SALMETEROL 100/50 (ADVAIR) 14 PUFF/1 INHALER INH SCH ×2 (08:22→20:32)
[2019-07-05] MEDS: NICOTINE 21 MG/24 HR TDSY TD SCH (08:23)
[2019-07-05] MEDS: NYSTATIN POWDER 15GM BTL EXT SCH ×3 (08:23→20:36)
[2019-07-05] MEDS: INSULIN GLARGINE SOLOSTAR 100 UNITS/ML 3 ML PEN SC SCH (08:24)
[2019-07-05] MEDS: INSULIN ASPART 100 UNITS/ML 3 ML PEN SC SCH ×4 (08:31→21:41)
--- NOTE | 2019-07-05 10:38 | Billing Data ---
Date of Service July 02, 2019 Coding Level of Care Code 25704 Subseq Hosp Care Lvl 3
--- NOTE | 2019-07-05 13:01 | Electrocardiogram Report ---
Test Reason : Blood Pressure : / mmHG Vent. Rate : 057 BPM Atrial Rate : 057 BPM P-R Int : 194 ms QRS Dur : 140 ms QT Int : 478 ms P-R-T Axes : 057 -25 065 degrees QTc Int : 465 ms Sinus bradycardia Left bundle branch block Abnormal ECG When compared with ECG of 04-JUL-2019 09:01, No significant change was found Confirmed by Girish Torres ([id number]) on 07/05/2019 1:00:54 PM Referred By: REFERRED SELF Confirmed By:Girish Torres
--- NOTE | 2019-07-05 16:49 | Hospitalist Progress Note ---
Date of Service July 05, 2019 Assessment & Plan (1) Acute on chronic respiratory failure with hypoxia and hypercapnia: 69-year-old female with chronic COPD presented with acute shortness of breath resulting in rapid CO2 accumulation and altered mental status requiring emergent endotracheal intubation. Continue doxycycline, prednisone and nebulizers. CTA chest demonstrated no PE. (2) COPD exacerbation: Plan as above, patient is a heavy smoker which will continue to cause an issue for her moving forward. Nicoderm patch provided. We discussed the importance of quitting and she is motivated. Doxycycline. Rocephin stopped. (3) DMII (diabetes mellitus, type 2): New diagnosis. Has tried metformin IR in the past with GI upset. Will try metformin ER at time of discharge. Close PCP follow-up as outpatient. Here, cont glargine and Novlog for correction factor and carb coverage (4) Bilateral lower leg cellulitis: Patient with chronic venous stasis and woody appearance to the legs was noted to have erythema extending up to the thighs that was warm to touch on admission. Continue doxy for total 10 days. (5) Chronic diastolic CHF (congestive heart failure): On chronic Lasix at home. Good response to Lasix 40mg daily. Will increase to her home dose of 40mg PO BID. (6) Hypertension: Around goal continue home hydralazine, lisinopril, metoprolol for now and adjust as needed. Lisinopril was increased to 40mg daily on 07/04. Monitor for effect. (7) Schizophrenia: Risperidone was held for several days, now restarted. Had a previous reaction to lithium, and she is known to have hallucinations when off medica tions. (8) Bipolar 1 disorder: risperidone as above. Stopped prazosin and sertraline. Discuss restarting with outpatient psychiatric provider. (9) Hypothyroid: Continue levothyroxine per home regimen (10) Morbid obesity: counseled on the importance of weight loss. Now is a new onset diabetic, underscoring the importance of this. (11) Prolonged QT interval: improved on EKG. Cont to monitor. (12) DVT prophylaxis: Lovenox Full code Disposition-cont hospitalization. SN[facility] PT[facility] Subjective feeling well denies SOB or wheezing ambulating tolerating PO Review of Systems Review of Systems: All systems reviewed & are unremarkable except as noted in HPI & below Physical Exam Physical Exam: CONSTITUTIONAL: obese, vitals as above, generally well- appearing EYES: normal conjunctivae ENT: MMM RESPIRATORY: Clear lungs to auscultation throughout. No conversational dyspnea. Off supplemental oxygen. CARDIOVASCULAR: regular rate and rhythm, S1 and 2 heard without murmurs, gallops or rubs, no JVD, no peripheral edema GASTROINTESTINAL: normal bowel sounds, soft, nontender, nondistended MUSCULOSKELETAL: strength 5/5 throughout, head is normocephalic and atraumatic SKIN: warm and dry, chronic woody appearance to her lower legs with erythroderma and no evidence of spreading erythema above the knees. No evidence of open wounds. Skin is dry and scaly. NEUROLOGIC: CN 2-12 grossly intact, disoriented, speech is normal, no other gross focal deficits. PSYCHIATRIC: alert cooperative and oriented to person, place and time. Results & Data Vital Signs (Past 12 Hours) Vital Signs Temp Pulse Resp BP Pulse Ox 07/05/19 15:36 36.9 C 66 20 163/77 H 91 07/05/19 08:21 36.5 C 66 20 161/82 H 90 07/05/19 07:35 65 18 92 Medications Administered Current Inpatient Medications Acetaminophen (Tylenol) 650 mg PO Q4H PRN PRN Reason: Pain or Fever Stop: 07/30/19 20:24 Last Admin: 07/02/19 20:44 Dose: 650 mg Documented by: Albuterol (Duoneb) 3 ml NEB Q6R PRN PRN Reason: SOB or wheezing Stop: 08/02/19 18:59 Aspirin (Aspirin Chew) 81 mg PO QAM [facility] Stop: 07/31/19 10:59 Last Admin: 07/05/19 08:21 Dose: 81 mg Documented by: Atorvastatin Calcium (Lipitor) 40 mg PO HS [facility] Stop: 07/30/19 20:59 Last Admin: 07/04/19 20:10 Dose: 40 mg Documented by: Dextrose (Dextrose 50%) 25 - 50 ml IV UD PRN; Protocol PRN Reason: Hypoglycemia Protocol Stop: 08/01/19 09:55 Diltiazem HCl (Cardizem Cd) 300 mg PO DAILY [facility] Stop: 07/31/19 08:59 Last Admin: 07/05/19 08:18 Dose: 300 mg Documented by: Doxycycline Hyclate (Vibramycin) 100 mg PO BID [facility] Stop: 07/08/19 20:59 Last Admin: 07/05/19 08:21 Dose: 100 mg Documented by: Enoxaparin Sodium (Lovenox) 40 mg SQ BID [facility] Stop: 07/31/19 09:44 Last Admin: 07/05/19 08:17 Dose: 40 mg Documented by: Furosemide (Lasix) 40 mg PO BID17 [facility] Stop: 08/03/19 17:29 Last Admin: 07/05/19 08:20 Dose: 40 mg Documented by: Glucagon (Glucagen) 1 mg SQ UD PRN; Protocol PRN Reason: Hypoglycemia Protocol Stop: 08/01/19 09:55 Glucose (Dex4 Glucose) 4 - 8 tabs PO UD PRN; Protocol PRN Reason: Hypoglycemia Protocol Stop: 08/01/19 09:55 Glucose (Glucose 40%) 15 - 30 gm PO UD PRN; Protocol PRN Reason: Hypoglycemia Protocol Stop: 08/01/19 09:55 Hydralazine HCl (Apresoline) 75 mg PO TID [facility] Stop: 07/30/19 20:59 Last Admin: 07/05/19 14:44 Dose: 75 mg Documented by: Insulin Aspart (Novolog Flexpen) 0 units SC ACHS [facility] Stop: 08/02/19 20:59 Last Admin: 07/05/19 12:56 Dose: 5 units Documented by: Insulin Glargine (Lantus Solostar Pen) 12 units SC DAILY [facility] Stop: 08/01/19 08:59 Last Admin: 07/05/19 08:24 Dose: 12 units Documented by: Levothyroxine Sodium (Synthroid) 75 mcg PO DAILYBB [facility] Stop: 07/31/19 06:29 Last Admin: 07/05/19 06:08 Dose: 75 mcg Documented by: Lisinopril (Zestril) 40 mg PO DAILY [facility] Stop: 08/03/19 08:59 Last Admin: 07/05/19 08:18 Dose: 40 mg Documented by: Metoprolol Tartrate (Lopressor) 25 mg PO BID [facility] Stop: 07/31/19 10:59 Last Admin: 07/05/19 08:17 Dose: 25 mg Documented by: Miscellaneous (Carbohydrates For Hypoglycemia) 15 - 30 gm PO UD PRN PRN Reason: Hypoglycemia Protocol Stop: 08/01/19 09:55 Miscellaneous (Remove Nicoderm Patch) 1 ea N/A DAILY@0859 [facility] Stop: 08/02/19 08:58 Last Admin: 07/05/19 08:22 Dose: 1 ea Documented by: Nicotine (Nicoderm Cq) 21 mg TD QAM [facility] Stop: 08/01/19 12:44 Last Admin: 07/05/19 08:23 Dose: 21 mg Documented by: Nystatin (Mycostatin) 1 appln EXT TID [facility] Stop: 07/31/19 08:59 Last Admin: 07/05/19 14:44 Dose: 1 appln Documented by: Potassium Chloride (Klor-Con M10) 10 meq PO DAILY [facility] Stop: 07/31/19 08:59 Last Admin: 07/05/19 08:19 Dose: 10 meq Documented by: Prednisone (Prednisone) 40 mg PO DAILY [facility] Stop: 08/03/19 08:59 Last Admin: 07/05/19 08:17 Dose: 40 mg Documented by: Risperidone (Risperdal) 1 mg PO QAM [facility] Stop: 07/31/19 08:59 Last Admin: 07/05/19 08:21 Dose: 1 mg Documented by: Risperidone (Risperdal) 2 mg PO HS [facility] Stop: 07/30/19 20:59 Last Admin: 07/04/19 20:10 Dose: 2 mg Documented by: Fluticasone/Salmeterol (Advair Diskus 100/50) 1 puffs INH BID [facility] Stop: 08/02/19 20:59 Last Admin: 07/05/19 08:22 Dose: 1 puffs Documented by: Senna/Docusate Sodium (Senokot S) 1 tab PO QAM [facility] Stop: 08/03/19 05:24 Last Admin: 07/05/19 08:19 Dose: 1 tab Documented by: (1) Hypertension Hypertension type: essential hypertension Qualified Code(s): I10 - Essential (primary) hypertension
[2019-07-05] MEDS: ACETAMINOPHEN 325 MG TAB PO PRN (18:34)
[2019-07-05] MEDS: risperiDONE 2 MG TABLET PO SCH (20:33)
[2019-07-05] MEDS: ATORVASTATIN 40 MG TAB PO SCH (20:34)
[2019-07-06] MEDS: LEVOTHYROXINE SODIUM 75 MCG TABLET PO SCH (05:50)
[2019-07-06 06:42] LABS: Hematocrit (blood only) 48.8 % (37-47); Hemoglobin 16.3 g/dL (12.0-16.0); Mean Corpuscular Hemoglobin 30.6 pg (25-34); Mean Corpuscular Hgb Conc 33.4 g/dL (32-36); Mean Corpuscular Volume 91.6 fL (80-100); Mean Platelet Volume 8.8 fL (7.4-10.4); Platelet Count 195 K/uL (130-400); RDW Coefficient of Variation 14.1 % (11.5-14.5); RDW Standard Deviation 47.6 fL (36.4-46.3); Red Blood Count 5.33 M/uL (4.2-5.4); White Blood Count 8.51 K/uL (4.8-10.8)
[2019-07-06 07:14] LABS: Calcium 8.8 mg/dl (8.5-10.1); Creatinine Clr Calc Pharmacy 94.7 ml/min; Est GFR (African American) 103.9; Est GFR (Non-African American) 89.7; Potassium 3.9 mmol/L (3.5-5.1)
[2019-07-06] MEDS: NICOTINE 21 MG/24 HR TDSY TD SCH (08:12)
[2019-07-06] MEDS: POTASSIUM CHLORIDE 10 MEQ TABCR PO SCH (08:13)
[2019-07-06] MEDS: METOPROLOL TARTRATE 25 MG TAB PO SCH ×2 (08:13→20:26)
[2019-07-06] MEDS: ASPIRIN 81 MG CHEW PO SCH (08:13)
[2019-07-06] MEDS: DOXYCYCLINE HYCLATE 100 MG CAP PO SCH ×2 (08:13→20:27)
[2019-07-06] MEDS: dilTIAZem HCL 300 MG CAPCR PO SCH (08:13)
[2019-07-06] MEDS: FLUTICASONE/SALMETEROL 100/50 (ADVAIR) 14 PUFF/1 INHALER INH SCH ×2 (08:13→20:23)
[2019-07-06] MEDS: lisinopriL 40 MG TAB PO SCH (08:13)
[2019-07-06] MEDS: INSULIN ASPART 100 UNITS/ML 3 ML PEN SC SCH ×4 (08:14→21:11)
[2019-07-06] MEDS: FUROSEMIDE 40 MG TAB PO SCH ×2 (08:14→17:12)
[2019-07-06] MEDS: INSULIN GLARGINE SOLOSTAR 100 UNITS/ML 3 ML PEN SC SCH (08:14)
[2019-07-06] MEDS: ENOXAPARIN INJ 40 MG/0.4 ML SYR SQ SCH ×2 (08:15→20:27)
[2019-07-06] MEDS: DOCUSATE SODIUM/SENNA 50/8.6MG TAB PO SCH (08:15)
[2019-07-06] MEDS: risperiDONE 1 MG TABLET PO SCH (08:15)
[2019-07-06] MEDS: predniSONE 20 MG TAB PO SCH (08:15)
[2019-07-06] MEDS: NYSTATIN POWDER 15GM BTL EXT SCH ×3 (08:15→20:27)
--- NOTE | 2019-07-06 19:11 | Hospitalist Progress Note ---
Date of Service July 06, 2019 Assessment & Plan (1) Acute on chronic respiratory failure with hypoxia and hypercapnia: 69-year-old female with chronic COPD presented with acute shortness of breath resulting in rapid CO2 accumulation and altered mental status requiring emergent endotracheal intubation. Continue doxycycline for recent cellulitis, prednisone taper and nebulizers. CTA chest demonstrated no PE. (2) COPD exacerbation: Plan as above, patient is a heavy smoker which will continue to cause an issue for her moving forward. Nicoderm patch provided. We discussed the importance of quitting and she is motivated. Doxycycline. Rocephin stopped. (3) DMII (diabetes mellitus, type 2): New diagnosis. Has tried metformin IR in the past with GI upset. Will try metformin ER at time of discharge. Close PCP follow-up as outpatient. Here, cont glargine and Novlog for correction factor and carb coverage. At goal (4) Bilateral lower leg cellulitis: Patient with chronic venous stasis and woody appearance to the legs was noted to have erythema extending up to the thighs that was warm to touch on admission. Continue doxy for total 10 days. (5) Chronic diastolic CHF (congestive heart failure): On chronic Lasix at home. Good response to Lasix 40mg daily. Cont home dose of 40mg PO BID. (6) Hypertension: Around goal continue home hydralazine, lisinopril, metoprolol for now and adjust as needed. Lisinopril was increased to 40mg daily on 07/04. Improved to goal. (7) Schizophrenia: Risperidone was held for several days, and she is doing well since this has been restarted. Had a previous reaction to lithium, and she is known to have hallucinations when off medications. (8) Bipolar 1 disorder: risperidone as above. Stopped prazosin and sertraline. Discuss res tarting with outpatient psychiatric provider. (9) Hypothyroid: Continue levothyroxine per home regimen (10) Morbid obesity: counseled on the importance of weight loss. Now is a new onset diabetic, underscoring the importance of this. (11) Prolonged QT interval: improved on EKG. Cont to monitor. (12) DVT prophylaxis: Lovenox Full code Disposition-cont hospitalization. Plans for SNF at discharge as a transition to home. Natalie Taylor DO [facility] Hospitalist Subjective doing well reports breathing well, min coughing ambulating around room per her report resolved to make solid lifestyle changes including quitting smoking and losing weight. Review of Systems Review of Systems: All systems reviewed & are unremarkable except as noted in HPI & below Physical Exam Physical Exam: CONSTITUTIONAL: obese, vitals as above, generally well- appearing EYES: normal conjunctivae ENT: MMM RESPIRATORY: Clear lungs to auscultation throughout. No conversational dyspnea. Off supplemental oxygen. CARDIOVASCULAR: regular rate and rhythm, S1 and 2 heard without murmurs, gallops or rubs, no JVD, no peripheral edema GASTROINTESTINAL: normal bowel sounds, soft, nontender, nondistended MUSCULOSKELETAL: strength 5/5 throughout, head is normocephalic and atraumatic SKIN: warm and dry, chronic woody appearance to her lower legs with erythroderma and no evidence of spreading erythema above the knees. No evidence of open wounds. Skin is dry and scaly. NEUROLOGIC: CN 2-12 grossly intact, disoriented, speech is normal, no other gross focal deficits. PSYCHIATRIC: alert cooperative and oriented to person, place and time. Results & Data Vital Signs (Past 12 Hours) Vital Signs Temp Pulse Resp BP Pulse Ox 07/06/19 16:00 36.9 C 71 18 131/78 91 07/06/19 13:51 68 125/70 07/06/19 08:00 63 07/06/19 07:17 36.5 C 56 L 18 150/72 H 92 Laboratory Results Short CBC 07/06/19 Range/Units 06:23 WBC 8.51 (4.8-10.8) K/uL Hgb 16.3 H (12.0-16.0) g/dL Hct 48.8 H (37-47) % Plt Count 195 (130-400) K/uL BMP 07/06/19 06:23 Sodium 136 Potassium 3.9 Chloride 98 Carbon Dioxide 36 H BUN 17 Creatinine 0.70 Glucose 79 Calcium 8.8 Medications Administered Current Inpatient Medications Acetaminophen (Tylenol) 650 mg PO Q4H PRN PRN Reason: Pain or Fever Stop: 07/30/19 20:24 Last Admin: 07/05/19 18:34 Dose: 650 mg Documented by: Albuterol (Duoneb) 3 ml NEB Q6R PRN PRN Reason: SOB or wheezing Stop: 08/02/19 18:59 Aspirin (Aspirin Chew) 81 mg PO QAM [facility] Stop: 07/31/19 10:59 Last Admin: 07/06/19 08:13 Dose: 81 mg Documented by: Atorvastatin Calcium (Lipitor) 40 mg PO HS [facility] Stop: 07/30/19 20:59 Last Admin: 07/05/19 20:34 Dose: 40 mg Documented by: Dextrose (Dextrose 50%) 25 - 50 ml IV UD PRN; Protocol PRN Reason: Hypoglycemia Protocol Stop: 08/01/19 09:55 Diltiazem HCl (Cardizem Cd) 300 mg PO DAILY [facility] Stop: 07/31/19 08:59 Last Admin: 07/06/19 08:13 Dose: 300 mg Documented by: Doxycycline Hyclate (Vibramycin) 100 mg PO BID [facility] Stop: 07/08/19 20:59 Last Admin: 07/06/19 08:13 Dose: 100 mg Documented by: Enoxaparin Sodium (Lovenox) 40 mg SQ BID [facility] Stop: 07/31/19 09:44 Last Admin: 07/06/19 08:15 Dose: 40 mg Documented by: Furosemide (Lasix) 40 mg PO BID17 [facility] Stop: 08/03/19 17:29 Last Admin: 07/06/19 17:12 Dose: 40 mg Documented by: Glucagon (Glucagen) 1 mg SQ UD PRN; Protocol PRN Reason: Hypoglycemia Protocol Stop: 08/01/19 09:55 Glucose (Dex4 Glucose) 4 - 8 tabs PO UD PRN; Protocol PRN Reason: Hypoglycemia Protocol Stop: 08/01/19 09:55 Glucose (Glucose 40%) 15 - 30 gm PO UD PRN; Protocol PRN Reason: Hypoglycemia Protocol Stop: 08/01/19 09:55 Hydralazine HCl (Apresoline) 75 mg PO TID [facility] Stop: 07/30/19 20:59 Last Admin: 07/06/19 13:48 Dose: 75 mg Documented by: Insulin Aspart (Novolog Flexpen) 0 units SC ACHS [facility] Stop: 08/02/19 20:59 Last Admin: 07/06/19 17:13 Dose: 5 units Documented by: Insulin Glargine (Lantus Solostar Pen) 12 units SC DAILY [facility] Stop: 08/01/19 08:59 Last Admin: 07/06/19 08:14 Dose: 12 units Documented by: Levothyroxine Sodium (Synthroid) 75 mcg PO DAILYBB [facility] Stop: 07/31/19 06:29 Last Admin: 07/06/19 05:50 Dose: 75 mcg Documented by: Lisinopril (Zestril) 40 mg PO DAILY [facility] Stop: 08/03/19 08:59 Last Admin: 07/06/19 08:13 Dose: 40 mg Documented by: Metoprolol Tartrate (Lopressor) 25 mg PO BID [facility] Stop: 07/31/19 10:59 Last Admin: 07/06/19 08:13 Dose: 25 mg Documented by: Miscellaneous (Carbohydrates For Hypoglycemia) 15 - 30 gm PO UD PRN PRN Reason: Hypoglycemia Protocol Stop: 08/01/19 09:55 Miscellaneous (Remove Nicoderm Patch) 1 ea N/A DAILY@0859 [facility] Stop: 08/02/19 08:58 Last Admin: 07/06/19 08:12 Dose: 1 ea Documented by: Nic[facility] ([facility]q) [facility] [place]: 08/01/19 12:44 Last Admin: 07/06/19 08:12 Dose: 21 mg Documented by: Nystatin (Mycostatin) 1 appln EXT TID [facility] Stop: 07/31/19 08:59 Last Admin: 07/06/19 13:49 Dose: 1 appln Documented by: Potassium Chloride (Klor-Con M10) 10 meq PO DAILY [facility] Stop: 07/31/19 08:59 Last Admin: 07/06/19 08:13 Dose: 10 meq Documented by: Prednisone (Prednisone) 40 mg PO DAILY [facility] Stop: 08/03/19 08:59 Last Admin: 07/06/19 08:15 Dose: 40 mg Documented by: Risperidone (Risperdal) 1 mg PO QAM [facility] Stop: 07/31/19 08:59 Last Admin: 07/06/19 08:15 Dose: 1 mg Documented by: Risperidone (Risperdal) 2 mg PO HS [facility] Stop: 07/30/19 20:59 Last Admin: 07/05/19 20:33 Dose: 2 mg Documented by: Fluticasone/Salmeterol (Advair Diskus 100/50) 1 puffs INH BID [facility] Stop: 08/02/19 20:59 Last Admin: 07/06/19 08:13 Dose: 1 puffs Documented by: Senna/Docusate Sodium (Senokot S) 1 tab PO QAM [facility] Stop: 08/03/19 05:24 Last Admin: 07/06/19 08:15 Dose: 1 tab Documented by: (1) Hypertension Hypertension type: essential hypertension Qualified Code(s): I10 - Essential (primary) hypertension
[2019-07-06] MEDS: ATORVASTATIN 40 MG TAB PO SCH (20:26)
[2019-07-06] MEDS: risperiDONE 2 MG TABLET PO SCH (20:28)
[2019-07-07] MEDS: LEVOTHYROXINE SODIUM 75 MCG TABLET PO SCH (06:33)
[2019-07-07] MEDS: FLUTICASONE/SALMETEROL 100/50 (ADVAIR) 14 PUFF/1 INHALER INH SCH ×2 (07:53→21:25)
[2019-07-07] MEDS: METOPROLOL TARTRATE 25 MG TAB PO SCH ×2 (07:54→21:27)
[2019-07-07] MEDS: FUROSEMIDE 40 MG TAB PO SCH ×2 (07:54→17:35)
[2019-07-07] MEDS: predniSONE 20 MG TAB PO SCH (07:54)
[2019-07-07] MEDS: ASPIRIN 81 MG CHEW PO SCH (07:54)
[2019-07-07] MEDS: dilTIAZem HCL 300 MG CAPCR PO SCH (07:55)
[2019-07-07] MEDS: POTASSIUM CHLORIDE 10 MEQ TABCR PO SCH (07:55)
[2019-07-07] MEDS: DOCUSATE SODIUM/SENNA 50/8.6MG TAB PO SCH (07:56)
[2019-07-07] MEDS: ENOXAPARIN INJ 40 MG/0.4 ML SYR SQ SCH ×2 (07:56→21:28)
[2019-07-07] MEDS: DOXYCYCLINE HYCLATE 100 MG CAP PO SCH ×2 (07:56→21:27)
[2019-07-07] MEDS: risperiDONE 1 MG TABLET PO SCH (07:57)
[2019-07-07] MEDS: NYSTATIN POWDER 15GM BTL EXT SCH ×3 (07:57→21:29)
[2019-07-07] MEDS: NICOTINE 21 MG/24 HR TDSY TD SCH (07:57)
[2019-07-07] MEDS: INSULIN GLARGINE SOLOSTAR 100 UNITS/ML 3 ML PEN SC SCH (07:58)
[2019-07-07] MEDS: lisinopriL 40 MG TAB PO SCH (07:59)
[2019-07-07] MEDS: INSULIN ASPART 100 UNITS/ML 3 ML PEN SC SCH ×4 (09:09→21:29)
[2019-07-07] MEDS: ACETAMINOPHEN 325 MG TAB PO PRN (19:02)
--- NOTE | 2019-07-07 19:14 | Hospitalist Progress Note ---
Date of Service July 07, 2019 Assessment & Plan (1) Acute on chronic respiratory failure with hypoxia and hypercapnia: 69-year-old female with chronic COPD presented with acute shortness of breath resulting in rapid CO2 accumulation and altered mental status requiring emergent endotracheal intubation. Nebulizers PRN only. Cont prednisone taper for treatment of severe COPD exacerbation (2) COPD exacerbation: Plan as above, patient is a heavy smoker which will continue to cause an issue for her moving forward. Nicoderm patch provided. We discussed the importance of quitting and she is motivated. Doxycycline given for skin infection. Rocephin stopped. Cont pred taper. Nebs PRN (3) DMII (diabetes mellitus, type 2): New diagnosis. Has tried metformin IR in the past with GI upset. Will try metformin ER at time of discharge. Close PCP follow-up as outpatient. Here, cont glargine and Novlog for correction factor and carb coverage (4) Bilateral lower leg cellulitis: Patient with chronic venous stasis and woody appearance to the legs was noted to have erythema extending up to the thighs that was warm to touch on admission. Erythema has been absent since 2-3 days into her hospitalization. Continue doxy for total 10 days. (5) Chronic diastolic CHF (congestive heart failure): On chronic Lasix at home. Good response to Lasix 40mg daily. Cont home dose of 40mg PO BID. (6) Hypertension: Around goal. Continue home hydralazine, lisinopril, metoprolol per home regimen. Lisinopril was increased to 40mg daily on 07/04. Improved to goal. (7) Schizophrenia: Risperidone was held for several days, and she is doing well since this has been restarted. Had a previous reaction to lithium, and she is known to have hallucinations when off medications. (8) Bipolar 1 disorder: risperidone as above. Stopped prazosin and sertraline. Discuss restarting with outpatient psychiatric provider. (9) Hypothyroid: Continue levothyroxine per home regimen (10) Morbid obesity: counseled on the importance of weight loss. Now is a new onset diabetic, underscoring the importance of this. (11) Prolonged QT interval: improved on EKG. Cont to monitor. (12) DVT prophylaxis: Lovenox Full code Disposition-cont hospitalization. SNF per PT/OT recs. Natalie Taylor DO [facility] Hospitalist Subjective doing well today no real changes again, tells me about the help she would like to have in the home awaiting authorization to SNF but feels she might want to go home breathing is improved. Review of Systems Review of Systems: All systems reviewed & are unremarkable except as noted in HPI & below Physical Exam Physical Exam: CONSTITUTIONAL: obese, vitals as above, generally well- appearing EYES: normal conjunctivae ENT: MMM RESPIRATORY: Clear lungs to auscultation throughout. No conversational dyspnea. Off supplemental oxygen. CARDIOVASCULAR: regular rate and rhythm, S1 and 2 heard without murmurs, gallops or rubs, no JVD, no peripheral edema GASTROINTESTINAL: normal bowel sounds, soft, nontender, nondistended MUSCULOSKELETAL: strength 5/5 throughout, head is normocephalic and atraumatic SKIN: warm and dry, chronic woody appearance to her lower legs with erythroderma and no evidence of spreading erythema above the knees. No evidence of open wounds. Skin is dry and scaly. NEUROLOGIC: CN 2-12 grossly intact, disoriented, speech is normal, no other gross focal deficits. PSYCHIATRIC: alert cooperative and oriented to person, place and time. Results & Data Vital Signs (Past 12 Hours) Vital Signs Temp Pulse Pulse Resp BP BP Pulse Ox 07/07/19 15:16 36.7 C 70 17 131/70 95 07/07/19 07:30 36.3 C L 102 H 20 103/82 95 Medications Administered Current Inpatient Medications Acetaminophen (Tylenol) 650 mg PO Q4H PRN PRN Reason: Pain or Fever Stop: 07/30/19 20:24 Last Admin: 07/07/19 19:02 Dose: 650 mg Documented by: Albuterol (Duoneb) 3 ml NEB Q6R PRN PRN Reason: SOB or wheezing Stop: 08/02/19 18:59 Aspirin (Aspirin Chew) 81 mg PO QAM [facility] Stop: 07/31/19 10:59 Last Admin: 07/07/19 07:54 Dose: 81 mg Documented by: Atorvastatin Calcium (Lipitor) 40 mg PO HS [facility] Stop: 07/30/19 20:59 Last Admin: 07/06/19 20:26 Dose: 40 mg Documented by: Dextrose (Dextrose 50%) 25 - 50 ml IV UD PRN; Protocol PRN Reason: Hypoglycemia Protocol Stop: 08/01/19 09:55 Diltiazem HCl (Cardizem Cd) 300 mg PO DAILY [facility] Stop: 07/31/19 08:59 Last Admin: 07/07/19 07:55 Dose: 300 mg Documented by: Doxycycline Hyclate (Vibramycin) 100 mg PO BID [facility] Stop: 07/08/19 20:59 Last Admin: 07/07/19 07:56 Dose: 100 mg Documented by: Enoxaparin Sodium (Lovenox) 40 mg SQ BID [facility] Stop: 07/31/19 09:44 Last Admin: 07/07/19 07:56 Dose: 40 mg Documented by: Furosemide (Lasix) 40 mg PO BID17 [facility] Stop: 08/03/19 17:29 Last Admin: 07/07/19 17:35 Dose: 40 mg Documented by: Glucagon (Glucagen) 1 mg SQ UD PRN; Protocol PRN Reason: Hypoglycemia Protocol Stop: 08/01/19 09:55 Glucose (Dex4 Glucose) 4 - 8 tabs PO UD PRN; Protocol PRN Reason: Hypoglycemia Protocol Stop: 08/01/19 09:55 Glucose (Glucose 40%) 15 - 30 gm PO UD PRN; Protocol PRN Reason: Hypoglycemia Protocol Stop: 08/01/19 09:55 Hydralazine HCl (Apresoline) 75 mg PO TID [facility] Stop: 07/30/19 20:59 Last Admin: 07/07/19 13:43 Dose: 75 mg Documented by: Insulin Aspart (Novolog Flexpen) 0 units SC ACHS [facility] Stop: 08/02/19 20:59 Last Admin: 07/07/19 18:21 Dose: 7 units Documented by: Insulin Glargine (Lantus Solostar Pen) 12 units SC DAILY [facility] Stop: 08/01/19 08:59 Last Admin: 07/07/19 07:58 Dose: 12 units Documented by: Levothyroxine Sodium (Synthroid) 75 mcg PO DAILYBB [facility] Stop: 07/31/19 06:29 Last Admin: 07/07/19 06:33 Dose: 75 mcg Documented by: Lisinopril (Zestril) 40 mg PO DAILY [facility] Stop: 08/03/19 08:59 Last Admin: 07/07/19 07:59 Dose: 40 mg Documented by: Metoprolol Tartrate (Lopressor) 25 mg PO BID [facility] Stop: 07/31/19 10:59 Last Admin: 07/07/19 07:54 Dose: 25 mg Documented by: Miscellaneous (Carbohydrates For Hypoglycemia) 15 - 30 gm PO UD PRN PRN Reason: Hypoglycemia Protocol Stop: 08/01/19 09:55 Miscellaneous (Remove Nicoderm Patch) 1 ea N/A DAILY@0859 [facility] Stop: 08/02/19 08:58 Last Admin: 07/07/19 07:53 Dose: 1 ea Documented by: Nicotine (Nicoderm Cq) 21 mg TD QAM [facility] Stop: 08/01/19 12:44 Last Admin: 07/07/19 07:57 Dose: 21 mg Documented by: Nystatin (Mycostatin) 1 appln EXT TID [facility] Stop: 07/31/19 08:59 Last Admin: 07/07/19 13:44 Dose: 1 appln Documented by: Potassium Chloride (Klor-Con M10) 10 meq PO DAILY [facility] Stop: 07/31/19 08:59 Last Admin: 07/07/19 07:55 Dose: 10 meq Documented by: Prednisone (Prednisone) 20 mg PO DAILY [facility] Stop: 08/07/19 08:59 Risperidone (Risperdal) 1 mg PO QAM [facility] Stop: 07/31/19 08:59 Last Admin: 07/07/19 07:57 Dose: 1 mg Documented by: Risperidone (Risperdal) 2 mg PO HS [facility] Stop: 07/30/19 20:59 Last Admin: 07/06/19 20:28 Dose: 2 mg Documented by: Fluticasone/Salmeterol (Advair Diskus 100/50) 1 puffs INH BID [facility] Stop: 08/02/19 20:59 Last Admin: 07/07/19 07:53 Dose: 1 puffs Documented by: Senna/Docusate Sodium (Senokot S) 1 tab PO QAM [facility] Stop: 08/03/19 05:24 Last Admin: 07/07/19 07:56 Dose: 1 tab Documented by: (1) Hypertension Hypertension type: essential hypertension Qualified Code(s): I10 - Essential (primary) hypertension
[2019-07-07] MEDS: risperiDONE 2 MG TABLET PO SCH (21:27)
[2019-07-07] MEDS: ATORVASTATIN 40 MG TAB PO SCH (21:30)
[2019-07-08] MEDS: LEVOTHYROXINE SODIUM 75 MCG TABLET PO SCH (06:30)
[2019-07-08] MEDS: INSULIN ASPART 100 UNITS/ML 3 ML PEN SC SCH ×2 (08:51→13:16)
[2019-07-08] MEDS: FLUTICASONE/SALMETEROL 100/50 (ADVAIR) 14 PUFF/1 INHALER INH SCH (08:54)
[2019-07-08] MEDS: POTASSIUM CHLORIDE 10 MEQ TABCR PO SCH (08:57)
[2019-07-08] MEDS: dilTIAZem HCL 300 MG CAPCR PO SCH (08:57)
[2019-07-08] MEDS: INSULIN GLARGINE SOLOSTAR 100 UNITS/ML 3 ML PEN SC SCH (08:57)
[2019-07-08] MEDS: ENOXAPARIN INJ 40 MG/0.4 ML SYR SQ SCH (08:59)
[2019-07-08] MEDS: METOPROLOL TARTRATE 25 MG TAB PO SCH (08:59)
[2019-07-08] MEDS: FUROSEMIDE 40 MG TAB PO SCH (08:59)
[2019-07-08] MEDS: NICOTINE 21 MG/24 HR TDSY TD SCH (09:00)
[2019-07-08] MEDS ORDERED: predniSONE 20 MG TAB PO SCH (09:00)
[2019-07-08] MEDS: DOXYCYCLINE HYCLATE 100 MG CAP PO SCH (09:02)
[2019-07-08] MEDS: risperiDONE 1 MG TABLET PO SCH (09:02)
[2019-07-08] MEDS: lisinopriL 40 MG TAB PO SCH (09:03)
[2019-07-08] MEDS: ASPIRIN 81 MG CHEW PO SCH (09:15)
[2019-07-08] MEDS: DOCUSATE SODIUM/SENNA 50/8.6MG TAB PO SCH (09:15)
[2019-07-08] MEDS: NYSTATIN POWDER 15GM BTL EXT SCH ×2 (09:17→13:16)
--- NOTE | 2019-07-08 14:52 | Discharge Summary ---
Date of Service July 08, 2019 Admission HPI Per Admitting Provider 69-year-old female who presents the ED for evaluation of confusion and shortness of breath. Due to patient's current mental state, she is a very poor historian. She reports that her cousin came to check on her today and found her to be very ill-appearing so therefore she came to the ED for further evaluation. Patient reports she has not been taking care of herself recently. She admits to smoking an abundance of cigarettes and cigars per day. However she does report she has been taking her medications. When asked about her food and drink intake, she states " it has not been good". Patient reports getting into several arguments with her family which makes her upset. She denies suicidal or homicidal thoughts. Patient has several complaints when asked about symptoms. She reports that she has been having chest pain however cannot provide any details regarding that. She reports that she has had nausea vomiting and diarrhea. She reports a nonproductive cough. No fevers or chills. Denies urinary symptoms. Reports her legs are more red than normal. In the ED, patient was found to be hypoxic on room air at 83%. Patient is currently receiving nebulizer treatment and saturating well. VBG shows pH 7.32, PCO2 67. She is on be hyponatremic with sodium 124, mildly hypomagnesemic with magnesium 1.7 she was given Solu- Medrol 125 mg IV and magnesium replacement. Admission Exam Per Admitting Provider Constitutional: + ill appearing and + obese; no acute distress Eyes: PERRL, conjunctivae normal, anicteric sclerae ENMT: external ear and nose normal, oropharynx normal Respiratory: normal respiratory effort and able to speak in complete sentences; no respiratory distress Auscultation: + diminished lung sounds, + rhonchi (Scattered) and + wheezes (Bilateral, expiratory) Cardiovascular: Rate/Rhythm: regular rate and regular rhythm Vessels: normal peripheral pulses Extremities: + edema (+2 edema BLE) Gastrointestinal (Abdomen): normal bowel sounds, soft, nontender, no hepatosplenomegaly Musculoskeletal: Extremities: no cyanosis and no clubbing Generally weak throughout Skin: no rashes, warm and dry Thick, scaly skin noted to BLE with associated erythema extending up to the thighs, warm to touch Neurologic: PERRL, EOMI, accommodation nl, no face palsy, no dysarthria moves all extremities; + not awake (Somewhat lethargic however arouses easily to verbal stimuli) Psychiatric: Orientation: alert and oriented x 3 Affect: + depressed affect Principal Diagnosis Acute on chronic respiratory failure COPD exacerbation Morbid obesity Diabetes myelitis type II, new onset Bilateral lower leg cellulitis Chronic diastolic CHF Schizophrenia Bipolar 1 disorder Prolonged QT-resolved Discharge Data Allergies Allergy/AdvReac Type Severity Reaction Status Date / Time No Known Allergies Allergy Verified 04/26/19 17:15 Consultations 06/30/19 18:50 ED Decision to Admit Stat 06/30/19 20:25 Consult Case Management - Discharge Planning Routine 07/01/19 01:36 Consult Case Management - Discharge Planning Routine 07/01/19 02:20 Consult [facility] Routine Ordered Studies 06/30/19 17:31 CT cervical spine wo con Stat CT head/brain wo con Stat 06/30/19 19:35 CT angio chest PE protocol Urgent 06/30/19 20:25 US venous doppler LE Routine Hospital Course (1) Acute on chronic respiratory failure with hypoxia and hypercapnia: (2) COPD exacerbation: (3) DMII (diabetes mellitus, type 2): (4) Bilateral lower leg cellulitis: (5) Hypertension: (6) Schizophrenia: (7) Bipolar 1 disorder: (8) Morbid obesity: (9) Prolonged QT interval: 69-year-old active smoker with COPD and bipolar disorder presenting with severe shortness of breath. She was admitted the hospitalist service and ultimately intubated for COPD exacerbation later on that evening and sent to the ICU. She was extubated the following day was on BiPAP for couple hours with quick transition to supplemental oxygen via nasal cannula. An echocardiogram was performed on 07/02 revealing grade 1 diastolic dysfunction otherwise grossly normal valvular structure and function and a normal LV systolic function. She was continued on Rocephin and doxycycline for another couple of days. She was continued on steroids and scheduled nebulizer treatments. Notably a CTA of the chest demonstrated no pulmonary embolus. Although there was bronchial wall thickening most evident within the right lower lobe there was no evidence of pneumothorax, pleural effusion or other pneumonia. She had notably large lower extremities with chronic swelling and venous stasis changes. Initial exam had also shown some lower extremity cellulitis which was covered with the antibiotics above. Although her cellulitis had improved on hospital day 2 a bilateral lower extremity venous Doppler was performed revealing no evidence of deep venous thrombosis. She continued to do well clinically but was noted to have some pulmonary vascular congestion on chest x-ray. Her Lasix was restarted and she remained euvolemic for the rest of the hospitalization. She was noted to have a hemoglobin A1c of 6.9, consistent with a new diagnosis of diabetes, and she was started on metformin at time of discharge. Close primary care follow-up was recommended to monitor this and continue with annual screenings. She was also found to have a prolonged QT, therefore, risperidone, prazosin, and sertraline were held. Only her risperidone was restarted a few days later, and she continued to do well off her other medications. She was strongly encouraged to discuss these changes with her mental health provider as outpatient. At time of discharge she was mentating and ambulating at baseline and tolerating p.o. She was hemodynamically stable and afebrile and was oxygenating well on room air. She was sent home in stable condition with close primary care follow-up recommended. Total Time Total Time Spent Total Time Spent (In Minutes): 60 Total Time Includes: Examination of the Patient, Discharge Planning, Medication Reconciliation and Communication With Other Providers Discharge Plan Discharge Items Patient Disposition: Home - Home Health Services Reason For Visit: COPD EXACERBATION Discharge Diagnosis: Acute on chronic respiratory failure COPD exacerbation Morbid obesity Diabetes myelitis type II, new onset Bilateral lower leg cellulitis Chronic diastolic CHF Schizophrenia Bipolar 1 disorder Prolonged QT-resolved Condition on Discharge: Good Activity: Resume your previous activity Non-emergency contact: Primary Care Provider Call non-emergency contact if: you have any medication questions, your symptoms worsen, your pain is not controlled, your pain is worsening, your pain is unusual for you, your pain is concerning for you and you have a fever Follow-up/Referrals: Jazmyn Puga DO [Primary Care Provider] - Diet: Carb Consistent or DM2 and Low Sodium (2gm) Addtl Attending Provider Instructions: Please take all medications as instructed on discharge list below. Please note, metformin ER as a new medication as your labwork reflects diabetes range blood sugar. Cont lifestyle goals as discussed. It is recommended that you follow-up with your primary care provider within one week of discharge to discuss recent medication changes. It was a pleasure taking care of you! Please call if you have any questions or problems. You can reach a [facility] hospitalist on duty at [facility] 24 hours a day by calling [phone]. Take care of yourself. Natalie Taylor DO [facility] Hospitalist Addtl Weight Control Lecturer Provider Instructions: You have Obesity Hypoventilation Syndrome, The syndrome causes you to have too much carbon dioxide and too little oxygen in your blood. Without treatment it can lead to stop breathing and . You need to wear a CPAP machine when sleeping and follow up with a sleep study. This is causing your heart to work too hard. Pending Studies at Discharge: No Stand-Alone Forms: [facility], Smoking Cessation Medications and DC Order Prescriptions: New nicotine [Nicoderm CQ] 21 mg/24 hr Patch 24 Hour 21 mg transdermal QAM Qty: 14 RF: 1 prednisone 20 mg Tablet 20 mg PO DAILY Qty: 4 RF: 0 lisinopril [Zestril] 40 mg Tablet 40 mg PO DAILY Qty: 30 RF: 0 metformin 500 mg tablet extended release 24 hr 500 mg PO BID Qty: 60 RF: 0 Continued diltiazem HCl 300 mg capsule,extended release 24hr 300 mg PO DAILY RF: 0 furosemide 40 mg tablet 40 mg PO BID RF: 0 loratadine 10 mg tablet 10 tab PO QAM PRN (Reason: Allergy Symptoms) RF: 0 metoprolol tartrate 50 mg tablet 50 mg PO QAM RF: 0 risperidone 1 mg Tablet 1 mg PO QAM RF: 0 atorvastatin 40 mg tablet 40 mg PO HS RF: 0 ipratropium-albuterol 0.5 mg-3 mg(2.5 mg base)/3 mL solution for nebulization 3 ml inhalation QID PRN (Reason: Shortness Of Breath) RF: 0 levothyroxine 75 mcg tablet 75 mcg PO QAM RF: 0 risperidone 2 mg tablet 2 mg PO HS RF: 0 hydroxyzine pamoate 25 mg capsule 25 mg PO QID PRN (Reason: Anxiety) RF: 0 potassium chloride 10 mEq tablet extended release 10 meq PO DAILY RF: 0 aspirin 81 mg Tablet,Delayed Release (Dr/Ec) 81 mg PO DAILY RF: 0 ascorbic acid (vitamin C) 250 mg Tablet 250 mg PO DAILY RF: 0 hydralazine 50 mg tablet 75 mg PO TID RF: 0 Trelegy Ellipta 100-62.5-25 mcg blister with device 1 inh INHALATION DAILY RF: 0 Discontinued gabapentin 100 mg capsule 100 mg PO QAM RF: 0 sertraline 100 mg tablet 50 mg PO QAM RF: 0 prazosin 1 mg capsule 1 mg PO HS RF: 0 melatonin 1 mg Tablet 2 mg PO HS RF: 0 lisinopril 20 mg tablet 20 mg PO DAILY Qty: 30 RF: 3 Discharge Orders: Discharge Order (Routine); Ordered 07/08/19 Ordered By: Natalie Ross/Other Patient Handouts: Diabetes Carbs, Diabetes Inspect Feet, Diabetes Type 2, Metformin Hydrochloride Oral tablet extended-release Admission Data Admit Date/Time: 06/30/19 19:20 Attending Provider: Natalie Taylor Admit Provider: Archie Landers Primary Care Provider: Jazmyn Puga Other Providers: Al Mai Other Interventions: Discharge Summary Assessment (RN) Last Done: 07/08/19 15:14 DC Date/Time DO NOT enter until pt leaves facility: 07/08/19 16:43
== END 2019-07-08 16:43 | disposition home health service (06) | DRG 208 ==
LOC: ED 17:16 → 2S 19:20 → SUATTDRO 19:20 → 2S 20:22 → 1E 07-01 01:55 → 2S 07-02 08:02 → 2N 07-03 15:31 → 3N 07-06 22:16

== ENCOUNTER 2021-10-18 20:18 | Inpatient (IN) ==
[2021-10-18 22:12] LABS: Alanine Aminotransferase 16 U/L (7-52); Albumin Globulin Ratio 1.5 (0.9-2); Albumin Level 3.8 gm/dl (3.4-5.0); Alkaline Phosphatase 59 U/L (34-104); Anion Gap 4 (3-11); BUN Creatinine Ratio 17.2 (10-20); Bilirubin,Total 0.6 mg/dl (0.2-1.0); Blood Urea Nitrogen 10 mg/dl (6-23); Calcium 9.1 mg/dl (8.5-10.1); Carbon Dioxide 39 mmol/L (21-32); Chloride 93 mmol/L (98-107); Creatinine Clr Calc Pharmacy 99.3 ml/min; Globulin 2.6 gm/dl (2.5-4.0); Glucose 90 mg/dl (70-99(Fasting)); Magnesium 1.9 mg/dl (1.7-2.4); Sodium 136 mmol/L (136-145); Total Protein 6.4 gm/dl (6.0-8.3); Troponin I High Sensitivity 24.1 pg/ml (0-14)
[2021-10-18 22:55] LABS: Basophils # (auto) 0.02 K/uL (0-0.2); Basophils % (auto) 0.2 %; Eosinophils # (auto) 0.14 K/uL (0-0.5); Eosinophils % (auto) 1.5 %; Hematocrit (blood only) 50.3 % (37-47); Hemoglobin 16.8 g/dL (12.0-16.0); Immature Granulocytes # (auto) 0.01 K/uL (0.00-0.02); Immature Granulocytes % (auto) 0.1 %; Lymphocytes # (auto) 1.72 K/uL (1.2-3.4); Lymphocytes % (auto) 18.8 %; Mean Corpuscular Hemoglobin 31.1 pg (25-34); Mean Corpuscular Hgb Conc 33.4 g/dL (32-36); Mean Platelet Volume 9.3 fL (7.4-10.4); Monocytes # (auto) 0.66 K/uL (0.11-0.59); Monocytes % (auto) 7.2 %; Neutrophils # (auto) 6.62 K/uL (1.4-6.5); Neutrophils % (auto) 72.2 %; Platelet Count 216 K/uL (130-400); RDW Coefficient of Variation 15.9 % (11.5-14.5); RDW Standard Deviation 54.4 fL (36.4-46.3); Red Blood Count 5.41 M/uL (4.2-5.4); White Blood Count 9.17 K/uL (4.8-10.8)
[2021-10-18 23:09] LABS: Potassium 3.2 mmol/L (3.5-5.1)
[2021-10-19 01:14] LABS: Appearance Urine Clear (Clear); Bilirubin Urine Negative (Negative); Blood Urine Negative (Negative); Color Urine Yellow; Glucose Urine UA Negative (Negative); Ketones Urine Negative (Negative); Leukocyte Esterase Urine Negative (Negative); Nitrite Urine Negative (Negative); Protein Urine Negative (Negative); Specific Gravity Urine 1.006 (1.000-1.030); Urobilinogen Urine Negative (Negative)
[2021-10-19 01:35] LABS: Amphetamines+Metham, Urine Neg (Neg); Barbiturates, Urine Neg (Neg); Benzodiazepine, Urine Neg (Neg); Cocaine, Urine Neg (Neg); MDMA (Ecstacy), Urine Neg (Neg); Methadone, Urine Neg (Neg); Opiate, Urine Neg (Neg); Phencyclidine, Urine Neg (Neg)
[2021-10-19] MEDS ORDERED: POTASSIUM CHLORIDE CRTAB 20 MEQ TABCR PO STA (02:06)
[2021-10-19 02:15] LABS: Acetaminophen < 3 ug/ml (10-30); Salicylate < 3.0 mg/dl (3.0-30)
--- NOTE | 2021-10-19 02:22 | Emergency Department Note ---
Impression & Plan Misuse of medication, Schizophrenia, Dependence on supplemental oxygen ED Provider Note CHIEF COMPLAINT: Medication overdose, anxiety HISTORY OF PRESENT ILLNESS: This 71-year-old female patient presents to the emergency department with complaints of anxiety related to being evicted. Patient presents with her cousin who states that she overdosed on her Ativan. She took to 0.5 mg tablets earlier this afternoon because she was feeling anxious. Apparently the patient was not wearing her home oxygen and is also not taking her medications as she should. Cousin states that family has to call and remind her to take her medications and she often sleeps for much of the day. Cousin has done several check-in's and the patient has been found without her oxygen in place. She was confused and stated she was hearing voices. The patient does have a history of paranoid schizophrenia and states that she has not been able to be at home alone. She is feeling anxious and feels as though she may hurt herself. She does not have a history of suicidal ideation or attempt at self-harm. REVIEW OF SYSTEMS: Limited ROS secondary to patient's altered mental status/sedation ALLERGIES: see below MEDICATIONS: see below PMH: see below SOCIAL HISTORY: see below DDx: Infection, hypoglycemia, electrolyte abnormalities, overdose, toxicologic, cardiac sources, intracerebral event, neurologic, trauma, as well as other pathologies. PHYSICAL EXAM: Vital signs reviewed. General: Elderly, obese 71-year-old female, in no significant distress. HEENT: No scleral icterus, PERRLA, neck supple. Moist mucous membranes Cardiovascular: Bradycardic but regular, distant heart tones Pulmonary: Crackles to the bases bilaterally, normal work of breathing. Nasal cannula oxygen in place Abdomen: Soft, nontender, nondistended, positive bowel sounds. Exam is limited secondary to obesity. Musculoskeletal: Atraumatic, moderate peripheral edema. Neurologic: Somnolent but arousable to painful stimuli. Answers 1-2 word sentences but falls asleep quickly. Skin: Warm, dry, venous stasis changes noted bilaterally EMERGENCY DEPARTMENT COURSE/MDM: This patient was evaluated and appeared to be in no significant distress. IV access was obtained and laboratory work was drawn. The patient was placed on the color television console monitor noted to be in a sinus bradycardia. EKG reveals a sinus bradycardia with a left axis deviation and a left bundle branch block. Patient's laboratory work is fairly reassuring. She does have an elevated troponin of 24.1/25.8 on repeat. UA is negative for infection. Head CT was performed and is negative for acute intracranial abnormality, please see read below. Case management was asked to see the patient regarding her psychiatric needs. Apparently the patient is awaiting placement in a personal care facility. Case has been discussed with the [facility] hospitalist who will evaluate the patient for further management. MONITORING: An order for cardiac monitoring was placed and the patient is noted to be in a sinus bradycardia at 56 beats per minute. RADIOLOGY: PreliminaryFindingsOnly See Final Report For Complete Findings CT HEAD: No intracranial hemorrhage, mass-effect or midline shift. There is no abnormal extra axial fluid collection. No evidence of acute infarct. Mild periventricular white matter hypodensities are most consistent with chronic microangiopathy. The visualized paranasal sinuses and mastoid air cells are clear. No fracture. Radiologist: Radha Camp MD Study ready at 23:30 and initial results transmitted at 00:47 Chest x-ray to my interpretation reveals pulmonary vascular congestion with minimal consolidation in the mid lateral lung field on the left. This is likely atelectasis as the patient has no signs or symptoms of pneumonia EKG: Sinus bradycardia at 54 bpm with a left axis deviation and left bundle branch block. QTC of 496 with no PVC, PAC. When compared to previous dated 07/05/19 no significant change has occurred. DISPOSITION:Admit Past Med/Surg History Medical History Bipolar 1 disorder COPD (chronic obstructive pulmonary disease) HLD (hyperlipidemia) Hypertension Hypothyroid Obesity hypoventilation syndrome Schizophrenia Surgical History History of total right knee replacement Family History Mother Diabetes Social History Smoking Status: Former smoker Second Hand Exposure: No; Hx Alcohol Use: No Hx Substance Use: No Preferred Language: Azeri Communication Ability: Effective Carpenter Street[employer] Required: No Beliefs That Will Affect Care: None marital status: Current Living Situation: Alone Feels Safe at Home: Hesitant to Answer Assistive Devices: Oxygen - Continuous Allergies Allergies Allergy/AdvReac Type Severity Reaction Status Date / Time lisinopril Allergy Severe EDEMA OF Verified 10/18/21 21:10 FACE, LIPS & TONGUE Home Meds Previous Rx's Medication Instructions Recorded Collagen Capsule 500 mg PO DAILY #30 cap 10/24/21 albuterol sulfate 2.5 mg INHALATION DIRECTED PRN 10/24/21 30 Days #15 ml albuterol sulfate 90 mcg/actuation 2 puff INHALATION Q6H PRN #1 10/24/21 aerosol inhaler inhaler ascorbic acid (vitamin C) 250 mg 250 mg PO DAILY #30 tab 10/24/21 tablet aspirin 81 mg tablet,delayed 81 mg PO DAILY #30 tab 10/24/21 release atorvastatin 40 mg tablet 40 mg PO HS #30 tab 10/24/21 diltiazem HCl 300 mg 300 mg PO DAILY #30 cap 10/24/21 capsule,extended release 24 hr docusate sodium 100 mg capsule 200 mg PO DAILY #60 cap 10/24/21 fluticasone fur. 100 mcg-umeclid 1 inh INHALATION DAILY #60 ea 10/24/21 62.5 mcg-vilant 25 mcg inhalat.powder (Trelegy Ellipta) furosemide 40 mg tablet 40 mg PO BID #60 tab 10/24/21 hydralazine 50 mg tablet 75 mg PO TID 30 Days #135 tab 10/24/21 ipratropium 0.5 mg-albuterol 3 mg 3 ml INHALATION QID PRN 30 Days 10/24/21 (2.5 mg base)/3 mL nebulization #90 ml soln levothyroxine 75 mcg tablet 75 mcg PO DAILYBB #30 tab 10/24/21 loratadine 10 mg tablet 10 tab PO QAM #30 tab 10/24/21 lorazepam 0.5 mg tablet 0.5 mg PO BID PRN #10 tab 10/24/21 metformin 500 mg tablet,extended 500 mg PO BID #60 tab 10/24/21 release 24 hr metoprolol tartrate 25 mg tablet 12.5 mg PO BID #30 tab 10/24/21 [id number]-eac-MH 0.4 mg-calcium 162 1 tab PO DAILY #30 tab 10/24/21 mg-iron 18 [id number]-ljxzvy tablet omega-3 fatty acids 1,000 mg 1,000 mg PO DAILY 30 Days #30 cap 10/24/21 capsule potassium chloride 10 mEq 10 meq PO DAILY #30 tab 10/24/21 tablet,extended release prazosin 1 mg capsule 1 mg PO HS #30 cap 10/24/21 risperidone 1 mg tablet 1 mg PO QAM #30 tab 10/24/21 risperidone 2 mg tablet 2 mg PO QDD #30 tab 10/24/21 Results & Data (ED) Vital Signs Vital Signs - 24 hr 10/18/21 20:27 10/18/21 20:47 10/18/21 20:52 Temperature 36 C L Temperature Source Temporal Artery Scan Pulse Rate 61 Pulse Rate [Right] 59 L Pulse Rate from SpO2 Sensor Pulse Rhythm Pulse Rhythm [Right] Regular Pulse Strength [Right] Normal Respiratory Rate 20 20 Respiratory Effort / Characteristics Non-Labored Non-Labored Respiratory Depth Normal Normal Blood Pressure 140/82 Blood Pressure [Right Arm] Blood Pressure Mean 101 Blood Pressure Mean [Right Arm] Blood Pressure Position Sitting Pulse Oximetry 90 88 L 97 Oxygen Delivery Method Room Air Room Air Nasal Cannula Oxygen Flow Rate 2 Sepsis Recent Fever Within 48 Hours No Sepsis New/Unexplained Change in Mental Status N/A Sepsis Action Taken by Nursing No Action Required 10/18/21 21:01 10/18/21 21:10 10/18/21 21:14 Temperature Temperature Source Pulse Rate 54 L 53 L 55 L Pulse Rate [Right] Pulse Rate from SpO2 Sensor 53 L 54 L Pulse Rhythm Regular Pulse Rhythm [Right] Pulse Strength [Right] Respiratory Rate 15 16 20 Respiratory Effort / Characteristics Respiratory Depth Blood Pressure Blood Pressure [Right Arm] Blood Pressure Mean Blood Pressure Mean [Right Arm] Blood Pressure Position Pulse Oximetry 98 97 98 Oxygen Delivery Method Nasal Cannula Oxygen Flow Rate Sepsis Recent Fever Within 48 Hours Sepsis New/Unexplained Change in Mental Status Sepsis Action Taken by Nursing 10/18/21 21:20 10/18/21 21:30 10/18/21 21:40 Temperature Temperature Source Pulse Rate 59 L 57 L 55 L Pulse Rate [Right] Pulse Rate from SpO2 Sensor 59 L 56 L 54 L Pulse Rhythm Pulse Rhythm [Right] Pulse Strength [Right] Respiratory Rate 16 12 15 Respiratory Effort / Characteristics Respiratory Depth Blood Pressure Blood Pressure [Right Arm] Blood Pressure Mean Blood Pressure Mean [Right Arm] Blood Pressure Position Pulse Oximetry 98 98 98 Oxygen Delivery Method Oxygen Flow Rate Sepsis Recent Fever Within 48 Hours Sepsis New/Unexplained Change in Mental Status Sepsis Action Taken by Nursing 10/18/21 21:50 10/18/21 22:00 10/18/21 22:10 Temperature Temperature Source Pulse Rate 65 52 L 58 L Pulse Rate [Right] Pulse Rate from SpO2 Sensor 63 55 L 58 L Pulse Rhythm Pulse Rhythm [Right] Pulse Strength [Right] Respiratory Rate 17 11 L 15 Respiratory Effort / Characteristics Respiratory Depth Blood Pressure Blood Pressure [Right Arm] Blood Pressure Mean Blood Pressure Mean [Right Arm] Blood Pressure Position Pulse Oximetry 95 97 96 Oxygen Delivery Method Oxygen Flow Rate Sepsis Recent Fever Within 48 Hours Sepsis New/Unexplained Change in Mental Status Sepsis Action Taken by Nursing 10/18/21 22:20 10/18/21 22:30 10/18/21 22:40 Temperature Temperature Source Pulse Rate 54 L 50 L 53 L Pulse Rate [Right] Pulse Rate from SpO2 Sensor 56 L 51 L 53 L Pulse Rhythm Pulse Rhythm [Right] Pulse Strength [Right] Respiratory Rate 15 10 L 20 Respiratory Effort / Characteristics Respiratory Depth Blood Pressure Blood Pressure [Right Arm] Blood Pressure Mean Blood Pressure Mean [Right Arm] Blood Pressure Position Pulse Oximetry 95 96 95 Oxygen Delivery Method Oxygen Flow Rate Sepsis Recent Fever Within 48 Hours Sepsis New/Unexplained Change in Mental Status Sepsis Action Taken by Nursing 10/18/21 22:50 10/18/21 23:00 10/18/21 23:10 Temperature Temperature Source Pulse Rate 51 L 53 L 49 L Pulse Rate [Right] Pulse Rate from SpO2 Sensor 52 L 53 L 50 L Pulse Rhythm Pulse Rhythm [Right] Pulse Strength [Right] Respiratory Rate 13 19 14 Respiratory Effort / Characteristics Respiratory Depth Blood Pressure Blood Pressure [Right Arm] Blood Pressure Mean Blood Pressure Mean [Right Arm] Blood Pressure Position Pulse Oximetry 98 97 96 Oxygen Delivery Method Oxygen Flow Rate Sepsis Recent Fever Within 48 Hours Sepsis New/Unexplained Change in Mental Status Sepsis Action Taken by Nursing 10/18/21 23:27 10/18/21 23:30 10/18/21 23:40 Temperature Temperature Source Pulse Rate 55 L 55 L 54 L Pulse Rate [Right] Pulse Rate from SpO2 Sensor Pulse Rhythm Pulse Rhythm [Right] Pulse Strength [Right] Respiratory Rate 19 14 22 Respiratory Effort / Characteristics Respiratory Depth Blood Pressure Blood Pressure [Right Arm] Blood Pressure Mean Blood Pressure Mean [Right Arm] Blood Pressure Position Pulse Oximetry 94 Oxygen Delivery Method Oxygen Flow Rate Sepsis Recent Fever Within 48 Hours Sepsis New/Unexplained Change in Mental Status Sepsis Action Taken by Nursing 10/18/21 23:50 10/19/21 00:00 10/19/21 00:10 Temperature Temperature Source Pulse Rate 57 L 55 L 56 L Pulse Rate [Right] Pulse Rate from SpO2 Sensor Pulse Rhythm Pulse Rhythm [Right] Pulse Strength [Right] Respiratory Rate 23 18 24 Respiratory Effort / Characteristics Respiratory Depth Blood Pressure Blood Pressure [Right Arm] Blood Pressure Mean Blood Pressure Mean [Right Arm] Blood Pressure Position Pulse Oximetry Oxygen Delivery Method Oxygen Flow Rate Sepsis Recent Fever Within 48 Hours Sepsis New/Unexplained Change in Mental Status Sepsis Action Taken by Nursing 10/19/21 00:20 Temperature Temperature Source Pulse Rate 56 L Pulse Rate [Right] Pulse Rate from SpO2 Sensor 57 L Pulse Rhythm Pulse Rhythm [Right] Pulse Strength [Right] Respiratory Rate 18 Respiratory Effort / Characteristics Respiratory Depth Blood Pressure Blood Pressure [Right Arm] 139/71 Blood Pressure Mean Blood Pressure Mean [Right Arm] 93 Blood Pressure Position Pulse Oximetry 96 Oxygen Delivery Method Oxygen Flow Rate Sepsis Recent Fever Within 48 Hours Sepsis New/Unexplained Change in Mental Status Sepsis Action Taken by Prison Medications Current Medication List: was personally reviewed by me Laboratory Data Attestation: I reviewed the patient's lab results. Result diagrams: 10/24/21 07:54 10/24/21 07:54 Lab Results 10/18/21 10/18/21 10/18/21 Range/Units 21:30 21:30 21:30 WBC (4.8-10.8) K/uL RBC (4.2-5.4) M/uL Hgb (12.0-16.0) g/dL Hct (37-47) % MCV (80-100) fL MCH (25-34) pg MCHC (32-36) g/dL RDW Std Deviation (36.4-46.3) fL RDW Coeff of Connor (11.5-14.5) % Plt Count (130-400) K/uL MPV (7.4-10.4) fL Immature Gran % (Auto) % Neut % (Auto) % Lymph % (Auto) % [place] % (Auto) % Eos % (Auto) % Baso % (Auto) % Neut # (Auto) (1.4-6.5) K/uL Lymph # (Auto) (1.2-3.4) K/uL [place] # (Auto) (0.11-0.59) K/uL Eos # (Auto) (0-0.5) K/uL Baso # (Auto) (0-0.2) K/uL Immature Gran # (Auto) (0.00-0.02) K/uL APTT PTT Ratio Sodium 136 (136-145) mmol/L Potassium TNP Chloride 93 L (98-107) mmol/L Carbon Dioxide 39 H (21-32) mmol/L Anion Gap 4 (3-11) BUN 10 (6-23) mg/dl Creatinine 0.58 L (0.6-1.2) mg/dl Est Cr Clr Drug Dosing 99.3 ml/min Est GFR ( Amer) 109.0 ml/min Est GFR (Non-Af Amer) 94.0 ml/min BUN/Creatinine Ratio 17.2 (10-20) Glucose 90 (70-99(Fasting)) mg/dl Estimat Average Glucose mg/dl Hemoglobin A1c (4.5-5.6) % Calcium 9.1 (8.5-10.1) mg/dl Magnesium 1.9 (1.7-2.4) mg/dl Total Bilirubin 0.6 (0.2-1.0) mg/dl AST TNP ALT 16 (7-52) U/L Alkaline Phosphatase 59 (34-104) U/L Troponin I High Sens 24.1 H (0-14) pg/ml Total Protein 6.4 (6.0-8.3) gm/dl Albumin 3.8 (3.4-5.0) gm/dl Globulin 2.6 (2.5-4.0) gm/dl Albumin/Globulin Ratio 1.5 (0.9-2) TSH 3.240 (0.300-4.500) uIu/ml Salicylates (3.0-30) mg/dl Acetaminophen (10-30) ug/ml Ethyl Alcohol mg/dL < 10.0 (<10.0) mg/dl SARS-CoV-2, RNA, NAAT (NEGATIVE) 10/18/21 10/18/21 10/18/21 Range/Units 21:30 21:30 22:34 WBC 9.17 (4.8-10.8) K/uL RBC 5.41 H (4.2-5.4) M/uL Hgb 16.8 H (12.0-16.0) g/dL Hct 50.3 H (37-47) % MCV 93.0 (80-100) fL MCH 31.1 (25-34) pg MCHC 33.4 (32-36) g/dL RDW Std Deviation 54.4 H (36.4-46.3) fL RDW Coeff of Connor 15.9 H (11.5-14.5) % Plt Count 216 (130-400) K/uL MPV 9.3 (7.4-10.4) fL Immature Gran % (Auto) 0.1 % Neut % (Auto) 72.2 % Lymph % (Auto) 18.8 % [place] % (Auto) 7.2 % Eos % (Auto) 1.5 % Baso % (Auto) 0.2 % Neut # (Auto) 6.62 H (1.4-6.5) K/uL Lymph # (Auto) 1.72 (1.2-3.4) K/uL [place] # (Auto) 0.66 H (0.11-0.59) K/uL Eos # (Auto) 0.14 (0-0.5) K/uL Baso # (Auto) 0.02 (0-0.2) K/uL Immature Gran # (Auto) 0.01 (0.00-0.02) K/uL APTT Cancelled PTT Ratio Cancelled Sodium (136-145) mmol/L Potassium Chloride (98-107) mmol/L Carbon Dioxide (21-32) mmol/L Anion Gap (3-11) BUN (6-23) mg/dl Creatinine (0.6-1.2) mg/dl Est Cr Clr Drug Dosing ml/min Est GFR ( Amer) ml/min Est GFR (Non-Af Amer) ml/min BUN/Creatinine Ratio (10-20) Glucose (70-99(Fasting)) mg/dl Estimat Average Glucose mg/dl Hemoglobin A1c (4.5-5.6) % Calcium (8.5-10.1) mg/dl Magnesium (1.7-2.4) mg/dl Total Bilirubin (0.2-1.0) mg/dl AST ALT (7-52) U/L Alkaline Phosphatase (34-104) U/L Troponin I High Sens (0-14) pg/ml Total Protein (6.0-8.3) gm/dl Albumin (3.4-5.0) gm/dl Globulin (2.5-4.0) gm/dl Albumin/Globulin Ratio (0.9-2) TSH (0.300-4.500) uIu/ml Salicylates (3.0-30) mg/dl Acetaminophen (10-30) ug/ml Ethyl Alcohol mg/dL (<10.0) mg/dl SARS-CoV-2, RNA, NAAT NEGATIVE (NEGATIVE) 10/18/21 10/18/21 10/18/21 Range/Units 22:34 22:34 23:11 WBC (4.8-10.8) K/uL RBC (4.2-5.4) M/uL Hgb (12.0-16.0) g/dL Hct (37-47) % MCV (80-100) fL MCH (25-34) pg MCHC (32-36) g/dL RDW Std Deviation (36.4-46.3) fL RDW Coeff of Connor (11.5-14.5) % Plt Count (130-400) K/uL MPV (7.4-10.4) fL Immature Gran % (Auto) % Neut % (Auto) % Lymph % (Auto) % [place] % (Auto) % Eos % (Auto) % Baso % (Auto) % Neut # (Auto) (1.4-6.5) K/uL Lymph # (Auto) (1.2-3.4) K/uL [place] # (Auto) (0.11-0.59) K/uL Eos # (Auto) (0-0.5) K/uL Baso # (Auto) (0-0.2) K/uL Immature Gran # (Auto) (0.00-0.02) K/uL APTT PTT Ratio Sodium (136-145) mmol/L Potassium 3.2 L Chloride (98-107) mmol/L Carbon Dioxide (21-32) mmol/L Anion Gap (3-11) BUN (6-23) mg/dl Creatinine (0.6-1.2) mg/dl Est Cr Clr Drug Dosing ml/min Est GFR ( Amer) ml/min Est GFR (Non-Af Amer) ml/min BUN/Creatinine Ratio (10-20) Glucose (70-99(Fasting)) mg/dl Estimat Average Glucose 134 mg/dl Hemoglobin A1c 6.3 H (4.5-5.6) % Calcium (8.5-10.1) mg/dl Magnesium (1.7-2.4) mg/dl Total Bilirubin (0.2-1.0) mg/dl AST 15 ALT (7-52) U/L Alkaline Phosphatase (34-104) U/L Troponin I High Sens 25.8 H (0-14) pg/ml Total Protein (6.0-8.3) gm/dl Albumin (3.4-5.0) gm/dl Globulin (2.5-4.0) gm/dl Albumin/Globulin Ratio (0.9-2) TSH (0.300-4.500) uIu/ml Salicylates (3.0-30) mg/dl Acetaminophen (10-30) ug/ml Ethyl Alcohol mg/dL (<10.0) mg/dl SARS-CoV-2, RNA, NAAT (NEGATIVE) 10/19/21 Range/Units 01:22 WBC (4.8-10.8) K/uL RBC (4.2-5.4) M/uL Hgb (12.0-16.0) g/dL Hct (37-47) % MCV (80-100) fL MCH (25-34) pg MCHC (32-36) g/dL RDW Std Deviation (36.4-46.3) fL RDW Coeff of Connor (11.5-14.5) % Plt Count (130-400) K/uL MPV (7.4-10.4) fL Immature Gran % (Auto) % Neut % (Auto) % Lymph % (Auto) % [place] % (Auto) % Eos % (Auto) % Baso % (Auto) % Neut # (Auto) (1.4-6.5) K/uL Lymph # (Auto) (1.2-3.4) K/uL [place] # (Auto) (0.11-0.59) K/uL Eos # (Auto) (0-0.5) K/uL Baso # (Auto) (0-0.2) K/uL Immature Gran # (Auto) (0.00-0.02) K/uL APTT PTT Ratio Sodium (136-145) mmol/L Potassium Chloride (98-107) mmol/L Carbon Dioxide (21-32) mmol/L Anion Gap (3-11) BUN (6-23) mg/dl Creatinine (0.6-1.2) mg/dl Est Cr Clr Drug Dosing ml/min Est GFR ( Amer) ml/min Est GFR (Non-Af Amer) ml/min BUN/Creatinine Ratio (10-20) Glucose (70-99(Fasting)) mg/dl Estimat Average Glucose mg/dl Hemoglobin A1c (4.5-5.6) % Calcium (8.5-10.1) mg/dl Magnesium (1.7-2.4) mg/dl Total Bilirubin (0.2-1.0) mg/dl AST ALT (7-52) U/L Alkaline Phosphatase (34-104) U/L Troponin I High Sens (0-14) pg/ml Total Protein (6.0-8.3) gm/dl Albumin (3.4-5.0) gm/dl Globulin (2.5-4.0) gm/dl Albumin/Globulin Ratio (0.9-2) TSH (0.300-4.500) uIu/ml Salicylates < 3.0 L (3.0-30) mg/dl Acetaminophen < 3 L (10-30) ug/ml Ethyl Alcohol mg/dL (<10.0) mg/dl SARS-CoV-2, RNA, NAAT (NEGATIVE) Administered Medications Discontinued Medications Albuterol (Albut/Ipratrop 3mg/0.5mg Neb 3 Ml Vial) 3 ml NEB NOW STA; Protocol Stop: 10/19/21 02:58 Last Admin: 10/19/21 03:33 Dose: 3 ml Documented by: [id number] Albuterol (Albut/Ipratrop 3mg/0.5mg Neb 3 Ml Vial) 3 ml NEB Q2H PRN; Protocol PRN Reason: Wheezing Stop: 11/18/21 05:35 Last Admin: 10/24/21 12:03 Dose: 3 ml Documented by: [id number] Admin: 10/22/21 11:47 Dose: 3 ml Documented by: [id number] Admin: 10/20/21 22:48 Dose: 3 ml Documented by: [id number] Aspirin (Aspirin 81 Mg Ectab) 81 mg PO DAILY SAMUEL Stop: 11/18/21 08:59 Last Admin: 10/24/21 09:32 Dose: 81 mg Documented by: [id number] Admin: 10/23/21 08:24 Dose: 81 mg Documented by: [id number] Admin: 10/22/21 07:57 Dose: 81 mg Documented by: [id number] Admin: 10/21/21 09:47 Dose: 81 mg Documented by: [id number] Admin: 10/20/21 08:24 Dose: 81 mg Documented by: [id number] Admin: 10/19/21 08:21 Dose: 81 mg Documented by: [id number] Atorvastatin Calcium (Atorvastatin 40 Mg Tab) 40 mg PO HS SAMUEL Stop: 11/18/21 20:59 Last Admin: 10/23/21 20:15 Dose: 40 mg Documented by: [id number] Admin: 10/22/21 20:27 Dose: 40 mg Documented by: [id number] Admin: 10/21/21 21:56 Dose: 40 mg Documented by: [id number] Admin: 10/20/21 19:42 Dose: 40 mg Documented by: [id number] Admin: 10/19/21 20:02 Dose: 40 mg Documented by: [id number] Diltiazem HCl (Diltiazem Hcl 300 Mg Capcr) 300 mg PO DAILY SAMUEL Stop: 11/18/21 08:59 Last Admin: 10/24/21 08:22 Dose: 300 mg Documented by: [id number] Admin: 10/23/21 08:24 Dose: 300 mg Documented by: [id number] Admin: 10/22/21 07:57 Dose: 300 mg Documented by: [id number] Admin: 10/21/21 09:46 Dose: 300 mg Documented by: [id number] Admin: 10/20/21 08:25 Dose: 300 mg Documented by: [id number] Admin: 10/19/21 08:21 Dose: 300 mg Documented by: [id number] Docusate Sodium (Docusate Sodium 100 Mg Cap) 200 mg PO DAILY SAMUEL Stop: 11/18/21 08:59 Last Admin: 10/24/21 09:35 Dose: 200 mg Documented by: [id number] Admin: 10/23/21 08:24 Dose: 200 mg Documented by: [id number] Admin: 10/22/21 07:58 Dose: 200 mg Documented by: [id number] Admin: 10/21/21 09:50 Dose: 200 mg Documented by: [id number] Admin: 10/20/21 08:25 Dose: 200 mg Documented by: [id number] Admin: 10/19/21 08:21 Dose: 200 mg Documented by: [id number] Enoxaparin Sodium (Enoxaparin Inj 40 Mg/0.4 Ml Syr) 40 mg SQ QAM SAMUEL Stop: 11/18/21 08:59 Last Admin: 10/24/21 09:33 Dose: 40 mg Documented by: [id number] Admin: 10/23/21 08:19 Dose: 40 mg Documented by: [id number] Admin: 10/22/21 07:58 Dose: 40 mg Documented by: [id number] Admin: 10/21/21 09:49 Dose: 40 mg Documented by: [id number] Admin: 10/20/21 08:23 Dose: 40 mg Documented by: [id number] Admin: 10/19/21 08:18 Dose: 40 mg Documented by: [id number] Fluticasone Furoate (Fluticasone Furoate 100mcg 14 Puffs/Inhaler) 1 puffs INH DAILY SAMUEL; Protocol Stop: 11/18/21 08:59 Last Admin: 10/24/21 09:31 Dose: 1 puffs Documented by: [id number] Admin: 10/23/21 08:19 Dose: 1 puffs Documented by: [id number] Admin: 10/22/21 07:56 Dose: 1 puffs Documented by: [id number] Admin: 10/21/21 09:48 Dose: 1 puffs Documented by: [id number] Admin: 10/20/21 08:22 Dose: 1 puffs Documented by: [id number] Admin: 10/19/21 08:22 Dose: 1 puffs Documented by: [id number] Furosemide (Furosemide 40 Mg Tab) 40 mg PO [id number] SAMUEL Stop: 11/18/21 08:59 Last Admin: 10/24/21 08:23 Dose: 40 mg Documented by: [id number] Admin: 10/23/21 17:45 Dose: 40 mg Documented by: [id number] Admin: 10/23/21 09:39 Dose: 40 mg Documented by: [id number] Admin: 10/22/21 18:11 Dose: 40 mg Documented by: [id number] Admin: 10/22/21 07:57 Dose: 40 mg Documented by: [id number] Admin: 10/21/21 17:58 Dose: 40 mg Documented by: [id number] Admin: 10/21/21 09:47 Dose: 40 mg Documented by: [id number] Admin: 10/20/21 17:01 Dose: 40 mg Documented by: [id number] Admin: 10/20/21 08:24 Dose: 40 mg Documented by: [id number] Admin: 10/19/21 17:36 Dose: 40 mg Documented by: [id number] Admin: 10/19/21 10:00 Dose: 40 mg Documented by: [id number] Furosemide (Furosemide 40 Mg/4 Ml Vial) 40 mg IV ONE ONE Stop: 10/19/21 05:56 Last Admin: 10/19/21 06:46 Dose: 40 mg Documented by: [id number] Hydralazine HCl (Hydralazine Hcl 25 Mg Tab) 75 mg PO TID SAMUEL Stop: 11/18/21 08:59 Last Admin: 10/24/21 08:21 Dose: 75 mg Documented by: [id number] Admin: 10/23/21 20:16 Dose: 75 mg Documented by: [id number] Admin: 10/23/21 14:35 Dose: 75 mg Documented by: [id number] Admin: 10/23/21 08:24 Dose: 75 mg Documented by: [id number] Admin: 10/22/21 20:26 Dose: 75 mg Documented by: [id number] Admin: 10/22/21 14:21 Dose: 75 mg Documented by: [id number] Admin: 10/22/21 07:58 Dose: 75 mg Documented by: [id number] Admin: 10/21/21 21:56 Dose: 75 mg Documented by: [id number] Admin: 10/21/21 14:30 Dose: 75 mg Documented by: [id number] Admin: 10/21/21 09:48 Dose: 75 mg Documented by: [id number] Admin: 10/20/21 19:41 Dose: 75 mg Documented by: [id number] Admin: 10/20/21 13:26 Dose: 75 mg Documented by: [id number] Admin: 10/20/21 08:24 Dose: 75 mg Documented by: [id number] Admin: 10/19/21 20:01 Dose: 75 mg Documented by: [id number] Admin: 10/19/21 13:45 Dose: 75 mg Documented by: [id number] Admin: 10/19/21 08:21 Dose: 75 mg Documented by: [id number] Insulin Aspart (Insulin Aspart Per Unit) 0 units SC ACHS SAMUEL Stop: 11/18/21 05:35 Last Admin: 10/24/21 12:39 Dose: 2 units Documented by: [id number] Cosigned by: [id number] Admin: 10/24/21 09:31 Dose: Not Given Documented by: [id number] Admin: 10/23/21 21:52 Dose: Not Given Documented by: [id number] Admin: 10/23/21 18:25 Dose: 1 units Documented by: [id number] Cosigned by: [id number] Admin: 10/23/21 13:19 Dose: 1 units Documented by: [id number] Cosigned by: [id number] Admin: 10/23/21 09:06 Dose: 4 units Documented by: [id number] Cosigned by: [id number] Admin: 10/22/21 20:45 Dose: Not Given Documented by: [id number] Admin: 10/22/21 17:55 Dose: 3 units Documented by: [id number] Cosigned by: [id number] Admin: 10/22/21 13:10 Dose: Not Given Documented by: [id number] Admin: 10/22/21 09:43 Dose: 4 units Documented by: [id number] Cosigned by: [id number] Admin: 10/21/21 20:26 Dose: Not Given Documented by: [id number] Cosigned by: [id number] Admin: 10/21/21 17:46 Dose: Not Given Documented by: [id number] Admin: 10/21/21 12:28 Dose: Not Given Documented by: [id number] Cosigned by: [id number] Admin: 10/21/21 09:36 Dose: Not Given Documented by: [id number] Admin: 10/20/21 21:35 Dose: Not Given Documented by: [id number] Cosigned by: [id number] Admin: 10/20/21 16:53 Dose: 3 units Documented by: [id number] Cosigned by: [id number] Admin: 10/20/21 11:39 Dose: 2 units Documented by: [id number] Cosigned by: [id number] Admin: 10/20/21 07:50 Dose: 4 units Documented by: [id number] Cosigned by: [id number] Admin: 10/19/21 23:11 Dose: Not Given Documented by: [id number] Admin: 10/19/21 17:28 Dose: 2 units Documented by: [id number] Cosigned by: [id number] Admin: 10/19/21 12:04 Dose: 3 units Documented by: [id number] Cosigned by: [id number] Admin: 10/19/21 06:47 Dose: Not Given Documented by: [id number] Ioversol (Optiray 320 125ml) 125 ml IV ONCE ONE Stop: 10/19/21 03:27 Last Admin: 10/19/21 03:26 Dose: 89 ml Documented by: [id number] Levothyroxine Sodium (Levothyroxine Sodium 75 Mcg Tablet) 75 mcg PO DAILYBB [facility] Stop: 11/18/21 06:29 Last Admin: 10/24/21 05:25 Dose: 75 mcg Documented by: [id number] Admin: 10/23/21 05:41 Dose: 75 mcg Documented by: [id number] Admin: 10/22/21 06:31 Dose: 75 mcg Documented by: [id number] Admin: 10/21/21 06:07 Dose: 75 mcg Documented by: [id number] Admin: 10/20/21 06:05 Dose: 75 mcg Documented by: [id number] Admin: 10/19/21 06:46 Dose: 75 mcg Documented by: [id number] Loratadine (Loratadine 10 Mg Tab) 10 mg PO QAM [facility] Stop: 11/18/21 08:59 Last Admin: 10/24/21 09:32 Dose: 10 mg Documented by: [id number] Admin: 10/23/21 08:24 Dose: 10 mg Documented by: [id number] Admin: 10/22/21 07:57 Dose: 10 mg Documented by: [id number] Admin: 10/21/21 09:46 Dose: 10 mg Documented by: [id number] Admin: 10/20/21 08:24 Dose: 10 mg Documented by: [id number] Admin: 10/19/21 08:21 Dose: 10 mg Documented by: [id number] Metoprolol Tartrate (Metoprolol Tartrate 25 Mg Tab) 12.5 mg PO BID [facility] Stop: 11/18/21 08:59 Last Admin: 10/24/21 08:22 Dose: 12.5 mg Documented by: [id number] Admin: 10/23/21 20:17 Dose: 12.5 mg Documented by: [id number] Admin: 10/23/21 08:24 Dose: 12.5 mg Documented by: [id number] Admin: 10/22/21 20:26 Dose: 12.5 mg Documented by: [id number] Admin: 10/22/21 07:56 Dose: 12.5 mg Documented by: [id number] Admin: 10/21/21 21:56 Dose: 12.5 mg Documented by: [id number] Admin: 10/21/21 09:47 Dose: 12.5 mg Documented by: [id number] Admin: 10/20/21 19:41 Dose: 12.5 mg Documented by: [id number] Admin: 10/20/21 08:23 Dose: 12.5 mg Documented by: [id number] Admin: 10/19/21 20:00 Dose: 12.5 mg Documented by: [id number] Admin: 10/19/21 08:21 Dose: 12.5 mg Documented by: [id number] Miscellaneous (Remove Nicoderm Patch) 1 ea N/A [id number] [facility] Stop: 11/21/21 08:58 Last Admin: 10/24/21 09:35 Dose: 1 ea Documented by: [id number] Admin: 10/23/21 08:16 Dose: 1 ea Documented by: [id number] Admin: 10/22/21 07:57 Dose: 1 ea Documented by: [id number] Nicotine (Nicotine 14 Mg/24 Hr Patch) 14 mg TD QAM [facility] Stop: 11/20/21 17:29 Last Admin: 10/24/21 09:33 Dose: 14 mg Documented by: [id number] Admin: 10/23/21 08:19 Dose: 14 mg Documented by: [id number] Admin: 10/22/21 07:58 Dose: 14 mg Documented by: [id number] Admin: 10/21/21 17:57 Dose: 14 mg Documented by: [id number] Potassium Chloride (Potassium Chloride Crtab 20 Meq Tabcr) 40 meq PO NOW STA Stop: 10/19/21 02:07 Last Admin: 10/19/21 02:52 Dose: 40 meq Documented by: [id number] Potassium Chloride (Potassium Chloride Crtab 20 Meq Tabcr) 20 meq PO BID [facility] Stop: 11/18/21 08:59 Last Admin: 10/20/21 08:23 Dose: 20 meq Documented by: [id number] Admin: 10/19/21 20:01 Dose: 20 meq Documented by: [id number] Admin: 10/19/21 08:20 Dose: 20 meq Documented by: [id number] Potassium Chloride (Potassium Chloride 10 Meq Tabcr) 10 meq PO BID SAMUEL Stop: 11/19/21 20:59 Last Admin: 10/24/21 09:35 Dose: 10 meq Documented by: [id number] Admin: 10/23/21 20:16 Dose: 10 meq Documented by: [id number] Admin: 10/23/21 08:24 Dose: 10 meq Documented by: [id number] Admin: 10/22/21 20:27 Dose: 10 meq Documented by: [id number] Admin: 10/22/21 09:45 Dose: 10 meq Documented by: [id number] Admin: 10/21/21 22:01 Dose: 10 meq Documented by: [id number] Admin: 10/21/21 09:49 Dose: 10 meq Documented by: [id number] Admin: 10/20/21 19:40 Dose: 10 meq Documented by: [id number] Prazosin HCl (Prazosin Hcl 1 Mg Cap) 1 mg PO HS SAMUEL Stop: 11/18/21 20:59 Last Admin: 10/23/21 20:15 Dose: 1 mg Documented by: [id number] Admin: 10/22/21 20:26 Dose: 1 mg Documented by: [id number] Admin: 10/21/21 21:58 Dose: 1 mg Documented by: [id number] Admin: 10/20/21 19:40 Dose: 1 mg Documented by: [id number] Admin: 10/19/21 20:02 Dose: 1 mg Documented by: [id number] Risperidone (Risperidone 1 Mg Tablet) 1 mg PO QAM [facility] Stop: 11/18/21 08:59 Last Admin: 10/24/21 08:23 Dose: 1 mg Documented by: [id number] Admin: 10/23/21 08:24 Dose: 1 mg Documented by: [id number] Admin: 10/22/21 07:57 Dose: 1 mg Documented by: [id number] Admin: 10/21/21 09:47 Dose: 1 mg Documented by: [id number] Admin: 10/20/21 08:23 Dose: 1 mg Documented by: [id number] Admin: 10/19/21 08:20 Dose: 1 mg Documented by: [id number] Risperidone (Risperidone 2 Mg Tablet) 2 mg PO QDD SAMUEL Stop: 11/18/21 16:29 Last Admin: 10/23/21 17:45 Dose: 2 mg Documented by: [id number] Admin: 10/22/21 18:11 Dose: 2 mg Documented by: [id number] Admin: 10/21/21 17:58 Dose: 2 mg Documented by: [id number] Admin: 10/20/21 17:02 Dose: 2 mg Documented by: [id number] Admin: 10/19/21 17:25 Dose: 2 mg Documented by: [id number] Umeclidinium/Vilanterol (Umeclidinium/Vilanterol 62.5/25mcg 7 Puffs/Inhaler) 1 puffs INH DAILY SAMUEL; Protocol Stop: 11/18/21 08:59 Last Admin: 10/24/21 09:31 Dose: 1 puffs Documented by: [id number] Admin: 10/23/21 08:19 Dose: 1 puffs Documented by: [id number] Admin: 10/22/21 07:56 Dose: 1 puffs Documented by: [id number] Admin: 10/21/21 09:50 Dose: 1 puffs Documented by: [id number] Admin: 10/20/21 08:22 Dose: 1 puffs Documented by: [id number] Admin: 10/19/21 08:18 Dose: 1 puffs Documented by: [id number] Blood Pressure Blood Pressure Findings: Elevated blood pressure Blood Pressure Disposition: Referred to patients primary care provider Discharge Plan Visit Data Chief Complaint: Overdose (Accidental) Stated Complaint: WRONG DOSAGE OF MEDICATION, LOW OXYGEN LEVELS ED Provider: Yasmin Ortiz Discharge Problem: Misuse of medication, Schizophrenia, Dependence on supplemental oxygen Patient Disposition: Admitted As Inpatient Discharge Instructions Interventions: ED Discharge Assessment Last Done: 10/19/21 03:39 Discharge Problem: Schizophrenia Qualifiers: Schizophrenia type: paranoid schizophrenia Qualified Code(s): F20.0 - Paranoid schizophrenia
--- NOTE | 2021-10-19 02:25 | History & Physical Report ---
Date of Service October 19, 2021 Assessment & Plan (1) Acute hypoxemic respiratory failure: Plan: Acute on chronic chronic respiratory failure secondary to COPD on home O2 Baseline wheezing from chronic COPD/CHF symptoms contributory Rule out pulmonary embolism given troponin elevation chronic diastolic heart failure as per records, congestion noted on CXR HTN, stable hyperlipidemia on statin Rx DM 2 on oral medications, well controlled as of recent hemoglobin A1c of 6.01 April 2021 Hypokalemia secondary to home diuretic Rx hypothyroidism, euthyroid as of today's TSH schizoaffective/mood disorder, patient with suicidal thoughts Functional disability, patient contemplating relocating to a personal care facility due to inability to care for self past tobacco abuse PCU given troponin elevation Supplemental O2 Baseline ABG Neb treatment now given baseline wheezing Continue home diuretic regimen CT chest PE study Follow troponin TTE if with progression Further management pending work-up results Psych consult re: suicidality; suicide precautions until patient seen by Psychiatry Replace potassium ISS BG goal 1 10-1 40, carb count coverage, update hemoglobin A1c PT OT eval Social service re: discharge planning DVT prophylaxis. Lovenox subcu Full code Patient cousin requesting updates from providers. Nikia Holli Becker, contact #[phone]. Text document was generated using Cloud[employer] voice recognition software. It may contain grammatical or spelling errors. Kindly contact undersigned for clarification of any documentation item in question. History of Present Illness Chief Complaint: Hearing voices, suicidality Primary Care Provider: Dr. Cuello History obtained from patient, family, and records. Patient is a fair historian. Medical history significant for chronic respiratory failure secondary to COPD on home O2, chronic diastolic heart failure as per records (EF 65%, TTE 2017), HTN, hyperlipidemia, DM 2 on oral medications, hypothyroidism, schizoaffective/mood disorder, past tobacco abuse. Last confinement 2018 for respiratory failure secondary to COPD exacerbation status post intubation. Patient with fleeting suicidal ideations since last week. Hearing voices. Patient more stressed out than usual after her home had to be cleaned because of bedbugs. Patient claims landlord threatened to evict her which patient's cousin denies. Patient thinking of relocating to a personal care facility due to inability to care for self. Patient denies chest pain. Short of breath when she gets excited. No unusual cough symptoms. Patient not sure about weight gain. Patient brought to the ER for evaluation. Initial O2 sats at the ER 80s on room air. Medical History as above Surgical History : Knee surgery, hysteroscopy with biopsy Family History : Breast cancer, colon cancer, DM Personal/Social history : Past tobacco abuse, no EtOH intake, disabled, lives by herself Allergies Allergy/AdvReac Type Severity Reaction Status Date / Time lisinopril Allergy Severe EDEMA OF Verified 10/18/21 21:10 FACE, LIPS & TONGUE Home Medications Medication Instructions Recorded Confirmed Type diltiazem HCl 300 mg 300 mg PO DAILY 08/31/18 10/18/21 History capsule,extended release 24 hr furosemide 40 mg tablet 40 mg PO BID 08/31/18 10/18/21 History loratadine 10 mg tablet 10 tab PO QAM 08/31/18 10/18/21 History metoprolol tartrate 50 mg tablet 50 mg PO QAM 08/31/18 10/18/21 History risperidone 1 mg tablet 1 mg PO QAM 08/31/18 10/18/21 History atorvastatin 40 mg tablet 40 mg PO HS 04/26/19 10/18/21 History hydroxyzine pamoate 25 mg capsule 25 mg PO QID PRN 04/26/19 10/18/21 History ipratropium 0.5 mg-albuterol 3 mg 3 ml INHALATION QID PRN 04/26/19 10/18/21 History (2.5 mg base)/3 mL nebulization soln levothyroxine 75 mcg tablet 75 mcg PO DAILYBB 04/26/19 10/18/21 History risperidone 2 mg tablet 2 mg PO QDD 04/26/19 10/18/21 History ascorbic acid (vitamin C) 250 mg 250 mg PO DAILY 06/30/19 10/18/21 History tablet aspirin 81 mg tablet,delayed 81 mg PO DAILY 06/30/19 10/18/21 History release fluticasone fur. 100 mcg-umeclid 1 inh INHALATION DAILY 06/30/19 10/18/21 History 62.5 mcg-vilant 25 mcg inhalat.powder (Trelegy Ellipta) hydralazine 50 mg tablet 75 mg PO TID 06/30/19 10/18/21 History potassium chloride 10 mEq 10 meq PO DAILY 06/30/19 10/18/21 History tablet,extended release metformin 500 mg tablet,extended 500 mg PO BID #60 tab 07/08/19 10/18/21 Rx release 24 hr Collagen Capsule 500 mg PO DAILY 10/18/21 10/18/21 History albuterol sulfate 2.5 mg INHALATION DIRECTED PRN 10/18/21 10/18/21 History albuterol sulfate 90 mcg/actuation 2 puff INHALATION Q6H PRN 10/18/21 10/18/21 History aerosol inhaler docusate sodium 100 mg capsule 200 mg PO DAILY 10/18/21 10/18/21 History lorazepam 0.5 mg tablet 0.5 mg PO BID PRN 10/18/21 10/18/21 History mnxwucgn-[id number]-XC 0.4 mg-calcium 162 1 tab PO DAILY 10/18/21 10/18/21 History mg-iron 18 iy-oweqsiq-sewjrs tablet omega-3 fatty acids 1,000 mg 1,000 mg PO DAILY 10/18/21 10/18/21 History capsule prazosin 1 mg capsule 1 mg PO HS 10/18/21 10/18/21 History Past Med/Surg History Medical History (Updated 10/19/21 @ 04:39 by Sabas Rodrigues MD) Bipolar 1 disorder COPD (chronic obstructive pulmonary disease) HLD (hyperlipidemia) Hypertension Hypothyroid Obesity hypoventilation syndrome Schizophrenia Surgical History History of total right knee replacement Family History Mother Diabetes Social History Smoking Status: Former smoker Smoking End Date: ; Second Hand Exposure: No; Do You Dip or Chew Tobacco: No; Tobacco Cessation Education Requested by Patient: No Hx Alcohol Use: No Hx Substance Use: No Preferred Language: Tajik Communication Ability: Effective 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 Required: No Beliefs That Will Affect Care: None Current Living Situation: Alone Other Information That Helps Us Care for You: No Feels Safe at Home: Hesitant to Answer Safety Concerns: Afraid for Self Assistive Devices: Glasses, Nebulizer and Oxygen - Continuous Review of Systems Review of Systems: As per HPI, all 10 systems reviewed, all other ROS negative Physical Exam Physical Exam: GENERAL: Comfortable, morbidly obese, no respiratory distress SKIN: Normal color, warm HEENT: [place] palpebral conjunctivae, no ptosis, dry buccal mucosa, nasal cannula in place NECK : Supple, short neck, no tenderness CHEST : Decreased breath sounds, expiratory wheezes, no tenderness HEART : Bradycardic, no obvious murmurs ABDOMEN: Some distention, nontender EXTREMITIES : Bilateral LE venous stasis, no LE tenderness, no other conspicuous deformities noted NEUROLOGIC : Coherent, no facial asymmetry, no other gross focality Results & Data Results & Data ([facility]) Vital Signs (Past 12 Hours) Vital Signs Temp Pulse Pulse Resp BP BP Pulse Ox 10/19/21 00:20 56 L 18 139/71 96 10/19/21 00:10 56 L 24 10/19/21 00:00 55 L 18 10/18/21 23:50 57 L 23 10/18/21 23:40 54 L 22 10/18/21 23:30 55 L 14 10/18/21 23:27 55 L 19 94 10/18/21 23:10 49 L 14 96 10/18/21 23:00 53 L 19 97 10/18/21 22:50 51 L 13 98 10/18/21 22:40 53 L 20 95 10/18/21 22:30 50 L 10 L 96 10/18/21 22:20 54 L 15 95 10/18/21 22:10 58 L 15 96 10/18/21 22:00 52 L 11 L 97 10/18/21 21:50 65 17 95 10/18/21 21:40 55 L 15 98 10/18/21 21:30 57 L 12 98 10/18/21 21:20 59 L 16 98 10/18/21 21:14 55 L 20 98 10/18/21 21:10 53 L 16 97 10/18/21 21:01 54 L 15 98 10/18/21 20:52 97 10/18/21 20:47 59 L 20 88 L 10/18/21 20:27 36 C L 61 20 140/82 90 Laboratory Results Laboratory Results WBC 9.17 K/uL (4.8-10.8) 10/18/21 22:34 RBC 5.41 M/uL (4.2-5.4) H 10/18/21 22:34 Hgb 16.8 g/dL (12.0-16.0) H 10/18/21:34 Hct 50.3 % (37-47) H 10/18/21:34 MCV 93.0 fL (80-100) 10/18/21: MCH 31.1 pg (25-34) 10/18/21: MCHC 33.4 g/dL (32-36) 10/18/21: RDW Std Deviation 54.4 fL (36.4-46.3) H 10/18/21: RDW Coeff of Connor 15.9 % (11.5-14.5) H 10/18/21:34 Plt Count 216 K/uL (130-400) 10/18/21: MPV 9.3 fL (7.4-10.4) 10/18/21: Immature Gran % (Auto) 0.1 % 10/18/21: Neut % (Auto) 72.2 % 10/18/21: Lymph % (Auto) 18.8 % 10/18/21:34 Russell % (Auto) 7.2 % 10/18/21:34 Eos % (Auto) 1.5 % 10/18/21:34 Baso % (Auto) 0.2 % 10/18/21:34 Neut # (Auto) 6.62 K/uL (1.4-6.5) H 10/18/21:34 Lymph # (Auto) 1.72 K/uL (1.2-3.4) 10/18/21:34 Russell # (Auto) 0.66 K/uL (0.11-0.59) H 10/18/21 22:34 Eos # (Auto) 0.14 K/uL (0-0.5) 10/18/21:34 Baso # (Auto) 0.02 K/uL (0-0.2) 10/18/21: Immature Gran # (Auto) 0.01 K/uL (0.00-0.02) 10/18/21 22:34 Sodium 136 mmol/L (136-145) 10/18/21 21:30 Potassium 3.2 mmol/L (3.5-5.1) L 10/18/21:34 Chloride 93 mmol/L (98-107) L 10/18/21 21:30 Carbon Dioxide 39 mmol/L (21-32) H 10/18/21 21:30 Anion Gap 4 (3-11) 10/18/21 21:30 BUN 10 mg/dl (6-23) 10/18/21 21:30 Creatinine 0.58 mg/dl (0.6-1.2) L 10/18/21 21:30 Est Cr Clr Drug Dosing 99.3 ml/min 10/18/21 21:30 Est GFR ( Amer) 109.0 ml/min 10/18/21 21:30 Est GFR (Non-Af Amer) 94.0 ml/min 10/18/21 21:30 BUN/Creatinine Ratio 17.2 (10-20) 10/18/21 21:30 Glucose 90 mg/dl (70-99(Fasting)) 10/18/21 21:30 Calcium 9.1 mg/dl (8.5-10.1) 10/18/21: Magnesium 1.9 mg/dl (1.7-2.4) 10/18/21 21:30 Total Bilirubin 0.6 mg/dl (0.2-1.0) 10/18/21 21:30 AST 15 U/L (13-39) 10/18/21 22:34 ALT 16 U/L (7-52) 10/18/21 21:30 Alkaline Phosphatase 59 U/L (34-104) 10/18/21 21:30 Troponin I High Sens 25.8 pg/ml (0-14) H 10/18/21 23:11 Total Protein 6.4 gm/dl (6.0-8.3) 10/18/21 21:30 Albumin 3.8 gm/dl (3.4-5.0) 10/18/21 21: Globulin 2.6 gm/dl (2.5-4.0) 10/18/21 21: Albumin/Globulin Ratio 1.5 (0.9-2) 10/18/21 21:30 TSH 3.240 uIu/ml (0.300-4.500) 10/18/21 21:30 Urine Color Yellow 10/19/21 Unknown Urine Appearance Clear (Clear) 10/19/21 Unknown Urine pH 6.0 (4.5-7.5) 10/19/21 Unknown Ur Specific [place] 1.006 (1.000-1.030) 10/19/21 Unknown Urine Protein Negative (Negative) 10/19/21 Unknown Urine Glucose (UA) Negative (Negative) 10/19/21 Unknown Urine Ketones Negative (Negative) 10/19/21 Unknown Urine Blood Negative (Negative) 10/19/21 Unknown Urine Nitrite Negative (Negative) 10/19/21 Unknown Urine Bilirubin Negative (Negative) 10/19/21 Unknown Urine Urobilinogen Negative (Negative) 10/19/21 Unknown Ur Leukocyte Esterase Negative (Negative) 10/19/21 Unknown Salicylates < 3.0 mg/dl (3.0-30) L 10/19/21 01:22 Urine Opiates Screen Neg (Neg) 10/19/21 Unknown Ur Methadone, Qual Neg (Neg) 10/19/21 Unknown Acetaminophen < 3 ug/ml (10-30) L 10/19/21 01:22 Urine Barbiturates Neg (Neg) 10/19/21 Unknown Ur Phencyclidine (PCP) Neg (Neg) 10/19/21 Unknown U Amphetamin/Meth Scrn Neg (Neg) 10/19/21 Unknown MDMA (Ecstasy) Screen Neg (Neg) 10/19/21 Unknown U Benzodiazepines Scrn Neg (Neg) 10/19/21 Unknown Ur Cocaine Metabolite Neg (Neg) 10/19/21 Unknown U Marijuana (THC) Screen Neg (Neg) 10/19/21 Unknown Ethyl Alcohol mg/dL < 10.0 mg/dl (<10.0) 10/18/21 21:30 SARS-CoV-2, RNA, NAAT NEGATIVE (NEGATIVE) 10/18/21 21:[address] head initial read: No intracranial hemorrhage, mass-effect or midline shift. There is no abnormal extra axial fluid collection. No evidence of acute infarct. Mild periventricular white matter hypodensities are most consistent with chronic microangiopathy. The visualized paranasal sinuses and mastoid air cells are clear. No fracture. Chest x-ray as per my interpretation: Congestion, cardiomegaly, atelectasis, elevated right hemidiaphragm EKG could not be located at time of dictation
[2021-10-19] MEDS ORDERED: ALBUT/IPRATROP 3MG/0.5MG NEB 3 ML VIAL NEB STA (02:57)
[2021-10-19] MEDS ORDERED: OPTIRAY 320 125ml IV ONE (03:26)
[2021-10-19] MEDS ORDERED: DEXTROSE 50% 50 ML SYRINGE IV PRN (05:36)
[2021-10-19] MEDS ORDERED: GLUCAGON FOR INJ 1 MG VIAL SQ PRN (05:36)
[2021-10-19] MEDS ORDERED: PROMETHAZINE HCL 12.5 MG in SODIUM CHLORIDE 0.9% 50 ML IV PRN (05:36)
[2021-10-19] MEDS ORDERED: ACETAMINOPHEN 325 MG TAB PO PRN (05:36)
[2021-10-19] MEDS ORDERED: GLUCOSE 10 TABS/TUBE PO PRN (05:36)
[2021-10-19] MEDS ORDERED: traMADol HCL 50 MG TABLET PO PRN (05:36)
[2021-10-19] MEDS ORDERED: GLUCOSE 40% GEL 15 GM TUBE PO PRN (05:36)
[2021-10-19] MEDS ORDERED: CARBOHYDRATES FOR HYPOGLYCEMIA PO PRN (05:36)
[2021-10-19] MEDS ORDERED: LORazepam 0.5 MG TAB PO PRN (05:36)
[2021-10-19] MEDS ORDERED: FUROSEMIDE 40 MG/4 ML VIAL IV ONE (05:55)
[2021-10-19 06:30] LABS: Base Excess ABG 8.9 mEq/L (-9-1.8); HCO3 ABG 38 mmol/L (19-24); Oxygen Saturation ABG 95.8 % (90-95); PCO2 ABG 72 mmHg (35-46); PO2 ABG 84 mmHg (80-95); pH ABG 7.35 (7.35-7.45)
[2021-10-19] MEDS: LEVOTHYROXINE SODIUM 75 MCG TABLET PO SCH (06:46)
[2021-10-19] MEDS: INSULIN ASPART PER UNIT SC SCH ×4 (06:47→23:11)
--- NOTE | 2021-10-19 06:50 | XRay Report ---
XR chest 1V portable HISTORY: 71 years-old Female weakness acute weakness COMPARISON: Chest radiograph 07/02/2019, CTA chest 10/19/2021 TECHNIQUE: Portable AP view of the chest FINDINGS: The cardiac silhouette is enlarged. Mild bibasilar consolidative opacities. Trace pleural effusions. No pneumothorax or overt pulmonary edema. Degenerative changes of the shoulders and spine. IMPRESSION: 1. Cardiomegaly without pulmonary edema. 2. Trace pleural effusions with mild bibasilar opacities suggestive of atelectasis versus pneumonitis . ACT 112: Negative or not required by law. The above report was generated using voice recognition software. It may contain grammatical, syntax o r spelling errors. Electronically signed by: Del Raymond M.D. 10/19/2021 6:49 AM
[2021-10-19 07:10] LABS: Partial Thromboplastin Time 27.5 Seconds (21.0-31.0)
[2021-10-19 07:22] LABS: Estimated Average Glucose 134 mg/dl; Hemoglobin A1C 6.3 % (4.5-5.6)
--- NOTE | 2021-10-19 07:40 | CT Scan Report ---
HEAD CT NONCONTRAST CT DOSE: 614.27 mGy.cm HISTORY: Altered mental status TECHNIQUE: Multiaxial CT images of the head were performed without the use of intravenous contrast. A utomated exposure control was utilized for this study. A dose lowering technique was utilized adheri ng to the principles of ALARA. Comparison: Head CT 06/30/2019. Findings: The paranasal sinuses and mastoid air cells are clear. The calvarium and skull base are int act. The ventricles and sulci are within normal limits. There is no hematoma, midline shift, or acute infarct. Mild microvascular ischemic changes again noted. Stable extra-axial calcified nodule in the right high convexity measuring 1 cm. This likely represents a meningioma. Impression: No significant change compared to the prior study. No acute intracranial abnormality. ACT 112: Negative or not required by law. Electronically signed by: Bobby Wick M.D. 10/19/2021 7:39 AM
[2021-10-19] MEDS: ENOXAPARIN INJ 40 MG/0.4 ML SYR SQ SCH (08:18)
[2021-10-19] MEDS: UMECLIDINIUM/VILANTEROL 62.5/25MCG 7 PUFFS/INHALER INH SCH (08:18)
--- NOTE | 2021-10-19 08:18 | CT Scan Report ---
CHEST CTA for PULMONARY ARTERIES CT DOSE: 728.15 mGy.cm HISTORY: Shortness of breath. TECHNIQUE: Multiaxial CT images of the chest were performed following the intravenous administration of contrast to evaluate the pulmonary arteries. Maximal intensity projection images were also obtaine d. A dose lowering technique was utilized adhering to the principles of ALARA. COMPARISON STUDY: Chest CTA 06/30/2019. FINDINGS: Mild calcified plaque within the normal caliber thoracic aorta. No evidence for an aortic d issection. The heart is mildly enlarged. Trace bilateral pleural effusions. No pericardial effusion. No filling defects within the pulmonary arteries to suggest a pulmonary embolus. Limited views of the upper abdomen demonstrate a normal liver and spleen. Small hiatus hernia. Mild thickening of the mid to distal esophagus. No mediastinal or hilar lymphadenopathy. No suspicious lytic or blastic osseous lesions. Mild central bronchial wall thickening and trace mucoid material within the central bronchi . No pneumothorax. Mild mosaic attenuation within the lungs. Scattered linear and patchy densities wi thin the lung bases. This favors atelectasis. A mild pneumonitis could also a similar appearance. IMPRESSION: 1. No evidence for pulmonary embolus. 2. Mosaic attenuation within the lungs. This suggests air trapping and can be seen in the setting of small airways disease. 3. Patchy and linear bibasilar densities which favor atelectasis. A low-grade pneumonitis could also have a similar appearance. 4. Trace bilateral pleural effusions. 5. Mild thickening of the mid to distal esophagus. 6. Mild cardiomegaly. 7. Mild central bronchial wall thickening. ACT 112: Negative or not required by law. Electronically signed by: Bobby Wick M.D. 10/19/2021 8:17 AM
[2021-10-19] MEDS: risperiDONE 1 MG TABLET PO SCH (08:20)
[2021-10-19] MEDS: POTASSIUM CHLORIDE CRTAB 20 MEQ TABCR PO SCH ×2 (08:20→20:01)
[2021-10-19] MEDS: dilTIAZem HCL 300 MG CAPCR PO SCH (08:21)
[2021-10-19] MEDS: LORATADINE 10 MG TAB PO SCH (08:21)
[2021-10-19] MEDS: hydrALAZINE HCL 25 MG TAB PO SCH ×3 (08:21→20:01)
[2021-10-19] MEDS: METOPROLOL TARTRATE 25 MG TAB PO SCH ×2 (08:21→20:00)
[2021-10-19] MEDS: DOCUSATE SODIUM 100 MG CAP PO SCH (08:21)
[2021-10-19] MEDS: ASPIRIN 81 MG ECTAB PO SCH (08:21)
[2021-10-19] MEDS: FLUTICASONE FUROATE 100MCG 14 PUFFS/INHALER INH SCH (08:22)
[2021-10-19] MEDS ORDERED: INSULIN GLARGINE SOLOSTAR 100 UNITS/ML 3 ML PEN SC SCH (09:00)
[2021-10-19] MEDS ORDERED: METOPROLOL TARTRATE 25 MG TAB PO SCH (09:00)
[2021-10-19 09:41] LABS: Allen Test Pos (Pos)
[2021-10-19 09:49] LABS: BUN Creatinine Ratio 17.3 (10-20); Calcium 8.7 mg/dl (8.5-10.1); Creatinine Clr Calc Pharmacy 107.3 ml/min; Est GFR (Non-African American) 97.5 ml/min; Potassium 3.8 mmol/L (3.5-5.1)
[2021-10-19] MEDS: FUROSEMIDE 40 MG TAB PO SCH ×2 (10:00→17:36)
--- NOTE | 2021-10-19 14:46 | Psychiatric Consultation ---
Date of Consultation October 19, 2021 Impression / Recommendations Impression This is a 71 yo with a history of depression, schizophrenia admitted medically. Diagnostically consistent with MDD and schizophrenia. Acute risk of self-harm is low given denial of SI, denial of any past attempts, no command AH, no access to lethal means, desire to be in a more supportive living environment to further reduce risk and strong family supports. They are not interested in inpatient psychiatric hospitalization at this time nor does she meet 302 criteria. PHQ-9 score was elevated but in reviewing mood symptoms with her she notes many interests, positive mood and is future-oriented about a change in her living environment and her cousin taking over care of her cat so seems if anything her major depression is currently mild vs adjustment disorder with depressed mood. (1) Schizophrenia: Schizophrenia type: paranoid schizophrenia Qualified Code(s): F20.0 - Paranoid schizophrenia (2) Acute hypoxemic respiratory failure: (3) Depression: -Can discontinue 1:1 -Continue prior to admission psych medications -She's felt to be psychiatrically stable for personal shelter should this be what she and her family feel is the best dispositon option Risk Factors Assessment : Yes Do You Have Access To A Gun?: No Health Problems: Yes Mental Health Diagnoses: Yes Previous Attempt: No Family History of Suicide: No Previous Psychiatric Hospitalization: Yes Hopelessness: No Smoker: No Protective Factors Assessment Stable Relationships: Yes Supportive Family: Yes Good Rapport with Provider: Yes Psych History Identifying Data 71 yo woman with hx of schizophrenia, COPD, HTN, T2DM, hypothyroidism admitted medically for acute hypoxemic respiratory failure. Chief Complaint "I was anxious, when I'm at home I'm having trouble doing things and I get upset at myself". History of Present Illness Prisca was admitted medically for worsening COPD but was initially brought to the ED by family after she told them she took two of her prescribed ativan tabs (for total dose of 1 mg) as an attempt to harm herself per ED documentation. She also told ED psych CM that the voices she hears were telling her to hurt herself. Today she denies this stating that she took 2 ativan tabs because she was feeling anxious and needed more relief and that she knew this dose would not harm her. She denies SI states that at home she was having some intermittent passive SI because she's been struggling with some tasks of daily living such as balancing her checkbook and remembering to use her oxygen and this has resulted in her feeling "mad at myself" and then she can develop SI. But she states she has never experienced any active SI nor ever attempted suicide stating "I don't want to be or hurt my family". She also adamantly denies any type of command auditory house. Denies that the voices, which she has been hearing for years and have not changed at all in intensity or type recently, ever tell her not to take her medication nor do reckless things nor do anything to hurt or kill herself nor others. She feels her risperidone is helpful and works well. She feels safe in the hospital and agrees to use her call borjas should she re- develop SI to alert nursing. She is hopeful she can move into a personal shelter where she can back into her hobbies of knitting and sewing and she enjoys watching TV. Further history please see psych liason note from 10/19/21. Past Psychiatric History Current Psychiatric Diagnosis: schizophrenia Previous Psych Admissions: multiple, last many years ago per her report Do You Have Access To A Gun?: No History of Previous Suicide Attempt: No Allergies Allergy/AdvReac Type Severity Reaction Status Date / Time lisinopril Allergy Severe EDEMA OF Verified 10/18/21 21:10 FACE, LIPS & TONGUE Home Medications Medication Instructions Recorded Confirmed Type diltiazem HCl 300 mg 300 mg PO DAILY 08/31/18 10/18/21 History capsule,extended release 24 hr furosemide 40 mg tablet 40 mg PO BID 08/31/18 10/18/21 History loratadine 10 mg tablet 10 tab PO QAM 08/31/18 10/18/21 History metoprolol tartrate 50 mg tablet 50 mg PO QAM 08/31/18 10/18/21 History risperidone 1 mg tablet 1 mg PO QAM 08/31/18 10/18/21 History atorvastatin 40 mg tablet 40 mg PO HS 04/26/19 10/18/21 History hydroxyzine pamoate 25 mg capsule 25 mg PO QID PRN 04/26/19 10/18/21 History ipratropium 0.5 mg-albuterol 3 mg 3 ml INHALATION QID PRN 04/26/19 10/18/21 History (2.5 mg base)/3 mL nebulization soln levothyroxine 75 mcg tablet 75 mcg PO DAILYBB 04/26/19 10/18/21 History risperidone 2 mg tablet 2 mg PO QDD 04/26/19 10/18/21 History ascorbic acid (vitamin C) 250 mg 250 mg PO DAILY 06/30/19 10/18/21 History tablet aspirin 81 mg tablet,delayed 81 mg PO DAILY 06/30/19 10/18/21 History release fluticasone fur. 100 mcg-umeclid 1 inh INHALATION DAILY 06/30/19 10/18/21 History 62.5 mcg-vilant 25 mcg inhalat.powder (Trelegy Ellipta) hydralazine 50 mg tablet 75 mg PO TID 06/30/19 10/18/21 History potassium chloride 10 mEq 10 meq PO DAILY 06/30/19 10/18/21 History tablet,extended release metformin 500 mg tablet,extended 500 mg PO BID #60 tab 07/08/19 10/18/21 Rx release 24 hr Collagen Capsule 500 mg PO DAILY 10/18/21 10/18/21 History albuterol sulfate 2.5 mg INHALATION DIRECTED PRN 10/18/21 10/18/21 History albuterol sulfate 90 mcg/actuation 2 puff INHALATION Q6H PRN 10/18/21 10/18/21 History aerosol inhaler docusate sodium 100 mg capsule 200 mg PO DAILY 10/18/21 10/18/21 History lorazepam 0.5 mg tablet 0.5 mg PO BID PRN 10/18/21 10/18/21 History [id number] 0.4 mg-calcium 162 1 tab PO DAILY 10/18/21 10/18/21 History mg-iron 18 [id number]-iccduo tablet omega-3 fatty acids 1,000 mg 1,000 mg PO DAILY 10/18/21 10/18/21 History capsule prazosin 1 mg capsule 1 mg PO HS 10/18/21 10/18/21 History Personal History Beliefs That Will Affect Care: None Patient History Medical History (Updated 10/19/21 @ 15:36 by Katherine Rizo MD) Bipolar 1 disorder COPD (chronic obstructive pulmonary disease) HLD (hyperlipidemia) Hypertension Hypothyroid Obesity hypoventilation syndrome Schizophrenia Surgical History History of total right knee replacement Family History Mother Diabetes Social History Smoking Status: Former smoker Smoking End Date: ; Second Hand Exposure: No; Do You Dip or Chew Tobacco: No; Tobacco Cessation Education Requested by Patient: No Hx Alcohol Use: No Hx Substance Use: No Preferred Language: Icelandic Communication Ability: Effective Rat Farmer Required: No Beliefs That Will Affect Care: None marital status: Current Living Situation: Alone Other Information That Helps Us Care for You: No Feels Safe at Home: Hesitant to Answer Safety Concerns: Afraid for Self Assistive Devices: Oxygen - Continuous Physical Exam Psychiatric: Orientation: alert and oriented x 3 Apperance: appropriately dressed and appropriately groomed Eye Contact: good eye contact Motor Behavior: no abnormal motor movements Speech: normal rate/rhythm/volume of speech Affect: + constricted affect Mood: + depressed mood Thought Process: goal directed thought process Thought Content: reality based without delusions Suicidal Thoughts: denies suicidal thoughts Homicidal Thoughts: denies homicidal thoughts Hallucinations: + auditory hallucinations (chronic in nature, "they tell me unkind things"); no visual hallucinations Cognition: recent memory grossly intact, remote memory grossly intact, attention grossly intact and language grossly intact Estimated Intelligence: consistent with education level Insight: + fair insight Judgement: + fair judgement Vital Signs (Past 24 Hours): Last Vital Signs Temp 37.6 C H 10/19/21 11:28 Pulse 64 10/19/21 11:28 Resp 18 10/19/21 11:28 BP 153/85 H 10/19/21 11:28 Pulse Ox 94 10/19/21 12:57 Review of Systems All systems reviewed & are unremarkable except as noted in HPI & below Results & Data (PSY) Medications Administered Aspirin (Aspirin 81 Mg Ectab) 81 mg PO DAILY [facility]EL Stop: 11/18/21 08:59 Last Admin: 10/19/21 08:21 Dose: 81 mg Documented by: [id number] Diltiazem HCl (Diltiazem Hcl 300 Mg Capcr) 300 mg PO DAILY [facility] Stop: 11/18/21 08:59 Last Admin: 10/19/21 08:21 Dose: 300 mg Documented by: [id number] Docusate Sodium (Docusate Sodium 100 Mg Cap) 200 mg PO DAILY [facility] Stop: 11/18/21 08:59 Last Admin: 10/19/21 08:21 Dose: 200 mg Documented by: [id number] Enoxaparin Sodium (Enoxaparin Inj 40 Mg/0.4 Ml Syr) 40 mg SQ QAM [facility] Stop: 11/18/21 08:59 Last Admin: 10/19/21 08:18 Dose: 40 mg Documented by: [id number] Fluticasone Furoate (Fluticasone Furoate 100mcg 14 Puffs/Inhaler) 1 puffs INH DAILY [facility]; Protocol Stop: 11/18/21 08:59 Last Admin: 10/19/21 08:22 Dose: 1 puffs Documented by: [id number] Furosemide (Furosemide 40 Mg Tab) 40 mg PO [id number] [facility] Stop: 11/18/21 08:59 Last Admin: 10/19/21 10:00 Dose: 40 mg Documented by: [id number] Hydralazine HCl (Hydralazine Hcl 25 Mg Tab) 75 mg PO TID [facility] Stop: 11/18/21 08:59 Last Admin: 10/19/21 13:45 Dose: 75 mg Documented by: [id number] Admin: 10/19/21 08:21 Dose: 75 mg Documented by: [id number] Insulin Aspart (Insulin Aspart Per Unit) 0 units SC ACHS [facility] Stop: 11/18/21 05:35 Last Admin: 10/19/21 12:04 Dose: 3 units Documented by: [id number] Cosigned by: [id number] Admin: 10/19/21 06:47 Dose: Not Given Documented by: [id number] Levothyroxine Sodium (Levothyroxine Sodium 75 Mcg Tablet) 75 mcg PO DAILYBB [facility] Stop: 11/18/21 06:29 Last Admin: 10/19/21 06:46 Dose: 75 mcg Documented by: [id number] Loratadine (Loratadine 10 Mg Tab) 10 mg PO QAM [facility] Stop: 11/18/21 08:59 Last Admin: 10/19/21 08:21 Dose: 10 mg Documented by: [id number] Metoprolol Tartrate (Metoprolol Tartrate 25 Mg Tab) 12.5 mg PO BID [facility] Stop: 11/18/21 08:59 Last Admin: 10/19/21 08:21 Dose: 12.5 mg Documented by: [id number] Potassium Chloride (Potassium Chloride Crtab 20 Meq Tabcr) 20 meq PO BID [facility] Stop: 11/18/21 08:59 Last Admin: 10/19/21 08:20 Dose: 20 meq Documented by: [id number] Risperidone (Risperidone 1 Mg Tablet) 1 mg PO QAM [facility] Stop: 11/18/21 08:59 Last Admin: 10/19/21 08:20 Dose: 1 mg Documented by: [id number] Umeclidinium/Vilanterol (Umeclidinium/Vilanterol 62.5/25mcg 7 Puffs/Inhaler) 1 puffs INH DAILY [facility]; Protocol Stop: 11/18/21 08:59 Last Admin: 10/19/21 08:18 Dose: 1 puffs Documented by: [id number] Coding Level of Care Code 64333 Inpt Consult Level 3 Diagnoses Schizophrenia F20.0 Schizophrenia type: paranoid schizophrenia Acute hypoxemic respiratory failure J96.01 Depression F32.A
--- NOTE | 2021-10-19 15:12 | Hospitalist Progress Note ---
Date of Service October 19, 2021 Assessment & Plan (1) Acute hypoxemic respiratory failure: Plan: Acute on chronic respiratory failure Likely multifactorial COPD, Atelectasis, CHF On chronic oxygen--2L at baseline Acute on Chronic CHF No signs of acute COPD exacerbation Continue supplemental oxygen Titrate oxygen to keep saturations 88 to 92% Continue home inhalers Continue on diuretic Monitor volume status Normal procalcitonin Mild troponin elevation Demand Ischemia Likely secondary to CHF, Hypoxia HTN Mildly Elevated Continue home meds Monitor Hyperlipidemia On statin DM II HbA1C: 6.3 Hold oral medications Continue Insulin Monitor BGs Hypokalemia secondary to home diuretic Replace as needed Hypothyroidism TSH Normal Continue Levothyroxine Schizoaffective/mood disorder Suicidal thoughts Appreciate psychiatry input Continue home medications Functional disability Patient states having inability to care for self Case management to help with discharge planning DVT Px: Lovenox SQ Code Status Full code Admission and Anticipated Discharge Date Admission Date: October 19, 2021 Subjective Patient is seen and examined at bedside Denies any suicidal thoughts today Dyspnea improved Reports chronic cough which is unchanged Denies any chest pain, dizziness, nausea, abdominal pain Offers no other complaints Review of Systems Review of Systems: All systems reviewed & are unremarkable except as noted in Subjective Physical Exam Physical Exam: Physical Exam: Vitals signs as noted above General Appearance:Obese, no apparent distress Head: normocephalic, Atraumatic Eyes: normal inspection, EOMI Neck: supple, Trachea midline Respiratory/Chest: Decreased Coarse breath sounds, No accessory muscle use Cardiovascular: S1, S2, No murmur Abdomen/GI:Soft, Non tender, Bowel sounds present Extremities/Musculoskeletal:normal inspection, Trace pedal edema Neurologic/Psych:AAOX3, grossly no focal neurological deficits Skin: normal color, warm Results & Data Results & Data ([facility]) Vital Signs (Past 12 Hours) Vital Signs Temp Pulse Pulse Resp BP BP Pulse Ox 10/19/21 14:59 36.6 C 77 18 164/74 H 91 10/19/21 12:57 10/19/21 11:28 37.6 C H 64 18 153/85 H 94 10/19/21 07:56 62 10/19/21 07:46 36.6 C 62 17 145/87 H 92 10/19/21 04:40 36.6 C 56 L 20 99 10/19/21 04:21 139/61 93 10/19/21 04:00 60 14 135/66 10/19/21 03:50 53 L 14 10/19/21 03:40 53 L 21 99 10/19/21 03:30 59 L 13 98 10/19/21 03:28 98 Pulse Ox 10/19/21 14:59 10/19/21 12:57 94 10/19/21 11:28 10/19/21 07:56 10/19/21 07:46 10/19/21 04:40 10/19/21 04:21 10/19/21 04:00 10/19/21 03:50 10/19/21 03:40 10/19/21 03:30 10/19/21 03:28 Laboratory Results Short CBC 10/18/21 Range/Units 22:34 WBC 9.17 (4.8-10.8) K/uL Hgb 16.8 H (12.0-16.0) g/dL Hct 50.3 H (37-47) % Plt Count 216 (130-400) K/uL BMP 10/18/21 10/18/21 10/19/21 21:30 22:34 06:06 Sodium 136 136 Potassium TNP 3.2 L 3.8 Chloride 93 L 95 L Carbon Dioxide 39 H 39 H BUN 10 9 Creatinine 0.58 L 0.52 L Glucose 90 94 Calcium 9.1 8.7 Liver Function 10/18/21 10/18/21 Range/Units 21:30 22:34 Total Bilirubin 0.6 (0.2-1.0) mg/dl AST TNP 15 ALT 16 (7-52) U/L Alkaline Phosphatase 59 (34-104) U/L Albumin 3.8 (3.4-5.0) gm/dl Urine 10/19/21 Range/Units Unknown Urine Color Yellow Urine Appearance Clear (Clear) Urine pH 6.0 (4.5-7.5) Ur Specific [place] 1.006 (1.000-1.030) Urine Protein Negative (Negative) Urine Glucose (UA) Negative (Negative)
--- NOTE | 2021-10-19 15:35 | Electrocardiogram Report ---
Test Reason : Blood Pressure : / mmHG Vent. Rate : 054 BPM Atrial Rate : 054 BPM P-R Int : 204 ms QRS Dur : 162 ms QT Int : 524 ms P-R-T Axes : 041 -46 061 degrees QTc Int : 496 ms Sinus bradycardia Left axis deviation Left bundle branch block Abnormal ECG When compared with ECG of 05-JUL-2019 07:27, QRS duration has increased Confirmed by Aramis Logan ([id number]) on 10/19/2021 3:35:26 PM Referred By: REFERRED SELF Confirmed By:Ricardo Logan
--- NOTE | 2021-10-19 15:38 | Electrocardiogram Report ---
Test Reason : Blood Pressure : / mmHG Vent. Rate : 061 BPM Atrial Rate : 061 BPM P-R Int : 200 ms QRS Dur : 156 ms QT Int : 488 ms P-R-T Axes : 068 -45 066 degrees QTc Int : 491 ms Normal sinus rhythm Possible Left atrial enlargement Left axis deviation Left bundle branch block Abnormal ECG When compared with ECG of 05-JUL-2019 07:27, No significant change was found Confirmed by Aramis Logan ([id number]) on 10/19/2021 3:38:21 PM Referred By: REFERRED SELF Confirmed By:Ricardo Logan
[2021-10-19] MEDS: risperiDONE 2 MG TABLET PO SCH (17:25)
[2021-10-19] MEDS: ATORVASTATIN 40 MG TAB PO SCH (20:02)
[2021-10-19] MEDS: PRAZOSIN HCL 1 MG CAP PO SCH (20:02)
[2021-10-20] MEDS: LEVOTHYROXINE SODIUM 75 MCG TABLET PO SCH (06:05)
[2021-10-20 07:00] LABS: Creatinine Clr Calc Pharmacy 97.3 ml/min; Magnesium 2.2 mg/dl (1.7-2.4)
[2021-10-20 07:12] LABS: Basophils # (auto) 0.02 K/uL (0-0.2); Basophils % (auto) 0.3 %; Eosinophils # (auto) 0.11 K/uL (0-0.5); Eosinophils % (auto) 1.4 %; Hematocrit (blood only) 49.6 % (37-47); Hemoglobin 16.6 g/dL (12.0-16.0); Immature Granulocytes # (auto) 0.01 K/uL (0.00-0.02); Immature Granulocytes % (auto) 0.1 %; Lymphocytes # (auto) 1.67 K/uL (1.2-3.4); Lymphocytes % (auto) 21.1 %; Mean Corpuscular Hgb Conc 33.5 g/dL (32-36); Mean Corpuscular Volume 92.7 fL (80-100); Mean Platelet Volume 9.4 fL (7.4-10.4); Monocytes # (auto) 0.49 K/uL (0.11-0.59); Monocytes % (auto) 6.2 %; Neutrophils # (auto) 5.63 K/uL (1.4-6.5); Neutrophils % (auto) 70.9 %; Platelet Count 222 K/uL (130-400); RDW Coefficient of Variation 15.9 % (11.5-14.5); RDW Standard Deviation 54.2 fL (36.4-46.3); Red Blood Count 5.35 M/uL (4.2-5.4); White Blood Count 7.93 K/uL (4.8-10.8)
[2021-10-20] MEDS: INSULIN ASPART PER UNIT SC SCH ×4 (07:50→21:35)
[2021-10-20] MEDS: FLUTICASONE FUROATE 100MCG 14 PUFFS/INHALER INH SCH (08:22)
[2021-10-20] MEDS: UMECLIDINIUM/VILANTEROL 62.5/25MCG 7 PUFFS/INHALER INH SCH (08:22)
[2021-10-20] MEDS: METOPROLOL TARTRATE 25 MG TAB PO SCH ×2 (08:23→19:41)
[2021-10-20] MEDS: POTASSIUM CHLORIDE CRTAB 20 MEQ TABCR PO SCH (08:23)
[2021-10-20] MEDS: risperiDONE 1 MG TABLET PO SCH (08:23)
[2021-10-20] MEDS: ENOXAPARIN INJ 40 MG/0.4 ML SYR SQ SCH (08:23)
[2021-10-20] MEDS: hydrALAZINE HCL 25 MG TAB PO SCH ×3 (08:24→19:41)
[2021-10-20] MEDS: ASPIRIN 81 MG ECTAB PO SCH (08:24)
[2021-10-20] MEDS: LORATADINE 10 MG TAB PO SCH (08:24)
[2021-10-20] MEDS: FUROSEMIDE 40 MG TAB PO SCH ×2 (08:24→17:01)
[2021-10-20] MEDS: dilTIAZem HCL 300 MG CAPCR PO SCH (08:25)
[2021-10-20] MEDS: DOCUSATE SODIUM 100 MG CAP PO SCH (08:25)
[2021-10-20] MEDS: risperiDONE 2 MG TABLET PO SCH (17:02)
--- NOTE | 2021-10-20 17:46 | Hospitalist Progress Note ---
Date of Service October 20, 2021 Assessment & Plan (1) Acute hypoxemic respiratory failure: Plan: Acute on chronic respiratory failure Likely multifactorial COPD, Atelectasis, CHF On chronic oxygen--2L at baseline Acute on Chronic CHF No signs of acute COPD exacerbation Continue supplemental oxygen Titrate oxygen to keep saturations 88 to 92% Continue home inhalers Continue on diuretic Monitor volume status Normal procalcitonin Currently on 2 L supplemental oxygen which is her baseline Mild troponin elevation Demand Ischemia Likely secondary to CHF, Hypoxia HTN Mildly Elevated Continue home meds Monitor Hyperlipidemia On statin DM II HbA1C: 6.3 Hold oral medications Continue Insulin Monitor BGs Hypokalemia secondary to home diuretic Replace as needed Hypothyroidism TSH Normal Continue Levothyroxine Schizoaffective/mood disorder Suicidal thoughts Appreciate psychiatry input Continue home medications Doesn't meet inpatient psychiatric hospitalization or 302 criteria as per psychiatry. Functional disability Patient states having inability to care for self Case management to help with discharge planning DVT Px: Lovenox SQ Code Status Full code Admission and Anticipated Discharge Date Admission Date: October 19, 2021 Subjective Patient is seen and examined at bedside States having an episode of vomiting this morning Currently denies nausea States having chronic cough Denies any suicidal thoughts Also denies any chest pain, dyspnea, dizziness, abdominal pain Review of Systems Review of Systems: All systems reviewed & are unremarkable except as noted in Subjective Physical Exam Physical Exam: Physical Exam: Vitals signs as noted above General Appearance:Obese, no apparent distress Head: normocephalic, Atraumatic Eyes: normal inspection, EOMI Neck: supple, Trachea midline Respiratory/Chest: Decreased breath sounds, CTA, No accessory muscle use Cardiovascular: S1, S2, No murmur Abdomen/GI:Soft, Non tender, Bowel sounds present Extremities/Musculoskeletal:normal inspection, Trace pedal edema Neurologic/Psych:AAOX3, grossly no focal neurological deficits Skin: normal color, warm Results & Data Results & Data ([facility]) Vital Signs (Past 12 Hours) Vital Signs Temp Pulse Pulse Resp BP Pulse Ox 10/20/21 17:39 36.7 C 66 16 141/84 H 96 10/20/21 14:20 58 L 10/20/21 11:11 36.6 C 62 18 157/88 H 93 10/20/21 08:16 36.8 C 62 20 134/77 94 10/20/21 07:00 71 Laboratory Results Short CBC 10/20/21 Range/Units 06:18 WBC 7.93 (4.8-10.8) K/uL Hgb 16.6 H (12.0-16.0) g/dL Hct 49.6 H (37-47) % Plt Count 222 (130-400) K/uL BMP 10/20/21 06:18 Sodium 134 L Potassium 4.0 Chloride 93 L Carbon Dioxide 35 H BUN 11 Creatinine 0.58 L Glucose 94 Calcium 9.0
[2021-10-20] MEDS: PRAZOSIN HCL 1 MG CAP PO SCH (19:40)
[2021-10-20] MEDS: POTASSIUM CHLORIDE 10 MEQ TABCR PO SCH (19:40)
[2021-10-20] MEDS: ATORVASTATIN 40 MG TAB PO SCH (19:42)
[2021-10-20] MEDS: ALBUT/IPRATROP 3MG/0.5MG NEB 3 ML VIAL NEB PRN (22:48)
[2021-10-21] MEDS: LEVOTHYROXINE SODIUM 75 MCG TABLET PO SCH (06:07)
[2021-10-21 08:31] LABS: BUN Creatinine Ratio 21.4 (10-20); Creatinine Clr Calc Pharmacy 100.8 ml/min; Est GFR (African American) 110.3 ml/min; Est GFR (Non-African American) 95.1 ml/min; Potassium 4.4 mmol/L (3.5-5.1)
[2021-10-21] MEDS: INSULIN ASPART PER UNIT SC SCH ×4 (09:36→20:26)
[2021-10-21] MEDS: dilTIAZem HCL 300 MG CAPCR PO SCH (09:46)
[2021-10-21] MEDS: LORATADINE 10 MG TAB PO SCH (09:46)
[2021-10-21] MEDS: ASPIRIN 81 MG ECTAB PO SCH (09:47)
[2021-10-21] MEDS: METOPROLOL TARTRATE 25 MG TAB PO SCH ×2 (09:47→21:56)
[2021-10-21] MEDS: FUROSEMIDE 40 MG TAB PO SCH ×2 (09:47→17:58)
[2021-10-21] MEDS: risperiDONE 1 MG TABLET PO SCH (09:47)
[2021-10-21] MEDS: FLUTICASONE FUROATE 100MCG 14 PUFFS/INHALER INH SCH (09:48)
[2021-10-21] MEDS: hydrALAZINE HCL 25 MG TAB PO SCH ×3 (09:48→21:56)
[2021-10-21] MEDS: ENOXAPARIN INJ 40 MG/0.4 ML SYR SQ SCH (09:49)
[2021-10-21] MEDS: POTASSIUM CHLORIDE 10 MEQ TABCR PO SCH ×2 (09:49→22:01)
[2021-10-21] MEDS: UMECLIDINIUM/VILANTEROL 62.5/25MCG 7 PUFFS/INHALER INH SCH (09:50)
[2021-10-21] MEDS: DOCUSATE SODIUM 100 MG CAP PO SCH (09:50)
--- NOTE | 2021-10-21 15:56 | Hospitalist Progress Note ---
Date of Service October 21, 2021 Assessment & Plan (1) Acute hypoxemic respiratory failure: Plan: Acute on chronic respiratory failure Likely multifactorial COPD, Atelectasis, CHF On chronic oxygen--2L at baseline Acute on Chronic CHF No signs of acute COPD exacerbation Continue supplemental oxygen Titrate oxygen to keep saturations 88 to 92% Continue home inhalers Continue Lasix 40mg BID Volume status improved Continue current management Mild troponin elevation Demand Ischemia Likely secondary to CHF, Hypoxia HTN BP stable Continue home meds Monitor Hyperlipidemia On statin DM II HbA1C: 6.3 Hold oral medications Continue Insulin Monitor BGs Hypokalemia secondary to home diuretic Replace as needed Hypothyroidism TSH Normal Continue Levothyroxine Schizoaffective/mood disorder Suicidal thoughts Appreciate psychiatry input Continue home medications Doesn't meet inpatient psychiatric hospitalization or 302 criteria as per psychiatry. Functional disability Patient states having inability to care for self Case management to help with discharge planning DVT Px: Lovenox SQ Code Status Full code Disposition [facility] Sunday Admission and Anticipated Discharge Date Admission Date: October 19, 2021 Subjective Patient is seen and examined at bedside No new complaints Doing better today Chronic cough--unchanged Denies any chest pain, dyspnea, dizziness, abdominal pain Review of Systems Review of Systems: All systems reviewed & are unremarkable except as noted in Subjective Physical Exam Physical Exam: Physical Exam: Vitals signs as noted above General Appearance:Obese, no apparent distress Head: normocephalic, Atraumatic Eyes: normal inspection, EOMI Neck: supple, Trachea midline Respiratory/Chest: Decreased coarse breath sounds, CTA, No accessory muscle use Cardiovascular: S1, S2, No murmur Abdomen/GI:Soft, Non tender, Bowel sounds present Extremities/Musculoskeletal:normal inspection, Trace pedal edema Neurologic/Psych:AAOX3, grossly no focal neurological deficits Skin: normal color, warm Results & Data Results & Data ([facility]) Vital Signs (Past 12 Hours) Vital Signs Temp Pulse Resp BP Pulse Ox 10/21/21 13:58 36.5 C 60 17 115/68 93 10/21/21 08:20 36.8 C 67 16 159/77 H 93 Laboratory Results [facility] 10/21/21 07:36 Sodium 134 L Potassium 4.4 Chloride 95 L Carbon Dioxide 35 H BUN 12 Creatinine 0.56 L Glucose 96 Calcium 9.0
[2021-10-21] MEDS: NICOTINE 14 MG/24 HR PATCH TD SCH (17:57)
[2021-10-21] MEDS: risperiDONE 2 MG TABLET PO SCH (17:58)
[2021-10-21] MEDS: ATORVASTATIN 40 MG TAB PO SCH (21:56)
[2021-10-21] MEDS: PRAZOSIN HCL 1 MG CAP PO SCH (21:58)
[2021-10-22] MEDS: LEVOTHYROXINE SODIUM 75 MCG TABLET PO SCH (06:31)
[2021-10-22 07:01] LABS: Hemoglobin 16.9 g/dL (12.0-16.0); Mean Corpuscular Hemoglobin 31.2 pg (25-34); Mean Corpuscular Hgb Conc 33.8 g/dL (32-36); Mean Corpuscular Volume 92.3 fL (80-100); Mean Platelet Volume 9.3 fL (7.4-10.4); Platelet Count 213 K/uL (130-400); RDW Coefficient of Variation 15.5 % (11.5-14.5); RDW Standard Deviation 52.2 fL (36.4-46.3); Red Blood Count 5.42 M/uL (4.2-5.4)
[2021-10-22 07:24] LABS: BUN Creatinine Ratio 29.3 (10-20); Calcium 9.1 mg/dl (8.5-10.1); Creatinine Clr Calc Pharmacy 96.1 ml/min; Potassium 4.3 mmol/L (3.5-5.1)
[2021-10-22] MEDS: UMECLIDINIUM/VILANTEROL 62.5/25MCG 7 PUFFS/INHALER INH SCH (07:56)
[2021-10-22] MEDS: FLUTICASONE FUROATE 100MCG 14 PUFFS/INHALER INH SCH (07:56)
[2021-10-22] MEDS: METOPROLOL TARTRATE 25 MG TAB PO SCH ×2 (07:56→20:26)
[2021-10-22] MEDS: LORATADINE 10 MG TAB PO SCH (07:57)
[2021-10-22] MEDS: FUROSEMIDE 40 MG TAB PO SCH ×2 (07:57→18:11)
[2021-10-22] MEDS: ASPIRIN 81 MG ECTAB PO SCH (07:57)
[2021-10-22] MEDS: risperiDONE 1 MG TABLET PO SCH (07:57)
[2021-10-22] MEDS: dilTIAZem HCL 300 MG CAPCR PO SCH (07:57)
[2021-10-22] MEDS: hydrALAZINE HCL 25 MG TAB PO SCH ×3 (07:58→20:26)
[2021-10-22] MEDS: NICOTINE 14 MG/24 HR PATCH TD SCH (07:58)
[2021-10-22] MEDS: DOCUSATE SODIUM 100 MG CAP PO SCH (07:58)
[2021-10-22] MEDS: ENOXAPARIN INJ 40 MG/0.4 ML SYR SQ SCH (07:58)
[2021-10-22] MEDS: INSULIN ASPART PER UNIT SC SCH ×4 (09:43→20:45)
[2021-10-22] MEDS: POTASSIUM CHLORIDE 10 MEQ TABCR PO SCH ×2 (09:45→20:27)
[2021-10-22] MEDS: ALBUT/IPRATROP 3MG/0.5MG NEB 3 ML VIAL NEB PRN (11:47)
--- NOTE | 2021-10-22 14:55 | Hospitalist Progress Note ---
Date of Service October 22, 2021 Assessment & Plan (1) Acute hypoxemic respiratory failure: Plan: Acute on chronic respiratory failure Likely multifactorial COPD, Atelectasis, CHF On chronic oxygen--2L at baseline Acute on Chronic CHF No signs of acute COPD exacerbation Continue supplemental oxygen Titrate oxygen to keep saturations 88 to 92% Continue home inhalers Continue Lasix 40mg BID Volume status improved Pulmonary Hygiene Advised to quit tobacco use Mild troponin elevation Demand Ischemia Likely secondary to CHF, Hypoxia HTN BP stable Continue home meds Monitor Hyperlipidemia On statin DM II HbA1C: 6.3 Hold oral medications Continue Insulin Monitor BGs Hypokalemia secondary to home diuretic Replace as needed Hypothyroidism TSH Normal Continue Levothyroxine Schizoaffective/mood disorder Suicidal thoughts Appreciate psychiatry input Continue home medications Doesn't meet inpatient psychiatric hospitalization or 302 criteria as per psychiatry. Functional disability Patient states having inability to care for self Case management to help with discharge planning DVT Px: Lovenox SQ Code Status Full code [facility]position [facility] Admission and Anticipated Discharge Date Admission Date: October 19, 2021 Subjective Patient is seen and examined at bedside States feeling congested No other complaints Chronic cough--unchanged Denies any chest pain, dyspnea, dizziness, abdominal pain Review of Systems Review of Systems: All systems reviewed & are unremarkable except as noted in Subjective Physical Exam Physical Exam: Physical Exam: Vitals signs as noted above General Appearance:Obese, no apparent distress Head: normocephalic, Atraumatic Eyes: normal inspection, EOMI Neck: supple, Trachea midline Respiratory/Chest: Decreased coarse breath sounds, CTA, No accessory muscle use Cardiovascular: S1, S2, No murmur Abdomen/GI:Soft, Non tender, Bowel sounds present Extremities/Musculoskeletal:normal inspection, Trace pedal edema Neurologic/Psych:AAOX3, grossly no focal neurological deficits Skin: normal color, warm Results & Data Results & Data ([facility]) Vital Signs (Past 12 Hours) Vital Signs Temp Pulse Resp BP Pulse Ox 10/22/21 14:22 36.3 C L 66 15 106/67 95 10/22/21 11:48 72 16 96 10/22/21 07:08 36.3 C L 63 18 142/89 H 96 Laboratory Results Short CBC 10/22/21 Range/Units 06:40 WBC 7.40 (4.8-10.8) K/uL Hgb 16.9 H (12.0-16.0) g/dL Hct 50.0 H (37-47) % Plt Count 213 (130-400) K/uL BMP 10/22/21 06:40 Sodium 134 L Potassium 4.3 Chloride 96 L Carbon Dioxide 35 H BUN 17 Creatinine 0.58 L Glucose 92 Calcium 9.1
[2021-10-22] MEDS: risperiDONE 2 MG TABLET PO SCH (18:11)
[2021-10-22] MEDS: PRAZOSIN HCL 1 MG CAP PO SCH (20:26)
[2021-10-22] MEDS: ATORVASTATIN 40 MG TAB PO SCH (20:27)
[2021-10-23] MEDS: LEVOTHYROXINE SODIUM 75 MCG TABLET PO SCH (05:41)
[2021-10-23] MEDS: UMECLIDINIUM/VILANTEROL 62.5/25MCG 7 PUFFS/INHALER INH SCH (08:19)
[2021-10-23] MEDS: NICOTINE 14 MG/24 HR PATCH TD SCH (08:19)
[2021-10-23] MEDS: FLUTICASONE FUROATE 100MCG 14 PUFFS/INHALER INH SCH (08:19)
[2021-10-23] MEDS: ENOXAPARIN INJ 40 MG/0.4 ML SYR SQ SCH (08:19)
[2021-10-23] MEDS: ASPIRIN 81 MG ECTAB PO SCH (08:24)
[2021-10-23] MEDS: LORATADINE 10 MG TAB PO SCH (08:24)
[2021-10-23] MEDS: hydrALAZINE HCL 25 MG TAB PO SCH ×3 (08:24→20:16)
[2021-10-23] MEDS: METOPROLOL TARTRATE 25 MG TAB PO SCH ×2 (08:24→20:17)
[2021-10-23] MEDS: risperiDONE 1 MG TABLET PO SCH (08:24)
[2021-10-23] MEDS: DOCUSATE SODIUM 100 MG CAP PO SCH (08:24)
[2021-10-23] MEDS: dilTIAZem HCL 300 MG CAPCR PO SCH (08:24)
[2021-10-23] MEDS: POTASSIUM CHLORIDE 10 MEQ TABCR PO SCH ×2 (08:24→20:16)
[2021-10-23] MEDS: INSULIN ASPART PER UNIT SC SCH ×4 (09:06→21:52)
[2021-10-23] MEDS: FUROSEMIDE 40 MG TAB PO SCH ×2 (09:39→17:45)
--- NOTE | 2021-10-23 16:02 | Hospitalist Progress Note ---
Date of Service October 23, 2021 Assessment & Plan (1) Acute hypoxemic respiratory failure: Plan: Acute on chronic respiratory failure Likely multifactorial COPD, Atelectasis, CHF On chronic oxygen--2L at baseline Acute on Chronic CHF No signs of acute COPD exacerbation Continue supplemental oxygen Titrate oxygen to keep saturations 88 to 92% Continue home inhalers Continue Lasix 40mg BID Volume status improved Pulmonary Hygiene Advised to quit tobacco use Waiting for placement Mild troponin elevation Demand Ischemia Likely secondary to CHF, Hypoxia HTN BP stable Continue home meds Monitor Hyperlipidemia On statin DM II HbA1C: 6.3 Hold oral medications Continue Insulin Monitor BGs Hypokalemia secondary to home diuretic Replace as needed Hypothyroidism TSH Normal Continue Levothyroxine Schizoaffective/mood disorder Suicidal thoughts Appreciate psychiatry input Continue home medications Doesn't meet inpatient psychiatric hospitalization or 302 criteria as per psychiatry. Functional disability Patient states having inability to care for self Case management to help with discharge planning DVT Px: Lovenox SQ Code Status Full code Disposition [facility] Personal nursing home tomorrow Admission and Anticipated Discharge Date Admission Date: October 19, 2021 Subjective Patient is seen and examined at bedside No new complaints Chronic cough--unchanged Denies any chest pain, dyspnea, dizziness, abdominal pain Waiting for placement Review of Systems Review of Systems: All systems reviewed & are unremarkable except as noted in Subjective Physical Exam Physical Exam: Physical Exam: Vitals signs as noted above General Appearance:Obese, no apparent distress Head: normocephalic, Atraumatic Eyes: normal inspection, EOMI Neck: supple, Trachea midline Respiratory/Chest: Decreased coarse breath sounds, CTA, No accessory muscle use Cardiovascular: S1, S2, No murmur Abdomen/GI:Soft, Non tender, Bowel sounds present Extremities/Musculoskeletal:normal inspection, Trace pedal edema Neurologic/Psych:AAOX3, grossly no focal neurological deficits Skin: normal color, warm Results & Data Results & Data ([facility]) Vital Signs (Past 12 Hours) Vital Signs Temp Pulse Resp BP BP Pulse Ox 10/23/21 14:34 36.8 C 66 18 131/83 95 10/23/21 08:14 96 10/23/21 07:13 36.3 C L 61 18 149/83 H 94
[2021-10-23] MEDS: risperiDONE 2 MG TABLET PO SCH (17:45)
[2021-10-23] MEDS: ATORVASTATIN 40 MG TAB PO SCH (20:15)
[2021-10-23] MEDS: PRAZOSIN HCL 1 MG CAP PO SCH (20:15)
[2021-10-24] MEDS: LEVOTHYROXINE SODIUM 75 MCG TABLET PO SCH (05:25)
[2021-10-24 08:18] LABS: Hematocrit (blood only) 50.8 % (37-47); Hemoglobin 17.7 g/dL (12.0-16.0); Mean Corpuscular Hgb Conc 34.8 g/dL (32-36); Mean Platelet Volume 9.4 fL (7.4-10.4); Platelet Count 219 K/uL (130-400); RDW Coefficient of Variation 15.1 % (11.5-14.5); RDW Standard Deviation 49.3 fL (36.4-46.3); Red Blood Count 5.71 M/uL (4.2-5.4); White Blood Count 6.91 K/uL (4.8-10.8)
[2021-10-24] MEDS: hydrALAZINE HCL 25 MG TAB PO SCH (08:21)
[2021-10-24] MEDS: dilTIAZem HCL 300 MG CAPCR PO SCH (08:22)
[2021-10-24] MEDS: METOPROLOL TARTRATE 25 MG TAB PO SCH (08:22)
[2021-10-24] MEDS: FUROSEMIDE 40 MG TAB PO SCH (08:23)
[2021-10-24] MEDS: risperiDONE 1 MG TABLET PO SCH (08:23)
[2021-10-24 08:33] LABS: BUN Creatinine Ratio 29.6 (10-20); Calcium 9.6 mg/dl (8.5-10.1); Creatinine Clr Calc Pharmacy 103.2 ml/min; Est GFR (African American) 111.6 ml/min; Est GFR (Non-African American) 96.3 ml/min; Potassium 3.9 mmol/L (3.5-5.1)
[2021-10-24] MEDS: INSULIN ASPART PER UNIT SC SCH ×2 (09:31→12:39)
[2021-10-24] MEDS: UMECLIDINIUM/VILANTEROL 62.5/25MCG 7 PUFFS/INHALER INH SCH (09:31)
[2021-10-24] MEDS: FLUTICASONE FUROATE 100MCG 14 PUFFS/INHALER INH SCH (09:31)
[2021-10-24] MEDS: ASPIRIN 81 MG ECTAB PO SCH (09:32)
[2021-10-24] MEDS: LORATADINE 10 MG TAB PO SCH (09:32)
[2021-10-24] MEDS: ENOXAPARIN INJ 40 MG/0.4 ML SYR SQ SCH (09:33)
[2021-10-24] MEDS: NICOTINE 14 MG/24 HR PATCH TD SCH (09:33)
[2021-10-24] MEDS: POTASSIUM CHLORIDE 10 MEQ TABCR PO SCH (09:35)
[2021-10-24] MEDS: DOCUSATE SODIUM 100 MG CAP PO SCH (09:35)
[2021-10-24] MEDS: ALBUT/IPRATROP 3MG/0.5MG NEB 3 ML VIAL NEB PRN (12:03)
--- NOTE | 2021-10-24 12:39 | Hospitalist Progress Note ---
Date of Service October 24, 2021 Assessment & Plan (1) Acute hypoxemic respiratory failure: Plan: Acute on chronic respiratory failure Likely multifactorial COPD, Atelectasis, CHF On chronic oxygen--2L at baseline Acute on Chronic CHF No signs of acute COPD exacerbation Continue supplemental oxygen Titrate oxygen to keep saturations 88 to 92% Continue home inhalers Continue Lasix 40mg BID Volume status improved Pulmonary Hygiene Advised to quit tobacco use 2 step:Did not qualify Plan to discharge to personal assisted today Mild troponin elevation Demand Ischemia Likely secondary to CHF, Hypoxia HTN BP stable Continue home meds Monitor Hyperlipidemia On statin DM II HbA1C: 6.3 Hold oral medications Continue Insulin Monitor BGs Hypokalemia secondary to home diuretic Replace as needed Hypothyroidism TSH Normal Continue Levothyroxine Schizoaffective/mood disorder Suicidal thoughts Appreciate psychiatry input Continue home medications Doesn't meet inpatient psychiatric hospitalization or 302 criteria as per psychiatry. Functional disability Patient states having inability to care for self Case management to help with discharge planning DVT Px: Lovenox SQ Code Status Full code Disposition [facility] today Admission and Anticipated Discharge Date Admission Date: October 19, 2021 Subjective Patient is seen and examined at bedside Plan to be discharged today Chronic cough--unchanged Denies any chest pain, dyspnea, dizziness, abdominal pain No new complaints Review of Systems Review of Systems: All systems reviewed & are unremarkable except as noted in Subjective Physical Exam Physical Exam: Physical Exam: Vitals signs as noted above General Appearance:Obese, no apparent distress Head: normocephalic, Atraumatic Eyes: normal inspection, EOMI Neck: supple, Trachea midline Respiratory/Chest: Decreased coarse breath sounds, CTA, No accessory muscle use Cardiovascular: S1, S2, No murmur Abdomen/GI:Soft, Non tender, Bowel sounds present Extremities/Musculoskeletal:normal inspection, Trace pedal edema Neurologic/Psych:AAOX3, grossly no focal neurological deficits Skin: normal color, warm Results & Data Results & Data ([facility]) Vital Signs (Past 12 Hours) Vital Signs Temp Pulse Pulse Pulse Pulse Resp Resp 10/24/21 12:03 70 18 10/24/21 10:32 86 77 70 22 10/24/21 07:40 36.6 C 70 16 Resp Resp BP Pulse Ox Pulse Ox Pulse Ox Pulse Ox 10/24/21 12:03 93 10/24/21 10:32 20 18 92 94 94 10/24/21 07:40 172/92 H 93 Laboratory Results Short CBC 10/24/21 Range/Units 07:54 WBC 6.91 (4.8-10.8) K/uL Hgb 17.7 H (12.0-16.0) g/dL Hct 50.8 H (37-47) % Plt Count 219 (130-400) K/uL BMP 10/24/21 07:54 Sodium 131 L Potassium 3.9 Chloride 93 L Carbon Dioxide 31 BUN 16 Creatinine 0.54 L Glucose 98 Calcium 9.6
--- NOTE | 2021-10-24 12:48 | Discharge Summary ---
Date of Service October 24, 2021 Admission HPI Per Admitting Provider History obtained from patient, family, and records. Patient is a fair historian. Medical history significant for chronic respiratory failure secondary to COPD on home O2, chronic diastolic heart failure as per records (EF 65%, TTE 2017), HTN, hyperlipidemia, DM 2 on oral medications, hypothyroidism, schizoaffective/mood disorder, past tobacco abuse. Last confinement 2018 for respiratory failure secondary to COPD exacerbation status post intubation. Patient with fleeting suicidal ideations since last week. Hearing voices. Patient more stressed out than usual after her home had to be cleaned because of bedbugs. Patient claims landlord threatened to evict her which patient's cousin denies. Patient thinking of relocating to a personal care facility due to inability to care for self. Patient denies chest pain. Short of breath when she gets excited. No unusual cough symptoms. Patient not sure about weight gain. Patient brought to the ER for evaluation. Initial O2 sats at the ER 80s on room air. Medical History as above Surgical History : Knee surgery, hysteroscopy with biopsy Family History : Breast cancer, colon cancer, DM Personal/Social history : Past tobacco abuse, no EtOH intake, disabled, lives by herself Admission Exam Per Admitting Provider Physical Exam Physical Exam: GENERAL: Comfortable, morbidly obese, no respiratory distress SKIN: Normal color, warm HEENT: Mcgregor palpebral conjunctivae, no ptosis, dry buccal mucosa, nasal cannula in place NECK : Supple, short neck, no tenderness CHEST : Decreased breath sounds, expiratory wheezes, no tenderness HEART : Bradycardic, no obvious murmurs ABDOMEN: Some distention, nontender EXTREMITIES : Bilateral LE venous stasis, no LE tenderness, no other conspicuous deformities noted NEUROLOGIC : Coherent, no facial asymmetry, no other gross focality Principal Diagnosis Acute on chronic respiratory failure Acute CHF COPD On chronic oxygen--2L at baseline Paranoid schizophrenia Functional disability Discharge Data Allergies Allergy/AdvReac Type Severity Reaction Status Date / Time lisinopril Allergy Severe EDEMA OF Verified 10/18/21 21:10 FACE, LIPS & TONGUE Consultations 10/19/21 02:06 ED Decision to Admit Stat 10/19/21 05:36 Consult Psychiatry Routine Ordered Studies 10/18/21 22:52 CT head/brain wo con Urgent 10/19/21 02:51 CT angio chest PE protocol Urgent Hospital Course (1) Acute hypoxemic respiratory failure: Acute on chronic respiratory failure Likely multifactorial COPD, Atelectasis, CHF On chronic oxygen--2L at baseline Acute on Chronic CHF No signs of acute COPD exacerbation Continue supplemental oxygen Titrate oxygen to keep saturations 88 to 92% Continue home inhalers Continue Lasix 40mg BID Volume status improved Pulmonary Hygiene Advised to quit tobacco use 2 step:Did not qualify Plan to discharge to personal halfway today Mild troponin elevation Demand Ischemia Likely secondary to CHF, Hypoxia HTN BP stable Continue home meds Monitor Hyperlipidemia On statin DM II HbA1C: 6.3 Hold oral medications Continue Insulin Monitor BGs Hypokalemia secondary to home diuretic Replace as needed Hypothyroidism TSH Normal Continue Levothyroxine Schizoaffective/mood disorder Suicidal thoughts Appreciate psychiatry input Continue home medications Doesn't meet inpatient psychiatric hospitalization or 302 criteria as per psychiatry. Functional disability Patient states having inability to care for self Case management to help with discharge planning DVT Px: Lovenox SQ Code Status Full code Disposition [facility] today Total Time Total Time Spent Total Time Spent (In Minutes): 45 minutes Discharge Plan Discharge Items Patient Disposition: Personal Longterm Reason For Visit: RESP FAILURE TROP ELEV Discharge Diagnosis: Acute on chronic respiratory failure Acute CHF COPD On chronic oxygen--2L at baseline Paranoid schizophrenia Functional disability Activity: Per Instructions section Exercise/Sports: Gradually increase as tolerated Non-emergency contact: Primary Care Provider Call non-emergency contact if: you have any medication questions, your symptoms worsen, your pain is concerning for you and you have a fever Follow-up/Referrals: Jazmyn Puga DO [Primary Care Provider] - (Date & Time 10/27/2021 3:00 PM Provider Rosio Cuello MD Department [facility] ) Diet: Carb Consistent or DM2 and Heart Healthy Addtl Attending Provider Instructions: Follow up with your primary care physician on 10/27/2021 3:00 PM Seek immediate medical attention if your symptoms reoccur or worsen Please take all medications as instructed on discharge list below. Please call if you have any questions or problems. You can reach a [facility] hospitalist on duty at [facility] 24 hours a day by calling [phone] Pending Studies at Discharge: No Stand-Alone Forms: [facility] CallAround, Smoking Cessation Skilled Items Patient informed of condition?: Yes DNR: No Discharge Level of Care: Other Communicable Disease: No Discharge Prognosis: Stable Lines: None Urinary Catheter: No Medications and DC Order Prescriptions: New metoprolol tartrate 25 mg Tablet 12.5 mg PO BID Qty: 30 RF: 0 Continued diltiazem HCl 300 mg capsule,extended release 24hr 300 mg PO DAILY RF: 0 furosemide 40 mg tablet 40 mg PO BID RF: 0 loratadine 10 mg tablet 10 tab PO QAM RF: 0 risperidone 1 mg Tablet 1 mg PO QAM RF: 0 atorvastatin 40 mg tablet 40 mg PO HS RF: 0 ipratropium-albuterol 0.5 mg-3 mg(2.5 mg base)/3 mL solution for nebulization 3 ml inhalation QID PRN (Reason: Shortness Of Breath) RF: 0 levothyroxine 75 mcg tablet 75 mcg PO DAILYBB RF: 0 risperidone 2 mg tablet 2 mg PO QDD RF: 0 hydroxyzine pamoate 25 mg capsule 25 mg PO QID PRN (Reason: Anxiety) RF: 0 potassium chloride 10 mEq tablet extended release 10 meq PO DAILY RF: 0 aspirin 81 mg Tablet,Delayed Release (Dr/Ec) 81 mg PO DAILY RF: 0 ascorbic acid (vitamin C) 250 mg Tablet 250 mg PO DAILY RF: 0 hydralazine 50 mg tablet 75 mg PO TID RF: 0 Trelegy Ellipta 100-62.5-25 mcg blister with device 1 inh INHALATION DAILY RF: 0 metformin 500 mg tablet extended release 24 hr 500 mg PO BID Qty: 60 RF: 0 albuterol sulfate [Proventil] 2.5 mg /3 mL (0.083 %) Solution For Nebulization 2.5 mg INHALATION DIRECTED PRN (Reason: Shortness Of Breath) RF: 0 omega-3 fatty acids 1,000 mg Capsule 1,000 mg PO DAILY RF: 0 prazosin 1 mg capsule 1 mg PO HS RF: 0 lorazepam 0.5 mg tablet 0.5 mg PO BID PRN (Reason: Anxiety) RF: 0 docusate sodium 100 mg Capsule 200 mg PO DAILY RF: 0 albuterol sulfate 90 mcg/actuation Hfa Aerosol Inhaler 2 puff INHALATION Q6H PRN (Reason: Shortness Of Breath Or Wheezing) RF: 0 Multivital 0.4-162-18 mg Tablet 1 tab PO DAILY RF: 0 Collagen Capsule 500 mg PO DAILY RF: 0 Discontinued metoprolol tartrate 50 mg tablet 50 mg PO QAM RF: 0 Discharge Orders: Discharge Order (Routine); Ordered 10/24/21 Ordered By: Henry Ross/Other Patient Handouts: Managing Type 2 Diabetes Admission Data Admit Date/Time: 10/19/21 02:57 Attending Provider: Henry Browning Admit Provider: Sabas Rodrigues Primary Care Provider: Jazmyn Puga Other Providers: Sabas Rodrigues ; Katherine Rizo ; Nyla Mandujano ; Sonia Gonzalez
== END 2021-10-24 13:30 | disposition home or self-care (01) | DRG 189 ==
LOC: ED 20:18 → 2E 10-19 02:57 → 3N 10-20 16:02